=== PATIENT | male | born 1935 | race Caucasian/White ===

== ENCOUNTER 2020-12-17 08:00 | Outpatient (RCR) | payer MEDICARE, SELFPAY ==
--- NOTE | 2020-11-25 09:47 | OTOPEVAL ---
OCCUPATIONAL THERAPY EVALUATION REPORT 11/25/20 Thank you for referring Shayne Epps to [facility].? The patient is scheduled to be seen for therapy again this week on Monday for fabrication of left wrist cock up orthotic and then subsequently?1x/week for 4 weeks. Please review, sign, date and return this plan of care LAZARO. I agree with and certify that the following plan of care is medically necessary. Referring Physician Date Referring Provider: Saeed Sandhu MD *OT Outpatient Evaluation Therapy Assessment Status Assessment Status Assessment Status Evaluation Outpatient Past Medical History Past Medical History Source of Past Medical History Patient Neurological History Hx Neurological Disorders No Significant History Cardiovascular History Hx Hypertension Yes Hx Myocardial Infarction Yes: 1997 Respiratory History Hx Respiratory Disorders No Significant History Gastrointestinal History Hx Gastrointestinal Disorders No Significant History Genitourinary History Hx Genitourinary Disorders No Significant History Musculoskeletal History Hx Arthritis Yes: back, hands, fingers Hematological History Hx Hematological Disorders No Significant History Endocrine History Hx Endocrine Disorders No Significant History HEENT History Hx HEENT Disorders No Significant History Integumentary History Hx Skin Disorders No Significant History Reproductive History Hx Reproductive Disorders No Significant History Psychosocial History Hx Psychiatric Disorders No Significant History Pain History History of Any Previous or Ongoing No Significant History Instance of Pain Evaluation Information Problem Diagnosis Bilateral carpal tunnel Onset about 3-4 weeks ago Subjective Information Shayne reports onset of Query Text:As Reported By Patient/ symptoms about a month ago. He Family just finished 6 days of steroids which decreased his pain from 9/10 to 1/10 at night. No pain symptoms reported during the day. He does note that his fingertips feel numb. The patient is independent and active. Does yard work and housework, some cooking, etc. Prior Level of Function Activity Level (Last 3 Months) Occupation Retired Hand Dominance Right Activity of Daily Living Ability Independent Cooking Yes Cleaning Yes Laundry Yes Shopping Yes Driving Yes Pain Assessment Timing of Pain Assessment Timing of Pain Asses
--- NOTE | 2020-12-17 10:27 | OTOPEVAL ---
OCCUPATIONAL THERAPY RE-EVALUATION REPORT AND DISCHARGE SUMMARY 12/17/20 Shayne presents for re-evaluation after 3 weeks of night time immobilization, tendon and nerve gliding HEP, and use of paraffin and ultrasound to help reduce pain and inflammation in bilateral hands. Patient has had a steady increase in his pain since he finished his steroid prescription. 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 respectively. Shiloh-Alura Monofilament testing for nerve shows minimal improvement in the right and and no change in the left hand. Patient states he is to follow up with a neurologist, which appears to be an appropriate plan as therapy does not appear to be helping the patient's symptoms. The patient may also benefit from a closer look at the cervical spine to rule out cervical radiculopathy. At this time he is being discharged from OT with HEP. He is currently independent with all materials, nighttime splinting, and non-medication pain management techniques. Thank you for referring Shayne Epps to [facility]. Please review, sign, date and return this Discharge Summary LAZARO. I agree with and certify that the following plan of care is medically necessary. Referring Physician Date Referring Provider: Saeed Sandhu MD *OT Outpatient Re-Evaluation Evaluation Information Problem Diagnosis Bilateral carpal tunnel Onset Unknown Additional Evaluation Detail Patient has participated in outpatient OT x3 weeks. Treatments have included fabrication of splinting for night time wear, tendon and nerve gliding, and use of modalities for pain and inflammation reduction. He has been compliant with all materials. Subjective Information Shayne reports that his hands Query Text:As Reported By Patient/ are still clumsy and he Family continues to have difficulty with buttons, managing his wallet, holding a razor, holding a toothbrush, holding a book, and opening jars/ containers. He states his left hand goes numb more frequently than it did before and he continues to have decreased sensation to the fingertips and thumb of bilateral hands. He does have night symptoms and intermittent pain/numbness during the day. Pain Assessment Timing of Pain Assessment Timing of Pain Assessment Re-assessment Pain Scale Pain Scale Used Numeric (1 - 10) Self Report Pain Assessment Bilateral Hand(s)
== END 2020-12-17 12:40 | disposition home or self-care (01) ==
LOC: ANHOT 08:00
PROVIDERS: PCP Internal Medicine; Visit Provider Orthopaedic Surgery
DX: G56.03 Carpal tunnel syndrome, bilateral upper limbs (principal)
CPT/HCPCS: 97018; 97035; 97110; 97140; 97165; L3906

== ENCOUNTER 2020-12-24 10:30 | Outpatient (CLI) | payer MEDICARE, SELFPAY ==
--- NOTE | 2020-12-24 12:00 | NEURO_ITS ---
Impression: # Complains of numbness of hands. # Bilateral Carpal Tunnel Syndrome. # No ulnar neuropathy. # Normal needle/EMG exam. # Superimposed cervical radiculopathy cannot be ruled out. Nerve Conduction Studies Anti Sensory Summary Table Stim Site NR Peak (ms) P-T Amp (?V) Site1 Site2 Delta-P (ms) Dist (cm) Scar (m/s) Left Median Anti Sensory (2-3nd Digit) Wrist 5.6 16.6 Wrist 2-3nd Digit 5.6 14.0 25 Wrist 4.6 27.3 Wrist 2-3nd Digit 5.6 14.0 25 Right Median Anti Sensory (2-3nd Digit) NO RESPONSE Wrist NR Wrist 2-3nd Digit 14.0 Wrist NR Wrist 2-3nd Digit 14.0 Left Radial Anti Sensory (Base 1st Digit) Wrist 2.4 19.2 Wrist Base 1st Digit 2.4 0.0 Right Radial Anti Sensory (Base 1st Digit) Wrist 2.8 6.2 Wrist Base 1st Digit 2.8 0.0 Left Ulnar Anti Sensory (5th Digit) Wrist 2.9 64.6 Wrist 5th Digit 2.9 14.0 48 Right Ulnar Anti Sensory (5th Digit) Wrist 2.7 48.1 Wrist 5th Digit 2.7 14.0 52 Motor Summary Table Stim Site NR Onset (ms) O-P Amp (mV) Site1 Site2 Delta-0 (ms) Dist (cm) Scar (m/s) Left Median Motor (Abd Poll Brev) Wrist 4.3 0.5 Elbow Wrist 5.5 30.0 55 Elbow 9.8 0.4 Right Median Motor (Abd Poll Brev) Wrist 4.2 1.2 Elbow Wrist 5.7 30.0 53 Elbow 9.9 0.3 Left Ulnar Motor (Abd Dig Minimi) Wrist 3.0 5.1 A Elbow Wrist 5.4 30.0 56 A Elbow 8.4 3.7 Right Ulnar Motor (Abd Dig Minimi) Wrist 3.1 5.2 A Elbow Wrist 5.3 29.0 55 A Elbow 8.4 3.2 F Wave Studies NR F-Lat (ms) L-R F-Lat (ms) Left Median (Mrkrs) (Abd Poll Brev) 32.81 0.00 Right Median (Mrkrs) (Abd Poll Brev) 32.81 0.00 Left Ulnar (Mrkrs) (Abd Dig Min) 30.76 0.44 Right Ulnar (Mrkrs) (Abd Dig Min) 31.19 0.44 EMG Side Muscle Nerve Root Ins Act Fibs Amp Dur Recrt Comment Right 1stDorInt Ulnar C8-T1 Nml Nml Nml Nml Nml Right Ext Indicis Radial (Post Int) C7-8 Nml Nml Nml Nml Nml Right Ext Digitorum Radial (Post Int) C7-8 Nml Nml Nml Nml Nml Right BrachioRad Radial C5-6 Nml Nml Nml Nml Nml Right PronatorTeres Median C6-7 Nml Nml Nml Nml Nml Right Abd Poll Brev Median C8-T1 Nml Nml Nml Nml Nml Left 1stDorInt Ulnar C8-T1 Nml Nml Nml Nml Nml Left Ext Indicis Radial (Post Int) C7-8 Nml Nml Nml Nml Nml Left Ext Digitorum Radial (Post Int) C7-8 Nml Nml Nml Nml Nml Left BrachioRad Radial C5-6 Nml Nml Nml Nml Nml Left PronatorTeres Median C6-7 Nml Nml Nml Nml Nml Left Abd Poll Brev Median C8-T1 Nml Nml Nml Nml Nml MTDD
== END 2020-12-24 10:31 | disposition home or self-care (01) ==
PROVIDERS: PCP Internal Medicine; Visit Provider Orthopaedic Surgery
DX: G56.03 Carpal tunnel syndrome, bilateral upper limbs (principal)
CPT/HCPCS: 95886; 95911

== ENCOUNTER 2021-01-20 08:48 | Outpatient (CLI) | payer MEDICARE, SELFPAY ==
--- NOTE | 2021-01-20 08:51 | ECG_ITS ---
Measurements Intervals [place] Rate: 73 P: 48 MT: 197 QRS: 14 QRSD: 98 T: 51 QT: 353 QTc: 390 Interpretive Statements SINUS RHYTHM CONSIDER INFERIOR INFARCT, AGE INDETERMINATE BASELINE ARTIFACT- I, II, III, AVR, AVL, AVF ABNORMAL ECG Electronically Signed On 01-20-2021 9:32:46 GLOBAL SUPPLY CHAIN DIRECTOR by Noman Rosas D.O.
== END 2021-01-20 08:49 | disposition home or self-care (01) ==
PROVIDERS: PCP Physician Assistant; Visit Provider Orthopaedic Surgery
DX: Z01.810 Encounter for preprocedural cardiovascular examination (principal); R94.31 Abnormal electrocardiogram [ECG] [EKG]
CPT/HCPCS: 93005

== ENCOUNTER → 2021-01-22 00:20 | Outpatient (CLI) | payer MEDICARE, SELFPAY ==
[2021-01-22 18:59] LABS: SARS-CoV-2 RNA PCR Negative
== END ==
PROVIDERS: PCP Physician Assistant; Visit Provider Orthopaedic Surgery
DX: Z01.812 Encounter for preprocedural laboratory examination (principal); Z20.822 Contact with and (suspected) exposure to COVID-19
CPT/HCPCS: C9803; U0003; U0005

== ENCOUNTER 2021-01-25 01:49 | Day surgery (SDC) | payer MEDICARE, SELFPAY ==
[2021-01-14 15:45] VITALS: BMI 30.7
--- NOTE | 2021-01-25 12:20 | P.PNAN_ITS ---
Anes - Initial Pre Proc Eval Procedure: Operation Date: 01/25/21 13:30 Proposed Procedures p Right Carpal Tunnel Release - Saeed Sandhu MD Date/Time: 01/25/21 12:20 Surgeon: Saeed Sandhu MD Pre Op Diagnosis: Right Carpal Tunnel Syndrome Patient Data Age: 86 Gender: M Height: 1.7 m Weight: 88.6 kg Allergies Allergy/AdvReac Type Severity Reaction Status Date / Time No Known Allergies Allergy Verified 01/25/21 11:52 Home Medications Medication Instructions Recorded Confirmed Type aspirin 81 mg tablet,delayed 81 mg PO QPM 11/18/20 01/25/21 History release losartan 25 mg tablet 25 mg PO QPM 11/18/20 01/25/21 History pravastatin 40 mg tablet 40 mg PO QPM 11/18/20 01/25/21 History acetaminophen [Tylenol] 500 mg PO PRN PRN 01/14/21 01/25/21 History Patient hx anesthesia problems: none Family hx anesthesia problems: none PMFSH Past Medical History Medical History (Updated 01/25/21 @ 07:07 by Aki Alejandre DO) History of arthritis History of heart attack 1996 History of heart disease 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 [facility] History of right hip replacement 2012- Dr. Sandhu Family History Family History Sibling Family history of pancreatic cancer Family history of renal failure Patient's sister is Patient's brother is Father Patient's father is Social History Social History Smoking packs per day: 1 Smoking cigarettes per day: 20.0 Years smoked: 18 Smoking pack-years: 18.00 Smoking status: Never smoker Tobacco type: cigarettes Second hand tobacco smoke exposure: No Smoking end date: 11/13/82 Alcohol intake: current Drinks per week: 7 Living arrangements: with family Additional living arrangements comments: - Lovely Epps Gender identity (if verbalized by the patient): Male Spiritual care concerns: No Anes - Eval Final PreProcedure Day of Procedure 01/25/21 12:20 Patient weight: obese Heart: regular rate and rhythm Lungs: clear to auscultation and normal air movement Airway: Mallampati scale class II Neurological: alert and oriented Last oral intake: >/= 8 hours ASA classification: III Emergent: no Anesthetic plan: proceed Anesthesia type and monitoring: general GIVS and standard monitoring Informed Consent: The patient's anesthetic plan and its attendant risks and benefits were discussed with the patient/family/POA. Questions were solicited and answers provided to the satisfaction of the patient/family/POA.
[2021-01-25] MEDS: LACTATED RINGERS 1,000 ML 30 ML IV CONT (12:26)
[2021-01-25] MEDS: KETOROLAC 15 MG/ML VIAL (*BKC) IV PUSH (12:27)
[2021-01-25 12:30] VITALS: BP 147/75; PULSE 72; RESP 16; TEMP 36.6; O2SAT 97
--- NOTE | 2021-01-25 13:57 | WPDHPUPDATE1 ---
History and Physical Update Update Date/Time: 01/25/21 13:57 History and Physical has been reviewed, including an updated exam of the patient. There are NO changes in the patient's condition. Risks, benefits, and alternatives have been discussed and questions answered. Patient agrees to proceed with procedure.
[2021-01-25] MEDS: ceFAZolin 2 GM/D5W 50 ML 2 GM/50 ML BAG IVPB (14:15)
[2021-01-25] MEDS: BUPIVACAINE/EPINEPHRINE 0.25% 50 ML VIAL 20 ML INFILTRATE (14:41)
[2021-01-25 14:58] VITALS: BP 121/45; PULSE 62; RESP 14; O2SAT 96
--- NOTE | 2021-01-25 15:06 | PM.PROC ---
Procedure Note - Detailed Date of procedure: 01/25/21 Pre-op diagnosis: Right Carpal Tunnel Syndrome Post-op diagnosis: same Procedure performed: Right carpal tunnel release Description of procedure: The patient was identified and proper side identified. After being taken to the operating room and transferred to the OR table, a nonsterile tourniquet was placed high on the right upper extremity, which was prepped and draped in the usual sterile fashion. After IV sedation was administered, the subcutaneous tissue in the area of the incision was infiltrated with several cc of 0.25% Marcaine and epinephrine solution. The extremity was exsanguinated and tourniquet inflated to 250 mmHg remaining up for approximately 8 minutes. A longitudinal incision was over the ulnar aspect of the transverse carpal ligament. Subcutaneous tissue was bluntly dissected down to the ligament, which was identified and then transected longitudinally in line with the incision releasing the contents of the carpal canal. The tourniquet was released. Hemostasis was carried out with bipolar electrocautery. The median nerve had appropriate blush with reperfusion. The wound was irrigated with sterile saline solution. Skin edges were reapproximated with four 0 nylon suture and a sterile dressing was applied. A well-padded volar wrist splint was fashioned with the wrist in a neutral position. Surgeon: Saeed Sandhu MD
[2021-01-25 15:20] VITALS: BP 121/45; PULSE 61; RESP 20
[2021-01-25 15:50] VITALS: BP 155/61; PULSE 70; RESP 20
== END 2021-01-25 16:05 | disposition home or self-care (01) ==
PROVIDERS: PCP Physician Assistant; Visit Provider Orthopaedic Surgery
PROC: (CPT 64721; principal; 2021-01-25 13:30)
DX: G56.01 Carpal tunnel syndrome, right upper limb (principal); I11.9 Hypertensive heart disease without heart failure; I25.2 Old myocardial infarction; Z79.82 Long term (current) use of aspirin; Z87.891 Personal history of nicotine dependence; E66.9 Obesity, unspecified; Z68.30 Body mass index [BMI] 30.0-30.9, adult
CPT/HCPCS: 64721; A4565; J0690; J1885; J2704; J7120

== ENCOUNTER → 2021-02-19 00:42 | Outpatient (CLI) | payer MEDICARE, SELFPAY ==
[2021-02-19 19:49] LABS: SARS-CoV-2 RNA PCR Negative
== END ==
PROVIDERS: PCP Physician Assistant; Visit Provider Orthopaedic Surgery
DX: Z01.812 Encounter for preprocedural laboratory examination (principal); Z20.822 Contact with and (suspected) exposure to COVID-19
CPT/HCPCS: C9803; U0003; U0005

== ENCOUNTER 2021-02-22 01:53 | Day surgery (SDC) | payer MEDICARE, SELFPAY ==
[2021-02-15 12:58] VITALS: BMI 30.1
[2021-02-22 11:38] VITALS: BP 154/71; PULSE 63; RESP 18; TEMP 36.2; O2SAT 98
[2021-02-22] MEDS: LACTATED RINGERS 1,000 ML 30 ML IV CONT (12:25)
[2021-02-22] MEDS: KETOROLAC 15 MG/ML VIAL (*BKC) IV PUSH (12:27)
[2021-02-22] MEDS: ACETAMINOPHEN 500 MG TABLET 1000 MG PO (12:27)
--- NOTE | 2021-02-22 12:42 | WPDHPUPDATE1 ---
History and Physical Update Update Date/Time: 02/22/21 12:42 History and Physical has been reviewed, including an updated exam of the patient. There are NO changes in the patient's condition. Risks, benefits, and alternatives have been discussed and questions answered. Patient agrees to proceed with procedure.
--- NOTE | 2021-02-22 13:41 | P.PNAN_ITS ---
Anes - Initial Pre Proc Eval Procedure: Operation Date: 02/22/21 13:30 Proposed Procedures p Left Carpal Tunnel Release - Saeed Sandhu MD Date/Time: 02/22/21 13:41 Surgeon: Saeed Sandhu MD Pre Op Diagnosis: Left Carpal Tunnel Syndrome Patient Data Age: 86 Gender: M Height: 5 ft 7 in Weight: 87.15 kg Allergies Allergy/AdvReac Type Severity Reaction Status Date / Time No Known Allergies Allergy Verified 02/15/21 12:43 Home Medications Medication Instructions Recorded Confirmed Type aspirin 81 mg tablet,delayed 81 mg PO QPM 11/18/20 02/15/21 History release losartan 25 mg tablet 25 mg PO QPM 11/18/20 02/15/21 History pravastatin 40 mg tablet 40 mg PO QPM 11/18/20 02/15/21 History acetaminophen [Tylenol] 500 mg PO PRN PRN 01/14/21 02/15/21 History Patient hx anesthesia problems: none Family hx anesthesia problems: none PMFSH Past Medical History Medical History History of arthritis History of heart attack 1996 History of heart 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 [facility] History of right hip replacement 2012- Dr. Sandhu Family History Family History Sibling Family history of pancreatic cancer Family history of renal failure Patient's sister is Patient's brother is Father Patient's father is Social History Social History Smoking packs per day: 1 Smoking cigarettes per day: 20.0 Years smoked: 18 Smoking pack-years: 18.00 Smoking status: Former smoker Tobacco type: cigarettes Second hand tobacco smoke exposure: No Smoking end date: 11/13/82 Alcohol intake: current Drinks per week: 7 Living arrangements: with family Additional living arrangements comments: - Lovely Epps Gender identity (if verbalized by the patient): Male Spiritual care concerns: No Anes - Eval Final PreProcedure Day of Procedure 02/22/21 13:41 Patient weight: obese Heart: regular rate and rhythm Lungs: clear to auscultation Airway: Mallampati scale class II Neurological: alert and oriented Last oral intake: >/= 8 hours ASA classification: III Emergent: no Anesthetic plan: proceed Anesthesia type and monitoring: general GIVS and standard monitoring Informed Consent: The patient's anesthetic plan and its attendant risks and benefits were discussed with the patient/family/POA. Questions were solicited and answers provided to the satisfaction of the patient/family/POA.
[2021-02-22] MEDS: ceFAZolin 2 GM/D5W 50 ML 2 GM/50 ML BAG IVPB (14:48)
[2021-02-22] MEDS: BUPIVACAINE/EPINEPHRINE 0.25% 50 ML VIAL INFILTRATE (15:14)
[2021-02-22 15:28] VITALS: BP 109/56; PULSE 66; RESP 14; O2SAT 99
--- NOTE | 2021-02-22 15:30 | PM.PROC ---
Procedure Note - Detailed Date of procedure: 02/22/21 Pre-op diagnosis: Left Carpal Tunnel Syndrome Post-op diagnosis: same Procedure performed: The patient was identified and proper side identified. After being taken to the operating room and transferred to the OR table, a nonsterile tourniquet was placed high on the left upper extremity, which was prepped and draped in the usual sterile fashion. After IV sedation was administered, the subcutaneous tissue in the area of the incision was infiltrated with several cc of 0.25% Marcaine and epinephrine solution. The extremity was exsanguinated and tourniquet inflated to 250 mmHg remaining up for approximately 5 minutes. A longitudinal incision was over the ulnar aspect of the transverse carpal ligament. Subcutaneous tissue was bluntly dissected down to the ligament, which was identified and then transected longitudinally in line with the incision releasing the contents of the carpal canal. The tourniquet was released. Hemostasis was carried out with bipolar electrocautery. The median nerve had appropriate blush with reperfusion. The wound was irrigated with sterile saline solution. Skin edges were reapproximated with four 0 nylon suture and a sterile dressing was applied. A well-padded volar wrist splint was fashioned with the wrist in a neutral position. Surgeon: Saeed Sandhu MD Estimated blood loss (mL): 1 Tourniquet time (min): 5 Drains: No Packing: No Pathology: none sent Complications: No immediate complications Condition: stable Disposition: PACU
[2021-02-22 15:58] VITALS: BP 116/62; PULSE 64; RESP 14
[2021-02-22 16:20] VITALS: BP 165/69; PULSE 69; RESP 14
== END 2021-02-22 16:30 | disposition home or self-care (01) ==
PROVIDERS: PCP Physician Assistant; Visit Provider Orthopaedic Surgery
PROC: (CPT 64721; principal; 2021-02-22 13:30)
DX: G56.02 Carpal tunnel syndrome, left upper limb (principal); Z79.82 Long term (current) use of aspirin; Z87.891 Personal history of nicotine dependence; E66.9 Obesity, unspecified; Z68.30 Body mass index [BMI] 30.0-30.9, adult; I11.9 Hypertensive heart disease without heart failure
CPT/HCPCS: 64721; A9270; J0690; J1885; J2704; J3010; J7120

== ENCOUNTER 2021-10-13 06:59 | Outpatient (CLI) | payer MEDICARE, SELFPAY ==
[2021-10-13 07:53] LABS: Hematocrit 39.6 % (42.0-52.0); Hemoglobin 13.7 g/dL (14.0-18.0); Immature Platelet Fraction Pct 3.3 % (0.9-11.2); Mean Corpuscular HGB Conc 34.6 g/dl (32-36); Mean Corpuscular Hemoglobin 30.9 pg (26-34); Mean Corpuscular Volume 89.4 fl (80-100); Mean Platelet Volume 10.4 fl (7.4-10.4); Platelet Count Result 140 k/mm3 (150-375); Red Blood Count 4.43 M/mm3 (4.6-6.20); Red Cell Distribution Width 12.3 % (11.5-14.5); White Blood Count 6.2 K/mm3 (4.5-10.0)
[2021-10-13 08:04] LABS: Alanine Aminotransferase 18 U/L (4-50); Albumin Level 3.9 g/dL (3.5-5.1); Alkaline Phosphatase 76 U/L (38-126); Anion Gap 7 mmol/L (8-16); Aspartate Amino Transferase 28 U/L (17-59); Bilirubin,Total 1.1 mg/dL (0.2-1.3); Blood Urea Nitrogen 19 mg/dL (9-20); Calcium 9.1 mg/dL (8.4-10.2); Carbon Dioxide 24 mmol/L (22-30); Chloride 104 mmol/L (98-107); Cholesterol 156 mg/dL (0-200); Estimated Glomerular Filt Rate > 60; Glucose 130 mg/dL (65-110); HDL Direct 55 mg/dL; Potassium 4.5 mmol/L (3.4-5.0); Sodium 135 mmol/L (137-145); Triglycerides 79 mg/dL (<150)
[2021-10-13 08:16] LABS: LDL Cholesterol Direct 75 mg/dL
[2021-10-13 08:34] LABS: Prostate Specific Antigen 1.6 ng/mL (< OR = 4.0)
[2021-10-13 09:10] LABS: Folic Acid 6.2 ng/mL (2.76->20)
[2021-10-13 13:40] LABS: Hemoglobin A1C 5.5 % (<5.7)
== END 2021-10-13 07:00 | disposition home or self-care (01) ==
PROVIDERS: PCP Physician Assistant; Visit Provider Physician Assistant
DX: E78.5 Hyperlipidemia, unspecified (principal); R53.83 Other fatigue; Z12.5 Encounter for screening for malignant neoplasm of prostate; R73.9 Hyperglycemia, unspecified
CPT/HCPCS: 36415; 80053; 80061; 82607; 82746; 83036; 84153; 84443; 85027; 85055; G0103

== ENCOUNTER 2023-04-11 10:29 | Outpatient (CLI) | payer MEDICARE, SELFPAY ==
[2023-04-11 11:10] LABS: Appearance Urine Cloudy (Clear); Bacteria Urine 4+ /hpf; Bilirubin Urine Negative (Negative); Blood Urine 2+ (Negative); Color Urine Yellow (Yellow); Glucose Urine UA Negative (Negative); Ketones Urine Negative (Negative); Leukocyte Esterase Ur 2+ LEU/UL (NEGATIVE); Nitrate Urine Positive (Negative); Non Pathogenic Casts 0-2; Protein Urine 2+ mg/dL (Negative); RBC Urine 0-2 /hpf (0-2); Specific Grav Ur 1.022 (1.001-1.035); Squamous Epithelial Cell Urine None seen /hpf (Few); Urobilinogen Urine 0.2 mg/dL (<2.0); WBC Urine >100 /hpf (0-3); pH Urine 5.5 (5.0-9.0)
[2023-04-11 11:15] LABS: Add Urine Microscopic? YES
== END 2023-04-11 10:30 | disposition home or self-care (01) ==
PROVIDERS: PCP Physician Assistant; Visit Provider Physician Assistant
DX: R39.15 Urgency of urination (principal)
CPT/HCPCS: 81001; 87077; 87086; 87186

== ENCOUNTER 2023-04-15 18:03 | Inpatient (IN) | payer MEDICARE, SELFPAY ==
[2023-04-15] VITALS (31 sets, daily range): BP systolic 107–179; BP diastolic 45–92; PULSE 76–98; RESP 14–36; TEMP 37–37.2; O2SAT 93–98; BMI 29.7
--- NOTE | ~2023-04-15 | US_ITS ---
. EXAMINATION: US renal BI DATE: 04/17/2023 08:24 INDICATION: Acute kidney injury. TECHNIQUE: Multiple ultrasound grayscale images of the kidneys were obtained. COMPARISON: CT abdomen and pelvis 04/15/2023 FINDINGS: The right kidney measures 12.0 x 6.4 x 6.0 cm. The left kidney measures 12.8 x 6.4 x 5.2 cm. The kidn eys demonstrate normal parenchymal echogenicity. There are cysts in the kidneys measuring up to 4.6 c m on the right. There is no hydronephrosis. The bladder is normal. IMPRESSION: 1. Normal kidney sizes. No hydronephrosis. Reviewed, dictated and finalized at location A.
--- NOTE | ~2023-04-15 | CT_ITS ---
CT of the Abdomen and Pelvis: Indication: Vomiting, bowel obstruction Technique: 2.5 mm axial scans were obtained through the abdomen and pelvis following intravenous adm inistration of 100 cc of Omnipaque 350. Dose reduction technique was used on this scan by utilizing a utomated exposure control and iterative reconstruction technique. The dose-length product (DLP) was 1 045.58 mGy-cm. COMPARISON: 03/06/2013 Findings: Scans through the lung bases demonstrate mild bibasilar chronic interstitial change. The liver, spleen, pancreas, and adrenal glands are within normal limits. Small gallstones are presen t. Bilateral renal cysts noted. There are atherosclerotic calcifications of the aorta. No lymphadeno danielle. No bowel obstruction. Probable under distention of the ascending and proximal transverse colon. No ab scess or free air. Images through the pelvis there are mildly degraded by streak artifact from right hip arthroplasty. Q uestionable mild urinary bladder wall thickening. Prostate gland is enlarged. No ascites. Impression: Questionable cystitis. Correlate with urinalysis. Probable under distention of ascending and proximal transverse colon rather than colitis. Correlate c linically. No bowel obstruction. Cholelithiasis. Enlarged prostate gland. Reviewed, dictated and finalized at location M. Impression: Questionable cystitis. Correlate with urinalysis. Probable under distention of ascending and proximal transverse colon rather gina n colitis. Correlate clinically. No bowel obstruction. Cholelithiasis. Enlarged prostate gland.
--- NOTE | 2023-04-15 19:30 | ED.NAVMDI ---
HPI - Nausea/Vomiting/Diarrhea General Chief complaint: Nausea/Vomiting/Diarrhea Stated complaint: N/V Time Seen by Provider: 04/15/23 18:59 History of Present Illness HPI Narrative: Patient is an 88-year-old male presenting with vomiting and constipation. Patient states that he has been constipated for the last 3 to 4 weeks. States that he had a small bowel movement yesterday. States that he then had multiple dry heaves today. States he is able to keep fluids down. His states that he started antibiotics approximately 4 to 5 days ago for a UTI. States that he has 1 pill left. He continues to have frequent urination. She states that he also had a fever up to 100.4 Fahrenheit today. No headache, chest pain, cough, shortness of breath, leg swelling, rashes. Related Data Home Medications Medication Instructions Recorded Confirmed aspirin 81 mg tablet,delayed 81 mg PO QPM 11/18/20 04/24/23 release (Adult Aspirin Regimen) losartan 25 mg tablet 25 mg PO QPM 11/18/20 04/24/23 pravastatin 40 mg tablet 40 mg PO QPM 11/18/20 04/24/23 Allergies Allergy/AdvReac Type Severity Reaction Status Date / Time No Known Allergies Allergy Verified 04/24/23 13:06 Review of Systems Review of Systems: All systems reviewed & are unremarkable except as noted in HPI and below PMFSH Past Medical History Medical History Arthritis of left hip History of arthritis History of heart attack 1996 History of heart disease 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 History of right hip replacement 2012- Dr. Sandhu Family History Family History Sibling Family history of pancreatic cancer Family history of renal failure Patient's sister is Patient's brother is Father Patient's father is Social History Social History Smoking packs per day: 1 Smoking cigarettes per day: 20.0 Years smoked: 18 Smoking pack-years: 18.00 Smoking status: Former smoker Second hand tobacco smoke exposure: No Alcohol intake: current Drinks per week: 7 Alcohol use details: moderate Substance use: never Substance use type: does not use Lack of Transportation: No Lack of Food: Never True Current Housing: I Have Housing Concerned About Future Housing: No Difficulty Paying Gas/Electric Bills: No Difficulty Paying for Meds: No Currently Unemployed: No Education: High School Diploma/GED Difficulty w/ Childcare or Family Care: No Living arrangements: with family Additional living arrangements comments: - Lovely Epps Occupation/Education: retired Gender identity (if verbalized by the patient): Male Spiritual care concerns: No Exam Narrative: GENERAL: Well-appearing, well-nourished, and in no acute distress. HEAD: Normocephalic, atraumatic. EYES: PERRLA and EOMI. ENT: Nares clear, no rhinorrhea or epistaxis. Mucous membranes dry NECK: Supple. CHEST: Clear to auscultation. No respiratory distress. HEART: Regular rate and rhythm. ABDOMEN: Soft, nontender, nondistended EXTREMITIES: Normal range of motion. No edema. SKIN: Warm, dry, no rash. NEURO: No focal deficits. Alert and oriented x3. PSYCH: Normal mood and affect. Course Vital Signs Vital signs: Vital Signs Temperature 99 F 04/15/23 18:07 Pulse Rate 97 04/15/23 18:07 Respiratory Rate 16 04/15/23 18:07 Blood Pressure 179/92 H 04/15/23 18:07 Pulse Oximetry 98 04/15/23 18:07 Temperature 97.9 F 04/17/23 06:00 Pulse Rate 89 04/17/23 06:00 Res
[2023-04-15] MEDS: SODIUM CHLORIDE 0.9% IV 1,000 ML 999 ML IV CONT ×2 (19:52→21:07)
[2023-04-15 19:58] LABS: Basophils Absolute Auto 0.1 K/mm3 (0.0-0.1); Basophils Percent Auto 0.5 % (0.2-1.2); Eosinophils Percent Auto 0.3 % (0-4.4); Hematocrit 38.8 % (42.0-52.0); Hemoglobin 13.2 g/dL (14.0-18.0); Immature Granulocyte Absolute 0.04 K/mm3 (0.00-0.031); Immature Granulocyte Percent A 0.4 % (0-0.5); Lymphocytes Absolute Auto 0.18 K/mm3 (0.9-3.2); Lymphocytes Percent Auto 1.9 % (18.3-44.2); Mean Corpuscular Hemoglobin 30.5 pg (26-34); Mean Corpuscular Volume 89.6 fl (80-100); Mean Platelet Volume 10.9 fl (7.4-10.4); Monocytes Absolute Auto 0.7 K/mm3 (0.1-0.6); Monocytes Percent Auto 7.1 % (2.6-8.5); Neutrophils Absolute Auto 8.5 K/mm3 (1.3-6.7); Neutrophils Percent Auto 89.8 % (45.5-73.1); Platelet Count Result 159 k/mm3 (150-375); Red Blood Count 4.33 M/mm3 (4.6-6.20); White Blood Count 9.5 K/mm3 (4.5-10.0)
[2023-04-15 20:10] LABS: Alanine Aminotransferase 52 U/L (6-50); Albumin Level 3.8 g/dL (3.5-5.1); Alkaline Phosphatase 78 U/L (38-126); Anion Gap 10 mmol/L (8-16); Aspartate Amino Transferase 56 U/L (17-59); Blood Urea Nitrogen 31 mg/dL (9-20); Calcium 8.4 mg/dL (8.4-10.2); Carbon Dioxide 21 mmol/L (22-30); Chloride 101 mmol/L (98-107); Estimated CRCL calculation 30 ml/min; Estimated Glomerular Filt Rate 41; Glucose 174 mg/dL (65-110); Lipase 39 U/L (23-300); Potassium 4.7 mmol/L (3.4-5.0); Sodium 132 mmol/L (137-145)
[2023-04-15 20:35] LABS: Appearance Urine Clear (Clear); Bacteria Urine None Seen /hpf; Bilirubin Urine Negative (Negative); Blood Urine 1+ (Negative); Color Urine Yellow (Yellow); Glucose Urine UA Negative (Negative); Ketones Urine Trace mg/dL (Negative); Leukocyte Esterase Ur Trace LEU/UL (Negative); Nitrate Urine Negative (Negative); Non Pathogenic Casts 0-2; Protein Urine 1+ mg/dL (Negative); RBC Urine 0-2 /hpf (0-2); Specific Grav Ur 1.014 (1.001-1.035); Squamous Epithelial Cell Urine None seen /hpf (Few); pH Urine 5.5 (5.0-9.0)
[2023-04-15 20:37] LABS: Schistocytes None Seen (NORMAL)
[2023-04-15 20:38] LABS: Burr Cells 1+ (NORMAL); Platelet Estimate Adequate (Adequate)
[2023-04-15 20:39] LABS: Add Urine Microscopic? YES
--- NOTE | 2023-04-15 20:56 | PM.IMHP ---
H&P: HPI History of Present Illness Date/Time: 04/15/23 20:56 Chief Complaint: Urinary frequency Narrative: This is an 88-year-old male with past medical history significant for hypertension, dyslipidemia, degenerative joint disease, carpal tunnel syndrome. Patient presents to the emergency room due to several days of poor appetite, night sweats, nausea, vomiting, fevers, chills, rigors, generalized malaise, body aches and pains, generalized weakness, patient has had frequency, constipation. Patient completed course of antibiotics in the outpatient setting for urinary tract infection. Preliminary workup was significant for chemistry panel with a creatinine of 1.6, a CT of abdomen and pelvis was reported as: CT of the Abdomen and Pelvis: Indication: Vomiting, bowel obstruction Technique:? 2.5 mm axial scans were obtained through the abdomen and pelvis following intravenous administration of 100 cc of Omnipaque 350. Dose reduction technique was used on this scan by utilizing automated exposure control and iterative reconstruction technique. The dose-length product (DLP) was 1045.58 mGy-cm. COMPARISON: 03/06/2013 Findings:? Scans through the lung bases demonstrate mild bibasilar chronic interstitial change. The liver, spleen, pancreas, and adrenal glands are within normal limits. Small gallstones are present. Bilateral renal cysts noted. There are atherosclerotic calcifications of the aorta.? No lymphadenopathy. No bowel obstruction. Probable under distention of the ascending and proximal transverse colon. No abscess or free air. Images through the pelvis there are mildly degraded by streak artifact from right hip arthroplasty. Questionable mild urinary bladder wall thickening. Prostate gland is enlarged. No ascites. Impression: Questionable cystitis. Correlate with urinalysis. Probable under distention of ascending and proximal transverse colon rather than colitis. Correlate clinically. No bowel obstruction. Cholelithiasis. Enlarged prostate gland. Patient is been admitted for further evaluation management and treatment. Review of Systems Review of Systems: Nausea, vomiting, diarrhea poor appetite, generalized malaise, fevers, chills, generalized muscle weakness. Constitutional: Constitutional: Reports chills, Reports fatigue, Reports fever(s), Reports malaise, Reports night sweats, Reports poor appetite and Reports weakness Eyes: Eyes: Denies change in vision ENT: Denies dysphagia and Denies odynophagia Cardiovascular: Cardiovascular: Denies chest pain, Denies irregular heart rhythm, Denies leg edema, Denies lightheadedness, Denies radiating jaw, neck or arm pain and Denies palpitations Respiratory: Respiratory: Denies cough, Denies excessive phlegm production and Denies dyspnea Gastrointestinal: Gastrointestinal: Denies abdominal pain, Denies dyspepsia, Reports diarrhea, Reports nausea and Reports vomiting Genitourinary: Genitourinary: Denies dysuria, Denies flank pain and Reports nocturia Musculoskeletal: Musculoskeletal: Reports muscle weakness Integumentary/Breasts: Skin/Breast: Denies rash Neurologic: Denies focal weakness and Denies Sensory deficit (Neuro) Psychiatric: Psychiatric: Reports no additional psychiatric complaints and Reports as per HPI Endocrine: Endocrine: Denies cold intolerance, Denies flushing, Denies heat intolerance, Denies polyphagia, Denies polydipsia and Denies palpitations Hematologic/Lymphatic: Hematologic/Lymphatic: Reports no additional hematologic/lymphatic complaints and Reports as per HPI Allergic/Immunologic: Allergic/Immunologic: Reports no additional allergic/immunologic complaints and Reports as per HPI PMFSH Past Medical History Medical History Arthritis of left hip History of arthritis History of heart attack 1996 History of 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
--- NOTE | 2023-04-15 21:34 | ECG_ITS ---
Measurements Intervals [place] Rate: 76 P: 23 [place]: 200 QRS: 16 QRSD: 84 T: 51 QT: 378 QTc: 426 Interpretive Statements SINUS RHYTHM POSSIBLE INFERIOR MYOCARDIAL INFARCTION , PROBABLY OLD [30 ms Q WAVE IN II/aVF] COMPARED TO ECG 01/20/2021 09:35:19 NO SIGNIFICANT CHANGES Electronically Signed On 04-16-2023 12:15:20 CDT by Lisandro Kirk M.D.
--- NOTE | 2023-04-16 00:03 | PC.NURSE ---
pt is a&o x4, able to make needs known. pt was oriented to the hospital environment, room, call light. pt denies pain, c/o frequent urination and urgency. bedside urinal provided at pt's request. pt ambulates with a cane, and 1 assist. pt c/o increased weakness since diagnosed with a UTI 1 week ago. medications reviewed with pt and his spouse. pt's to bring a copy of advanced directives. pt resting comfortably in bed, bed alarm on as a fall precaution, pt educated about safety and anti-fall strategies. pt educated on when to call for help. all questions answered. no further needs.
[2023-04-16 00:15] VITALS: PULSE 82; RESP 16; O2SAT 98
[2023-04-16 06:00] VITALS: BP 158/54; PULSE 77; RESP 20; TEMP 36.8; O2SAT 98
[2023-04-16 08:21] LABS: Glucose Point of Care 115 mg/dl (65-105)
[2023-04-16] MEDS: polyethylene glycoL 3350 17 GM POWD.PACK PO (09:03)
[2023-04-16 10:38] LABS: Albumin Level 3.3 g/dL (3.5-5.1); Anion Gap 6 mmol/L (8-16); Blood Urea Nitrogen 25 mg/dL (9-20); Calcium 7.9 mg/dL (8.4-10.2); Carbon Dioxide 21 mmol/L (22-30); Chloride 102 mmol/L (98-107); Estimated CRCL calculation 34 ml/min; Estimated Glomerular Filt Rate 48; Glucose 157 mg/dL (65-110); Phosphorus 3.6 mg/dL (2.5-4.5); Potassium 4.5 mmol/L (3.4-5.0); Sodium 129 mmol/L (137-145)
[2023-04-16 11:38] LABS: Hemoglobin A1C 5.5 % (<5.7)
[2023-04-16 13:30] VITALS: BP 137/60; PULSE 72; RESP 16; TEMP 36.8; O2SAT 98
--- NOTE | 2023-04-16 14:52 | PM.IMPN ---
Progress Note: A&P Assessment and Plan (1) UTI (urinary tract infection): Code(s): N39.0 - Urinary tract infection, site not specified Status: Acute Assessment and Plan: Patient c/o dysuria, Tmax 100.4F prior to admission. He was started on Bactrim DS 1 tab BID on Monday04/11/23 and reports compliance. Urine culture shows pansensitive e.coli from 04/11/23. WBC 9.5 on admission. UA with trace Leukocytes, no nitrates or bacteria, and WBC 6-10 which appears improved from previous urine studies. Given Rocephin 1 gram IV in ED. Will hold abx for now and await culture results. (2) Urinary urgency: Code(s): R39.15 - Urgency of urination Status: Acute Assessment and Plan: CT abd/pelvis with questionable cystitis and enlarged prostate. Start Tamsulosin 0.4 mg daily for BPH He reported prior PSA levels were normal. (3) NII (acute kidney injury): Code(s): N17.9 - Acute kidney failure, unspecified Status: Acute Assessment and Plan: Likely secondary Bactrim use and possible obstruction from BPH. Check PVR. Continue IV fluids. hold Lisinopril Renal US (4) Constipation: Code(s): K59.00 - Constipation, unspecified Status: Acute Assessment and Plan: Patient reports pebble like stool for approximately 3-4 weeks. Miralax daily Give bisacodyl suppository x1. CT without SBO Plan CODE STATUS: FULL CODE Discharge disposition: patient is from home. Time Spent With Patient Time with patient: 25 - 35 minutes Subjective Date/time seen: 04/16/23 14:52 Interval history: He still has not had a BM yet. He denies nausea, emesis or abd pain. He denies dysuria at this time. He endorses a weak stream at home, gets up 2 times at night and has to push on his bladder to improve his urine steam. He denies hematuria. He has been taking Bactrim for UTI since Monday of last week, but has not noticed improvement in his symptoms. Review of Systems Review of Systems: All systems reviewed & are unremarkable except as noted in HPI and below Exam Narrative: General: No acute distress. Older adult male sitting up in bed. Mental Status/Psych: Awake, alert and oriented x4 with clear speech. Pleasant and cooperative. Skin: Skin fair, warm, dry and intact without rashes or lesions. HEENT: Normocephalic. Sclera is non-icteric. Pupils equal and round. Oral mucosa pink and moist. Neck: No JVD. Heart: S1 and S2 regular rate and rhythm. No murmurs, gallops, or rubs auscultated. Chest: Respirations even and unlabored. Lung sounds are clear to auscultation without wheezes, rhonchi, or rales. Abdomen: Soft, protuberant and tender to palpation LLQ. Bowel sounds present in all 4 quadrants. No guarding, suprapubic or CVA tenderness. Extremities: No edema, erythema or calf tenderness. Grossly normal ROM. Neurological: No focal deficits. Cranial nerves 2-12 grossly intact. Objective Data Vital Signs Vital Signs: Vital Signs - 24 hr 04/15/23 18:07 04/15/23 18:27 04/15/23 18:28 Temperature 99 F Pulse Rate 97 89 92 Respiratory Rate 16 30 H 23 H Blood Pressure 179/92 H 161/45 H Pulse Oximetry 98 96 98 Oxygen Delivery 04/15/23 18:30 04/15/23 18:32 04/15/23 18:45 Temperature Pulse Rate 87 90 98 Respiratory Rate 32 H 26 H Blood Pressure Pulse Oximetry 97 97 Oxygen Delivery 04/15/23 18:49 04/15/23 19:00 04/15/23 19:02 Temperature Pulse Rate 93 81 86 Respiratory Rate 23 H 33 H 31 H Blood Pressure 162/49 H 141/50 H Pulse Oximetry 94 94 94 Oxygen Delivery 04/15/23 19:15 04/15/23 19:16 04/15/23 19:30 Temperature Pulse Rate 88 89 89 Respiratory Rate 36 H 33 H 21 H Blood Pressure 152/52 H Pulse Oximetry 93 93 94 Oxygen Delivery 04/15/23 19:31 04/15/23 19:45 04/15/23 19:46 Temperature Pulse Rate 86 89 93 Respiratory Rate 25 H 20 21 H Blood Pressure 153/55 H 119/83 Pulse Oximetry 93 93 9
--- NOTE | 2023-04-16 15:09 | PCPTNOTE ---
attempted PT eval ~ 1500, unable to see pt due to working with OT.
[2023-04-16] MEDS: BISACODYL 10 MG SUPPOSITORY RECTAL (15:33)
[2023-04-16] MEDS: TAMSULOSIN HCL 0.4 MG CAPSULE PO (15:33)
[2023-04-16] MEDS: PRAVASTATIN SODIUM 20 MG TABLET 40 MG PO (17:38)
[2023-04-16] MEDS: ASPIRIN 81 MG ENTERIC TABLET PO (17:39)
[2023-04-16 20:00] VITALS: PULSE 75; RESP 16; O2SAT 98
[2023-04-16] MEDS: ACETAMINOPHEN 500 MG TABLET 1000 MG PO (20:15)
[2023-04-16 21:26] VITALS: BP 116/56; PULSE 75; RESP 16; TEMP 36.3; O2SAT 98
[2023-04-17 06:00] VITALS: BP 150/79; PULSE 89; RESP 16; TEMP 36.6; O2SAT 96
[2023-04-17 06:01] LABS: Basophils Absolute Auto 0.1 K/mm3 (0.0-0.1); Basophils Percent Auto 0.5 % (0.2-1.2); Eosinophils Absolute Auto 0.3 K/mm3 (0-0.3); Eosinophils Percent Auto 2.7 % (0-4.4); Hematocrit 34.9 % (42.0-52.0); Hemoglobin 11.9 g/dL (14.0-18.0); Immature Granulocyte Absolute 0.11 K/mm3 (0.00-0.031); Immature Granulocyte Percent A 1.1 % (0-0.5); Lymphocytes Absolute Auto 0.87 K/mm3 (0.9-3.2); Lymphocytes Percent Auto 8.8 % (18.3-44.2); Mean Corpuscular HGB Conc 34.1 g/dl (32-36); Mean Corpuscular Volume 90.9 fl (80-100); Monocytes Absolute Auto 1.2 K/mm3 (0.1-0.6); Monocytes Percent Auto 11.8 % (2.6-8.5); Neutrophils Absolute Auto 7.4 K/mm3 (1.3-6.7); Neutrophils Percent Auto 75.1 % (45.5-73.1); Platelet Count Result 152 k/mm3 (150-375); Red Blood Count 3.84 M/mm3 (4.6-6.20); Red Cell Distribution Width 13.2 % (11.5-14.5); White Blood Count 9.9 K/mm3 (4.5-10.0)
[2023-04-17 06:14] LABS: Alanine Aminotransferase 36 U/L (6-50); Albumin Level 3.1 g/dL (3.5-5.1); Alkaline Phosphatase 59 U/L (38-126); Anion Gap 6 mmol/L (8-16); Aspartate Amino Transferase 36 U/L (17-59); Bilirubin,Total 0.9 mg/dL (0.2-1.3); Blood Urea Nitrogen 22 mg/dL (9-20); Calcium 8.2 mg/dL (8.4-10.2); Carbon Dioxide 23 mmol/L (22-30); Chloride 102 mmol/L (98-107); Estimated CRCL calculation 32 ml/min; Estimated Glomerular Filt Rate 44; Glucose 110 mg/dL (65-110); Potassium 3.9 mmol/L (3.4-5.0); Sodium 131 mmol/L (137-145)
[2023-04-17] MEDS: polyethylene glycoL 3350 17 GM POWD.PACK PO (09:15)
[2023-04-17] MEDS: TAMSULOSIN HCL 0.4 MG CAPSULE PO (09:15)
--- NOTE | 2023-04-17 12:33 | PCPTNOTE ---
On 04/17/23, the student, [Kaylan Ballard], provided care and completed [facility] documentation on this patient. I have reviewed the student's documentation and agree with the findings.
--- NOTE | 2023-04-17 13:24 | PM.DS ---
DS: Admitting Diagnosis Discharge Date 04/17/2023 Admitting Diagnosis Urinary tract infection, site not specified Urgency of urination Acute kidney failure, unspecified DS: Discharge Diagnosis Discharge Diagnosis (1) Urinary urgency: Code(s): R39.15 - Urgency of urination Status: Acute Assessment and Plan: CT abd/pelvis with questionable cystitis and enlarged prostate. Started Tamsulosin 0.4 mg daily for enlarged prostate He reported prior PSA levels were normal. Urine culture with mixed fabian. Repeat UA improved from previous and previous urine culture showed pansensitive E.coli covered by Bactrim. Frequency and urgency likely secondary to enlarged prostate. (2) BPH (benign prostatic hyperplasia): Qualifiers: Lower urinary tract symptom presence: symptoms present Lower urinary tract symptom detail: urinary frequency Qualified Code(s): N40.1 - Benign prostatic hyperplasia with lower urinary tract symptoms; R35.0 - Frequency of micturition Code(s): N40.0 - Benign prostatic hyperplasia without lower urinary tract symptoms Status: Acute Assessment and Plan: CT abd/pelvis with questionable cystitis and enlarged prostate. Started Tamsulosin 0.4 mg daily for enlarged prostate PVR- #1 voided 25 mL and retained 125 mL; #2 voided 100 mL and retained 30 mL.?? He reported prior PSA levels were normal.? Follow up outpatient with PCP.? (3) Abnormal urinalysis: Code(s): R82.90 - Unspecified abnormal findings in urine Status: Acute Assessment and Plan: Patient c/o dysuria, Tmax 100.4F prior to admission. He was started on Bactrim DS 1 tab BID on Monday04/11/23 and reports compliance.? Urine culture shows pansensitive e.coli from 04/11/23.?? WBC 9.5 on admission.? UA with trace Leukocytes, no nitrates or bacteria, and WBC 6-10 which appears improved from previous urine studies.? Given Rocephin 1 gram IV in ED. Urine culture with mixed fabian. Urinary symptoms resolved with tamsulosin medication. (4) NII (acute kidney injury): Code(s): N17.9 - Acute kidney failure, unspecified Status: Acute Assessment and Plan: Likely secondary Bactrim use and possible obstruction from BPH. PVR- #1 voided 25 mL and retained 125 mL; #2 voided 100 mL and retained 30 mL. Treated with IV fluids. held Lisinopril inpatient Renal US negative. Renal function improved at discharge. Repeat labs in 1 week after discharge. (5) Constipation: Qualifiers: Constipation type: slow transit constipation Qualified Code(s): K59.01 - Slow transit constipation Code(s): K59.00 - Constipation, unspecified Status: Acute Assessment and Plan: Patient reported pebble like stool for approximately 3-4 weeks. Miralax daily Given bisacodyl suppository x1. CT without SBO Counseled on activity, fiber intake, fluid intake and OTC stool softeners DS: Summary Hospital Course Reason for hospitalization: Urinary frequency Hospital Course: Patient is an 88-year-old male with hypertension, dyslipidemia, degenerative joint disease, and carpal tunnel syndrome.? Patient presented to the emergency room due to several days of poor appetite, night sweats, nausea, vomiting, fevers, chills, rigors, generalized malaise, body aches, and generalized weakness. Patient c/o urinary frequency and constipation.? He completed a course of Bactrim in the outpatient setting for urinary tract infection recently with approximately 1 tablet remaining.? Preliminary workup was significant for chemistry panel with a creatinine of 1.6, a CT of abdomen and pelvis showed questionable cystitis and enlarged prostate gland. He was admitted for further management of NII and possible UTI. Rocephin 1 gram IV was given in the ED. Tamsulosin 0.4 mg PO daily was initiated. Given previous urine cultured showed E.coli growth sensitive to Bactrim, further antibiotics were held. Urine cultur
== END 2023-04-17 14:15 | disposition home or self-care (01) | DRG 690 ==
LOC: ANHED 18:59 → ANH2MED 04-16 17:47
PROVIDERS: Admitting Provider Internal Medicine; Emergency Provider Emergency Medicine; PCP Physician Assistant; Visit Provider Nurse Practitioner Family
DX: N39.0 Urinary tract infection, site not specified (principal); N17.9 Acute kidney failure, unspecified; K59.00 Constipation, unspecified; I10 Essential (primary) hypertension; E78.5 Hyperlipidemia, unspecified; N40.0 Benign prostatic hyperplasia without lower urinary tract symptoms; Z96.652 Presence of left artificial knee joint; Z96.641 Presence of right artificial hip joint; Z87.891 Personal history of nicotine dependence; Z79.82 Long term (current) use of aspirin; Z79.899 Other long term (current) drug therapy
CPT/HCPCS: 36415; 74177; 76775; 80053; 80069; 81001; 82948; 83036; 83690; 85025; 87086; 87088; 93005; 96360; 97161; 97165; 99285; A9270; J0696; J7030; Q9967

== ENCOUNTER 2023-04-24 08:25 | Outpatient (CLI) | payer MEDICARE, SELFPAY ==
[2023-04-24 09:51] LABS: Albumin Level 3.6 g/dL (3.5-5.1); Anion Gap 7 mmol/L (8-16); Blood Urea Nitrogen 24 mg/dL (9-20); Calcium 8.6 mg/dL (8.4-10.2); Carbon Dioxide 24 mmol/L (22-30); Chloride 102 mmol/L (98-107); Estimated Glomerular Filt Rate > 60; Glucose 152 mg/dL (65-110); Phosphorus 3.3 mg/dL (2.5-4.5); Potassium 4.7 mmol/L (3.4-5.0); Sodium 133 mmol/L (137-145)
== END 2023-04-24 08:26 | disposition home or self-care (01) ==
LOC: ANHLAB 08:27
PROVIDERS: PCP Physician Assistant; Visit Provider Nurse Practitioner Family
DX: N17.9 Acute kidney failure, unspecified (principal); N40.0 Benign prostatic hyperplasia without lower urinary tract symptoms
CPT/HCPCS: 36415; 80069

== ENCOUNTER 2023-05-01 10:06 | Outpatient (CLI) | payer MEDICARE, SELFPAY ==
[2023-05-01 10:47] LABS: Appearance Urine Clear (Clear); Bacteria Urine Rare /hpf; Bilirubin Urine Negative (Negative); Blood Urine 2+ (Negative); Color Urine Yellow (Yellow); Glucose Urine UA Negative (Negative); Ketones Urine Negative (Negative); Leukocyte Esterase Ur 3+ LEU/UL (Negative); Nitrate Urine Positive (Negative); Non Pathogenic Casts 0-2; Protein Urine Negative (Negative); RBC Urine 0-2 /hpf (0-2); Specific Grav Ur 1.006 (1.001-1.035); Squamous Epithelial Cell Urine None seen /hpf (Few); Urobilinogen Urine 0.2 mg/dL (<2.0); WBC Urine 51-100 /hpf; pH Urine 5.5 (5.0-9.0)
[2023-05-01 10:48] LABS: Add Urine Microscopic? YES
== END 2023-05-01 10:07 | disposition home or self-care (01) ==
PROVIDERS: PCP Physician Assistant; Visit Provider Internal Medicine
DX: R30.0 Dysuria (principal)
CPT/HCPCS: 81001; 87077; 87086; 87186

== ENCOUNTER 2023-10-30 07:28 | Outpatient (CLI) | payer MEDICARE, SELFPAY ==
[2023-10-30 08:02] LABS: Basophils Percent Auto 0.5 % (0.2-1.2); Eosinophils Absolute Auto 0.2 K/mm3 (0-0.3); Eosinophils Percent Auto 2.8 % (0-4.4); Hematocrit 36.3 % (42.0-52.0); Hemoglobin 11.9 g/dL (14.0-18.0); Immature Granulocyte Absolute 0.02 K/mm3 (0.00-0.031); Immature Granulocyte Percent A 0.3 % (0-0.5); Lymphocytes Absolute Auto 0.65 K/mm3 (0.9-3.2); Lymphocytes Percent Auto 10.6 % (18.3-44.2); Mean Corpuscular HGB Conc 32.8 g/dl (32-36); Mean Corpuscular Hemoglobin 29.6 pg (26-34); Mean Corpuscular Volume 90.3 fl (80-100); Mean Platelet Volume 9.6 fl (7.4-10.4); Monocytes Absolute Auto 0.8 K/mm3 (0.1-0.6); Monocytes Percent Auto 13.4 % (2.6-8.5); Neutrophils Absolute Auto 4.4 K/mm3 (1.3-6.7); Neutrophils Percent Auto 72.4 % (45.5-73.1); Platelet Count Result 182 k/mm3 (150-375); Red Blood Count 4.02 M/mm3 (4.6-6.20); Red Cell Distribution Width 11.9 % (11.5-14.5); White Blood Count 6.1 K/mm3 (4.5-10.0)
[2023-10-30 09:38] LABS: Erythrocyte Sedimentation Rate 49 mm/hr (0-20)
[2023-10-30 10:21] LABS: Hemoglobin A1C 5.8 % (<5.7)
[2023-10-30 10:23] LABS: Alanine Aminotransferase 17 U/L (6-50); Albumin Level 3.6 g/dL (3.5-5.1); Alkaline Phosphatase 85 U/L (38-126); Anion Gap 8 mmol/L (8-16); Aspartate Amino Transferase 27 U/L (17-59); Blood Urea Nitrogen 27 mg/dL (9-20); Carbon Dioxide 21 mmol/L (22-30); Chloride 107 mmol/L (98-107); Cholesterol 135 mg/dL (0-200); Estimated Glomerular Filt Rate > 60; Glucose 121 mg/dL (65-110); HDL Direct 40 mg/dL; Potassium 4.6 mmol/L (3.4-5.0); Sodium 136 mmol/L (137-145); Triglycerides 111 mg/dL (<150)
[2023-10-30 10:27] LABS: Rheumatoid Factor < 12.0 IU/ML (<12)
[2023-10-30 10:34] LABS: LDL Cholesterol Direct 60 mg/dL
[2023-10-30 10:55] LABS: Prostate Specific Antigen 2.3 ng/mL (< OR = 4.0)
[2023-11-03 05:38] LABS: Anti Nuclear Antibody Pattern Nuclear, Speckled
== END 2023-10-30 07:29 | disposition home or self-care (01) ==
LOC: ANHLAB 07:33
PROVIDERS: PCP Physician Assistant; Visit Provider Physician Assistant
DX: R73.9 Hyperglycemia, unspecified (principal); R53.83 Other fatigue; E78.5 Hyperlipidemia, unspecified; Z12.5 Encounter for screening for malignant neoplasm of prostate
CPT/HCPCS: 36415; 80053; 80061; 82607; 82746; 83036; 84153; 84443; 85025; 85652; 86038; 86039; 86430; G0103

== ENCOUNTER 2023-11-28 08:04 | Inpatient (IN) | payer MEDICARE, SELFPAY ==
[2023-11-28] VITALS (19 sets, daily range): BP systolic 122–167; BP diastolic 42–66; PULSE 70–98; RESP 18–40; TEMP 36.6–37; O2SAT 93–97; BMI 28.6
--- NOTE | ~2023-11-28 | XR_ITS ---
EXAMINATION: XR chest 1V portable DATE: 11/30/2023 10:35 INDICATION: COVID. Hypoxia. TECHNIQUE: frontal view of the chest was obtained. COMPARISON: Chest radiograph dated 02/15/[address] dated 11/28/2023 FINDINGS: Patchy reticular and groundglass opacities throughout much of the right lung and in the left mid and lower lung zones. No pleural effusion or pneumothorax. Dramatically. There are bridging osteophytes a t multiple levels consistent with diffuse idiopathic skeletal hyperostosis (DISH). IMPRESSION: 1. Diffuse lung disease throughout both lungs relatively sparing the left upper lung zone which could represent pneumonia, pulmonary edema, progression of previously minimal chronic interstitial lung di sease or some combination thereof. 2. Cardiomegaly. Reviewed, dictated and finalized at location A. DYER IMPRESSION: 1. Diffuse lung disease throughout both lungs relatively sparing the left upper lung zone which could represent pneumonia, pulmonary edema, progression of pre viously minimal chronic interstitial lung disease or some combination thereof. 2. Cardiomegaly.
--- NOTE | ~2023-11-28 | XR_ITS ---
Portable chest x-ray Comparison: 12/06/2023 Clinical History: Covid Findings: There is patchy groundglass pulmonary opacity bilaterally, essentially unchanged. Cardiom ediastinal silhouette is stable. Bones and soft tissues are unremarkable. Impression: Patchy bilateral groundglass pulmonary opacity, which could be consistent with history Covid 19 pneum onia. Reviewed, dictated and finalized at location . ER AND PRINTER FIELD TECHNICIAN Impression: Patchy bilateral groundglass pulmonary opacity, which could be consistent with history Covid 19 pneumonia.
--- NOTE | ~2023-11-28 | CT_ITS ---
EXAMINATION:CT diagnostic chest wo con DATE: 12/11/2023 14:11 INDICATION: Shortness of breath. COVID-19 pneumonia. TECHNIQUE: Computed tomography (CT) of the chest was performed without intravenous contrast. Automate d exposure control and iterative reconstruction technique were employed. The dose-length product (DLP ) was 577.39 mGy-cm. COMPARISON: Chest CT 11/28/23 FINDINGS: There are airspace and groundglass opacities and crazy paving involving all lobes. Calcifie d pulmonary nodules and calcified hilar and mediastinal lymph nodes are consistent with old granuloma tous disease. There are small pleural effusions. Cardiomegaly is noted. 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 There are coronary artery calcifications. No pericardial effusion. Calcifications in the liver consistent with old granulomatou s disease. There are cysts in right kidney measuring up to 5.5 cm . There are gallstones in the gallb ladder, which is normal in size. There is kyphosis of thoracic spine with mild chronic anterior wedgi ng of multiple vertebral bodies. There are bridging endplate osteophytes at multiple levels in the sp ine, consistent with diffuse idiopathic skeletal hyperostosis (DISH). IMPRESSION: 1. Diffuse lung disease, stable from 11/28/2023, likely pneumonia without or with some component of pu lmonary edema superimposed on chronic interstitial lung disease. 2. Cardiomegaly. Reviewed, dictated and finalized at location A. WRECKER IMPRESSION: 1. Diffuse lung disease, stable from 11/28/2023, likely pneumonia without or wit h some component of pulmonary edema superimposed on chronic interstitial lung d isease. 2. Cardiomegaly.
--- NOTE | ~2023-11-28 | XR_ITS ---
XR chest 1V portable 12/06/2023 09:02 Indication: Covid infection Procedure: AP portable chest Comparison: Comparison to multiple prior studies sequentially, with oldest reviewed study dated 03/25 2013. Findings: Patchy bilateral airspace disease, compatible with pneumonia. No pleural effusion or pneumo thorax. No acute osseous abnormality. Impression: 1: Patchy bilateral airspace disease, compatible with pneumonia. Reviewed, dictated and finalized at location B. WARE APPLICATION TESTER Impression: 1: Patchy bilateral airspace disease, compatible with pneumonia.
--- NOTE | ~2023-11-28 | US_ITS ---
EXAMINATION: US venous doppler [facility] DATE: 12/11/2023 21:43 INDICATION: Recent history of DVT, follow-up. TECHNIQUE: Grayscale images without and with compression and Doppler images of the bilateral lower ex tremity veins were obtained. COMPARISON: 11/28/2023 FINDINGS: The right common femoral vein, profunda (deep) femoral vein, femoral vein, popliteal vein, peroneal v ein, posterior tibial veins, and greater saphenous vein are patent. The left common femoral vein, profunda (deep) femoral vein, femoral vein, popliteal vein, peroneal v ein, posterior tibial veins, and greater saphenous vein are patent. IMPRESSION: Patent bilateral lower extremity veins. No evidence of deep venous thrombosis. Reviewed, dictated and finalized at location K. THERAPY ASST
--- NOTE | ~2023-11-28 | CT_ITS ---
EXAMINATION: CTA chest PE protocol DATE: 11/28/2023 18:25 INDICATION: Hypoxia. TECHNIQUE: Computed tomography angiography (CTA) of the chest was performed with 100 mL Omnipaque-350 intravenous contrast timed to evaluate the pulmonary arteries. Coronal maximum intensity projection 3D-reconstructions were created by the technologist. Automated exposure control and iterative reconst ruction technique were employed. The dose-length product was 893.47 mGy-cm. COMPARISON: CT abdomen and pelvis 04/15/2023 FINDINGS: There are widespread groundglass opacities and septal thickening in the lungs with a periph eral and inferior predominance. There are patchy airspace opacities in all lobes, worst in right lowe r lobe. There is a small right pleural effusion. Cardiomegaly is noted. There is an old infarct invol ving anterior wall, apex, and septal wall of left ventricle of the heart. No pericardial effusion. Th ere are coronary artery calcifications. There is an acute pulmonary embolus in lingula. There is a 17 mm cyst in right kidney. There are gallstones in the gallbladder, which is normal in size. There are bridging endplate osteophytes at multiple levels in the spine, consistent with diffuse idiopathic sk eletal hyperostosis (DISH). IMPRESSION: 1. Acute pulmonary embolus in lingula. 2. Diffuse lung disease, likely a combination of pulmonary edema and pneumonia superimposed on chroni c interstitial lung disease. 3. Cardiomegaly. Reviewed, dictated and finalized at location E. BOOTH OPERATOR IMPRESSION: 1. Acute pulmonary embolus in lingula. 2. Diffuse lung disease, likely a combination of pulmonary edema and pneumonia superimposed on chronic interstitial lung disease. 3. Cardiomegaly.
--- NOTE | ~2023-11-28 | US_ITS ---
EXAMINATION: US venous doppler [facility] DATE: 11/28/2023 20:48 INDICATION: Acute pulmonary embolus. TECHNIQUE: Grayscale ultrasound images without and with compression and Doppler ultrasound images of the bilateral lower extremity veins were obtained. COMPARISON: None. FINDINGS: The visualized portions of right common femoral vein, profunda (deep) femoral vein, femoral vein, pop liteal vein, peroneal veins, posterior tibial veins, and greater saphenous vein outflow are patent. The visualized portions of left common femoral vein, profunda femoral vein, femoral vein, popliteal v ein, and greater saphenous vein outflow are patent. There is thrombus in left posterior tibial and pe roneal veins. IMPRESSION: 1. Deep vein thrombosis involving left posterior tibial and peroneal veins. Reviewed, dictated and finalized at location E. ATTE OPERATOR
--- NOTE | ~2023-11-28 | US_ITS ---
EXAMINATION: US venous doppler [facility] DATE: 12/11/2023 21:42 INDICATION: R/O DVT . TECHNIQUE: Grayscale ultrasound images without and with compression and Doppler ultrasound images of the bilateral upper extremity veins were obtained. COMPARISON: None. FINDINGS: The visualized portions of the bilateral internal jugular vein, subclavian vein, axillary vein, brach ial veins, basilic vein, cephalic vein, radial vein, and ulnar vein are patent. IMPRESSION: No deep venous thrombosis in the bilateral upper extremities. Reviewed, dictated and finalized at location K. ERTY MAINTENANCE TECHNICIAN
--- NOTE | ~2023-11-28 | XR_ITS ---
XR chest 1V portable DATE: 12/02/2023 05:48 INDICATION: Pneumonia TECHNIQUE: Portable AP chest on 12/02/2023 at 0531 hours COMPARISON: 11/30/2023 portable AP chest at 1027 hours FINDINGS: There are persistent bilateral pulmonary infiltrates throughout the right lung and left low er lung, relatively stable since 11/30/2023. No pleural effusion or pneumothorax is evident. Cardiomegaly, aortic atherosclerosis. Mild prominence of the minor fissure, suggesting subpleural edema IMPRESSION: No significant change of bilateral pulmonary infiltrates since 11/30/2023; diffusion diagn osis includes pulmonary edema as well as pneumonia. Reviewed, dictated and finalized at location A. MINING ANALYST IMPRESSION: No significant change of bilateral pulmonary infiltrates since 11/30; diffusion diagnosis includes pulmonary edema as well as pneumonia.
--- NOTE | ~2023-11-28 | XR_ITS ---
XR chest 1V portable DATE: 11/28/2023 08:50 INDICATION: Shortness of breath TECHNIQUE: Portable AP chest on 11/28/2023 at 0837 hours COMPARISON: February 15, 2013 PA and lateral chest FINDINGS: There is pulmonary vascular congestion and redistribution. There are diffuse extensive bila teral pulmonary infiltrates, more prominent centrally, with prominence of the minor fissure, suggesti ng pulmonary edema. Minimal if any pleural effusion is noted. No pneumothorax. There is aortic calcification and mild unfolding. Heart size is not optimally evaluated on AP project ion because of magnification. Diffuse osteopenia. There is osteophytic change at the glenohumeral joints. Degenerative spurring of the thoracic spine. IMPRESSION: Pulmonary edema Aortic atherosclerosis Osteopenia Reviewed, dictated and finalized at location L. FIRE OPERATOR
--- NOTE | 2023-11-28 08:08 | ECG_ITS ---
Measurements Intervals [place] Rate: 93 P: 68 [place]: 169 QRS: 50 QRSD: 94 T: 28 QT: 316 QTc: 394 Interpretive Statements SINUS RHYTHM VENTRICULAR PREMATURE COMPLEX NONSPECIFIC ST & T-WAVE ABNORMALITY- DIFFUSE LEADS BASELINE ARTIFACT- I, II, III, AVR, AVL, AVF, V1-V6 BORDERLINE ECG COMPARED TO ECG 04/15/2023 21:24:30 ST-T WAVE ABNORMALITY NOW PRESENT Electronically Signed On 11-28-2023 8:34:49 [employer]ANK [employer]ER by Noman Rosas D.O.
[2023-11-28 08:31] LABS: Basophils Percent Auto 0.4 % (0.2-1.2); Eosinophils Absolute Auto 0.1 K/mm3 (0-0.3); Eosinophils Percent Auto 0.7 % (0-4.4); Hematocrit 35.1 % (42.0-52.0); Immature Granulocyte Absolute 0.07 K/mm3 (0.00-0.031); Immature Granulocyte Percent A 0.7 % (0-0.5); Lymphocytes Absolute Auto 0.62 K/mm3 (0.9-3.2); Lymphocytes Percent Auto 5.8 % (18.3-44.2); Mean Corpuscular HGB Conc 31.3 g/dl (32-36); Mean Corpuscular Hemoglobin 27.8 pg (26-34); Mean Corpuscular Volume 88.9 fl (80-100); Mean Platelet Volume 9.4 fl (7.4-10.4); Monocytes Absolute Auto 1.1 K/mm3 (0.1-0.6); Monocytes Percent Auto 10.1 % (2.6-8.5); Neutrophils Absolute Auto 8.8 K/mm3 (1.3-6.7); Neutrophils Percent Auto 82.3 % (45.5-73.1); Platelet Count Result 252 k/mm3 (150-375); Red Blood Count 3.95 M/mm3 (4.6-6.20); Red Cell Distribution Width 12.5 % (11.5-14.5); White Blood Count 10.7 K/mm3 (4.5-10.0)
[2023-11-28 08:41] LABS: Alanine Aminotransferase 33 U/L (6-50); Albumin Level 3.4 g/dL (3.5-5.1); Alkaline Phosphatase 99 U/L (38-126); Anion Gap 10 mmol/L (8-16); Aspartate Amino Transferase 45 U/L (17-59); Bilirubin,Total 1.2 mg/dL (0.2-1.3); Blood Urea Nitrogen 28 mg/dL (9-20); Calcium 9.1 mg/dL (8.4-10.2); Carbon Dioxide 21 mmol/L (22-30); Chloride 105 mmol/L (98-107); Estimated CRCL calculation 44 ml/min; Estimated Glomerular Filt Rate > 60; Glucose 152 mg/dL (65-110); Potassium 4.4 mmol/L (3.4-5.0); Sodium 136 mmol/L (137-145)
[2023-11-28 09:05] LABS: Influenza A QL RT-PCR Negative (Negative); Influenza B QL RT-PCR Negative (Negative); RSV RNA, RT-PCR Negative (Negative); SARS-CoV-2 RNA PCR Positive (Negative)
--- NOTE | 2023-11-28 09:54 | ED.SOB ---
HPI - SOB/Dyspnea General Chief Complaint: Shortness of Breath/Dyspnea Stated Complaint: resp distress Time Seen by Provider: 11/28/23 09:07 History of Present Illness HPI Narrative: Patient is an 88-year-old male who presents to the emergency department this morning from his extended care facility due to shortness of breath. EMS states that the extended care facility informed that the patient has been complaining of shortness of breath since Monday, however, today he became hypoxic and upon their arrival patient was satting at 77% on room air. Patient was placed on nasal cannula with improvement of his oxygenation to 84% and was then placed on CPAP. No known sick contacts or exposure to COVID/influenza at the half-way. Patient states that although he has been having shortness of breath while resting, any time he tries to move he gets extremely head of breath after taking a few steps which is unusual for him. Patient does not wear any oxygen at home. Patient denies any additional symptoms including chest pain, nausea, vomiting, abdominal pain, dysuria, hematuria, constipation, diarrhea, melena, hematochezia, fevers or chills. Patient also denies any headaches, dizziness, lightheadedness, blurry visions, focal weakness, numbness and or tingling. There are no other modifying, alleviating, or precipitating factors at this time. Related Data Home Medications Medication Instructions Recorded Confirmed aspirin 81 mg tablet,delayed 81 mg PO QPM 11/18/20 11/28/23 release (Adult Aspirin Regimen) losartan 25 mg tablet 25 mg PO QPM 11/18/20 11/28/23 pravastatin 40 mg tablet 40 mg PO QPM 11/18/20 11/28/23 acetaminophen 650 mg 650 mg PO Q12H 10/27/23 11/28/23 tablet,extended release (Tylenol Arthritis Pain) Allergies Allergy/AdvReac Type Severity Reaction Status Date / Time No Known Allergies Allergy Verified 11/28/23 08:32 Review of Systems Review of Systems: All systems are reviewed and are negative unless stated otherwise in the HPI. PMF Past Medical History Medical History Arthritis of left hip History of arthritis History of heart attack 1996 History of heart disease Telemetry Monitor last seen 03/2020 Hypertension Surgical History Surgical History Bilateral carpal tunnel syndrome Right carpal tunnel release January 25, 2021 Left carpal tunnel release February 22, 2021 History of knee replacement [id number] History of right hip replacement 2012- Dr. Sandhu Family History Family History Sibling Family history of pancreatic cancer Family history of renal failure Patient's sister is Patient's brother is Father Patient's father is Social History Social History Smoking packs per day: 1 Smoking cigarettes per day: 20.0 Years smoked: 18 Smoking pack-years: 18.00 Smoking status: Former smoker Second hand tobacco smoke exposure: No Alcohol intake: current Drinks per week: 7 Alcohol use details: moderate Substance use: never Substance use type: does not use Lack of Transportation: No Lack of Food: Never True Current Housing: I Have Housing Concerned About Future Housing: No Difficulty Paying Gas/Electric Bills: No Difficulty Paying for Meds: No Currently Unemployed: No Education: High School Diploma/GED Difficulty w/ Childcare or Family Care: No Living arrangements: with family Additional living arrangements comments: - Lovely Epps Occupation/Education: retired Gender identity (if verbalized by the patient): Male Spiritual care concerns: No Exam Narrative: General: Alert, awake, afebrile, in moderate respiratory distress. HEENT: PERRL, no rhinorrhea, no post na
[2023-11-28] MEDS: FUROSEMIDE INJ 40 MG/4 ML VIAL IV PUSH ×2 (13:47→16:06)
--- NOTE | 2023-11-28 14:46 | PM.IMHP ---
H&P: HPI History of Present Illness Date/Time: 11/28/23 15:00 Chief Complaint: Shortness of breath. Narrative: This is a very pleasant 88-year-old gentleman with coronary artery disease status post angioplasty in 1996, hypertension, hyperlipidemia, and benign prostatic hyperplasia who presented to the emergency department via EMS from [facility] for evaluation of shortness of breath. The patient provides the following history. He has not been feeling well since Monday with shortness of breath and congestion. When he got up this morning he was much more short of breath than he had been and called 911. He was in distress on EMS arrival with an SpO2 of 77% on room air. He was placed on nasal cannula and ultimately CPAP. On arrival to the ED he was tachypneic with respiratory rates in the 40s and he was transitioned to BiPAP with improvement in work of breathing. He has since been weaned from the BiPAP and is on 6 L nasal cannula. Blood pressures have been stable and he has been afebrile. Chest x-ray showed pulmonary edema and he tested positive for SARS-CoV-2 by PCR. Chest CTA done later showed evidence of acute pulmonary embolism. Thus far he has received a dose of IV furosemide, a therapeutic dose of enoxaparin, remdesivir, dexamethasone, azithromycin, and ceftriaxone. At the time my evaluation he is feeling better but is tired after all of the testing today. He denies syncope, near syncope, fever, sore throat, productive cough, chest pain, vomiting, diarrhea, and calf pain. No prior history of venous thromboembolism. Review of Systems Review of Systems: Twelve systems were reviewed and are negative except for as per HPI. [facility] Past Medical History Medical History (Updated 11/28/23 @ 23:01 by Monica Treadwell PA-C) Arthritis Benign prostatic hyperplasia Chronic anemia Coronary artery disease Hyperlipidemia Hypertension Myocardial infarction (1996) Surgical History Surgical History (Updated 11/28/23 @ 15:03 by Monica Treadwell PA-C) History of arthroscopy of right knee (07/2003) With partial medial meniscectomy per Dr. Sandhu. History of bilateral carpal tunnel release (2020) History of bilateral cataract extraction History of bilateral knee arthroplasty (04/2004) Per Drs. Villeda and Edson. History of cardiac catheterization (1996) History of colonoscopy with polypectomy (02/2011) History of coronary angioplasty (1996) History of total right hip arthroplasty (04/2012) Family History Family History Sibling Family history of pancreatic cancer Family history of renal failure Patient's sister is Patient's brother is Father Patient's father is Social History Social History (Updated 11/28/23 @ 22:59 by Monica Treadwell PA-C) Social History: Surrogate medical decision maker: Lovely Epps, spouse. Code status: Full code. Smoking packs per day: 1 Smoking cigarettes per day: 20.0 Years smoked: 18 Smoking pack-years: 18.00 Smoking status: Former smoker Second hand tobacco smoke exposure: No Alcohol intake: former Drinks per week: 7 Alcohol use details: moderate Substance use: never Substance use type: does not use Last use: 1mo ago last drink Do You Feel Safe in your Home?: Yes Lack of Transportation: No Lack of Food: Never True Current Housing: I Have Housing Concerned About Future Housing: No Difficulty Paying Gas/Electric Bills: No Difficulty Paying for Meds: No Currently Unemployed: No Education: High School Diploma/GED Difficulty w/ Childcare or Family Care: No Living arrangements: with family Additional living arrangements comments: Lives with spouse in assisted living at [place]. 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 Spiritual care concerns: No Meds Home Medications and
--- NOTE | 2023-11-28 15:17 | ECHO_ITS ---
Patient Info Name: Shayne Epps Age: 88 years : 1935 Gender: Male Ht: 67 in Wt: 197 lbs BSA: 2.08 m2 HR: 91 bpm BP: 158 / 66 mmHg Heart Rhythm: Sinus Rhythm Technical Quality: Fair Exam Date: 11/28/2023 3:47 PM Exam Location: Echo Lab Patient Status: Inpatient Admit Date: 11/28/2023 Staff Ordering Physician: Monica Treadwell PA-C Tour Driver: Nimo Matthews RDCS Attending Provider: Shannon Villegas DO Referring Physician: Mile CRUZ; Exam Type: CA echo dop color flow w con Study Info Indications - CAD, HTN, PULMONARY EDEMA Complete two-dimensional, color flow and Doppler transthoracic echocardiogram is performed with contrast to opacify the left ventricle and to improve the deliniation of the left ventricle endocardial borders. Contrast/Agitated Saline Contrast/Ag. Saline: Definity Amount: 2.00 ml Administered By: Nimo Matthews RDCS Existing IV Access: Yes IV Access Condition: patent with no signs of infiltration Summary 1. Normal left ventricular size and thickness. Overall good contractility with an ejection fraction of 72%. However the mid and distal anteroseptal wall appears hypokinetic. Grade 1 diastolic dysfunction is present. 2. Left atrial chamber dimension is mildly enlarged. 3. There is mild mitral valve regurgitation. 4. There is mild tricuspid valve regurgitation. 5. Moderate pulmonary hypertension, estimated pulmonary arterial systolic pressure is 63 mmHg. 6. There is mild aortic root atherosclerosis. 7. Normal sinus rhythm. Left Ventricle Left ventricular chamber dimension is normal. Left ventricular systolic function is normal, estimated at 65-70%. There is no increased left ventricular wall thickness. Left ventricular septal wall motion is normal. The left ventricular diastolic function is grade I diastolic dysfunction. Right Ventricle Right ventricular chamber dimension is normal. Right ventricular systolic function is normal. Left Atria Left atrial chamber dimension is mildly enlarged. Right Atria Right atrial chamber dimension is normal. Aortic Valve The aortic valve is trileaflet. There is no aortic valve sclerosis. There is no aortic valve stenosis. There is no aortic valve regurgitation. Pulmonic Valve The pulmonic valve is normal. There is no pulmonic valve stenosis. There is no pulmonic regurgitation. Mitral Valve The mitral valve has normal leaflets. There is no mitral valve stenosis. There is mild mitral valve regurgitation. Tricuspid Valve The tricuspid valve leaflets are normal. There is no significant tricuspid valve stenosis. There is mild tricuspid valve regurgitation. Moderate pulmonary hypertension, estimated pulmonary arterial systolic pressure is 63 mmHg. Pericardium/Pleural The pericardium appears normal. There is no pericardial effusion. Inferior Vena Cava Normal inferior vena cava with >50% collapse upon inspiration consistent with Empty right atrial pressure, 10 mmHg. Aorta The aortic root size at the sinus of Valsalva is normal. The prox ascending aorta size is normal. There is mild aortic root atherosclerosis. Left Ventricular Outflow Tract Name Value Normal LVOT 2D LVOT Diameter 2.04 cm LVOT Doppler -------
--- NOTE | 2023-11-28 15:27 | ADMGEN ---
This patient, Shayne Epps, was admitted to IMU Room 231-01. Patient/family oriented to hospital policies and general routines including ID bracelet, bed and alarms, visiting hours, pain management, procedures, bathroom and other care routines, personal items, smoking policy, room service/diet, and visiting hours. Information on how to activate the Rapid Response Team has been discussed. Patient/Family are encouraged to report perceived risks to care and to ask questions if they do not understand what they are told or what they should do.
[2023-11-28 16:02] LABS: INR 1.3; Prothrombin Time 16.9 Seconds (11.1-14.7)
[2023-11-28] MEDS: REMDESIVIR 200 MG/NS 250 ML 200 MG/250 ML BAG 250 MG IVPB (16:05)
[2023-11-28] MEDS: PERFLUTREN LIPID MICROSPHERES 1.5 ML VIAL DILUTED TO 10 ML TOTAL VOLUME IV PUSH (16:12)
[2023-11-28 16:21] LABS: CRP > 27.0 mg/dL (<1.0); NT Pro B Type Natriuretic Pept 2490 pg/mL (19.9-100); Troponin I 0.073 ng/mL (0.000-0.034)
[2023-11-28 16:29] LABS: Lactate Dehydrogenase 471 U/L (120-246)
[2023-11-28 16:40] LABS: D Dimer > 20.00 ug/mL (<0.48)
--- NOTE | 2023-11-28 16:52 | IVDEFINITY ---
Prior to administration of IV Definity the patient was educated on the risks and benefits of the imaging enhancing agent including potential adverse side effects. The patient verbalized understanding. Allergies were verified. No exclusion criteria were identified and at least one of the following inclusion criteria were met: 1) physician request, 2) patient technically difficult to image (per the [place] [employer] guidelines of two or more segments not discernable within the apical view), or 3) questionable left ventricular function. ?
[2023-11-28 17:31] LABS: Glucose Point of Care 164 mg/dl (65-105)
[2023-11-28 19:55] LABS: Lactic Acid Reflex 1.9 mmol/L (0.7-2.0)
[2023-11-28 20:07] LABS: Glucose Point of Care 264 mg/dl (65-105)
[2023-11-28 20:14] LABS: Troponin I 0.088 ng/mL (0.000-0.034)
[2023-11-28 20:28] LABS: Procalcitonin 0.5 ng/mL
[2023-11-28] MEDS: INSULIN ASPART (*BKC) 100 UNITS/ML SUB-Q (20:53)
[2023-11-28] MEDS: ENOXAPARIN 100 MG/ML SYRINGE 85 MG SUB-Q (20:54)
[2023-11-28] MEDS: AZITHROMYCIN 500 MG/NS 250 ML 500 MG/250 ML BAG 250 MG IVPB (20:54)
[2023-11-29] VITALS (19 sets, daily range): BP systolic 143–148; BP diastolic 59–70; PULSE 67–98; RESP 18–22; TEMP 36.3–36.9; O2SAT 91–98; BMI 28.8
[2023-11-29 04:49] LABS: Basophils Percent Auto 0.1 % (0.2-1.2); Hematocrit 31.5 % (42.0-52.0); Hemoglobin 10.2 g/dL (14.0-18.0); Immature Granulocyte Absolute 0.06 K/mm3 (0.00-0.031); Immature Granulocyte Percent A 0.8 % (0-0.5); Lymphocytes Absolute Auto 0.71 K/mm3 (0.9-3.2); Mean Corpuscular HGB Conc 32.4 g/dl (32-36); Mean Corpuscular Hemoglobin 27.7 pg (26-34); Mean Corpuscular Volume 85.6 fl (80-100); Mean Platelet Volume 9.4 fl (7.4-10.4); Monocytes Absolute Auto 0.8 K/mm3 (0.1-0.6); Monocytes Percent Auto 9.8 % (2.6-8.5); Neutrophils Absolute Auto 6.3 K/mm3 (1.3-6.7); Neutrophils Percent Auto 80.3 % (45.5-73.1); Platelet Count Result 237 k/mm3 (150-375); Red Blood Count 3.68 M/mm3 (4.6-6.20); Red Cell Distribution Width 12.5 % (11.5-14.5); White Blood Count 7.9 K/mm3 (4.5-10.0)
[2023-11-29 04:56] LABS: Alanine Aminotransferase 31 U/L (6-50); Albumin Level 3.3 g/dL (3.5-5.1); Alkaline Phosphatase 84 U/L (38-126); Anion Gap 9 mmol/L (8-16); Aspartate Amino Transferase 51 U/L (17-59); Bilirubin,Total 0.7 mg/dL (0.2-1.3); Blood Urea Nitrogen 36 mg/dL (9-20); Carbon Dioxide 23 mmol/L (22-30); Chloride 101 mmol/L (98-107); Estimated CRCL calculation 35 ml/min; Estimated Glomerular Filt Rate 57; Glucose 148 mg/dL (65-110); Magnesium 2.3 mg/dL (1.6-2.3); Potassium 4.1 mmol/L (3.4-5.0); Sodium 133 mmol/L (137-145)
[2023-11-29 08:15] LABS: Glucose Point of Care 130 mg/dl (65-105)
[2023-11-29] MEDS: ENOXAPARIN 100 MG/ML SYRINGE 85 MG SUB-Q ×2 (08:30→20:09)
[2023-11-29] MEDS: FUROSEMIDE INJ 40 MG/4 ML VIAL 20 MG IV PUSH ×2 (10:25→17:14)
[2023-11-29] MEDS: TAMSULOSIN HCL 0.4 MG CAPSULE PO (10:26)
[2023-11-29 11:58] LABS: Glucose Point of Care 167 mg/dl (65-105)
--- NOTE | 2023-11-29 14:19 | PM.IMPN ---
Progress Note: A&P Assessment and Plan (1) Acute respiratory failure with hypoxia: Code(s): J96.01 - Acute respiratory failure with hypoxia Status: Acute Assessment and Plan: Patient presents with SOB and found to have PE and COVID. No recent COVID vaccine. He was on CPAP on admission but able to be weaned to HFNC. No ABG. RSV and influenza negative. COVID PCR positive. CTA chest showing acute lingula PE and diffuse lung disease c/w edema and PNA with chronic ILD. (ILD seen by CT scan in April 2023) Dexamethasone started. Lovenox for PE. Lasix IV for possible edema. Abx for possible PNA. Check MRSA nasal swab. (2) COVID: Code(s): U07.1 - COVID-19 Status: Acute Assessment and Plan: As above Continue Decedron. Remdesivir started but not continued. Resume Remdesivir unless there is a contraindication. Wean O2 as tolerated. Add baricitinib or tocilizumab if needing higher level of care or increasing O2 requirement. Will hold since stable (3) Pulmonary embolism: Code(s): I26.99 - Other pulmonary embolism without acute cor pulmonale Status: Acute Assessment and Plan: CTA showing lingula PE. Lovenox started. LE venous doppler showing DVT left posterior tibial and peroneal veins. Change to Eliquis tomorrow. stars coordinator to assess for cost of medications. (4) Deep vein thrombosis of left lower extremity: Code(s): I82.402 - Acute embolism and thrombosis of unspecified deep veins of left lower extremity Status: Acute Assessment and Plan: As above (5) Chronic anemia: Code(s): D64.9 - Anemia, unspecified Status: Acute Assessment and Plan: Pateint with chronic anemia. Hgb mostly 11-13 range. Hgb 11.0 on admission but dropped to 10.2 today Follow (6) Hypertension: Code(s): I10 - Essential (primary) hypertension Status: Acute Assessment and Plan: Patient's blood pressure was reviewed on 11/29 Blood pressure remains well controlled. Will continue to monitor (7) Benign prostatic hyperplasia: Code(s): N40.0 - Benign prostatic hyperplasia without lower urinary tract symptoms Status: Acute Assessment and Plan: Stable. Continue Flomax Plan DVT prophylaxis - Lovenox Code status - modified Subjective Date/time seen: 11/29/23 14:19 Interval history: 88yo man with CAD status post angioplasty in 1996, HTN, HLD and BPH who presented to the ED via EMS from independent living at [facility] for evaluation of shortness of breath. Assuming care. Chart reviewed. Cough better. No SOB but has HENSLEY. No CP. Not interested in getting out of bed. Exam Narrative: AF 97.6 143/62 76 18 94% 6L HFNC Gen - NARD lying semi-recumbent in bed Chest - few basilar crackles o/w clear CV - RRR S1/S2. Tele showing one 6b run NSVT o/w PVCs. Abd - Soft, NT/ND, Positive BS Ext - No pedal edema Psych - Nml mood and affect Skin - Warm and dry Objective Data Vital Signs Vital Signs: Vital Signs - 24 hr 11/28/23 15:28 11/28/23 15:29 11/28/23 15:32 Temperature 98.6 F Pulse Rate 96 Respiratory Rate 36 H 28 H Blood Pressure 160/60 H Pulse Oximetry 93 95 Oxygen Delivery BiPAP BiPAP Oxygen Flow Rate Fraction of Inspired Oxygen 30 11/28/23 17:06 11/28/23 17:00 11/28/23 16:00 Temperature 98.6 F Pulse Rate 96 94 Respiratory Rate Blood Pressure 147/54 H Pulse Oximetry 93 93 Oxygen Delivery High Flow Nasal Cannula Oxygen Flow Rate 6 Fraction of Inspired Oxygen 11/28/23 18:00 11/28/23 16:00 11/28/23 20:00 Temperature 97.9 F Pulse Rate 85 76 Respiratory Rate 18 Blood Pressure 149/63 H Pulse Oximetry 94 95 Oxygen Delivery High Flow Nasal Cannula Oxygen Flow Rate 6 Fraction of Inspired Oxygen 11/28/23 20:00 11/28/23 20:00 11/28/23 22:00 Temperature Pulse Rate 76 78 70 Respiratory Rate Blood Pr
[2023-11-29 16:47] LABS: Glucose Point of Care 164 mg/dl (65-105)
[2023-11-29] MEDS: LOSARTAN POTASSIUM 25 MG TABLET PO (17:15)
[2023-11-29] MEDS: PRAVASTATIN SODIUM 20 MG TABLET 40 MG PO (17:15)
[2023-11-29] MEDS: ASPIRIN 81 MG ENTERIC TABLET PO (17:15)
[2023-11-29 20:28] LABS: Glucose Point of Care 214 mg/dl (65-105)
[2023-11-29] MEDS: AZITHROMYCIN 500 MG/NS 250 ML 500 MG/250 ML BAG 250 MG IVPB (21:25)
[2023-11-29] MEDS: ALBUTEROL SULFATE (*SP) AEROSOL 1 PUFF 2 PUFF INHALATION (21:45)
[2023-11-29] MEDS: INSULIN ASPART (*BKC) 100 UNITS/ML SUB-Q (21:52)
[2023-11-29] MEDS: REMDESIVIR 100 MG/NS 250 ML 100 MG/250 ML BAG 250 MG IVPB (23:15)
[2023-11-30] VITALS (20 sets, daily range): BP systolic 126–162; BP diastolic 56–64; PULSE 65–95; RESP 18–28; TEMP 35.9–36.7; O2SAT 91–96
--- NOTE | 2023-11-30 04:33 | PCRCNOTE ---
Window of time for administration has passed. See next scheduled administration.
[2023-11-30 05:03] LABS: Basophils Percent Auto 0.1 % (0.2-1.2); Hematocrit 31.9 % (42.0-52.0); Hemoglobin 10.2 g/dL (14.0-18.0); Immature Granulocyte Absolute 0.08 K/mm3 (0.00-0.031); Immature Granulocyte Percent A 0.7 % (0-0.5); Lymphocytes Percent Auto 6.8 % (18.3-44.2); Mean Corpuscular Hemoglobin 27.6 pg (26-34); Mean Corpuscular Volume 86.2 fl (80-100); Mean Platelet Volume 9.4 fl (7.4-10.4); Monocytes Absolute Auto 1.3 K/mm3 (0.1-0.6); Monocytes Percent Auto 10.7 % (2.6-8.5); Neutrophils Absolute Auto 9.7 K/mm3 (1.3-6.7); Neutrophils Percent Auto 81.7 % (45.5-73.1); Platelet Count Result 254 k/mm3 (150-375); Red Cell Distribution Width 12.7 % (11.5-14.5); White Blood Count 11.8 K/mm3 (4.5-10.0)
[2023-11-30 05:21] LABS: Alanine Aminotransferase 58 U/L (6-50); Alkaline Phosphatase 88 U/L (38-126); Anion Gap 8 mmol/L (8-16); Aspartate Amino Transferase 87 U/L (17-59); Bilirubin,Total 0.4 mg/dL (0.2-1.3); Blood Urea Nitrogen 50 mg/dL (9-20); Calcium 8.7 mg/dL (8.4-10.2); Carbon Dioxide 23 mmol/L (22-30); Chloride 102 mmol/L (98-107); Estimated CRCL calculation 31 ml/min; Estimated Glomerular Filt Rate 48; Glucose 163 mg/dL (65-110); Magnesium 2.3 mg/dL (1.6-2.3); Phosphorus 4.6 mg/dL (2.5-4.5); Potassium 4.1 mmol/L (3.4-5.0); Sodium 133 mmol/L (137-145)
[2023-11-30 05:23] LABS: INR 1.3; Prothrombin Time 17.2 Seconds (11.1-14.7)
[2023-11-30 08:27] LABS: Glucose Point of Care 137 mg/dl (65-105)
--- NOTE | 2023-11-30 09:15 | PCOTNOTE ---
Per RN, hold OT evaluation this morning due to poor respiratory status. Pt is sating at 88-89 at rest on 11 L. Will continue to follow.
[2023-11-30] MEDS: ALBUTEROL SULFATE (*SP) AEROSOL 1 PUFF 2 PUFF INHALATION ×4 (09:21→22:37)
--- NOTE | 2023-11-30 10:15 | PCPTNOTE ---
Per OT note: Per RN, pt has poor respiratory status at this time. Will wait to see pt until medically stable. Will follow.
--- NOTE | 2023-11-30 10:18 | PM.IMPN ---
Progress Note: A&P Assessment and Plan (1) Acute respiratory failure with hypoxia: Code(s): J96.01 - Acute respiratory failure with hypoxia Status: Acute Assessment and Plan: Patient presents with SOB and found to have PE and COVID. No recent COVID vaccine. He was on CPAP on admission but able to be weaned to 6L HFNC. No ABG. RSV and influenza negative. COVID PCR positive. CTA chest showing acute lingula PE and diffuse lung disease c/w edema and PNA with chronic ILD. (ILD seen by CT scan in April 2023) Dexamethasone started. Lovenox for PE. Lasix IV for possible edema. Abx for possible PNA. MRSA nasal swab pending BCx NGTD Now up 12L. Long discussion with patient about the increased risk on fulminant respiratory failure and his DNI status. He is alert and oriented. He has decided to change his code status to full code. He voices understanding and that he acepts intubation if required. He also understands that his family will make decisions for him if he is sedated and he was encouraged to contact his family to inform them of the changes in his wishes. Check CXR, ABG. Advance treatment for COVID. Will discuss with geospatial information scientist. (2) COVID: Code(s): U07.1 - COVID-19 Status: Acute Assessment and Plan: As above Continue Decedron and Remdesivir. Wean O2 as tolerated. Condition worsening so will add baricitinib As above (3) Pulmonary embolism: Code(s): I26.99 - Other pulmonary embolism without acute cor pulmonale Status: Acute Assessment and Plan: CTA showing lingula PE. Lovenox started. LE venous doppler showing DVT left posterior tibial and peroneal veins. Changed to Eliquis today (4) Deep vein thrombosis of left lower extremity: Code(s): I82.402 - Acute embolism and thrombosis of unspecified deep veins of left lower extremity Status: Acute Assessment and Plan: As above (5) Chronic anemia: Code(s): D64.9 - Anemia, unspecified Status: Acute Assessment and Plan: Pateint with chronic anemia. Hgb mostly 11-13 range. Hgb 11.0 on admission but dropped to 10.2 today Follow (6) Hypertension: Code(s): I10 - Essential (primary) hypertension Status: Acute Assessment and Plan: Patient's blood pressure was reviewed on 11/30 Blood pressure remains reasonably well controlled. Will continue to monitor (7) Benign prostatic hyperplasia: Code(s): N40.0 - Benign prostatic hyperplasia without lower urinary tract symptoms Status: Acute Assessment and Plan: Stable. Continue Flomax Plan DVT prophylaxis - Eliquis Code status - modified Subjective Date/time seen: 11/30/23 10:18 Interval history: 88yo man with CAD status post angioplasty in 1996, HTN, HLD and BPH who presented to the ED via EMS from independent living at [facility] for evaluation of shortness of breath. More SOB but not significant change from yestereday. No CP. No significant cough. Not out of bed . Refused Bipap last night. Increasing O2 requirement overnight. Patient is DNI. Exam Narrative: AF 97.0 162/61 86 20 91% 12L HFNC Gen - NARD lying semi-recumbent in bed Chest - mid and lower lung field inspiratory crackles. nml RR CV - regular with frequent extra beats. Tele showing frequent PVCs. Abd - Soft, NT/ND, Positive BS Ext - No pedal edema Psych - Nml mood and affect Skin - Warm and dry Objective Data Vital Signs Vital Signs: Vital Signs - 24 hr 11/29/23 11:12 11/29/23 12:00 11/29/23 12:00 Temperature 97.6 F Pulse Rate 76 79 84 Respiratory Rate 18 Blood Pressure 143/62 H Pulse Oximetry 94 95 Oxygen Delivery High Flow Nasal Cannula Oxygen Flow Rate 6 11/29/23 14:00 11/29/23 16:31 11/29/23 19:27 Temperature 98.0 F 98.0 F Pulse Rate 77 83 82 Respiratory Rate 20 20 Blood Pressure 143/66 H 148/70 H Pulse Oximetry 91 92 Oxygen Delivery Oxygen Flow
[2023-11-30] MEDS: TAMSULOSIN HCL 0.4 MG CAPSULE PO (10:37)
[2023-11-30 11:08] LABS: Alveolar/Arterial O2 Gradient 326.7 mmHg; Fractional Inspired Oxygen 58 %; Oxygen Saturation ABG 92.7 % (95.0-100.0); Oxyhemoglobin 89.4 % THb (90.0-100.0); PCO2 ABG 26.4 mmHg (35.0-45.0); PO2 ABG 57.7 mmHg (80.0-100.0); PO2 FiO2 Ratio Arterial Blood 0.99 %; Total Hemoglobin 11.9 g/dL (12.0-18.0); pH ABG 7.497 (7.350-7.450)
[2023-11-30 11:10] LABS: Device HIGH FLOW NASAL CANN; Modified Allen's Test Pass; Site Drawn RIGHT RADIAL
[2023-11-30 12:09] LABS: Glucose Point of Care 225 mg/dl (65-105)
[2023-11-30 12:18] LABS: Lactate Dehydrogenase 369 U/L (120-246)
[2023-11-30 12:27] LABS: CRP 20.5 mg/dL (<1.0)
[2023-11-30] MEDS: ENOXAPARIN 80 MG/0.8 ML SYRINGE SUB-Q ×2 (12:54→22:37)
[2023-11-30] MEDS: BARICITINIB 2 MG TABLET PO (12:54)
[2023-11-30] MEDS: INSULIN ASPART (*BKC) 100 UNITS/ML SUB-Q ×3 (12:55→21:10)
--- NOTE | 2023-11-30 13:12 | PC.NURSE ---
Spoke with patient's and daughter and updated on condition and change in code status to full code.
--- NOTE | 2023-11-30 14:22 | PM.CNPUL ---
Assessment and Plan Assessment and plan (1) Acute respiratory failure with hypoxia: Code(s): J96.01 - Acute respiratory failure with hypoxia Status: Acute Assessment and Plan: An 88-year-old male arrived with a week-long history of progressively worsening breathlessness. Diagnostic tests, including a chest CT, revealed asymmetrical bilateral infiltrates, most probably associated with severe COVID-19 pneumonia rather than congestive heart failure (CHF), in addition to a small pulmonary embolus in the left lung. Despite receiving diuretic treatment since admission, chest x-rays over the past three days have shown no signs of improvement, suggesting that severe COVID-19 pneumonia, not CHF, is the primary pathology. The patient has only received two COVID-19 vaccine shots, the last one being about two years ago, implying that he lacks immune protection against the infection. His current COVID-19 treatment regimen, which includes dexamethasone, remdesivir, and a lower dose of baricitinib, appears to be suitable. He is also on antibiotics to treat potential co-infections. The results of a chest CT raise the possibility of deteriorating interstitial lung disease. Upon reviewing previous imaging studies, specifically an abdominal CT, mild and nonspecific changes indicative of interstitial lung disease were observed. However, the acute onset and rapid progression of shortness of breath over a week does not typically align with the course of interstitial lung disease. Plan: We will continue to monitor the patient, who will remain on a high-flow nasal cannula. If his oxygen saturation worsens on the high-flow nasal cannula, we may have to restart BiPAP support. He is also receiving subcutaneous heparin treatment for his pulmonary emboli. we will screen the patient for MRSA. We will continue to monitor his progress in collaboration with you. (2) Pulmonary embolism: Code(s): I26.99 - Other pulmonary embolism without acute cor pulmonale Status: Acute (3) Deep vein thrombosis of left lower extremity: Code(s): I82.402 - Acute embolism and thrombosis of unspecified deep veins of left lower extremity Status: Acute (4) COVID: Code(s): U07.1 - COVID-19 Status: Acute History of Present Illness History of Present Illness Consult date: 11/30/23 Chief complaint: Hypoxic Resp Failure/COVID Narrative: An 88-year-old gentleman, residing independently at [facility], arrived at the emergency department experiencing a week-long escalation of breathlessness. Along with a mild cough, he didn't display symptoms such as fever, chills, hemoptysis, chest pain, vomiting, or diarrhea. His medical history includes coronary artery disease with angioplasty performed in 1996, hypertension, hyperlipidemia, and benign prostatic hyperplasia. He has no previous history of lung disease. He is a never smoker. Upon EMS's arrival, his distress was evident with a SpO2 of 77% on room air, leading to the application of a nasal cannula and later CPAP. Once in the ED, his rapid breathing with rates in the 40s was eased with a transition to BiPAP. He has now been moved from BiPAP to a 6L nasal cannula. Further investigations revealed bilateral infiltrates on his chest x-ray, indicative of pulmonary edema or pneumonia. A chest CT demonstrated bilateral infiltrates, more in the right lung than the left, along with peripheral infiltrates in the left lung and small-sized pleural effusion on the right. A CT pulmonary angiogram disclosed a pulmonary embolism in the lingula. The patient tested positive for COVID-19 and has been undergoing treatment for severe pneumonia linked to the virus. His current treatment regime includes daily 6 mg IV of dexamethasone, remdesivir, and a reduced dose of baricitinib. There was a rise in his creatinine level from 1.10 to 1.40. He was on a diuretic until recently, which is currently paused. Presently, he is only on a high-flow nasal
[2023-11-30 16:46] LABS: Glucose Point of Care 211 mg/dl (65-105)
[2023-11-30] MEDS: PRAVASTATIN SODIUM 20 MG TABLET 40 MG PO (16:59)
[2023-11-30] MEDS: ASPIRIN 81 MG ENTERIC TABLET PO (16:59)
[2023-11-30] MEDS: LOSARTAN POTASSIUM 25 MG TABLET PO (16:59)
[2023-11-30 18:34] LABS: MRSA (PCR) NOT DETECTED (NOT DETECTE)
[2023-11-30 20:19] LABS: Glucose Point of Care 363 mg/dl (65-105)
[2023-11-30 20:19] LABS: Glucose Point of Care 336 mg/dl (65-105)
[2023-11-30] MEDS: AZITHROMYCIN 250 MG TABLET PO (21:09)
[2023-11-30] MEDS: REMDESIVIR 100 MG/NS 250 ML 100 MG/250 ML BAG 250 MG IVPB (21:10)
[2023-12-01] VITALS (18 sets, daily range): BP systolic 121–133; BP diastolic 39–66; PULSE 59–94; RESP 18–26; TEMP 35.9–36.7; O2SAT 90–100
[2023-12-01] MEDS: ALBUTEROL SULFATE (*SP) AEROSOL 1 PUFF 2 PUFF INHALATION ×4 (03:10→20:20)
[2023-12-01 04:54] LABS: Hematocrit 32.5 % (42.0-52.0); Hemoglobin 10.1 g/dL (14.0-18.0); Immature Granulocyte Absolute 0.08 K/mm3 (0.00-0.031); Immature Granulocyte Percent A 0.9 % (0-0.5); Lymphocytes Absolute Auto 0.79 K/mm3 (0.9-3.2); Lymphocytes Percent Auto 9.3 % (18.3-44.2); Mean Corpuscular HGB Conc 31.1 g/dl (32-36); Mean Corpuscular Hemoglobin 26.9 pg (26-34); Mean Corpuscular Volume 86.7 fl (80-100); Mean Platelet Volume 9.5 fl (7.4-10.4); Monocytes Percent Auto 11.9 % (2.6-8.5); Neutrophils Absolute Auto 6.6 K/mm3 (1.3-6.7); Neutrophils Percent Auto 77.9 % (45.5-73.1); Platelet Count Result 262 k/mm3 (150-375); Red Blood Count 3.75 M/mm3 (4.6-6.20); Red Cell Distribution Width 12.7 % (11.5-14.5); White Blood Count 8.5 K/mm3 (4.5-10.0)
[2023-12-01 05:06] LABS: Alanine Aminotransferase 60 U/L (6-50); Albumin Level 2.9 g/dL (3.5-5.1); Alkaline Phosphatase 90 U/L (38-126); Anion Gap 7 mmol/L (8-16); Aspartate Amino Transferase 61 U/L (17-59); Bilirubin,Total 0.5 mg/dL (0.2-1.3); Blood Urea Nitrogen 49 mg/dL (9-20); Calcium 8.6 mg/dL (8.4-10.2); Carbon Dioxide 23 mmol/L (22-30); Chloride 104 mmol/L (98-107); Estimated CRCL calculation 39 ml/min; Estimated Glomerular Filt Rate > 60; Glucose 146 mg/dL (65-110); Potassium 4.5 mmol/L (3.4-5.0); Sodium 134 mmol/L (137-145)
[2023-12-01 08:00] LABS: Glucose Point of Care 127 mg/dl (65-105)
--- NOTE | 2023-12-01 08:04 | PCPTNOTE ---
Attempted PT evaluation, pt eating at this time. Will follow.
[2023-12-01] MEDS: TAMSULOSIN HCL 0.4 MG CAPSULE PO (10:41)
[2023-12-01] MEDS: ENOXAPARIN 80 MG/0.8 ML SYRINGE SUB-Q ×2 (10:41→22:09)
[2023-12-01] MEDS: BARICITINIB 2 MG TABLET 4 MG PO (10:42)
--- NOTE | 2023-12-01 11:01 | PM.PNPUL ---
Progress Note: A&P Assessment and Plan (1) Acute respiratory failure with hypoxia: Code(s): J96.01 - Acute respiratory failure with hypoxia Status: Acute Assessment and Plan: An 88-year-old male arrived with a week-long history of progressively worsening breathlessness. Diagnostic tests, including a chest CT, revealed asymmetrical bilateral infiltrates, most probably associated with severe COVID-19 pneumonia rather than congestive heart failure (CHF), in addition to a small pulmonary embolus in the left lung. Despite receiving diuretic treatment since admission, chest x-rays over the past three days have shown no signs of improvement, suggesting that severe COVID-19 pneumonia, not CHF, is the primary pathology. The patient has only received two COVID-19 vaccine shots, the last one being about two years ago, implying that he lacks immune protection against the infection. His current COVID-19 treatment regimen, which includes dexamethasone, remdesivir, and baricitinib, appears to be suitable. He is also on antibiotics to treat potential co-infections. The results of a chest CT raise the possibility of deteriorating interstitial lung disease. Upon reviewing previous imaging studies, specifically an abdominal CT, mild and nonspecific changes indicative of interstitial lung disease were observed. However, the acute onset and rapid progression of shortness of breath over a week does not typically align with the course of interstitial lung disease. Respiratory status is essentially unchanged over the last 24 hours. There has been no improvement in gas exchange although patient reports clinical improvement. Lung exam is essentially unchanged. Creatinine back into the normal range, baricitinib increased to 4 mg daily. MRSA screen negative, urine antigen for strep pneumonia still pending. Plan: We will continue to monitor the patient, who will remain on a high-flow nasal cannula. If his oxygen saturation worsens on the high-flow nasal cannula, we may have to restart BiPAP support. He is also receiving subcutaneous heparin treatment for his pulmonary emboli. Add incentive spirometry out of bed to chair, continue with current antibiotic regimen. He chest x-ray in a.m. we will continue to monitor his progress in collaboration with you. (2) Pulmonary embolism: Code(s): I26.99 - Other pulmonary embolism without acute cor pulmonale Status: Acute (3) COVID: Code(s): U07.1 - COVID-19 Status: Acute Subjective Date/time seen: 01/19/24 11:01 Interval history: Patient stated he is doing a little better today. Used BiPAP support for short period of time last night, currently on high-flow nasal cannula. He has no cough sputum production wheezing chest pain. Review of Systems Review of Systems: All systems reviewed & are unremarkable except as noted in HPI and below (HPI and below) Exam Narrative: GENERAL APPEARANCE: Well developed, well nourished, alert and cooperative, and appears to be in mild respiratory distress while on high-flow nasal cannula SKIN: Inspection of the skin reveals no rashes, ulcerations or petechiae. HEENT: Sclerae anicteric and conjunctivae pink and moist. Extraocular movements were intact and pupils were equal, round. Dry oral mucosa CHEST: Normal AP diameter and normal contour without any kyphoscoliosis. LUNGS: Clear lungs anteriorly, decreased breath sounds at right base posteriorly with rare crackles at bases bilaterally CARDIAC: There was a regular rate and rhythm without any murmurs, gallops, rubs. ABDOMEN: Soft and nontender with normal bowel sounds. There was no organomegaly. LYMPH NODES: No lymphadenopathy was appreciated in the neck. EXTREMITIES: No cyanosis, clubbing or edema. NEUROLOGIC: Alert and oriented x 3. Normal affect. Objective Data Vital Signs Vital Signs: Vital Signs - 24 hr 11/30/23 11:51 11/30/23 16:33 11/30/23 12:00 Temperature 36.7 C 36.4 C Pulse Rate 85 7
[2023-12-01 11:50] LABS: Glucose Point of Care 192 mg/dl (65-105)
[2023-12-01 12:24] LABS: Mycoplasma IgM Antibody Titer 94 U/mL (<770)
[2023-12-01 14:26] LABS: Pneumococcal Antigen Urine Not Detected (Not Detected)
--- NOTE | 2023-12-01 15:01 | PM.IMPN ---
Progress Note: A&P Assessment and Plan (1) Acute respiratory failure with hypoxia: Code(s): J96.01 - Acute respiratory failure with hypoxia Status: Acute Assessment and Plan: Patient presents with SOB and found to have PE and COVID. No recent COVID vaccine. He was on CPAP on admission but able to be weaned to 6L HFNC. No ABG. RSV and influenza negative. COVID PCR positive. CTA chest showing acute lingula PE and diffuse lung disease c/w edema and PNA with chronic ILD. (ILD seen by CT scan in April 2023) Dexamethasone started. Lovenox for PE. Lasix IV for possible edema. Abx for possible PNA. MRSA nasal swab negative BCx NGTD Now up 12L. Patient decided to change his code status to full code (11/30). He voiced understanding of this CXR 11/30: diffuse lung disease t/o both lungs with relative sparing of the left upper lung. ABG 11/30: 7.497/26/58 on 12L. Pulmonary consulted and appreciate their input. Intens[employer] also made aware Continue Dexamethasone, Remdesivir and Baricitinib. Encouraged patient to lay prone if able. Increase activity as tolerated. Encouraged BiPAP use at night (2) COVID: Code(s): U07.1 - COVID-19 Status: Acute Assessment and Plan: As above Continue Decedron, Remdesivir and baricitinib Wean O2 as tolerated. (3) Pulmonary embolism: Code(s): I26.99 - Other pulmonary embolism without acute cor pulmonale Status: Acute Assessment and Plan: CTA showing lingula PE. Lovenox started. LE venous doppler showing DVT left posterior tibial and peroneal veins. Continue Lovenox for now. (4) Deep vein thrombosis of left lower extremity: Code(s): I82.402 - Acute embolism and thrombosis of unspecified deep veins of left lower extremity Status: Acute Assessment and Plan: As above (5) Chronic anemia: Code(s): D64.9 - Anemia, unspecified Status: Acute Assessment and Plan: Pateint with chronic anemia. Hgb mostly 11-13 range. Hgb 11.0 on admission but dropped to 10 range today Follow (6) Hypertension: Code(s): I10 - Essential (primary) hypertension Status: Acute Assessment and Plan: Patient's blood pressure was reviewed on 12/01 Blood pressure remains well controlled. Will continue to monitor (7) Benign prostatic hyperplasia: Code(s): N40.0 - Benign prostatic hyperplasia without lower urinary tract symptoms Status: Acute Assessment and Plan: Stable. Continue Flomax Plan NII - Cr up to 1.4 probably related the Lasix. Lasix held and Cr better today. Follow. DVT prophylaxis - Lovenox Code status - Full Discussed with . All questions answered. Subjective Date/time seen: 12/01/23 15:01 Interval history: 88yo man with CAD status post angioplasty in 1996, HTN, HLD and BPH who presented to the ED via EMS from [facility] living at [facility] for evaluation of shortness of breath. No cough. SOB better than yesterday morning. Drop in SpO2 when up to the chair requiring 15L. No CP No n/v. Toelrated the BiPAP for 2 hours overnight Exam Narrative: AF 98.1 128/47 84 24 91% 12L HFNC Gen - NARD lying semi-recumbent in bed Chest - bronchial BS diffusely. tachypneic with conversation. CV - RRR S1/S2. Tele showing frequent PVCs. Abd - Soft, NT, mildly protuberant, Positive BS Ext - No pedal edema Psych - Nml mood and affect Skin - Warm and dry Objective Data Vital Signs Vital Signs: Vital Signs - 24 hr 11/30/23 16:33 11/30/23 16:00 11/30/23 18:00 Temperature 97.6 F Pulse Rate 77 73 72 Respiratory Rate 20 Blood Pressure 145/59 H Pulse Oximetry 91 Oxygen Delivery Oxygen Flow Rate 11/30/23 16:00 11/30/23 20:00 11/30/23 21:11 Temperature 97.4 F L Pulse Rate 76 90 Respiratory Rate 20 18 Blood Pressure 137/60 Pulse Oximetry 91 91 Oxygen Delivery High Flow Nasal Cannula Oxygen Flow Rate 12 11/30
[2023-12-01] MEDS: LOSARTAN POTASSIUM 25 MG TABLET PO (18:27)
[2023-12-01] MEDS: polyethylene glycoL 3350 17 GM POWD.PACK PO (18:27)
[2023-12-01] MEDS: ASPIRIN 81 MG ENTERIC TABLET PO (18:27)
[2023-12-01] MEDS: PRAVASTATIN SODIUM 20 MG TABLET 40 MG PO (18:27)
[2023-12-01 21:15] LABS: Glucose Point of Care 282 mg/dl (65-105)
[2023-12-01] MEDS: AZITHROMYCIN 250 MG TABLET PO (22:07)
[2023-12-01] MEDS: REMDESIVIR 100 MG/NS 250 ML 100 MG/250 ML BAG 250 MG IVPB (22:08)
[2023-12-01] MEDS: INSULIN ASPART (*BKC) 100 UNITS/ML SUB-Q (22:13)
[2023-12-02] VITALS (17 sets, daily range): BP systolic 108–142; BP diastolic 32–53; PULSE 60–97; RESP 16–20; TEMP 36.1–36.9; O2SAT 93–100
[2023-12-02] MEDS: ALBUTEROL SULFATE (*SP) AEROSOL 1 PUFF 2 PUFF INHALATION ×4 (02:49→19:01)
[2023-12-02 04:59] LABS: Hematocrit 30.1 % (42.0-52.0); Hemoglobin 9.5 g/dL (14.0-18.0); Mean Corpuscular HGB Conc 31.6 g/dl (32-36); Mean Corpuscular Hemoglobin 27.5 pg (26-34); Mean Corpuscular Volume 87.2 fl (80-100); Mean Platelet Volume 9.6 fl (7.4-10.4); Platelet Count Result 260 k/mm3 (150-375); Red Blood Count 3.45 M/mm3 (4.6-6.20); Red Cell Distribution Width 12.9 % (11.5-14.5); White Blood Count 8.8 K/mm3 (4.5-10.0)
[2023-12-02 05:26] LABS: INR 1.5; Prothrombin Time 18.4 Seconds (11.1-14.7)
[2023-12-02 05:34] LABS: Alanine Aminotransferase 56 U/L (6-50); Albumin Level 2.7 g/dL (3.5-5.1); Alkaline Phosphatase 87 U/L (38-126); Anion Gap 6 mmol/L (8-16); Aspartate Amino Transferase 47 U/L (17-59); Bilirubin,Total 0.4 mg/dL (0.2-1.3); Blood Urea Nitrogen 48 mg/dL (9-20); Calcium 8.4 mg/dL (8.4-10.2); Carbon Dioxide 23 mmol/L (22-30); Chloride 103 mmol/L (98-107); Estimated CRCL calculation 39 ml/min; Estimated Glomerular Filt Rate > 60; Glucose 129 mg/dL (65-110); Potassium 4.8 mmol/L (3.4-5.0); Sodium 132 mmol/L (137-145)
[2023-12-02 08:20] LABS: Glucose Point of Care 127 mg/dl (65-105)
[2023-12-02] MEDS: polyethylene glycoL 3350 17 GM POWD.PACK PO (10:33)
[2023-12-02] MEDS: TAMSULOSIN HCL 0.4 MG CAPSULE PO (10:33)
--- NOTE | 2023-12-02 11:26 | PM.PNPUL ---
Progress Note: A&P Assessment and Plan (1) Acute respiratory failure with hypoxia: Code(s): J96.01 - Acute respiratory failure with hypoxia Status: Acute Assessment and Plan: An 88-year-old male arrived with a week-long history of progressively worsening breathlessness. Diagnostic tests, including a chest CT, revealed asymmetrical bilateral infiltrates, most probably associated with severe COVID-19 pneumonia rather than congestive heart failure (CHF), in addition to a small pulmonary embolus in the left lung. Despite receiving diuretic treatment since admission, chest x-rays over the past three days have shown no signs of improvement, suggesting that severe COVID-19 pneumonia, not CHF, is the primary pathology. The patient has only received two COVID-19 vaccine shots, the last one being about two years ago, implying that he lacks immune protection against the infection. His current COVID-19 treatment regimen, which includes dexamethasone, remdesivir, and baricitinib, appears to be suitable. He is also on antibiotics to treat potential co-infections. The results of a chest CT raise the possibility of deteriorating interstitial lung disease. Upon reviewing previous imaging studies, specifically an abdominal CT, mild and nonspecific changes indicative of interstitial lung disease were observed. However, the acute onset and rapid progression of shortness of breath over a week does not typically align with the course of interstitial lung disease. Respiratory status has been essentially stable over the last 48 hours. There has been no improvement in gas exchange although patient reports clinical improvement. Today's chest x-ray also showed no evidence of worsening bilateral infiltrates. Plan: We will continue to monitor the patient, who will remain on a high-flow nasal cannula. If his oxygen saturation worsens on the high-flow nasal cannula, we may have to restart BiPAP support. He is also receiving subcutaneous heparin treatment for his pulmonary emboli. Continue with incentive spirometry out of bed to chair, continue with current antibiotic regimen. (2) Pulmonary embolism: Code(s): I26.99 - Other pulmonary embolism without acute cor pulmonale Status: Acute (3) COVID: Code(s): U07.1 - COVID-19 Status: Acute Subjective Date/time seen: 12/02/23 11:26 Interval history: Patient has no new respiratory symptoms. He stated he is feeling better. He remains on high-flow nasal cannula. He has no shortness of breath at rest. No fever chills hemoptysis or chest pain. Review of Systems Review of Systems: All systems reviewed & are unremarkable except as noted in HPI and below (HPI) Exam Narrative: GENERAL APPEARANCE: Well developed, well nourished, alert and cooperative, and appears to be in mild respiratory distress while on high-flow nasal cannula SKIN: Inspection of the skin reveals no rashes, ulcerations or petechiae. HEENT: Sclerae anicteric and conjunctivae pink and moist. Extraocular movements were intact and pupils were equal, round. Dry oral mucosa CHEST: Normal AP diameter and normal contour without any kyphoscoliosis. LUNGS: Clear lungs anteriorly, decreased breath sounds at right base posteriorly with rare crackles at bases bilaterally CARDIAC: There was a regular rate and rhythm without any murmurs, gallops, rubs. ABDOMEN: Soft and nontender with normal bowel sounds. There was no organomegaly. LYMPH NODES: No lymphadenopathy was appreciated in the neck. EXTREMITIES: No cyanosis, clubbing or edema. NEUROLOGIC: Alert and oriented x 3. Normal affect. Objective Data Vital Signs Vital Signs: Vital Signs - 24 hr 12/01/23 11:41 12/01/23 16:00 12/01/23 12:00 Temperature 36.7 C 36.5 C Pulse Rate 84 77 80 Respiratory Rate 24 H 26 H Blood Pressure 128/47 L 127/44 L Pulse Oximetry 91 93 Oxygen Delivery Oxygen Flow Rate Fraction of Inspired Oxygen 12/01/23 14:00 12/01/23
[2023-12-02] MEDS: BARICITINIB 2 MG TABLET 4 MG PO (12:03)
[2023-12-02] MEDS: ENOXAPARIN 80 MG/0.8 ML SYRINGE SUB-Q ×2 (12:03→22:15)
[2023-12-02 12:08] LABS: Glucose Point of Care 184 mg/dl (65-105)
[2023-12-02 16:15] LABS: Glucose Point of Care 215 mg/dl (65-105)
--- NOTE | 2023-12-02 16:22 | PM.IMPN ---
Progress Note: A&P Assessment and Plan (1) Acute respiratory failure with hypoxia: Code(s): J96.01 - Acute respiratory failure with hypoxia Status: Acute Assessment and Plan: Patient presents with SOB and found to have PE and COVID. No recent COVID vaccine. He was on CPAP on admission but was initially weaned to 6L HFNC. No ABG. RSV and influenza negative. COVID PCR positive. CTA chest showing acute lingula PE and diffuse lung disease c/w edema and PNA with chronic ILD. (ILD seen by CT scan in April 2023) Dexamethasone started. Lovenox for PE. Lasix IV for possible edema. Abx for possible PNA. MRSA nasal swab negative BCx NGTD Sputum Cx pending CXR 11/30: diffuse lung disease t/o both lungs with relative sparing of the left upper lung. ABG 11/30: 7.497/26/58 on 12L. Pulmonary consulted and appreciate their input. [employer] also made aware Now on high flow therapy at 40% but feels better and exam better CXR showing no change. Continue Dexamethasone, Remdesivir and Baricitinib. Encouraged patient to lay prone if able. Increase activity as tolerated. Encouraged BiPAP use at night (2) COVID: Code(s): U07.1 - COVID-19 Status: Acute Assessment and Plan: As above Continue Decedron, Remdesivir and baricitinib Wean O2 as tolerated. (3) Pulmonary embolism: Code(s): I26.99 - Other pulmonary embolism without acute cor pulmonale Status: Acute Assessment and Plan: CTA showing lingula PE. Lovenox started. LE venous doppler showing DVT left posterior tibial and peroneal veins. Continue Lovenox for now. (4) Deep vein thrombosis of left lower extremity: Code(s): I82.402 - Acute embolism and thrombosis of unspecified deep veins of left lower extremity Status: Acute Assessment and Plan: As above (5) Chronic anemia: Code(s): D64.9 - Anemia, unspecified Status: Acute Assessment and Plan: Pateint with chronic anemia. Hgb mostly 11-13 range. Hgb 11.0 on admission but dropped to 9 range today I/O's about even. Follow (6) Hypertension: Code(s): I10 - Essential (primary) hypertension Status: Acute Assessment and Plan: Patient's blood pressure was reviewed on 12/02 Blood pressure remains well controlled. Will continue to monitor (7) Benign prostatic hyperplasia: Code(s): N40.0 - Benign prostatic hyperplasia without lower urinary tract symptoms Status: Acute Assessment and Plan: Stable. Continue Flomax Plan NII - Cr up to 1.4 probably related the Lasix. Lasix held and Cr better today. Follow. DVT prophylaxis - Lovenox Code status - Full Discussed with . All questions answered. Subjective Date/time seen: 12/02/23 16:22 Interval history: 88yo man with CAD status post angioplasty in 1996, HTN, HLD and BPH who presented to the ED via EMS from [facility] at [facility] for evaluation of shortness of breath. Changed to high flow therapy. he feels much better. Slept well last night. He has noted improvement when using the incentive spirometry. No CP. Eating okay. Up to the chair. Still hypoxic to 82% with exertion but appeared to tolerate it better and recover faster. No BiPAP use last night Exam Narrative: AF 98.4 142/49 97 16 97% High flow therapy at 40% Gen - NARD sitting up in chair Chest - bibasilar inspiratory crackles. Improved air exchange CV - RRR S1/S2. Tele showing PVCs Abd - Soft, NT, ND, Positive BS Ext - No pedal edema Psych - Nml mood and affect Skin - Warm and dry Objective Data Vital Signs Vital Signs: Vital Signs - 24 hr 12/01/23 18:00 12/01/23 20:22 12/01/23 20:23 Temperature Pulse Rate 74 94 Respiratory Rate 18 Blood Pressure Pulse Oximetry 97 Oxygen Delivery High Flow Nasal Cannula Oxygen Flow Rate 12 Fraction of Inspired Oxygen 12/01/23 20:00 12/01/23 20:58 12/02/23 00:00 Temp
[2023-12-02] MEDS: ASPIRIN 81 MG ENTERIC TABLET PO (17:26)
[2023-12-02] MEDS: LOSARTAN POTASSIUM 25 MG TABLET PO (17:26)
[2023-12-02] MEDS: PRAVASTATIN SODIUM 20 MG TABLET 40 MG PO (17:26)
[2023-12-02] MEDS: INSULIN ASPART (*BKC) 100 UNITS/ML SUB-Q ×2 (17:26→22:14)
[2023-12-02 21:03] LABS: Glucose Point of Care 261 mg/dl (65-105)
[2023-12-02] MEDS: AZITHROMYCIN 250 MG TABLET PO (22:13)
[2023-12-02] MEDS: REMDESIVIR 100 MG/NS 250 ML 100 MG/250 ML BAG 250 MG IVPB (22:52)
[2023-12-03] VITALS (22 sets, daily range): BP systolic 119–151; BP diastolic 36–78; PULSE 58–95; RESP 15–20; TEMP 36.3–36.8; O2SAT 90–100
[2023-12-03 04:50] LABS: Basophils Percent Auto 0.3 % (0.2-1.2); Eosinophils Absolute Auto 0.1 K/mm3 (0-0.3); Eosinophils Percent Auto 0.8 % (0-4.4); Hematocrit 30.6 % (42.0-52.0); Hemoglobin 9.9 g/dL (14.0-18.0); Immature Granulocyte Absolute 0.35 K/mm3 (0.00-0.031); Lymphocytes Absolute Auto 1.73 K/mm3 (0.9-3.2); Lymphocytes Percent Auto 14.9 % (18.3-44.2); Mean Corpuscular HGB Conc 32.4 g/dl (32-36); Mean Corpuscular Hemoglobin 27.8 pg (26-34); Mean Platelet Volume 9.2 fl (7.4-10.4); Monocytes Absolute Auto 1.1 K/mm3 (0.1-0.6); Monocytes Percent Auto 9.4 % (2.6-8.5); Neutrophils Absolute Auto 8.3 K/mm3 (1.3-6.7); Neutrophils Percent Auto 71.6 % (45.5-73.1); Platelet Count Result 268 k/mm3 (150-375); Red Blood Count 3.56 M/mm3 (4.6-6.20); Red Cell Distribution Width 12.7 % (11.5-14.5); White Blood Count 11.6 K/mm3 (4.5-10.0)
[2023-12-03 05:08] LABS: Alanine Aminotransferase 56 U/L (6-50); Albumin Level 2.7 g/dL (3.5-5.1); Alkaline Phosphatase 88 U/L (38-126); Anion Gap 4 mmol/L (8-16); Aspartate Amino Transferase 42 U/L (17-59); Bilirubin,Total 0.4 mg/dL (0.2-1.3); Blood Urea Nitrogen 47 mg/dL (9-20); Calcium 8.3 mg/dL (8.4-10.2); Carbon Dioxide 24 mmol/L (22-30); Chloride 102 mmol/L (98-107); Estimated CRCL calculation 42 ml/min; Estimated Glomerular Filt Rate > 60; Glucose 114 mg/dL (65-110); Magnesium 2.5 mg/dL (1.6-2.3); Phosphorus 3.8 mg/dL (2.5-4.5); Potassium 4.7 mmol/L (3.4-5.0); Sodium 130 mmol/L (137-145)
[2023-12-03 06:48] LABS: Legionella pneumophila Ag Ur Not Detected (Not Detected)
[2023-12-03] MEDS: ALBUTEROL SULFATE (*SP) AEROSOL 1 PUFF 2 PUFF INHALATION ×3 (08:02→20:55)
[2023-12-03 08:51] LABS: Glucose Point of Care 85 mg/dl (65-105)
[2023-12-03] MEDS: TAMSULOSIN HCL 0.4 MG CAPSULE PO (10:38)
[2023-12-03] MEDS: BARICITINIB 2 MG TABLET 4 MG PO (10:38)
[2023-12-03] MEDS: ENOXAPARIN 80 MG/0.8 ML SYRINGE SUB-Q ×2 (10:39→22:58)
[2023-12-03] MEDS: polyethylene glycoL 3350 17 GM POWD.PACK PO (10:39)
--- NOTE | 2023-12-03 11:13 | PM.PNPUL ---
Progress Note: A&P Assessment and Plan (1) Acute respiratory failure with hypoxia: Code(s): J96.01 - Acute respiratory failure with hypoxia Status: Acute Assessment and Plan: An 88-year-old male arrived with a week-long history of progressively worsening breathlessness. Diagnostic tests, including a chest CT, revealed asymmetrical bilateral infiltrates, most probably associated with severe COVID-19 pneumonia rather than congestive heart failure (CHF), in addition to a small pulmonary embolus in the left lung. Despite receiving diuretic treatment, chest x-rays had shown no signs of improvement, suggesting that severe COVID-19 pneumonia, not CHF, is the primary pathology. The patient has only received two COVID-19 vaccine shots, the last one being about two years ago, implying that he lacks immune protection against the infection. He has received COVID-19 treatment regimen, which includes dexamethasone, remdesivir, and baricitinib. He is also on antibiotics to treat potential co-infections. The results of a chest CT raise the possibility of deteriorating interstitial lung disease. Upon reviewing previous imaging studies, specifically an abdominal CT, mild and nonspecific changes indicative of interstitial lung disease were observed. However, the acute onset and rapid progression of shortness of breath over a week does not typically align with the course of interstitial lung disease. Respiratory status has been essentially stable over the last 72 hours. There has been no improvement in gas exchange although patient reports clinical improvement. Plan: We will continue to monitor the patient, who will remain on a high-flow nasal cannula. If his oxygen saturation worsens on the high-flow nasal cannula, we may have to restart BiPAP support. He is also receiving subcutaneous heparin treatment for his pulmonary emboli. Continue with incentive spirometry out of bed to chair, continue with current antibiotic regimen. I would continue with just dexamethasone and baricitinib at this point out of bed to chair. (2) Pulmonary embolism: Code(s): I26.99 - Other pulmonary embolism without acute cor pulmonale Status: Acute (3) COVID: Code(s): U07.1 - COVID-19 Status: Acute Subjective Date/time seen: 12/03/23 11:13 Interval history: Patient reports no new respiratory symptoms. Has no shortness of breath. Afebrile. He remains on high-flow nasal cannula Review of Systems Review of Systems: All systems reviewed & are unremarkable except as noted in HPI and below (HPI) Exam Narrative: GENERAL APPEARANCE: Well developed, well nourished, alert and cooperative, and appears to be in mild respiratory distress while on high-flow nasal cannula SKIN: Inspection of the skin reveals no rashes, ulcerations or petechiae. HEENT: Sclerae anicteric and conjunctivae pink and moist. Extraocular movements were intact and pupils were equal, round. Dry oral mucosa CHEST: Normal AP diameter and normal contour without any kyphoscoliosis. LUNGS: Clear lungs anteriorly, decreased breath sounds at right base posteriorly with rare crackles at bases bilaterally CARDIAC: There was a regular rate and rhythm without any murmurs, gallops, rubs. ABDOMEN: Soft and nontender with normal bowel sounds. There was no organomegaly. LYMPH NODES: No lymphadenopathy was appreciated in the neck. EXTREMITIES: No cyanosis, clubbing or edema. NEUROLOGIC: Alert and oriented x 3. Normal affect. Objective Data Vital Signs Vital Signs: Vital Signs - 24 hr 12/02/23 11:56 12/02/23 12:00 12/02/23 12:00 Temperature 36.6 C Pulse Rate 75 71 Respiratory Rate 18 Blood Pressure 128/53 L Pulse Oximetry 97 99 Oxygen Delivery High Flow Therapy with Na Oxygen Flow Rate 40 Fraction of Inspired Oxygen 58 12/02/23 14:00 12/02/23 16:00 12/02/23 16:00 Temperature 36.9 C Pulse Rate 73 97 75 Respiratory Rate 16 Blood Pressure 142/49
[2023-12-03 11:41] LABS: Glucose Point of Care 157 mg/dl (65-105)
--- NOTE | 2023-12-03 14:18 | PM.IMPN ---
Progress Note: A&P Assessment and Plan (1) Acute respiratory failure with hypoxia: Code(s): J96.01 - Acute respiratory failure with hypoxia Status: Acute Assessment and Plan: Patient presents with SOB and found to have PE and COVID. No recent COVID vaccine. He was on CPAP on admission but was initially weaned to 6L HFNC. No ABG. RSV and influenza negative. COVID PCR positive. CTA chest showing acute lingula PE and diffuse lung disease c/w edema and PNA with chronic ILD. (ILD seen by CT scan in April 2023) Dexamethasone/Remdesivir started. Lovenox for PE. Lasix IV for possible edema. Abx for possible PNA. MRSA nasal swab negative BCx NGTD Sputum Cx pending CXR 11/30: diffuse lung disease t/o both lungs with relative sparing of the left upper lung. ABG 11/30: 7.497//58 on 12L. Pulmonary consulted and appreciate their input. [employer] also made aware Condition worsened and Baricitinib started Now on high flow therapy at 40L but feels better and exam better CXR 12/02 showing no change. Continue Dexamethasone, Remdesivir and Baricitinib. Encouraged patient to lay prone if able. Increase activity as tolerated. Encouraged BiPAP use at night (2) COVID: Code(s): U07.1 - COVID-19 Status: Acute Assessment and Plan: As above Continue Decadron, Remdesivir and baricitinib Wean O2 as tolerated. (3) Pulmonary embolism: Code(s): I26.99 - Other pulmonary embolism without acute cor pulmonale Status: Acute Assessment and Plan: CTA showing lingula PE. Lovenox started. LE venous doppler showing DVT left posterior tibial and peroneal veins. Continue Lovenox for now. (4) Deep vein thrombosis of left lower extremity: Code(s): I82.402 - Acute embolism and thrombosis of unspecified deep veins of left lower extremity Status: Acute Assessment and Plan: As above (5) Chronic anemia: Code(s): D64.9 - Anemia, unspecified Status: Acute Assessment and Plan: Pateint with chronic anemia. Hgb mostly 11-13 range. Hgb 11.0 on admission but dropped to 9-10 range Follow (6) Hypertension: Code(s): I10 - Essential (primary) hypertension Status: Acute Assessment and Plan: Patient's blood pressure was reviewed on 12/03 Blood pressure remains well controlled. Will continue to monitor (7) Benign prostatic hyperplasia: Code(s): N40.0 - Benign prostatic hyperplasia without lower urinary tract symptoms Status: Acute Assessment and Plan: Stable. Continue Flomax Plan NII - Cr up to 1.4 probably related the Lasix. Lasix held and Cr normal now. Follow. DVT prophylaxis - Lovenox Code status - Full Subjective Date/time seen: 12/03/23 14:18 Interval history: 88yo man with CAD status post angioplasty in 1996, HTN, HLD and BPH who presented to the ED via EMS from independent living at [facility] for evaluation of shortness of breath. Remains on Airvo. Feels down today. Not liking the food choices. No SOB at rest but does have HENSLEY with even mild exertion such as eating or talking. No CP. Exam Narrative: AF 97.6 151/44 95 20 99% AirVo 40L at 59%. Gen - NARD sitting up in chair but with conversational dyspnea Chest - dry bibasilar inspiratory crackles o/w distant CV - RRR S1/S2. Tele showing PVCs Abd - Soft, NT, ND, Positive BS Ext - No pedal edema Psych - Nml mood and affect Skin - Warm and dry Objective Data Vital Signs Vital Signs: Vital Signs - 24 hr 12/02/23 16:00 12/02/23 16:00 12/02/23 18:00 Temperature 98.4 F Pulse Rate 97 75 74 Respiratory Rate 16 Blood Pressure 142/49 H Pulse Oximetry 97 Oxygen Delivery Oxygen Flow Rate Fraction of Inspired Oxygen 12/02/23 16:00 12/02/23 19:01 12/02/23 19:01 Temperature Pulse Rate 97 Respiratory Rate 20 Blood Pressure Pulse Oximetry 95 97 Oxygen Delivery High Flow Therapy wi
[2023-12-03 17:28] LABS: Glucose Point of Care 228 mg/dl (65-105)
[2023-12-03] MEDS: PRAVASTATIN SODIUM 20 MG TABLET 40 MG PO (18:04)
[2023-12-03] MEDS: LOSARTAN POTASSIUM 25 MG TABLET PO (18:04)
[2023-12-03] MEDS: ASPIRIN 81 MG ENTERIC TABLET PO (18:04)
[2023-12-03 22:44] LABS: Glucose Point of Care 380 mg/dl (65-105)
[2023-12-03] MEDS: INSULIN ASPART (*BKC) 100 UNITS/ML SUB-Q (22:59)
[2023-12-03 23:37] LABS: Glucose Point of Care 274 mg/dl (65-105)
[2023-12-04] VITALS (19 sets, daily range): BP systolic 116–136; BP diastolic 40–60; PULSE 59–81; RESP 16–20; TEMP 36.6–36.9; O2SAT 90–98
[2023-12-04] MEDS: ALBUTEROL SULFATE (*SP) AEROSOL 1 PUFF 2 PUFF INHALATION ×4 (01:13→20:55)
--- NOTE | 2023-12-04 01:57 | PCRCNOTE ---
Nurse Regine informed RT at 0145 that she had given pt his Q6 0200 inhaler tx. Nurse administered this at 0113.
[2023-12-04 04:18] LABS: Basophils Percent Auto 0.2 % (0.2-1.2); Eosinophils Absolute Auto 0.1 K/mm3 (0-0.3); Eosinophils Percent Auto 0.8 % (0-4.4); Hematocrit 32.1 % (42.0-52.0); Immature Granulocyte Absolute 0.49 K/mm3 (0.00-0.031); Immature Granulocyte Percent A 3.8 % (0-0.5); Lymphocytes Absolute Auto 1.46 K/mm3 (0.9-3.2); Lymphocytes Percent Auto 11.5 % (18.3-44.2); Mean Corpuscular HGB Conc 31.2 g/dl (32-36); Mean Corpuscular Hemoglobin 27.4 pg (26-34); Mean Corpuscular Volume 87.9 fl (80-100); Mean Platelet Volume 9.5 fl (7.4-10.4); Monocytes Absolute Auto 1.1 K/mm3 (0.1-0.6); Monocytes Percent Auto 8.9 % (2.6-8.5); Neutrophils Absolute Auto 9.5 K/mm3 (1.3-6.7); Neutrophils Percent Auto 74.8 % (45.5-73.1); Platelet Count Result 307 k/mm3 (150-375); Red Blood Count 3.65 M/mm3 (4.6-6.20); Red Cell Distribution Width 12.9 % (11.5-14.5); White Blood Count 12.7 K/mm3 (4.5-10.0)
[2023-12-04 04:39] LABS: Albumin Level 2.8 g/dL (3.5-5.1); Anion Gap 4 mmol/L (8-16); Blood Urea Nitrogen 46 mg/dL (9-20); Calcium 8.3 mg/dL (8.4-10.2); Carbon Dioxide 26 mmol/L (22-30); Chloride 100 mmol/L (98-107); Estimated CRCL calculation 42 ml/min; Estimated Glomerular Filt Rate > 60; Glucose 147 mg/dL (65-110); Magnesium 2.6 mg/dL (1.6-2.3); Phosphorus 3.8 mg/dL (2.5-4.5); Potassium 5.2 mmol/L (3.4-5.0); Sodium 130 mmol/L (137-145)
[2023-12-04 08:38] LABS: Glucose Point of Care 94 mg/dl (65-105)
[2023-12-04] MEDS: polyethylene glycoL 3350 17 GM POWD.PACK PO (09:18)
[2023-12-04] MEDS: TAMSULOSIN HCL 0.4 MG CAPSULE PO (09:19)
--- NOTE | 2023-12-04 10:30 | PCNFU ---
Nutrition Follow-Up Complete: Inadequate oral intake related to acute loss of appetite as evidenced by intakes 25-50% Goal:Intakes at least 75% meals and supplements Pt is meeting goal. Continue with same goal Pt current nutrition is Heart healthy, Ensure compact BID. Nutrition recommendation: continue with current plan of care Last recorded weight is 84.6 kg. Bowel Motility: no BM recorded Labs Reviewed: Hgb:10, HCT:32.1, Alb:2.8, NA:130, K:5.2, BUN:46, Glu:147 Meds Noted: lovenox, novolog Skin: WNL Additional Notes: Pt continues on a heart healthy diet, intake improved to 75-100% of meals. Pt receiving Ensure compact BID for supplement. Wt stable. Continue with current plan of care. Monitor intakes, weights, labs, supplement tolerance, plan of care Follow up in 7 days
[2023-12-04 11:58] LABS: Glucose Point of Care 219 mg/dl (65-105)
[2023-12-04] MEDS: BARICITINIB 2 MG TABLET 4 MG PO (12:11)
[2023-12-04] MEDS: INSULIN ASPART (*BKC) 100 UNITS/ML SUB-Q ×3 (12:12→21:29)
[2023-12-04] MEDS: ENOXAPARIN 80 MG/0.8 ML SYRINGE SUB-Q (12:12)
[2023-12-04 12:31] LABS: Anion Gap 7 mmol/L (8-16); Blood Urea Nitrogen 47 mg/dL (9-20); Calcium 8.7 mg/dL (8.4-10.2); Carbon Dioxide 23 mmol/L (22-30); Chloride 97 mmol/L (98-107); Estimated CRCL calculation 42 ml/min; Estimated Glomerular Filt Rate > 60; Glucose 186 mg/dL (65-110); Potassium 5.1 mmol/L (3.4-5.0); Sodium 127 mmol/L (137-145)
--- NOTE | 2023-12-04 14:06 | PM.PNPUL ---
Progress Note: A&P Assessment and Plan (1) COVID: Code(s): U07.1 - COVID-19 Status: Acute Assessment and Plan: ?Patient tested positive for COVID-19 on 11/28/23 and started on remdesivir, dexamethasone on 11/28/2023. Started on baricitinib on 11/30/2022. ABG on 11/30/2023 with a pH of 7.50/26/58 on 12 L nasal cannula. 12/04/23: Plan: - Completed Remdesivir for 5 days on 12/03/23. - Dexamethasone 6 mg IV for 10 days - Continuous pulse oximetry - Avoid any fluid overload. - influenza and RSV swab negative - Keep saturations are 90-94% and currently on 4 L nasal cannula -empiric treatment for pneumonia with azithromycin, completed 5 days on 12/02/2023 and currently on ceftriaxone since 11/28 and will complete a total of 7 days. For worsening hypoxemia treat with nasal cannula up to 15 L, if fails then Airvo high flow nasal cannula.? If fails Airvo then noninvasive ventilation. If fails noninvasive then intubation. Discussed with Dr. Bruno, will follow with you. (2) Acute respiratory failure with hypoxia: Code(s): J96.01 - Acute respiratory failure with hypoxia Status: Acute Assessment and Plan: ?Etiology of hypoxic respiratory failure is likely COVID pneumonia.? Patient on no supplemental oxygen at home prior to this. 11/28/23 CPAP then BiPAP 11/29/23 6 L NC sats 98% 11/30/23 Last BiPAP use 12/02/23 20:00 high-flow nasal cannula 40 L and 56% with sats 93 12/03/23 8:00 high-flow nasal cannula 40 L and 56% with sats 97 12/03/23 21:00 high-flow nasal cannula 35 L and 40% FiO2 with sats 100 12/04/23 8:00 high-flow nasal cannula 35 L and 40% FiO2 with sats 98 12/04/23 12:00 8 L nasal cannula, sats 97% 12/04/23: Plan:? Patient with minimal increased oxygen requirements during the day currently and he tolerated 36% FiO2 last night on the hospital noninvasive ventilator and he is on 4 L bleed in at night.? He does not have greatly increased oxygen demands at this time, therefore I do not recommend adding baricitinib at this time. (3) Pulmonary embolism: Code(s): I26.99 - Other pulmonary embolism without acute cor pulmonale Status: Acute Assessment and Plan: CT angiogram on 11/28/2023 of the chest demonstrates acute lingular PE. Patient on Lovenox 1 milligram/kg BID. Lower extremity Dopplers on 11/28/2019 4- 12/04/23: This PE is provoked by COVID pneumonia. Plan: Continue Lovenox 1 milligram/kilos b.i.d.. No evidence of active bleeding. (4) ILD (interstitial lung disease): Code(s): J84.9 - Interstitial pulmonary disease, unspecified Status: Acute Assessment and Plan: The results of a chest CT raise the possibility of deteriorating interstitial lung disease. Upon reviewing previous imaging studies, specifically an abdominal C T 04/15/2023, mild and nonspecific changes indicative of interstitial lung disease were observed that were more pronoounced than on CT abdomen 03/06/2013. However, the acute onset and rapid progression of shortness of breath over a week does not typically align with the course of interstitial lung disease. 12/04/23: 10/30/2023, rheumatoid factor less than 12, MARICRUZ screen is positive 160 with a nuclear speckled pattern. I will send serologies for autoimmune disease looking for etiology of his interstitial lung disease. Today tells me that he has no dyspnea on exertion. One year ago he could walk 3-4 blocks and currently can only walk 1 city block and he attributes this to arthritis and weakness rather than dyspnea on exertion. He denies any rashes. He states he has arthritis all over his body. He has no exposure to birds, feathers or exotic pets. He smoked tobacco 1 pack per day from age [age], he was exposed to secondhand smoke from his father but none since. 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
--- NOTE | 2023-12-04 15:51 | PM.IMPN ---
Progress Note: A&P Assessment and Plan (1) Acute respiratory failure with hypoxia: Code(s): J96.01 - Acute respiratory failure with hypoxia Status: Acute Assessment and Plan: Patient presents with SOB and found to have PE and COVID. No recent COVID vaccine. He was on CPAP on admission but was initially weaned to 6L HFNC. No ABG. RSV and influenza negative. COVID PCR positive. CTA chest showing acute lingula PE and diffuse lung disease c/w edema and PNA with chronic ILD. (ILD seen by CT scan in April 2023) Dexamethasone/Remdesivir started. Lovenox for PE. Lasix IV for possible edema. Abx for possible PNA. MRSA nasal swab negative BCx negative Sputum Cx negative CXR 11/30: diffuse lung disease t/o both lungs with relative sparing of the left upper lung. ABG 11/30: 7.497/26/58 on 12L. Pulmonary consulted and appreciate their input. Trauma Nurse also made aware Condition worsened and Baricitinib started Worsened requiring high flow therapy at 40L CXR 12/02 showing no change. Completed Remdesivir x5 days. O2 requirement down today. Maybe turning the corner Continue Dexamethasone and Baricitinib. Encouraged patient to lay prone if able. Increase activity as tolerated. Encouraged BiPAP use at night (2) COVID: Code(s): U07.1 - COVID-19 Status: Acute Assessment and Plan: As above Continue Decadron and baricitinib Wean O2 as tolerated. (3) Pulmonary embolism: Code(s): I26.99 - Other pulmonary embolism without acute cor pulmonale Status: Acute Assessment and Plan: CTA showing lingula PE. Lovenox started. LE venous doppler showing DVT left posterior tibial and peroneal veins. Continue Lovenox for now. Switched to Eliquis tomorrow if continues to show signs of improvement. (4) Deep vein thrombosis of left lower extremity: Code(s): I82.402 - Acute embolism and thrombosis of unspecified deep veins of left lower extremity Status: Acute Assessment and Plan: As above (5) Chronic anemia: Code(s): D64.9 - Anemia, unspecified Status: Acute Assessment and Plan: Pateint with chronic anemia. Hgb mostly 11-13 range. Hgb 11.0 on admission but dropped to 9-10 range Follow (6) Hypertension: Code(s): I10 - Essential (primary) hypertension Status: Acute Assessment and Plan: Patient's blood pressure was reviewed on 12/04 Blood pressure remains well controlled. Will continue to monitor (7) Benign prostatic hyperplasia: Code(s): N40.0 - Benign prostatic hyperplasia without lower urinary tract symptoms Status: Acute Assessment and Plan: Stable. Continue Flomax Plan NII - Cr up to 1.4 probably related the Lasix. Lasix held and Cr normal now. Follow. DVT prophylaxis - Lovenox Code status - Full Subjective Date/time seen: 12/04/23 15:51 Interval history: 88yo man with CAD status post angioplasty in 1996, HTN, HLD and BPH who presented to the ED via EMS from [facility] for evaluation of shortness of breath. Remains on Airvo but decrease in o2 requirements. Up to the chair today. Still with drop in O2 when moving around and with HENSLEY. No CP. Exam Narrative: AF 98.1 125/40 63 18 96% AirVo --> 6L Gen - NARD sitting up in chair Chest - dry bibasilar inspiratory crackles o/w distant CV - RRR S1/S2. Tele showing no significant dysrhythmias Abd - Soft, NT, ND, Positive BS Ext - No pedal edema Psych - Nml mood and affect Skin - Warm and dry Objective Data Vital Signs Vital Signs: Vital Signs - 24 hr 12/03/23 16:00 12/03/23 16:00 12/03/23 17:59 Temperature 98.3 F Pulse Rate 73 71 70 Respiratory Rate 17 Blood Pressure 135/52 L Pulse Oximetry 100 Oxygen Delivery Oxygen Flow Rate Fraction of Inspired Oxygen 12/03/23 21:01 12/03/23 21:02 12/03/23 21:03 Temperature Pulse Rate 72 Respiratory Rat
[2023-12-04 16:49] LABS: Glucose Point of Care 217 mg/dl (65-105)
[2023-12-04] MEDS: LOSARTAN POTASSIUM 25 MG TABLET PO (17:12)
[2023-12-04] MEDS: PRAVASTATIN SODIUM 20 MG TABLET 40 MG PO (17:12)
[2023-12-04] MEDS: ASPIRIN 81 MG ENTERIC TABLET PO (17:12)
[2023-12-04 18:52] LABS: Creatinine Urine 44.1 mg/dL; Urea Random Urine 905 MG/DL
[2023-12-04 18:57] LABS: Sodium Urine Random 87 meq/L
[2023-12-04 20:41] LABS: Glucose Point of Care 334 mg/dl (65-105)
[2023-12-05] VITALS (15 sets, daily range): BP systolic 117–142; BP diastolic 39–53; PULSE 59–96; RESP 16–20; TEMP 36.3–37.1; O2SAT 93–98
[2023-12-05] MEDS: ENOXAPARIN 80 MG/0.8 ML SYRINGE SUB-Q (00:02)
[2023-12-05 05:10] LABS: Chloride 99 mmol/L (98-107)
[2023-12-05 05:26] LABS: Anion Gap 7 mmol/L (8-16); Blood Urea Nitrogen 49 mg/dL (9-20); Calcium 8.4 mg/dL (8.4-10.2); Carbon Dioxide 24 mmol/L (22-30); Creatine Kinase 31 U/L (55-170); Estimated CRCL calculation 42 ml/min; Estimated Glomerular Filt Rate > 60; Glucose 108 mg/dL (65-110); Sodium 130 mmol/L (137-145)
[2023-12-05 06:15] LABS: CRP 3.3 mg/dL (<1.0)
[2023-12-05 07:36] LABS: Basophils Percent Auto 0.2 % (0.2-1.2); Eosinophils Absolute Auto 0.1 K/mm3 (0-0.3); Eosinophils Percent Auto 0.8 % (0-4.4); Hematocrit 32.3 % (42.0-52.0); Hemoglobin 10.4 g/dL (14.0-18.0); Immature Granulocyte Absolute 0.54 K/mm3 (0.00-0.031); Immature Granulocyte Percent A 3.2 % (0-0.5); Lymphocytes Absolute Auto 1.65 K/mm3 (0.9-3.2); Lymphocytes Percent Auto 9.9 % (18.3-44.2); Mean Corpuscular HGB Conc 32.2 g/dl (32-36); Mean Corpuscular Hemoglobin 28.2 pg (26-34); Mean Corpuscular Volume 87.5 fl (80-100); Mean Platelet Volume 10.4 fl (7.4-10.4); Monocytes Absolute Auto 1.5 K/mm3 (0.1-0.6); Monocytes Percent Auto 8.9 % (2.6-8.5); Neutrophils Absolute Auto 12.8 K/mm3 (1.3-6.7); Platelet Count Result 350 k/mm3 (150-375); Red Blood Count 3.69 M/mm3 (4.6-6.20); Red Cell Distribution Width 13.2 % (11.5-14.5); White Blood Count 16.7 K/mm3 (4.5-10.0)
[2023-12-05 07:45] LABS: Alanine Aminotransferase 46 U/L (6-50); Albumin Level 2.7 g/dL (3.5-5.1); Alkaline Phosphatase 91 U/L (38-126); Aspartate Amino Transferase 36 U/L (17-59); Bilirubin,Total 0.6 mg/dL (0.2-1.3)
[2023-12-05 08:02] LABS: Glucose Point of Care 98 mg/dl (65-105)
[2023-12-05] MEDS: APIXABAN 5 MG TABLET 10 MG PO ×2 (09:12→20:33)
[2023-12-05] MEDS: polyethylene glycoL 3350 17 GM POWD.PACK PO (09:12)
[2023-12-05] MEDS: TAMSULOSIN HCL 0.4 MG CAPSULE PO (09:12)
--- NOTE | 2023-12-05 09:17 | PM.PNPUL ---
Progress Note: A&P Assessment and Plan (1) COVID: Code(s): U07.1 - COVID-19 Status: Acute Assessment and Plan: ?Patient tested positive for COVID-19 on 11/28/23 and started on remdesivir, dexamethasone on 11/28/2023. Started on baricitinib on 11/30/2022. ABG on 11/30/2023 with a pH of 7.50/26/58 on 12 L nasal cannula. 12/04/23: Plan: - Completed Remdesivir for 5 days on 12/03/23. - Dexamethasone 6 mg IV for 10 days - Continuous pulse oximetry - Avoid any fluid overload. - influenza and RSV swab negative - Keep saturations are 90-94% and currently on 4 L nasal cannula -empiric treatment for pneumonia with azithromycin, completed 5 days on 12/02/2023 and currently on ceftriaxone since 11/28 and will complete a total of 7 days. For worsening hypoxemia treat with nasal cannula up to 15 L, if fails then Airvo high flow nasal cannula.? If fails Airvo then noninvasive ventilation. If fails noninvasive then intubation. 12/05/23: The patient tells me heels the same as yesterday, 10-15% back to his baseline. His creatinine is 1.0. When I entered the room he was on 5 L nasal cannula saturations 94%. I decreased him to 4 L and after 3 minutes his saturations decreased to 88% and I increased him back to 5 L. he tells me the albuterol inhalers provide him no benefit. Plan: Overall the patient is improved since admission and his oxygenation has improved. Status post remdesivir for 5 days. Continue dexamethasone 6 mg, day 8. Continue baricitinib, day 6. Will follow with you. (2) Acute respiratory failure with hypoxia: Code(s): J96.01 - Acute respiratory failure with hypoxia Status: Acute Assessment and Plan: ?Etiology of hypoxic respiratory failure is likely COVID pneumonia.? Patient on no supplemental oxygen at home prior to this. 11/28/23 CPAP then BiPAP 11/29/23 6 L NC sats 98% 11/30/23 Last BiPAP use 12/02/23 20:00 high-flow nasal cannula 40 L and 56% with sats 93 12/03/23 8:00 high-flow nasal cannula 40 L and 56% with sats 97 12/03/23 21:00 high-flow nasal cannula 35 L and 40% FiO2 with sats 100 12/04/23 8:00 high-flow nasal cannula 35 L and 40% FiO2 with sats 98 12/04/23 12:00 8 L nasal cannula, sats 97% 12/04/23 20:00 6 L NC, sats 97% 12/05/23 08:00 5 L NC, sats 94% 12/04/23: Plan:? Patient with minimal increased oxygen requirements during the day currently and he tolerated 36% FiO2 last night on the hospital noninvasive ventilator and he is on 4 L bleed in at night.? He does not have greatly increased oxygen demands at this time, therefore I do not recommend adding baricitinib at this time. 12/05/23: Plan: Goal saturations 90-94%. Wean as tolerated. Continue treatment for COVID pneumonia as above. (3) Pulmonary embolism: Code(s): I26.99 - Other pulmonary embolism without acute cor pulmonale Status: Acute Assessment and Plan: CT angiogram on 11/28/2023 of the chest demonstrates acute lingular PE. Patient started on Lovenox 1 milligram/kg BID on 11/28/2023. Lower extremity Dopplers on 11/28/2019 4- 12/04/23: This PE is provoked by COVID pneumonia. Plan: Continue Lovenox 1 milligram/kilos b.i.d.. No evidence of active bleeding. 12/05/23: No evidence of active bleeding. Plan: Continue Lovenox 1 milligram/kilos b.i.d.. (4) ILD (interstitial lung disease): Code(s): J84.9 - Interstitial pulmonary disease, unspecified Status: Acute Assessment and Plan: The results of a chest CT raise the possibility of deteriorating interstitial lung disease. Upon reviewing previous imaging studies, specifically an abdominal C T 04/15/2023, mild and nonspecific changes indicative of interstitial lung disease were observed that were more pronoounced than on CT abdomen 03/06/2013. However, the acute onset and rapid progression of shortness of breath over a week does not typically align with the course of interstitial lung disease. 12/04/23: 10/30/2023, rheumatoid factor less than 12, MARICRUZ screen is
[2023-12-05] MEDS: BARICITINIB 2 MG TABLET 4 MG PO (11:13)
[2023-12-05 12:31] LABS: Glucose Point of Care 270 mg/dl (65-105)
[2023-12-05] MEDS: INSULIN ASPART (*BKC) 100 UNITS/ML SUB-Q ×3 (13:15→20:34)
--- NOTE | 2023-12-05 14:19 | PCOTNOTE ---
Attempted to see Patient at this time. Patient stated he has already had PT this date and would prefer services in the [facility] due to have completing most of his needs at this time. Patient requested therapy return tomorrow for session.
--- NOTE | 2023-12-05 14:29 | PM.IMPN ---
Progress Note: A&P Assessment and Plan (1) Acute respiratory failure with hypoxia: Code(s): J96.01 - Acute respiratory failure with hypoxia Status: Acute Assessment and Plan: Patient presents with SOB and found to have PE and COVID. No recent COVID vaccine. He was on CPAP on admission but was initially weaned to 6L HFNC. No ABG. RSV and influenza negative. COVID PCR positive. CTA chest showing acute lingula PE and diffuse lung disease c/w edema and PNA with chronic ILD. (ILD seen by CT scan in April 2023) Dexamethasone/Remdesivir started. Lovenox for PE. Lasix IV for possible edema. Abx for possible PNA. MRSA nasal swab negative BCx negative Sputum Cx negative CXR 11/30: diffuse lung disease t/o both lungs with relative sparing of the left upper lung. ABG 11/30: 7.497/26/58 on 12L. Pulmonary consulted and appreciate their input. [employer] Value Added Assessor also made aware Condition worsened and Baricitinib started Worsened requiring AirVo at 40L CXR 12/02 showing no change. Completed Remdesivir x5 days. Completed Azithromycin x 5 days and Rocephin x 7 days. O2 requirement down now Continue Dexamethasone and Baricitinib. Encouraged patient to lay prone if able. Increase activity as tolerated. Encouraged BiPAP use at night Wean o2 as toelrated. (2) COVID: Code(s): U07.1 - COVID-19 Status: Acute Assessment and Plan: As above Continue Decadron and baricitinib Wean O2 as tolerated. (3) Pulmonary embolism: Code(s): I26.99 - Other pulmonary embolism without acute cor pulmonale Status: Acute Assessment and Plan: CTA showing lingula PE. Lovenox started. LE venous doppler showing DVT left posterior tibial and peroneal veins. Switch to Eliquis today (4) Deep vein thrombosis of left lower extremity: Code(s): I82.402 - Acute embolism and thrombosis of unspecified deep veins of left lower extremity Status: Acute Assessment and Plan: As above (5) Chronic anemia: Code(s): D64.9 - Anemia, unspecified Status: Acute Assessment and Plan: Pateint with chronic anemia. Hgb mostly 11-13 range. Hgb 11.0 on admission but dropped to 9-10 range Follow (6) Hypertension: Code(s): I10 - Essential (primary) hypertension Status: Acute Assessment and Plan: Patient's blood pressure was reviewed on 12/05 Blood pressure remains well controlled. Will continue to monitor (7) Benign prostatic hyperplasia: Code(s): N40.0 - Benign prostatic hyperplasia without lower urinary tract symptoms Status: Acute Assessment and Plan: Stable. Continue Flomax Plan NII - Cr up to 1.4 probably related the Lasix. Lasix held and Cr normal now. Follow. DVT prophylaxis - Lovenox Code status - Full Subjective Date/time seen: 12/05/23 14:29 Interval history: 88yo man with CAD status post angioplasty in 1996, HTN, HLD and BPH who presented to the ED via EMS from independent living for evaluation of shortness of breath. Able to be transtioned to nasal cannula and has toelrated this. Still HENSLEY with hypoxia when getting back and forth to chair. No chest pain. Eating normally. bringing in food. Exam Narrative: AF 98.6 117/53 96 20 94% 5L HFNC Gen - NARD sitting up in chair Chest - dry bibasilar inspiratory crackles o/w distant CV - RRR S1/S2. Tele showing no significant dysrhythmias Abd - Soft, NT, ND, Positive BS Ext - No pedal edema Psych - Nml mood and affect Skin - Warm and dry Objective Data Vital Signs Vital Signs: Vital Signs - 24 hr 12/04/23 14:50 12/04/23 16:00 12/04/23 16:00 Temperature 98 F Pulse Rate 79 68 Respiratory Rate 18 Blood Pressure 136/60 Pulse Oximetry 96 95 Oxygen Delivery High Flow Nasal Cannula Oxygen Flow Rate 6 Fraction of Inspired Oxygen 12/04/23 16:00 12/04/23 18:00 12/04/23 20:36 Temperature 98.5 F Pulse Rate 76 78
[2023-12-05 18:10] LABS: Glucose Point of Care 279 mg/dl (65-105)
[2023-12-05] MEDS: ASPIRIN 81 MG ENTERIC TABLET PO (19:02)
[2023-12-05] MEDS: PRAVASTATIN SODIUM 20 MG TABLET 40 MG PO (19:02)
[2023-12-05] MEDS: LOSARTAN POTASSIUM 25 MG TABLET PO (19:02)
[2023-12-05 20:39] LABS: Glucose Point of Care 248 mg/dl (65-105)
[2023-12-06] VITALS (17 sets, daily range): BP systolic 120–137; BP diastolic 44–68; PULSE 60–100; RESP 18–20; TEMP 36.6–37.2; O2SAT 90–99
[2023-12-06 05:11] LABS: Hematocrit 33.9 % (42.0-52.0); Hemoglobin 10.7 g/dL (14.0-18.0); Mean Corpuscular HGB Conc 31.6 g/dl (32-36); Mean Corpuscular Hemoglobin 27.4 pg (26-34); Mean Corpuscular Volume 86.9 fl (80-100); Mean Platelet Volume 9.8 fl (7.4-10.4); Platelet Count Result 367 k/mm3 (150-375); Red Cell Distribution Width 13.2 % (11.5-14.5); White Blood Count 14.5 K/mm3 (4.5-10.0)
[2023-12-06 05:22] LABS: Anion Gap 5 mmol/L (8-16); Blood Urea Nitrogen 48 mg/dL (9-20); Calcium 8.5 mg/dL (8.4-10.2); Carbon Dioxide 26 mmol/L (22-30); Chloride 99 mmol/L (98-107); Estimated CRCL calculation 42 ml/min; Estimated Glomerular Filt Rate > 60; Glucose 100 mg/dL (65-110); Potassium 5.2 mmol/L (3.4-5.0); Sodium 130 mmol/L (137-145)
--- NOTE | 2023-12-06 07:26 | PM.IMPN ---
Progress Note: A&P Assessment and Plan (1) Acute respiratory failure with hypoxia: Code(s): J96.01 - Acute respiratory failure with hypoxia Status: Acute Assessment and Plan: Patient presents with SOB and found to have PE and COVID. No recent COVID vaccine. He was on CPAP on admission but was initially weaned to 6L HFNC. No ABG. RSV and influenza negative. COVID PCR positive. CTA chest showing acute lingula PE and diffuse lung disease c/w edema and PNA with chronic ILD. (ILD seen by CT scan in April 2023) Dexamethasone/Remdesivir started. Lovenox for PE. Lasix IV for possible edema. Abx for possible PNA. MRSA nasal swab negative BCx negative Sputum Cx negative CXR 11/30: diffuse lung disease t/o both lungs with relative sparing of the left upper lung. ABG 11/30: 7.497/26/58 on 12L. Pulmonary consulted and appreciate their input. Stars Specialist also made aware Condition worsened and Baricitinib started Worsened requiring AirVo at 40L CXR 12/02 showing no change. Completed Remdesivir x5 days. Completed Azithromycin x 5 days and Rocephin x 7 days. O2 requirement down now Continue Dexamethasone and Baricitinib. Encouraged patient to lay prone if able. Increase activity as tolerated. Encouraged BiPAP use at night Wean o2 as toelrated. (2) COVID: Code(s): U07.1 - COVID-19 Status: Acute Assessment and Plan: As above Continue Decadron and baricitinib Wean O2 as tolerated. (3) Pulmonary embolism: Code(s): I26.99 - Other pulmonary embolism without acute cor pulmonale Status: Acute Assessment and Plan: CTA showing lingula PE. Lovenox started. LE venous doppler showing DVT left posterior tibial and peroneal veins. Switched to Eliquis (4) Deep vein thrombosis of left lower extremity: Code(s): I82.402 - Acute embolism and thrombosis of unspecified deep veins of left lower extremity Status: Acute Assessment and Plan: As above (5) Chronic anemia: Code(s): D64.9 - Anemia, unspecified Status: Acute Assessment and Plan: Pateint with chronic anemia. Hgb mostly 11-13 range. Hgb 11.0 on admission but dropped to 9-10 range Follow and remains stable (6) Hypertension: Code(s): I10 - Essential (primary) hypertension Status: Acute Assessment and Plan: Patient's blood pressure was reviewed on 12/05 Blood pressure remains well controlled. Will continue to monitor (7) Benign prostatic hyperplasia: Code(s): N40.0 - Benign prostatic hyperplasia without lower urinary tract symptoms Status: Acute Assessment and Plan: Stable. Continue Flomax Plan NII - Cr up to 1.4 probably related the Lasix. Lasix held and Cr normal now. Follow. DVT prophylaxis - Lovenox Code status - Full Subjective Date/time seen: 12/06/23 07:26 Interval history: 88yo man with CAD status post angioplasty in 1996, HTN, HLD and BPH who presented to the ED via EMS from independent living for evaluation of shortness of breath. On high-flow oxygen 6 L but had to be bumped up to 10 l thi branden. disucssed wiht pulmonary. Review of Systems Review of Systems: Twelve systems were reviewed and are negative except for as per HPI. Exam Narrative: Gen - NARD sitting up in chair Chest - dry coarse breath sounds,no resp distress CV - RRR S1/S2. Tele showing no significant dysrhythmias Abd - Soft, NT, ND, Positive BS Ext - No pedal edema Psych - Nml mood and affect Skin - Warm and dry Objective Data Vital Signs Vital Signs: Vital Signs - 24 hr 12/05/23 07:52 12/05/23 08:59 12/05/23 08:00 Temperature 97.9 F Pulse Rate 68 77 Respiratory Rate 16 Blood Pressure 134/50 L Pulse Oximetry 93 94 Oxygen Delivery High Flow Nasal Cannula Oxygen Flow Rate 5 Fraction of Inspired Oxygen 12/05/23 08:00 12/05/23 10:00 12/05/23 12:00 Temperature 98.6 F Pulse Rate 77 72
[2023-12-06 07:43] LABS: NT Pro B Type Natriuretic Pept 336 pg/mL (19.9-100)
[2023-12-06 08:20] LABS: Glucose Point of Care 102 mg/dl (65-105)
--- NOTE | 2023-12-06 08:45 | PM.PNPUL ---
Progress Note: A&P Assessment and Plan (1) COVID: Code(s): U07.1 - COVID-19 Status: Acute Assessment and Plan: ?Patient tested positive for COVID-19 on 11/28/23 and started on remdesivir, dexamethasone on 11/28/2023. Started on baricitinib on 11/30/2022. ABG on 11/30/2023 with a pH of 7.50/26/58 on 12 L nasal cannula. 12/04/23: Plan: - Completed Remdesivir for 5 days with last dose on 12/02/23 at 23:52. - Dexamethasone 6 mg IV for 10 days - Continuous pulse oximetry - Avoid any fluid overload. - influenza and RSV swab negative - Keep saturations are 90-94% and currently on 4 L nasal cannula -empiric treatment for pneumonia with azithromycin, completed 5 days on 12/02/2023 and currently on ceftriaxone since 11/28 and will complete a total of 7 days. For worsening hypoxemia treat with nasal cannula up to 15 L, if fails then Airvo high flow nasal cannula.? If fails Airvo then noninvasive ventilation. If fails noninvasive then intubation. 12/05/23: The patient tells me heels the same as yesterday, 10-15% back to his baseline. His creatinine is 1.0. When I entered the room he was on 5 L nasal cannula saturations 94%. I decreased him to 4 L and after 3 minutes his saturations decreased to 88% and I increased him back to 5 L. he tells me the albuterol inhalers provide him no benefit. Plan: Overall the patient is improved since admission and his oxygenation has improved. Status post remdesivir for 5 days. Continue dexamethasone 6 mg, day 8. Continue baricitinib, day 6. 12/06/23: Patient tells me he has a little bit better feeling 20-25% back to normal. Patient denies cough, phlegm or hemoptysis. He has no shortness of breath at rest. He did have dyspnea on exertion getting to the chair yesterday. When I entered the room he was on 6 L with saturations 96%. I decreased him to 5 L and after 4 minutes his saturations were 87%. I increased him back to 6 but his saturations were low and I increased him to 10 L and his saturations were 89-90%. He said he noticed no changes when his oxygen was low. BNP has improved from 2490 on 11/28/2023 to 336 today. Patient is 0.5 L positive since admission. Chest x-ray ordered. Plan: Patient clinically feels better but oxygenation worse over the last 36 hours. BNP was improved. I will check a chest x-ray. Continue dexamethasone, day 9 and baricitinib, day 7. Discussed with Dr. Koo, will follow with you. (2) Acute respiratory failure with hypoxia: Code(s): J96.01 - Acute respiratory failure with hypoxia Status: Acute Assessment and Plan: ?Etiology of hypoxic respiratory failure is likely COVID pneumonia.? Patient on no supplemental oxygen at home prior to this. 11/28/23 CPAP then BiPAP 11/29/23 6 L NC sats 98% 11/30/23 Last BiPAP use 12/02/23 20:00 high-flow nasal cannula 40 L and 56% with sats 93 12/03/23 8:00 high-flow nasal cannula 40 L and 56% with sats 97 12/03/23 21:00 high-flow nasal cannula 35 L and 40% FiO2 with sats 100 12/04/23 8:00 high-flow nasal cannula 35 L and 40% FiO2 with sats 98 12/04/23 12:00 8 L nasal cannula, sats 97% 12/04/23 20:00 6 L NC, sats 97% 12/05/23 08:00 5 L NC, sats 94% 12/05/23 20:00 6 L NC, sats 98% 12/06/23 08:45 10 L NC, sats 90% 12/04/23: Plan:? Patient with minimal increased oxygen requirements during the day currently and he tolerated 36% FiO2 last night on the hospital noninvasive ventilator and he is on 4 L bleed in at night.? He does not have greatly increased oxygen demands at this time, therefore I do not recommend adding baricitinib at this time. 12/05/23: Plan: Goal saturations 90-94%. Wean as tolerated. Continue treatment for COVID pneumonia as above. 12/06/23: Goal saturation 90-94%. When I spoke with the bedside nurse she said yesterday when the patient stood up and did physical therapy is oxygenation actually improved. This suggests the patient may have atelectasis and I will start EzPAP t.i.d. (3) Pulmonary embolism:
[2023-12-06] MEDS: APIXABAN 5 MG TABLET 10 MG PO ×2 (08:59→20:47)
[2023-12-06] MEDS: polyethylene glycoL 3350 17 GM POWD.PACK PO (08:59)
[2023-12-06] MEDS: TAMSULOSIN HCL 0.4 MG CAPSULE PO (09:00)
--- NOTE | 2023-12-06 10:00 | PC.NURSE ---
Discussed code status with patient. He states that when he came into the hospital he was asked about his code status and that he changed his mind from DNR (which is what his living will states), to full code because he didn't feel really bad; however, he didn't want CPR and would be ok with intubation. The orders were put in as full code, modified no intubation. This nurse asked the patient if his heart should stop would he want CPR, he stated No . This RN asked should he stop breathing would he want to be intubated, he stated No, just leave it all alone . This RN, called the physician and left a message that the patient wants to be DNR/DNI at this time.
[2023-12-06] MEDS: BARICITINIB 2 MG TABLET 4 MG PO (11:21)
[2023-12-06 11:58] LABS: Glucose Point of Care 246 mg/dl (65-105)
[2023-12-06] MEDS: INSULIN ASPART (*BKC) 100 UNITS/ML SUB-Q ×3 (12:12→20:53)
[2023-12-06 16:02] LABS: Alanine Aminotransferase 46 U/L (6-50); Estimated CRCL calculation 42 ml/min; Estimated Glomerular Filt Rate > 60
[2023-12-06 16:05] LABS: INR 1.4; Prothrombin Time 18.3 Seconds (11.1-14.7)
[2023-12-06 16:59] LABS: Glucose Point of Care 210 mg/dl (65-105)
[2023-12-06] MEDS: REMDESIVIR 200 MG/NS 250 ML 200 MG/250 ML BAG 250 MG IVPB (17:02)
[2023-12-06] MEDS: LOSARTAN POTASSIUM 25 MG TABLET PO (17:03)
[2023-12-06] MEDS: ASPIRIN 81 MG ENTERIC TABLET PO (17:03)
[2023-12-06] MEDS: PRAVASTATIN SODIUM 20 MG TABLET 40 MG PO (17:03)
[2023-12-06 20:48] LABS: Glucose Point of Care 281 mg/dl (65-105)
[2023-12-07] VITALS (14 sets, daily range): BP systolic 105–146; BP diastolic 42–84; PULSE 55–118; RESP 18–20; TEMP 36.1–36.6; O2SAT 90–98
[2023-12-07 05:17] LABS: Basophils Percent Auto 0.3 % (0.2-1.2); Eosinophils Absolute Auto 0.3 K/mm3 (0-0.3); Hematocrit 34.8 % (42.0-52.0); Hemoglobin 11.2 g/dL (14.0-18.0); Immature Granulocyte Absolute 0.51 K/mm3 (0.00-0.031); Immature Granulocyte Percent A 3.5 % (0-0.5); Lymphocytes Absolute Auto 1.77 K/mm3 (0.9-3.2); Mean Corpuscular HGB Conc 32.2 g/dl (32-36); Mean Corpuscular Hemoglobin 27.9 pg (26-34); Mean Corpuscular Volume 86.6 fl (80-100); Mean Platelet Volume 9.6 fl (7.4-10.4); Monocytes Absolute Auto 1.3 K/mm3 (0.1-0.6); Monocytes Percent Auto 8.5 % (2.6-8.5); Neutrophils Absolute Auto 10.9 K/mm3 (1.3-6.7); Neutrophils Percent Auto 73.7 % (45.5-73.1); Platelet Count Result 391 k/mm3 (150-375); Red Blood Count 4.02 M/mm3 (4.6-6.20); Red Cell Distribution Width 13.2 % (11.5-14.5); White Blood Count 14.7 K/mm3 (4.5-10.0)
[2023-12-07 05:31] LABS: Alanine Aminotransferase 42 U/L (6-50); Albumin Level 2.9 g/dL (3.5-5.1); Alkaline Phosphatase 95 U/L (38-126); Anion Gap 2 mmol/L (8-16); Aspartate Amino Transferase 31 U/L (17-59); Bilirubin,Total 0.7 mg/dL (0.2-1.3); Blood Urea Nitrogen 48 mg/dL (9-20); Calcium 8.7 mg/dL (8.4-10.2); Carbon Dioxide 28 mmol/L (22-30); Chloride 100 mmol/L (98-107); Estimated CRCL calculation 42 ml/min; Estimated Glomerular Filt Rate > 60; Glucose 103 mg/dL (65-110); Potassium 5.2 mmol/L (3.4-5.0); Sodium 130 mmol/L (137-145)
[2023-12-07 08:51] LABS: Glucose Point of Care 109 mg/dl (65-105)
--- NOTE | 2023-12-07 09:22 | PM.PNPUL ---
Progress Note: A&P Assessment and Plan (1) COVID: Code(s): U07.1 - COVID-19 Status: Acute Assessment and Plan: ?Patient tested positive for COVID-19 on 11/28/23 and started on remdesivir, dexamethasone on 11/28/2023. Started on baricitinib on 11/30/2022. ABG on 11/30/2023 with a pH of 7.50/26/58 on 12 L nasal cannula. 12/04/23: Plan: - Completed Remdesivir for 5 days with last dose on 12/02/23 at 23:52. - Dexamethasone 6 mg IV for 10 days - Continuous pulse oximetry - Avoid any fluid overload. - influenza and RSV swab negative - Keep saturations are 90-94% and currently on 4 L nasal cannula -empiric treatment for pneumonia with azithromycin, completed 5 days on 12/02/2023 and currently on ceftriaxone since 11/28 and will complete a total of 7 days. For worsening hypoxemia treat with nasal cannula up to 15 L, if fails then Airvo high flow nasal cannula.? If fails Airvo then noninvasive ventilation. If fails noninvasive then intubation. 12/05/23: The patient tells me heels the same as yesterday, 10-15% back to his baseline. His creatinine is 1.0. When I entered the room he was on 5 L nasal cannula saturations 94%. I decreased him to 4 L and after 3 minutes his saturations decreased to 88% and I increased him back to 5 L. he tells me the albuterol inhalers provide him no benefit. Plan: Overall the patient is improved since admission and his oxygenation has improved. Status post remdesivir for 5 days. Continue dexamethasone 6 mg, day 8. Continue baricitinib, day 6. 12/06/23: Patient tells me he has a little bit better feeling 20-25% back to normal. Patient denies cough, phlegm or hemoptysis. He has no shortness of breath at rest. He did have dyspnea on exertion getting to the chair yesterday. When I entered the room he was on 6 L with saturations 96%. I decreased him to 5 L and after 4 minutes his saturations were 87%. I increased him back to 6 but his saturations were low and I increased him to 10 L and his saturations were 89-90%. He said he noticed no changes when his oxygen was low. BNP has improved from 2490 on 11/28/2023 to 336 today. Patient is 0.5 L positive since admission. Chest x-ray ordered. Plan: Patient clinically feels better but oxygenation worse over the last 36 hours. BNP was improved. I will check a chest x-ray. Continue dexamethasone, day 9 and baricitinib, day 7. Chest x-ray with no focal infiltrates, consolidations or effusions. Given patient's deterioration and being off remdesivir after 5 days for 60 hours I re-initiated remdesivir. 12/07/23: Patient tells me today is a little bit more short of breath. He denies cough, phlegm, hemoptysis. He is afebrile. White blood cell count 14.7, creatinine 1.0. Patient currently on 7 L nasal cannula saturations 91%. Plan: Continue remdesivir, day 1 since re-initiation and a 6 total. Continue dexamethasone, day 10, continue baricitinib day 8. Will repeat CRP tomorrow. Will follow with you. (2) Acute respiratory failure with hypoxia: Code(s): J96.01 - Acute respiratory failure with hypoxia Status: Acute Assessment and Plan: ?Etiology of hypoxic respiratory failure is likely COVID pneumonia.? Patient on no supplemental oxygen at home prior to this. 11/28/23 CPAP then BiPAP 11/29/23 6 L NC sats 98% 11/30/23 Last BiPAP use 12/02/23 20:00 high-flow nasal cannula 40 L and 56% with sats 93 12/03/23 8:00 high-flow nasal cannula 40 L and 56% with sats 97 12/03/23 21:00 high-flow nasal cannula 35 L and 40% FiO2 with sats 100 12/04/23 8:00 high-flow nasal cannula 35 L and 40% FiO2 with sats 98 12/04/23 12:00 8 L nasal cannula, sats 97% 12/04/23 20:00 6 L NC, sats 97% 12/05/23 08:00 5 L NC, sats 94% 12/05/23 20:00 6 L NC, sats 98% 12/06/23 08:45 10 L NC, sats 90% 12/06/23 23:00 7 L NC, sats 95% 12/07/23 08:15 7 L NC, sats 92% 12/04/23: Plan:? Patient with minimal increased oxygen requirements during the day currently and he tolerated 36% FiO2 last nigh
[2023-12-07] MEDS: APIXABAN 5 MG TABLET 10 MG PO ×2 (09:24→20:40)
[2023-12-07] MEDS: TAMSULOSIN HCL 0.4 MG CAPSULE PO (09:24)
[2023-12-07] MEDS: polyethylene glycoL 3350 17 GM POWD.PACK PO (09:25)
--- NOTE | 2023-12-07 10:47 | PM.IMPN ---
Progress Note: A&P Assessment and Plan (1) Acute respiratory failure with hypoxia: Code(s): J96.01 - Acute respiratory failure with hypoxia Status: Acute Assessment and Plan: Patient presents with SOB and found to have PE and COVID. No recent COVID vaccine. He was on CPAP on admission but was initially weaned to 6L HFNC. CTA chest showing acute lingula PE and diffuse lung disease c/w edema and PNA with chronic ILD. (ILD seen by CT scan in April 2023) Dexamethasone/Remdesivir started. Lovenox for PE. Lasix IV for possible edema. Abx for possible PNA. MRSA nasal swab negative BCx negative Sputum Cx negative CXR 11/30: diffuse lung disease t/o both lungs with relative sparing of the left upper lung. ABG 11/30: 7.497//58 on 12L. Condition worsened and Baricitinib started CXR 12/02 showing no change. Completed Remdesivir x5 days. Completed Azithromycin x 5 days and Rocephin x 7 days. On 12/07 he is still requiring between 7 and 10 L of high-flow nasal cannula. Agree with restarting remdesivir today will be day 6. Continue baricitinib and dexamethasone. Appreciated pulmonology documentation. Encouraged patient to lay prone if able. Increase activity as tolerated. Encouraged BiPAP use at night Wean o2 as toelrated. (2) COVID: Code(s): U07.1 - COVID-19 Status: Acute Assessment and Plan: As above Continue Decadron and baricitinib and remdesivir Wean O2 as tolerated. (3) Pulmonary embolism: Code(s): I26.99 - Other pulmonary embolism without acute cor pulmonale Status: Acute Assessment and Plan: CTA showing lingula PE. LE venous doppler showing DVT left posterior tibial and peroneal veins. Switched to Eliquis (4) Deep vein thrombosis of left lower extremity: Code(s): I82.402 - Acute embolism and thrombosis of unspecified deep veins of left lower extremity Status: Acute Assessment and Plan: As above (5) Chronic anemia: Code(s): D64.9 - Anemia, unspecified Status: Acute Assessment and Plan: Pateint with chronic anemia. Hgb mostly 11-13 range. Hgb 11.0 on admission but dropped to 9-10 range Follow and remains stable (6) Hypertension: Code(s): I10 - Essential (primary) hypertension Status: Acute Assessment and Plan: Controlled. Continue to monitor (7) Benign prostatic hyperplasia: Code(s): N40.0 - Benign prostatic hyperplasia without lower urinary tract symptoms Status: Acute Assessment and Plan: Stable. Continue Flomax Plan FEN: Saline lock IV. GI prophylaxis: Not in DVT prophylaxis: Eliquis Lines: For follow-up Code Status: Full code Dispo: Stable. Plan is either to discharge on lower amounts of oxygen requirement to [facility] or [facility] Subjective Date/time seen: 12/07/23 10:47 Interval history: No acute overnight events. Patient denies shortness of breath or chest pain. He does not have any complaints to elicit. Review of Systems Review of Systems: All systems reviewed & are unremarkable except as noted in HPI and below (Subjective) Exam Const: General: comfortable and no acute distress Eyes: Pupils: Equal, round and reactive pupils present Resp: Effort & Inspection: normal respiratory effort Auscultation: clear to auscultation bilaterally, no crackles, no rales and no rhonchi Cardio: Rate: regular rate Rhythm: regular rhythm Heart sounds: no gallops, no murmurs and no rubs GI: GI Palp: Yes Soft to palpation and No Tenderness to palpation present (GI) Neuro: Motor exam (neuro): 5/5 motor strength present throughout Extrem: General: no edema Objective Data Vital Signs Vital Signs: Vital Signs - 24 hr 12/06/23 11:58 12/06/23 12:00 12/06/23 12:00 Temperature 98.9 F Pulse Rate 70 85 85 Respiratory Rate 18 18 Blood Pressure 137/67 Pulse Oximetry 93 93 Oxygen Delivery High Flow Nasal Cannula Oxygen Flow
[2023-12-07] MEDS: BARICITINIB 2 MG TABLET 4 MG PO (11:51)
[2023-12-07 11:59] LABS: Glucose Point of Care 244 mg/dl (65-105)
[2023-12-07] MEDS: INSULIN ASPART (*BKC) 100 UNITS/ML SUB-Q ×3 (12:04→21:04)
[2023-12-07 16:51] LABS: Glucose Point of Care 236 mg/dl (65-105)
[2023-12-07] MEDS: ASPIRIN 81 MG ENTERIC TABLET PO (16:51)
[2023-12-07] MEDS: LOSARTAN POTASSIUM 25 MG TABLET PO (16:51)
[2023-12-07] MEDS: PRAVASTATIN SODIUM 20 MG TABLET 40 MG PO (16:51)
[2023-12-07 19:34] LABS: ANA Cascade Screen Negative (Negative)
[2023-12-07] MEDS: REMDESIVIR 100 MG/NS 250 ML 100 MG/250 ML BAG 250 MG IVPB (20:40)
[2023-12-07 21:01] LABS: Glucose Point of Care 279 mg/dl (65-105)
[2023-12-07 21:32] LABS: ANCA Screen Negative (Negative)
[2023-12-08] VITALS (20 sets, daily range): BP systolic 105–132; BP diastolic 44–61; PULSE 58–94; RESP 16–20; TEMP 36.3–37.2; O2SAT 84–99
[2023-12-08 05:02] LABS: Basophils Percent Auto 0.1 % (0.2-1.2); Eosinophils Absolute Auto 0.2 K/mm3 (0-0.3); Eosinophils Percent Auto 1.5 % (0-4.4); Hemoglobin 11.1 g/dL (14.0-18.0); Immature Granulocyte Absolute 0.32 K/mm3 (0.00-0.031); Immature Granulocyte Percent A 2.3 % (0-0.5); Lymphocytes Percent Auto 12.3 % (18.3-44.2); Mean Corpuscular HGB Conc 31.7 g/dl (32-36); Mean Corpuscular Hemoglobin 27.7 pg (26-34); Mean Corpuscular Volume 87.3 fl (80-100); Mean Platelet Volume 9.5 fl (7.4-10.4); Monocytes Absolute Auto 1.2 K/mm3 (0.1-0.6); Monocytes Percent Auto 8.6 % (2.6-8.5); Neutrophils Absolute Auto 10.4 K/mm3 (1.3-6.7); Neutrophils Percent Auto 75.2 % (45.5-73.1); Platelet Count Result 390 k/mm3 (150-375); Red Blood Count 4.01 M/mm3 (4.6-6.20); Red Cell Distribution Width 13.2 % (11.5-14.5); White Blood Count 13.9 K/mm3 (4.5-10.0)
[2023-12-08 05:15] LABS: INR 1.7; Prothrombin Time 20.8 Seconds (11.1-14.7)
[2023-12-08 05:24] LABS: Alanine Aminotransferase 39 U/L (6-50); Albumin Level 2.8 g/dL (3.5-5.1); Alkaline Phosphatase 90 U/L (38-126); Anion Gap 4 mmol/L (8-16); Aspartate Amino Transferase 36 U/L (17-59); Bilirubin,Total 0.7 mg/dL (0.2-1.3); Blood Urea Nitrogen 49 mg/dL (9-20); CRP 1.9 mg/dL (<1.0); Calcium 8.5 mg/dL (8.4-10.2); Carbon Dioxide 26 mmol/L (22-30); Chloride 100 mmol/L (98-107); Estimated CRCL calculation 39 ml/min; Estimated Glomerular Filt Rate > 60; Glucose 106 mg/dL (65-110); Potassium 5.2 mmol/L (3.4-5.0); Sodium 130 mmol/L (137-145)
[2023-12-08] MEDS: polyethylene glycoL 3350 17 GM POWD.PACK PO (08:30)
[2023-12-08] MEDS: TAMSULOSIN HCL 0.4 MG CAPSULE PO (08:30)
[2023-12-08] MEDS: APIXABAN 5 MG TABLET 10 MG PO ×2 (08:30→21:06)
[2023-12-08 08:54] LABS: Glucose Point of Care 102 mg/dl (65-105)
--- NOTE | 2023-12-08 09:01 | PM.IMPN ---
Progress Note: A&P Assessment and Plan (1) Acute respiratory failure with hypoxia: Code(s): J96.01 - Acute respiratory failure with hypoxia Status: Acute Assessment and Plan: Patient presents with SOB and found to have PE and COVID. No recent COVID vaccine. He was on CPAP on admission but was initially weaned to 6L HFNC. CTA chest showing acute lingula PE and diffuse lung disease c/w edema and PNA with chronic ILD. (ILD seen by CT scan in April 2023) Dexamethasone/Remdesivir started. Lovenox for PE. Lasix IV for possible edema. Abx for possible PNA. MRSA nasal swab negative BCx negative Sputum Cx negative CXR 11/30: diffuse lung disease t/o both lungs with relative sparing of the left upper lung. ABG 11/30: 7.497//58 on 12L. Condition worsened and Baricitinib started CXR 12/02 showing no change. Completed Remdesivir x5 days. Completed Azithromycin x 5 days and Rocephin x 7 days. On 12/07 he is still requiring between 7 and 10 L of high-flow nasal cannula. Agree with restarting remdesivir today will be day 6. Continue baricitinib and dexamethasone. Appreciated pulmonology documentation. 12/08 still requiring 7 L nasal cannula and bumped up to 10 L while eating breakfast. Discussion held with pulmonology. Will continue remdesivir and baricitinib and hold off on dexamethasone today. Continue to monitor. Recheck LFTs and CRP in a.m. appreciate pulmonology recommendations (2) COVID: Code(s): U07.1 - COVID-19 Status: Acute Assessment and Plan: As above baricitinib and remdesivir Completed 10 day course Decadron Wean O2 as tolerated. (3) Pulmonary embolism: Code(s): I26.99 - Other pulmonary embolism without acute cor pulmonale Status: Acute Assessment and Plan: CTA showing lingula PE. LE venous doppler showing DVT left posterior tibial and peroneal veins. Switched to Eliquis (4) Deep vein thrombosis of left lower extremity: Code(s): I82.402 - Acute embolism and thrombosis of unspecified deep veins of left lower extremity Status: Acute Assessment and Plan: As above (5) Chronic anemia: Code(s): D64.9 - Anemia, unspecified Status: Acute Assessment and Plan: Pateint with chronic anemia. Hgb mostly 11-13 range. Hgb 11.0 on admission but dropped to 9-10 range Follow and remains stable (6) Hypertension: Code(s): I10 - Essential (primary) hypertension Status: Acute Assessment and Plan: Controlled. Continue to monitor (7) Benign prostatic hyperplasia: Code(s): N40.0 - Benign prostatic hyperplasia without lower urinary tract symptoms Status: Acute Assessment and Plan: Stable. Continue Flomax Plan FEN: Saline lock IV. GI prophylaxis: None indicated DVT prophylaxis: Eliquis Lines: For follow-up Code Status: Full code Dispo: Stable. Plan is either to discharge when requiring lower amounts of oxygen requirement to [facility] or [facility] Subjective Date/time seen: 12/08/23 09:01 Interval history: No acute overnight events. The patient complains of dyspnea this morning. He did desaturate while eating breakfast and was increased from 7 to 10 L O2 via nasal cannula high-flow. Review of Systems Review of Systems: All systems reviewed & are unremarkable except as noted in HPI and below (Subjective) Exam Const: General: comfortable and no acute distress Eyes: Pupils: Equal, round and reactive pupils present Neck: Neck: supple Resp: Effort & Inspection: normal respiratory effort Auscultation: clear to auscultation bilaterally, no crackles, no rales and no rhonchi Cardio: Rate: regular rate Rhythm: regular rhythm GI: GI Palp: Yes Soft to palpation and No Tenderness to palpation present (GI) Extrem: General: no edema Objective Data Vital Signs Vital Signs: Vital Signs - 24 hr 12/07/23 10:00 12/07/23 12:00 12/07/23 12:
--- NOTE | 2023-12-08 10:43 | P.PNPL_ITS ---
Progress Note: A&P Assessment and Plan (1) COVID: Code(s): U07.1 - COVID-19 Status: Acute Assessment and Plan: ?Patient tested positive for COVID-19 on 11/28/23 and started on remdesivir, dexamethasone on 11/28/2023. Started on baricitinib on 11/30/2022. ABG on 11/30/2023 with a pH of 7.50/26/58 on 12 L nasal cannula. 12/04/23: Plan: - Completed Remdesivir for 5 days with last dose on 12/02/23 at 23:52. - Dexamethasone 6 mg IV for 10 days - Continuous pulse oximetry - Avoid any fluid overload. - influenza and RSV swab negative - Keep saturations are 90-94% and currently on 4 L nasal cannula -empiric treatment for pneumonia with azithromycin, completed 5 days on 12/02/2023 and currently on ceftriaxone since 11/28 and will complete a total of 7 days. For worsening hypoxemia treat with nasal cannula up to 15 L, if fails then Airvo high flow nasal cannula.? If fails Airvo then noninvasive ventilation. If fails noninvasive then intubation. 12/05/23: The patient tells me heels the same as yesterday, 10-15% back to his baseline. His creatinine is 1.0. When I entered the room he was on 5 L nasal cannula saturations 94%. I decreased him to 4 L and after 3 minutes his saturations decreased to 88% and I increased him back to 5 L. he tells me the albuterol inhalers provide him no benefit. Plan: Overall the patient is improved since admission and his oxygenation has improved. Status post remdesivir for 5 days. Continue dexamethasone 6 mg, day 8. Continue baricitinib, day 6. 12/06/23: Patient tells me he has a little bit better feeling 20-25% back to normal. Patient denies cough, phlegm or hemoptysis. He has no shortness of breath at rest. He did have dyspnea on exertion getting to the chair yesterday. When I entered the room he was on 6 L with saturations 96%. I decreased him to 5 L and after 4 minutes his saturations were 87%. I increased him back to 6 but his saturations were low and I increased him to 10 L and his saturations were 89-90%. He said he noticed no changes when his oxygen was low. BNP has improved from 2490 on 11/28/2023 to 336 today. Patient is 0.5 L positive since admission. Chest x-ray ordered. Plan: Patient clinically feels better but oxygenation worse over the last 36 hours. BNP was improved. I will check a chest x-ray. Continue dexamethasone, day 9 and baricitinib, day 7. Chest x-ray with no focal infiltrates, consolidations or effusions. Given patient's deterioration and being off remdesivir after 5 days for 60 hours I re- initiated remdesivir. 12/07/23: Patient tells me today is a little bit more short of breath. He denies cough, phlegm, hemoptysis. He is afebrile. White blood cell count 14.7, creatinine 1.0. Patient currently on 7 L nasal cannula saturations 91%. Plan: Continue remdesivir, day 1 since re-initiation and a 6 total. Continue dexamethasone, day 10, continue baricitinib day 8. Will repeat CRP tomorrow. 12/08/23: Patient tells me he did well last night but this morning he feels short of breath. He improved throughout the day yesterday. He denies cough and has minimal phlegm production. He had desaturations while eating breakfast this morning requiring up to 12 L. When I enter the room he was on 10 L nasal cannula and I was able to decrease him to 7 L nasal cannula saturations 92%. White blood cell count is 13.9, creatinine is 1.1, CRP is 1.9. Chest x-ray with patchy bilateral infiltrates with no change from 12/06/2023. Plan: Patient completed dexamethasone 10 days on 12/07/2023. Today is day 3 of 5 for his 2nd 5 day course of remdesivir. Today is day 9 of 14 of baricitinib. CRP is elevated at 1.9 but decreased from 3.3 on 12/05/2023. Chest x-r
[2023-12-08] MEDS: BARICITINIB 2 MG TABLET 4 MG PO (11:24)
[2023-12-08 11:55] LABS: Glucose Point of Care 171 mg/dl (65-105)
[2023-12-08] MEDS: SODIUM ZIRCONIUM CYCLOSILICATE 5 GM POWD.PACK PO (14:23)
[2023-12-08 17:04] LABS: Glucose Point of Care 164 mg/dl (65-105)
[2023-12-08] MEDS: LOSARTAN POTASSIUM 25 MG TABLET PO (18:16)
[2023-12-08] MEDS: PRAVASTATIN SODIUM 20 MG TABLET 40 MG PO (18:16)
[2023-12-08] MEDS: ASPIRIN 81 MG ENTERIC TABLET PO (18:16)
[2023-12-08 20:38] LABS: Glucose Point of Care 211 mg/dl (65-105)
[2023-12-08] MEDS: INSULIN ASPART (*BKC) 100 UNITS/ML SUB-Q (21:06)
[2023-12-08] MEDS: REMDESIVIR 100 MG/NS 250 ML 100 MG/250 ML BAG 250 MG IVPB (21:06)
[2023-12-08 22:06] LABS: Aldolase 5.1 U/L (<=8.1)
[2023-12-09] VITALS (16 sets, daily range): BP systolic 115–128; BP diastolic 35–57; PULSE 61–94; RESP 17–20; TEMP 36.2–37; O2SAT 89–97
[2023-12-09 04:53] LABS: Basophils Percent Auto 0.2 % (0.2-1.2); Eosinophils Percent Auto 6.4 % (0-4.4); Hematocrit 34.8 % (42.0-52.0); Immature Granulocyte Absolute 0.27 K/mm3 (0.00-0.031); Immature Granulocyte Percent A 1.8 % (0-0.5); Lymphocytes Absolute Auto 2.01 K/mm3 (0.9-3.2); Lymphocytes Percent Auto 13.1 % (18.3-44.2); Mean Corpuscular HGB Conc 31.6 g/dl (32-36); Mean Corpuscular Hemoglobin 27.5 pg (26-34); Mean Platelet Volume 9.6 fl (7.4-10.4); Monocytes Absolute Auto 1.1 K/mm3 (0.1-0.6); Monocytes Percent Auto 7.3 % (2.6-8.5); Neutrophils Percent Auto 71.2 % (45.5-73.1); Platelet Count Result 410 k/mm3 (150-375); Red Cell Distribution Width 13.4 % (11.5-14.5); White Blood Count 15.4 K/mm3 (4.5-10.0)
[2023-12-09 05:09] LABS: Alanine Aminotransferase 35 U/L (6-50); Albumin Level 2.9 g/dL (3.5-5.1); Alkaline Phosphatase 86 U/L (38-126); Anion Gap 4 mmol/L (8-16); Aspartate Amino Transferase 30 U/L (17-59); Bilirubin,Total 0.7 mg/dL (0.2-1.3); Blood Urea Nitrogen 48 mg/dL (9-20); CRP 1.7 mg/dL (<1.0); Calcium 8.5 mg/dL (8.4-10.2); Carbon Dioxide 27 mmol/L (22-30); Chloride 101 mmol/L (98-107); Estimated CRCL calculation 42 ml/min; Estimated Glomerular Filt Rate > 60; Glucose 99 mg/dL (65-110); Sodium 132 mmol/L (137-145)
[2023-12-09 08:20] LABS: Glucose Point of Care 106 mg/dl (65-105)
[2023-12-09] MEDS: TAMSULOSIN HCL 0.4 MG CAPSULE PO (10:16)
[2023-12-09] MEDS: polyethylene glycoL 3350 17 GM POWD.PACK PO (10:16)
[2023-12-09] MEDS: APIXABAN 5 MG TABLET 10 MG PO ×2 (10:16→21:41)
--- NOTE | 2023-12-09 11:29 | PM.IMPN ---
Progress Note: A&P Assessment and Plan (1) Acute respiratory failure with hypoxia: Code(s): J96.01 - Acute respiratory failure with hypoxia Status: Acute Assessment and Plan: Patient presents with SOB and found to have PE and COVID. No recent COVID vaccine. He was on CPAP on admission but was initially weaned to 6L HFNC. CTA chest showing acute lingula PE and diffuse lung disease c/w edema and PNA with chronic ILD. (ILD seen by CT scan in April 2023) Dexamethasone/Remdesivir started. Lovenox for PE. Lasix IV for possible edema. Abx for possible PNA. MRSA nasal swab negative BCx negative Sputum Cx negative CXR 11/30: diffuse lung disease t/o both lungs with relative sparing of the left upper lung. ABG 11/30: 7.497//58 on 12L. Condition worsened and Baricitinib started CXR 12/02 showing no change. Completed Remdesivir x5 days. Completed Azithromycin x 5 days and Rocephin x 7 days. On 12/07 he is still requiring between 7 and 10 L of high-flow nasal cannula. Agree with restarting remdesivir today will be day 6. Continue baricitinib and dexamethasone. Appreciated pulmonology documentation. 12/08 still requiring 7 L nasal cannula and bumped up to 10 L while eating breakfast. Discussion held with pulmonology. Will continue remdesivir and baricitinib and hold off on dexamethasone today. Continue to monitor. Recheck LFTs and CRP in a.m. appreciate pulmonology recommendations 11/13/2026 he still has shortness of breath but has remained stable at 7 L high-flow nasal cannula. Appreciated some crackles on the lung so will give 1 time dose of Lasix to see if that helps some. (2) COVID: Code(s): U07.1 - COVID-19 Status: Acute Assessment and Plan: As above baricitinib and remdesivir Completed 10 day course Decadron Wean O2 as tolerated. (3) Pulmonary embolism: Code(s): I26.99 - Other pulmonary embolism without acute cor pulmonale Status: Acute Assessment and Plan: CTA showing lingula PE. LE venous doppler showing DVT left posterior tibial and peroneal veins. Switched to Eliquis (4) Deep vein thrombosis of left lower extremity: Code(s): I82.402 - Acute embolism and thrombosis of unspecified deep veins of left lower extremity Status: Acute Assessment and Plan: As above (5) Chronic anemia: Code(s): D64.9 - Anemia, unspecified Status: Acute Assessment and Plan: Pateint with chronic anemia. Hgb mostly 11-13 range. Hgb 11.0 on admission but dropped to 9-10 range Follow and remains stable (6) Hypertension: Code(s): I10 - Essential (primary) hypertension Status: Acute Assessment and Plan: Controlled. Continue to monitor (7) Benign prostatic hyperplasia: Code(s): N40.0 - Benign prostatic hyperplasia without lower urinary tract symptoms Status: Acute Assessment and Plan: Stable. Continue Flomax Plan FEN: Saline lock IV. GI prophylaxis: None indicated DVT prophylaxis: Eliquis Lines: For follow-up Code Status: Full code Dispo: Stable. Plan is either to discharge when requiring lower amounts of oxygen requirement to [facility] Subjective Date/time seen: 12/09/23 11:29 Interval history: No acute overnight events. He reports his shortness of breath is about the same as yesterday. Review of Systems Review of Systems: All systems reviewed & are unremarkable except as noted in HPI and below (Subjective) Exam Const: General: comfortable and no acute distress Eyes: Pupils: Equal, round and reactive pupils present Neck: Neck: supple Resp: Effort & Inspection: normal respiratory effort Auscultation: clear to auscultation bilaterally, crackles (Mild diffuse), no rales and no rhonchi Cardio: Rate: regular rate Rhythm: regular rhythm GI: GI Palp: Yes Soft to palpation and No Tenderness to palpation present (GI) Extrem: Genera
[2023-12-09] MEDS: BARICITINIB 2 MG TABLET 4 MG PO (11:53)
[2023-12-09] MEDS: FUROSEMIDE INJ 40 MG/4 ML VIAL IV PUSH (11:53)
[2023-12-09 12:01] LABS: Glucose Point of Care 197 mg/dl (65-105)
--- NOTE | 2023-12-09 13:45 | PC.NURSE ---
This patient, Shayne Epps, was transferred to [facility] on 12/09/23 at 1345. Personal belongings sent with patient. Report given to ENRIQUE Sams. Appropriate documentation sent with patient. Daughter, Dionicio, made aware.
[2023-12-09 17:08] LABS: Glucose Point of Care 145 mg/dl (65-105)
[2023-12-09] MEDS: PRAVASTATIN SODIUM 20 MG TABLET 40 MG PO (17:20)
[2023-12-09] MEDS: LOSARTAN POTASSIUM 25 MG TABLET PO (17:21)
[2023-12-09] MEDS: ASPIRIN 81 MG ENTERIC TABLET PO (17:21)
[2023-12-09 20:56] LABS: Glucose Point of Care 296 mg/dl (65-105)
[2023-12-09] MEDS: REMDESIVIR 100 MG/NS 250 ML 100 MG/250 ML BAG 250 MG IVPB (21:41)
[2023-12-09] MEDS: INSULIN ASPART (*BKC) 100 UNITS/ML SUB-Q (21:42)
[2023-12-10] VITALS (16 sets, daily range): BP systolic 108–132; BP diastolic 48–76; PULSE 61–106; RESP 18–28; TEMP 36.2–37.1; O2SAT 89–99
[2023-12-10 05:08] LABS: Basophils Percent Auto 0.2 % (0.2-1.2); Eosinophils Absolute Auto 0.9 K/mm3 (0-0.3); Eosinophils Percent Auto 5.7 % (0-4.4); Hematocrit 35.6 % (42.0-52.0); Hemoglobin 11.5 g/dL (14.0-18.0); Immature Granulocyte Absolute 0.21 K/mm3 (0.00-0.031); Immature Granulocyte Percent A 1.3 % (0-0.5); Lymphocytes Absolute Auto 2.03 K/mm3 (0.9-3.2); Lymphocytes Percent Auto 12.5 % (18.3-44.2); Mean Corpuscular HGB Conc 32.3 g/dl (32-36); Mean Corpuscular Hemoglobin 27.8 pg (26-34); Mean Corpuscular Volume 86.2 fl (80-100); Mean Platelet Volume 9.2 fl (7.4-10.4); Monocytes Absolute Auto 1.2 K/mm3 (0.1-0.6); Monocytes Percent Auto 7.1 % (2.6-8.5); Neutrophils Absolute Auto 11.9 K/mm3 (1.3-6.7); Neutrophils Percent Auto 73.2 % (45.5-73.1); Platelet Count Result 432 k/mm3 (150-375); Red Blood Count 4.13 M/mm3 (4.6-6.20); Red Cell Distribution Width 13.4 % (11.5-14.5); White Blood Count 16.2 K/mm3 (4.5-10.0)
[2023-12-10 05:28] LABS: Alanine Aminotransferase 31 U/L (6-50); Alkaline Phosphatase 88 U/L (38-126); Anion Gap 7 mmol/L (8-16); Aspartate Amino Transferase 31 U/L (17-59); Bilirubin,Total 0.7 mg/dL (0.2-1.3); Blood Urea Nitrogen 51 mg/dL (9-20); CRP 2.3 mg/dL (<1.0); Calcium 8.3 mg/dL (8.4-10.2); Carbon Dioxide 26 mmol/L (22-30); Chloride 99 mmol/L (98-107); Estimated CRCL calculation 39 ml/min; Estimated Glomerular Filt Rate > 60; Glucose 116 mg/dL (65-110); Magnesium 2.5 mg/dL (1.6-2.3); Potassium 4.7 mmol/L (3.4-5.0); Sodium 132 mmol/L (137-145)
[2023-12-10 05:48] LABS: INR 1.9; Prothrombin Time 22.6 Seconds (11.1-14.7)
[2023-12-10] MEDS: polyethylene glycoL 3350 17 GM POWD.PACK PO (09:42)
[2023-12-10] MEDS: APIXABAN 5 MG TABLET 10 MG PO ×2 (09:42→21:01)
[2023-12-10] MEDS: TAMSULOSIN HCL 0.4 MG CAPSULE PO (09:42)
[2023-12-10 10:04] LABS: Anti Cyclic Citrullinated Pept <16 Units (<20)
[2023-12-10 10:54] LABS: Glucose Point of Care 125 mg/dl (65-105)
[2023-12-10] MEDS: BARICITINIB 2 MG TABLET 4 MG PO (11:29)
[2023-12-10 12:09] LABS: Glucose Point of Care 199 mg/dl (65-105)
--- NOTE | 2023-12-10 13:36 | PM.IMPN ---
Progress Note: A&P Assessment and Plan (1) Acute respiratory failure with hypoxia: Code(s): J96.01 - Acute respiratory failure with hypoxia Status: Acute Assessment and Plan: Patient presents with SOB and found to have PE and COVID. No recent COVID vaccine. He was on CPAP on admission but was initially weaned to 6L HFNC. CTA chest showing acute lingula PE and diffuse lung disease c/w edema and PNA with chronic ILD. (ILD seen by CT scan in April 2023) Dexamethasone/Remdesivir started. Lovenox for PE. Lasix IV for possible edema. Abx for possible PNA. MRSA nasal swab negative BCx negative Sputum Cx negative CXR 11/30: diffuse lung disease t/o both lungs with relative sparing of the left upper lung. ABG 11/30: 7.497//58 on 12L. Condition worsened and Baricitinib started CXR 12/02 showing no change. Completed Remdesivir x5 days. Completed Azithromycin x 5 days and Rocephin x 7 days. On 12/07 he is still requiring between 7 and 10 L of high-flow nasal cannula. Agree with restarting remdesivir today will be day 6. Continue baricitinib and dexamethasone. Appreciated pulmonology documentation. 12/08 still requiring 7 L nasal cannula and bumped up to 10 L while eating breakfast. Discussion held with pulmonology. Will continue remdesivir and baricitinib and hold off on dexamethasone today. Continue to monitor. Recheck LFTs and CRP in a.m. appreciate pulmonology recommendations On 12/09 he still has shortness of breath but has remained stable at 7 L high-flow nasal cannula. Appreciated some crackles on the lung so will give 1 time dose of Lasix to see if that helps some. On 12/10 the patient is down to 4 L high-flow nasal cannula saturating 96% pulse ox. Crackles are improved status post 1 time dose of Lasix. No changes in management today. A pulmonology recommendations tomorrow. Patient has a high BUN creatinine ratio so will hold off on any more Lasix at the moment. (2) COVID: Code(s): U07.1 - COVID-19 Status: Acute Assessment and Plan: As above baricitinib and remdesivir Completed 10 day course Decadron Wean O2 as tolerated. (3) Pulmonary embolism: Code(s): I26.99 - Other pulmonary embolism without acute cor pulmonale Status: Acute Assessment and Plan: CTA showing lingula PE. LE venous doppler showing DVT left posterior tibial and peroneal veins. Switched to Eliquis (4) Deep vein thrombosis of left lower extremity: Code(s): I82.402 - Acute embolism and thrombosis of unspecified deep veins of left lower extremity Status: Acute Assessment and Plan: As above (5) Chronic anemia: Code(s): D64.9 - Anemia, unspecified Status: Acute Assessment and Plan: Pateint with chronic anemia. Hgb mostly 11-13 range. Hgb 11.0 on admission but dropped to 9-10 range Follow and remains stable (6) Hypertension: Code(s): I10 - Essential (primary) hypertension Status: Acute Assessment and Plan: Controlled. Continue to monitor (7) Benign prostatic hyperplasia: Code(s): N40.0 - Benign prostatic hyperplasia without lower urinary tract symptoms Status: Acute Assessment and Plan: Stable. Continue Flomax Plan FEN: Saline lock IV. GI prophylaxis: None indicated DVT prophylaxis: Eliquis Lines: For follow-up Code Status: Full code Dispo: Stable. Plan is either to discharge when requiring lower amounts of oxygen requirement [facility] Subjective Date/time seen: 12/10/23 13:36 Interval history: NAOE. pt reports slightly improved breathing. he has had large urine output Review of Systems Review of Systems: All systems reviewed & are unremarkable except as noted in HPI and below (subjective) Exam Const: General: comfortable and no acute distress Eyes: Pupils: Equal, round and reactive pupils present Resp: Effort & Inspection: normal re
[2023-12-10 16:28] LABS: Glucose Point of Care 178 mg/dl (65-105)
[2023-12-10] MEDS: LOSARTAN POTASSIUM 25 MG TABLET PO (17:40)
[2023-12-10] MEDS: ASPIRIN 81 MG ENTERIC TABLET PO (17:40)
[2023-12-10] MEDS: PRAVASTATIN SODIUM 20 MG TABLET 40 MG PO (17:40)
[2023-12-10 21:09] LABS: Glucose Point of Care 221 mg/dl (65-105)
[2023-12-10] MEDS: REMDESIVIR 100 MG/NS 250 ML 100 MG/250 ML BAG 250 MG IVPB (22:34)
[2023-12-10] MEDS: INSULIN ASPART (*BKC) 100 UNITS/ML SUB-Q (22:35)
[2023-12-11] VITALS (23 sets, daily range): BP systolic 108–148; BP diastolic 43–74; PULSE 59–98; RESP 14–24; TEMP 36.2–37.1; O2SAT 90–98
[2023-12-11 05:13] LABS: Basophils Percent Auto 0.2 % (0.2-1.2); Eosinophils Absolute Auto 0.9 K/mm3 (0-0.3); Eosinophils Percent Auto 5.2 % (0-4.4); Hematocrit 34.3 % (42.0-52.0); Hemoglobin 11.1 g/dL (14.0-18.0); Immature Granulocyte Absolute 0.15 K/mm3 (0.00-0.031); Immature Granulocyte Percent A 0.9 % (0-0.5); Lymphocytes Absolute Auto 1.93 K/mm3 (0.9-3.2); Lymphocytes Percent Auto 11.8 % (18.3-44.2); Mean Corpuscular HGB Conc 32.4 g/dl (32-36); Mean Corpuscular Hemoglobin 27.8 pg (26-34); Mean Platelet Volume 9.3 fl (7.4-10.4); Monocytes Percent Auto 6.3 % (2.6-8.5); Neutrophils Absolute Auto 12.3 K/mm3 (1.3-6.7); Neutrophils Percent Auto 75.6 % (45.5-73.1); Platelet Count Result 423 k/mm3 (150-375); Red Blood Count 3.99 M/mm3 (4.6-6.20); Red Cell Distribution Width 13.4 % (11.5-14.5); White Blood Count 16.3 K/mm3 (4.5-10.0)
[2023-12-11 05:22] LABS: Anion Gap 3 mmol/L (8-16); Blood Urea Nitrogen 50 mg/dL (9-20); Calcium 8.3 mg/dL (8.4-10.2); Carbon Dioxide 28 mmol/L (22-30); Chloride 100 mmol/L (98-107); Estimated CRCL calculation 42 ml/min; Estimated Glomerular Filt Rate > 60; Glucose 118 mg/dL (65-110); Magnesium 2.5 mg/dL (1.6-2.3); Sodium 131 mmol/L (137-145)
[2023-12-11 08:10] LABS: Glucose Point of Care 115 mg/dl (65-105)
--- NOTE | 2023-12-11 08:41 | PCPTNOTE ---
The patient treatment was not able to be completed at this time due to patient eating breakfast and SPO2 decreasing into the 80's. Will plan to continue treatment per plan of care.
--- NOTE | 2023-12-11 08:49 | PCNFU ---
Nutrition Follow-Up Complete: Inadequate oral intake related to acute loss of appetite as evidenced by intakes 25-50% Goal: Intakes at least 75% meals and supplements - Goal is being met. Continue with same goal Pt current nutrition is Heart healthy diet, Ensure compact BID for additional 220 kcal and 9 g protein each. Nutrition recommendation: Continue with current nutrition care plan Last recorded weight is 80.7 kg. Bowel Motility: +2 BM 12/10/23 Labs Reviewed: Hgb 11.1, Hct 34.3, Alb 3.0, Na 131, BUN 50 Meds Noted: Lovenox, novolog Skin: WNL Additional Notes: Intakes are good. Discharge planning to SNF when appropriate. Continue with current care plan. Agree with orders. Monitor intakes, weights, labs, supplement tolerance, plan of care Follow up in 5 days
[2023-12-11] MEDS: polyethylene glycoL 3350 17 GM POWD.PACK PO (10:47)
[2023-12-11] MEDS: BARICITINIB 2 MG TABLET 4 MG PO (10:47)
[2023-12-11] MEDS: TAMSULOSIN HCL 0.4 MG CAPSULE PO (10:47)
[2023-12-11] MEDS: APIXABAN 5 MG TABLET 10 MG PO ×2 (10:48→20:24)
[2023-12-11 12:04] LABS: Glucose Point of Care 174 mg/dl (65-105)
--- NOTE | 2023-12-11 12:34 | PM.PNPUL ---
Progress Note: A&P Assessment and Plan (1) COVID: Code(s): U07.1 - COVID-19 Status: Acute Assessment and Plan: ?Patient tested positive for COVID-19 on 11/28/23 and started on remdesivir, dexamethasone on 11/28/2023. Started on baricitinib on 11/30/2022. ABG on 11/30/2023 with a pH of 7.50/26/58 on 12 L nasal cannula. 12/04/23: Plan: - Completed Remdesivir for 5 days with last dose on 12/02/23 at 23:52. - Dexamethasone 6 mg IV for 10 days - Continuous pulse oximetry - Avoid any fluid overload. - influenza and RSV swab negative - Keep saturations are 90-94% and currently on 4 L nasal cannula -empiric treatment for pneumonia with azithromycin, completed 5 days on 12/02/2023 and currently on ceftriaxone since 11/28 and will complete a total of 7 days. For worsening hypoxemia treat with nasal cannula up to 15 L, if fails then Airvo high flow nasal cannula.? If fails Airvo then noninvasive ventilation. If fails noninvasive then intubation. 12/05/23: The patient tells me heels the same as yesterday, 10-15% back to his baseline. His creatinine is 1.0. When I entered the room he was on 5 L nasal cannula saturations 94%. I decreased him to 4 L and after 3 minutes his saturations decreased to 88% and I increased him back to 5 L. he tells me the albuterol inhalers provide him no benefit. Plan: Overall the patient is improved since admission and his oxygenation has improved. Status post remdesivir for 5 days. Continue dexamethasone 6 mg, day 8. Continue baricitinib, day 6. 12/06/23: Patient tells me he has a little bit better feeling 20-25% back to normal. Patient denies cough, phlegm or hemoptysis. He has no shortness of breath at rest. He did have dyspnea on exertion getting to the chair yesterday. When I entered the room he was on 6 L with saturations 96%. I decreased him to 5 L and after 4 minutes his saturations were 87%. I increased him back to 6 but his saturations were low and I increased him to 10 L and his saturations were 89-90%. He said he noticed no changes when his oxygen was low. BNP has improved from 2490 on 11/28/2023 to 336 today. Patient is 0.5 L positive since admission. Chest x-ray ordered. Plan: Patient clinically feels better but oxygenation worse over the last 36 hours. BNP was improved. I will check a chest x-ray. Continue dexamethasone, day 9 and baricitinib, day 7. Chest x-ray with no focal infiltrates, consolidations or effusions. Given patient's deterioration and being off remdesivir after 5 days for 60 hours I re-initiated remdesivir. 12/07/23: Patient tells me today is a little bit more short of breath. He denies cough, phlegm, hemoptysis. He is afebrile. White blood cell count 14.7, creatinine 1.0. Patient currently on 7 L nasal cannula saturations 91%. Plan: Continue remdesivir, day 1 since re-initiation and a 6 total. Continue dexamethasone, day 10, continue baricitinib day 8. Will repeat CRP tomorrow. 12/08/23: Patient tells me he did well last night but this morning he feels short of breath. He improved throughout the day yesterday. He denies cough and has minimal phlegm production. He had desaturations while eating breakfast this morning requiring up to 12 L. When I enter the room he was on 10 L nasal cannula and I was able to decrease him to 7 L nasal cannula saturations 92%. White blood cell count is 13.9, creatinine is 1.1, CRP is 1.9. Chest x-ray with patchy bilateral infiltrates with no change from 12/06/2023. Plan: Patient completed dexamethasone 10 days on 12/07/2023. Today is day 3 of 5 for his 2nd 5 day course of remdesivir. Today is day 9 of 14 of baricitinib. CRP is elevated at 1.9 but decreased from 3.3 on 12/05/2023. Chest x-ray shows bilateral patchy infiltrates with no change from 12/06/2023. Oxygenation stable over the last 36 hours. Will follow patient off of dexamethasone for now. Discussed with Dr. Bravo. Pulmonary inpatient consultative services will resume on
--- NOTE | 2023-12-11 15:06 | PCOTNOTE ---
The patient treatment was not able to be completed on 12/11 due to patient being down for CT. Will plan to continue treatment per plan of care.
--- NOTE | 2023-12-11 16:04 | PCSTNOTE ---
Please refer to the Bedside Swallow Evaluation in the EMR. Please note, silent aspiration cannot be ruled out at bedside.
[2023-12-11 16:23] LABS: Glucose Point of Care 163 mg/dl (65-105)
--- NOTE | 2023-12-11 16:55 | PM.IMPN ---
Progress Note: A&P Assessment and Plan (1) Acute respiratory failure with hypoxia: Code(s): J96.01 - Acute respiratory failure with hypoxia Status: Acute Assessment and Plan: Patient presents with SOB and found to have PE and COVID. No recent COVID vaccine. He was on CPAP on admission but was initially weaned to 6L HFNC. CTA chest showing acute lingula PE and diffuse lung disease c/w edema and PNA with chronic ILD. (ILD seen by CT scan in April 2023) Dexamethasone/Remdesivir started. Lovenox for PE. Lasix IV for possible edema. Abx for possible PNA. MRSA nasal swab negative BCx negative Sputum Cx negative CXR 11/30: diffuse lung disease t/o both lungs with relative sparing of the left upper lung. ABG 11/30: 7.497//58 on 12L. Condition worsened and Baricitinib started CXR 12/02 showing no change. Completed Remdesivir x5 days. Completed Azithromycin x 5 days and Rocephin x 7 days. On 12/07 he is still requiring between 7 and 10 L of high-flow nasal cannula. Agree with restarting remdesivir today will be day 6. Continue baricitinib and dexamethasone. Appreciated pulmonology documentation. 12/08 still requiring 7 L nasal cannula and bumped up to 10 L while eating breakfast. Discussion held with pulmonology. Will continue remdesivir and baricitinib and hold off on dexamethasone today. Continue to monitor. Recheck LFTs and CRP in a.m. appreciate pulmonology recommendations On 12/09 he still has shortness of breath but has remained stable at 7 L high-flow nasal cannula. Appreciated some crackles on the lung so will give 1 time dose of Lasix to see if that helps some. On 12/10 the patient is down to 4 L high-flow nasal cannula saturating 96% pulse ox. Crackles are improved status post 1 time dose of Lasix. No changes in management today. A pulmonology recommendations tomorrow. Patient has a high BUN creatinine ratio so will hold off on any more Lasix at the moment. On 12/11 CT chest, speech therapy pending. Apparently he desaturates when he is eating. However he is now back down to 3 L. Continue baricitinib. He did Decadron and remdesivir. Another consideration is to start antibiotics although he does not look toxic/septic. Another consideration is to try to diurese him again however he does not look overloaded so this would have to be used very judiciously. (2) COVID: Code(s): U07.1 - COVID-19 Status: Acute Assessment and Plan: As above baricitinib and remdesivir Completed 10 day course Decadron Wean O2 as tolerated. (3) Pulmonary embolism: Code(s): I26.99 - Other pulmonary embolism without acute cor pulmonale Status: Acute Assessment and Plan: CTA showing lingula PE. LE venous doppler showing DVT left posterior tibial and peroneal veins. Switched to Eliquis. On 12/11 last day of 10 mg dosing. Tomorrow will start 5 mg b.i.d. (4) Deep vein thrombosis of left lower extremity: Code(s): I82.402 - Acute embolism and thrombosis of unspecified deep veins of left lower extremity Status: Acute Assessment and Plan: As above (5) Chronic anemia: Code(s): D64.9 - Anemia, unspecified Status: Acute Assessment and Plan: Pateint with chronic anemia. Hgb mostly 11-13 range. Hgb 11.0 on admission but dropped to 9-10 range Follow and remains stable (6) Hypertension: Code(s): I10 - Essential (primary) hypertension Status: Acute Assessment and Plan: Controlled. Continue to monitor (7) Benign prostatic hyperplasia: Code(s): N40.0 - Benign prostatic hyperplasia without lower urinary tract symptoms Status: Acute Assessment and Plan: Stable. Continue Flomax Plan FEN: Saline lock IV. GI prophylaxis: None indicated DVT prophylaxis: Eliquis Lines: For follow-up Code Status: Full code Dispo: Stable. Plan is either to discharge when requiring lower amou
[2023-12-11] MEDS: ASPIRIN 81 MG ENTERIC TABLET PO (17:40)
[2023-12-11] MEDS: PRAVASTATIN SODIUM 20 MG TABLET 40 MG PO (17:40)
[2023-12-11] MEDS: LOSARTAN POTASSIUM 25 MG TABLET PO (17:40)
[2023-12-11 21:32] LABS: Glucose Point of Care 148 mg/dl (65-105)
[2023-12-12] VITALS (18 sets, daily range): BP systolic 117–151; BP diastolic 46–66; PULSE 65–94; RESP 18–24; TEMP 36.2–37.1; O2SAT 89–100
[2023-12-12 05:15] LABS: Basophils Percent Auto 0.1 % (0.2-1.2); Eosinophils Absolute Auto 0.6 K/mm3 (0-0.3); Eosinophils Percent Auto 3.8 % (0-4.4); Hematocrit 34.1 % (42.0-52.0); Hemoglobin 10.9 g/dL (14.0-18.0); Immature Granulocyte Absolute 0.13 K/mm3 (0.00-0.031); Immature Granulocyte Percent A 0.8 % (0-0.5); Lymphocytes Absolute Auto 1.56 K/mm3 (0.9-3.2); Lymphocytes Percent Auto 9.4 % (18.3-44.2); Mean Corpuscular Hemoglobin 27.7 pg (26-34); Mean Corpuscular Volume 86.5 fl (80-100); Mean Platelet Volume 9.4 fl (7.4-10.4); Monocytes Absolute Auto 1.2 K/mm3 (0.1-0.6); Neutrophils Absolute Auto 13.1 K/mm3 (1.3-6.7); Neutrophils Percent Auto 78.9 % (45.5-73.1); Platelet Count Result 404 k/mm3 (150-375); Red Blood Count 3.94 M/mm3 (4.6-6.20); Red Cell Distribution Width 13.6 % (11.5-14.5); White Blood Count 16.6 K/mm3 (4.5-10.0)
[2023-12-12 05:30] LABS: Alanine Aminotransferase 23 U/L (6-50); Albumin Level 2.7 g/dL (3.5-5.1); Alkaline Phosphatase 86 U/L (38-126); Anion Gap 2 mmol/L (8-16); Aspartate Amino Transferase 31 U/L (17-59); Bilirubin,Total 1.8 mg/dL (0.2-1.3); Blood Urea Nitrogen 41 mg/dL (9-20); CRP 6.2 mg/dL (<1.0); Calcium 8.3 mg/dL (8.4-10.2); Carbon Dioxide 26 mmol/L (22-30); Chloride 98 mmol/L (98-107); Estimated CRCL calculation 47 ml/min; Estimated Glomerular Filt Rate > 60; Glucose 126 mg/dL (65-110); Magnesium 2.5 mg/dL (1.6-2.3); Potassium 4.6 mmol/L (3.4-5.0); Sodium 126 mmol/L (137-145)
[2023-12-12 06:04] LABS: Procalcitonin 0.1 ng/mL
[2023-12-12 08:00] LABS: Glucose Point of Care 130 mg/dl (65-105)
[2023-12-12] MEDS: TAMSULOSIN HCL 0.4 MG CAPSULE PO (09:55)
[2023-12-12] MEDS: APIXABAN 5 MG TABLET PO ×2 (09:55→21:30)
[2023-12-12] MEDS: BARICITINIB 2 MG TABLET 4 MG PO (11:58)
[2023-12-12] MEDS: INSULIN ASPART (*BKC) 100 UNITS/ML SUB-Q (12:08)
[2023-12-12 12:09] LABS: Glucose Point of Care 202 mg/dl (65-105)
[2023-12-12] MEDS: ASPIRIN 81 MG ENTERIC TABLET PO (16:40)
[2023-12-12] MEDS: PRAVASTATIN SODIUM 20 MG TABLET 40 MG PO (16:40)
[2023-12-12] MEDS: LOSARTAN POTASSIUM 25 MG TABLET PO (16:40)
[2023-12-12 17:06] LABS: Glucose Point of Care 140 mg/dl (65-105)
--- NOTE | 2023-12-12 18:53 | PM.IMPN ---
Progress Note: A&P Assessment and Plan (1) Acute respiratory failure with hypoxia: Code(s): J96.01 - Acute respiratory failure with hypoxia Status: Acute Assessment and Plan: Patient presents with SOB and found to have PE and COVID. No recent COVID vaccine. He was on CPAP on admission but was initially weaned to 6L HFNC. CTA chest showing acute lingula PE and diffuse lung disease c/w edema and PNA with chronic ILD. (ILD seen by CT scan in April 2023) Dexamethasone/Remdesivir started. Lovenox for PE. Lasix IV for possible edema. Abx for possible PNA. MRSA nasal swab negative BCx negative Sputum Cx negative CXR 11/30: diffuse lung disease t/o both lungs with relative sparing of the left upper lung. ABG 11/30: 7.497//58 on 12L. Condition worsened and Baricitinib started CXR 12/02 showing no change. Completed Remdesivir x5 days. Completed Azithromycin x 5 days and Rocephin x 7 days. On 12/07 he is still requiring between 7 and 10 L of high-flow nasal cannula. Agree with restarting remdesivir today will be day 6. Continue baricitinib and dexamethasone. Appreciated pulmonology documentation. 12/08 still requiring 7 L nasal cannula and bumped up to 10 L while eating breakfast. Discussion held with pulmonology. Will continue remdesivir and baricitinib and hold off on dexamethasone today. Continue to monitor. Recheck LFTs and CRP in a.m. appreciate pulmonology recommendations On 12/09 he still has shortness of breath but has remained stable at 7 L high-flow nasal cannula. Appreciated some crackles on the lung so will give 1 time dose of Lasix to see if that helps some. On 12/10 the patient is down to 4 L high-flow nasal cannula saturating 96% pulse ox. Crackles are improved status post 1 time dose of Lasix. No changes in management today. A pulmonology recommendations tomorrow. Patient has a high BUN creatinine ratio so will hold off on any more Lasix at the moment. On 12/11 CT chest, speech therapy pending. Apparently he desaturates when he is eating. However he is now back down to 3 L. Continue baricitinib. He did Decadron and remdesivir. Another consideration is to start antibiotics although he does not look toxic/septic. Another consideration is to try to diurese him again however he does not look overloaded so this would have to be used very judiciously. On 12/12 he has intermittent shortness of breath when he is exerting. However overall he has been able to be weaned down to 2 L. This is better progression. However he does have a worsening hyponatremia and elevated CRP. We should watch for another day and hopefully be able to discharge him tomorrow if he is not desaturating to bad. Reported he can get up to 6 L managed at the group home facility. He is almost done with baricitinib. Decadron is completed and remdesivir as well. (2) COVID: Code(s): U07.1 - COVID-19 Status: Acute Assessment and Plan: As above baricitinib and remdesivir Completed 10 day course Decadron Wean O2 as tolerated. (3) Pulmonary embolism: Code(s): I26.99 - Other pulmonary embolism without acute cor pulmonale Status: Acute Assessment and Plan: CTA showing lingula PE. LE venous doppler showing DVT left posterior tibial and peroneal veins. Switched to Eliquis. On 12/11 last day of 10 mg dosing. Tomorrow will start 5 mg b.i.d. (4) Deep vein thrombosis of left lower extremity: Code(s): I82.402 - Acute embolism and thrombosis of unspecified deep veins of left lower extremity Status: Acute Assessment and Plan: As above (5) Chronic anemia: Code(s): D64.9 - Anemia, unspecified Status: Acute Assessment and Plan: Pateint with chronic anemia. Hgb mostly 11-13 range. Hgb 11.0 on admission but dropped to 9-10 range Follow and remains stable (6) Hypertension: Code(s): I10 - Essential (primary) hypertension Statu
[2023-12-12 20:07] LABS: Anion Gap 4 mmol/L (8-16); Blood Urea Nitrogen 44 mg/dL (9-20); Calcium 8.4 mg/dL (8.4-10.2); Carbon Dioxide 26 mmol/L (22-30); Chloride 97 mmol/L (98-107); Estimated CRCL calculation 47 ml/min; Estimated Glomerular Filt Rate > 60; Glucose 204 mg/dL (65-110); Potassium 4.7 mmol/L (3.4-5.0); Sodium 127 mmol/L (137-145)
[2023-12-12 20:15] LABS: Glucose Point of Care 221 mg/dl (65-105)
[2023-12-12 21:16] LABS: Glucose Point of Care 157 mg/dl (65-105)
[2023-12-12] MEDS: ACETAMINOPHEN 325 MG TABLET 650 MG PO (23:38)
[2023-12-13] VITALS (17 sets, daily range): BP systolic 93–149; BP diastolic 40–65; PULSE 64–87; RESP 16–20; TEMP 36.4–37.1; O2SAT 90–97
[2023-12-13 05:09] LABS: Basophils Percent Auto 0.1 % (0.2-1.2); Eosinophils Absolute Auto 0.8 K/mm3 (0-0.3); Eosinophils Percent Auto 5.4 % (0-4.4); Hemoglobin 11.1 g/dL (14.0-18.0); Immature Granulocyte Absolute 0.15 K/mm3 (0.00-0.031); Lymphocytes Absolute Auto 1.73 K/mm3 (0.9-3.2); Lymphocytes Percent Auto 11.9 % (18.3-44.2); Mean Corpuscular HGB Conc 32.6 g/dl (32-36); Mean Corpuscular Volume 85.9 fl (80-100); Mean Platelet Volume 9.1 fl (7.4-10.4); Monocytes Absolute Auto 1.1 K/mm3 (0.1-0.6); Monocytes Percent Auto 7.6 % (2.6-8.5); Neutrophils Absolute Auto 10.7 K/mm3 (1.3-6.7); Platelet Count Result 364 k/mm3 (150-375); Red Blood Count 3.96 M/mm3 (4.6-6.20); Red Cell Distribution Width 13.7 % (11.5-14.5); White Blood Count 14.5 K/mm3 (4.5-10.0)
[2023-12-13 05:48] LABS: Alanine Aminotransferase 21 U/L (6-50); Albumin Level 2.8 g/dL (3.5-5.1); Alkaline Phosphatase 85 U/L (38-126); Anion Gap 4 mmol/L (8-16); Aspartate Amino Transferase 25 U/L (17-59); Bilirubin,Total 1.5 mg/dL (0.2-1.3); Blood Urea Nitrogen 41 mg/dL (9-20); Calcium 8.5 mg/dL (8.4-10.2); Carbon Dioxide 26 mmol/L (22-30); Chloride 99 mmol/L (98-107); Estimated CRCL calculation 42 ml/min; Estimated Glomerular Filt Rate > 60; Glucose 127 mg/dL (65-110); Magnesium 2.6 mg/dL (1.6-2.3); Potassium 4.5 mmol/L (3.4-5.0); Sodium 129 mmol/L (137-145)
[2023-12-13 06:04] LABS: Procalcitonin 0.1 ng/mL
[2023-12-13 06:34] LABS: CRP 11.9 mg/dL (<1.0)
[2023-12-13 08:37] LABS: Glucose Point of Care 151 mg/dl (65-105)
[2023-12-13] MEDS: APIXABAN 5 MG TABLET PO ×2 (08:56→22:38)
[2023-12-13] MEDS: TAMSULOSIN HCL 0.4 MG CAPSULE PO (08:56)
--- NOTE | 2023-12-13 10:31 | PCRTNOTE ---
HOME O2 EVAL NOT DONE, PT GOING TO SNF OR REHAB.
[2023-12-13 12:00] LABS: Glucose Point of Care 175 mg/dl (65-105)
[2023-12-13] MEDS: BARICITINIB 2 MG TABLET 4 MG PO (12:12)
--- NOTE | 2023-12-13 14:49 | PM.IMPN ---
Progress Note: A&P Assessment and Plan (1) Acute respiratory failure with hypoxia: Code(s): J96.01 - Acute respiratory failure with hypoxia Status: Acute Assessment and Plan: Patient presents with SOB and found to have PE and COVID. No recent COVID vaccine. He was on CPAP on admission but was initially weaned to 6L HFNC. CTA chest showing acute lingula PE and diffuse lung disease c/w edema and PNA with chronic ILD. (ILD seen by CT scan in April 2023) Dexamethasone/Remdesivir started. Lovenox for PE. Lasix IV for possible edema. Abx for possible PNA. MRSA nasal swab negative BCx negative Sputum Cx negative CXR 11/30: diffuse lung disease t/o both lungs with relative sparing of the left upper lung. ABG 11/30: 7.497//58 on 12L. Condition worsened and Baricitinib started CXR 12/02 showing no change. Completed Remdesivir x5 days. Completed Azithromycin x 5 days and Rocephin x 7 days. On 12/07 he is still requiring between 7 and 10 L of high-flow nasal cannula. Agree with restarting remdesivir today will be day 6. Continue baricitinib and dexamethasone. Appreciated pulmonology documentation. 12/08 still requiring 7 L nasal cannula and bumped up to 10 L while eating breakfast. Discussion held with pulmonology. Will continue remdesivir and baricitinib and hold off on dexamethasone today. Continue to monitor. Recheck LFTs and CRP in a.m. appreciate pulmonology recommendations On 12/09 he still has shortness of breath but has remained stable at 7 L high-flow nasal cannula. Appreciated some crackles on the lung so will give 1 time dose of Lasix to see if that helps some. On 12/10 the patient is down to 4 L high-flow nasal cannula saturating 96% pulse ox. Crackles are improved status post 1 time dose of Lasix. No changes in management today. A pulmonology recommendations tomorrow. Patient has a high BUN creatinine ratio so will hold off on any more Lasix at the moment. On 12/11 CT chest, speech therapy pending. Apparently he desaturates when he is eating. However he is now back down to 3 L. Continue baricitinib. He did Decadron and remdesivir. Another consideration is to start antibiotics although he does not look toxic/septic. Another consideration is to try to diurese him again however he does not look overloaded so this would have to be used very judiciously. On 12/12 he has intermittent shortness of breath when he is exerting. However overall he has been able to be weaned down to 2 L. This is better progression. However he does have a worsening hyponatremia and elevated CRP. We should watch for another day and hopefully be able to discharge him tomorrow if he is not desaturating to bad. Reported he can get up to 6 L managed at the [facility] facility. He is almost done with baricitinib. Decadron is completed and remdesivir as well. On 12/13 -see summary in plan (2) COVID: Code(s): U07.1 - COVID-19 Status: Acute Assessment and Plan: As above Baricitinib and a 14 day course, remdesivir 10 day course, Decadron 10 day course completed. Wean O2 as tolerated. (3) Pulmonary embolism: Code(s): I26.99 - Other pulmonary embolism without acute cor pulmonale Status: Acute Assessment and Plan: CTA showing lingula PE. LE venous doppler showing DVT left posterior tibial and peroneal veins. Continue Eliquis 5 mg p.o. b.i.d. (4) Deep vein thrombosis of left lower extremity: Code(s): I82.402 - Acute embolism and thrombosis of unspecified deep veins of left lower extremity Status: Acute Assessment and Plan: As above (5) Chronic anemia: Code(s): D64.9 - Anemia, unspecified Status: Acute Assessment and Plan: Pateint with chronic anemia. Hgb mostly 11-13 range. Hgb 11.0 on admission but dropped to 9-10 range Follow and remains stable (6) Hypertension: Code(s): I10 - Essential (primary) hypertension
[2023-12-13 16:58] LABS: Glucose Point of Care 203 mg/dl (65-105)
[2023-12-13] MEDS: LOSARTAN POTASSIUM 25 MG TABLET PO (17:43)
[2023-12-13] MEDS: PRAVASTATIN SODIUM 20 MG TABLET 40 MG PO (17:43)
[2023-12-13] MEDS: ASPIRIN 81 MG ENTERIC TABLET PO (17:43)
[2023-12-13] MEDS: INSULIN ASPART (*BKC) 100 UNITS/ML SUB-Q ×2 (17:43→22:39)
[2023-12-13 19:55] LABS: Glucose Point of Care 207 mg/dl (65-105)
[2023-12-14] VITALS (7 sets, daily range): BP systolic 129; BP diastolic 71; PULSE 69–95; RESP 18; TEMP 36.7; O2SAT 95–96
[2023-12-14 08:04] LABS: Glucose Point of Care 140 mg/dl (65-105)
[2023-12-14] MEDS: APIXABAN 5 MG TABLET PO (08:58)
[2023-12-14] MEDS: TAMSULOSIN HCL 0.4 MG CAPSULE PO (08:58)
[2023-12-14] MEDS: ONDANSETRON INJ 4 MG/2 ML VIAL IV PUSH (08:58)
[2023-12-14 10:37] LABS: Hematocrit 36.8 % (42.0-52.0); Hemoglobin 11.6 g/dL (14.0-18.0); Mean Corpuscular HGB Conc 31.5 g/dl (32-36); Mean Corpuscular Hemoglobin 27.6 pg (26-34); Mean Corpuscular Volume 87.4 fl (80-100); Mean Platelet Volume 9.1 fl (7.4-10.4); Platelet Count Result 336 k/mm3 (150-375); Red Blood Count 4.21 M/mm3 (4.6-6.20); Red Cell Distribution Width 13.9 % (11.5-14.5); White Blood Count 13.2 K/mm3 (4.5-10.0)
[2023-12-14 10:57] LABS: Anion Gap 3 mmol/L (8-16); Blood Urea Nitrogen 43 mg/dL (9-20); Calcium 8.9 mg/dL (8.4-10.2); Carbon Dioxide 27 mmol/L (22-30); Chloride 100 mmol/L (98-107); Estimated CRCL calculation 42 ml/min; Estimated Glomerular Filt Rate > 60; Glucose 139 mg/dL (65-110); Potassium 4.9 mmol/L (3.4-5.0); Sodium 130 mmol/L (137-145)
--- NOTE | 2023-12-14 11:16 | PM.IMPN ---
Progress Note: A&P Assessment and Plan (1) Acute respiratory failure with hypoxia: Code(s): J96.01 - Acute respiratory failure with hypoxia Status: Acute (2) ILD (interstitial lung disease): Code(s): J84.9 - Interstitial pulmonary disease, unspecified Status: Acute (3) Deep vein thrombosis of left lower extremity: Code(s): I82.402 - Acute embolism and thrombosis of unspecified deep veins of left lower extremity Status: Acute (4) Pulmonary embolism: Code(s): I26.99 - Other pulmonary embolism without acute cor pulmonale Status: Acute (5) COVID: Code(s): U07.1 - COVID-19 Status: Acute Plan A pleasant 88-year-old male residing independently at [facility] with past medical history CAD with angioplasty performed in 1996, hypertension, hyperlipidemia, BPH. On 11/28 the patient presented experiencing mild cough and shortness of breath.? He was found to be in acute hypoxic respiratory failure secondary to COVID pneumonia.? His received 10 days of Decadron, 14 days of baricitinib, on 10 days of remdesivir although it was an interrupted course.? On 12/13 the patient has insurance authorization complete to be discharged to care home facility.? He requires 2 L of O2 at rest and his dyspnea is greatly improved.? However, while eating and participating with therapy his O2 sat drops to 85% requires 8 L.? SNF requires he only requires 6 L or less of O2.? Will continue to monitor him.? He did previously responded well to a light dose of Lasix so that is another consideration although he appears on the dehydrated side.? Restarting Decadron is also a consideration. (1) Acute respiratory failure with hypoxia: ?Code(s): J96.01 - Acute respiratory failure with hypoxia ?Status:?Acute ?Assessment and Plan: Patient presents with SOB and found to have PE and COVID. No recent COVID vaccine. He was on CPAP on admission but was initially weaned to 6L HFNC. CTA chest showing acute lingula PE and diffuse lung disease c/w edema and PNA with chronic ILD. (ILD seen by CT scan in April 2023) Dexamethasone/Remdesivir started. Lovenox for PE. Lasix IV for possible edema. Abx for possible PNA. MRSA nasal swab negative BCx negative Sputum Cx negative CXR 11/30: diffuse lung disease t/o both lungs with relative sparing of the left upper lung. ABG 11/30: 7.497/26/58 on 12L. Condition worsened and Baricitinib started CXR 12/02 showing no change. Completed Remdesivir x5 days. Completed Azithromycin x 5 days and Rocephin x 7 days. On 12/07 he is still requiring between 7 and 10 L of high-flow nasal cannula.? Agree with restarting remdesivir today will be day 6.? Continue baricitinib and dexamethasone.? Appreciated pulmonology documentation. 12/08 still requiring 7 L nasal cannula and bumped up to 10 L while eating breakfast.? Discussion held with pulmonology.? Will continue remdesivir and baricitinib and hold off on dexamethasone today.? Continue to monitor.? Recheck LFTs and CRP in a.m. appreciate pulmonology recommendations On 12/09 he still has shortness of breath but has remained stable at 7 L high-flow nasal cannula.? Appreciated some crackles on the lung so will give 1 time dose of Lasix to see if that helps some. On 12/10 the patient is down to 4 L high-flow nasal cannula saturating 96% pulse ox.? Crackles are improved status post 1 time dose of Lasix.? No changes in management today.? A pulmonology recommendations tomorrow.? Patient has a high BUN creatinine ratio so will hold off on any more Lasix at the moment. On 12/11 CT chest, speech therapy pending.? Apparently he desaturates when he is eating.? However he is now back down to 3 L.? Continue baricitinib.? He did Decadron and remdesivir.? Another consideration is to start antibiotics although he does not look toxic/septic.? Another consideration is to try to diurese him again however he does not look overloaded so this would have to be used very
[2023-12-14 11:47] LABS: Glucose Point of Care 162 mg/dl (65-105)
--- NOTE | 2023-12-14 14:20 | PM.DS ---
DS: Admitting Diagnosis Discharge Date 12/14/23 Admitting Diagnosis (1) Acute respiratory failure with hypoxia: ?Code(s): J96.01 - Acute respiratory failure with hypoxia ?Status:?Acute (2) ILD (interstitial lung disease): ?Code(s): J84.9 - Interstitial pulmonary disease, unspecified ?Status:?Acute (3) Deep vein thrombosis of left lower extremity: ?Code(s): I82.402 - Acute embolism and thrombosis of unspecified deep veins of left lower extremity ?Status:?Acute (4) Pulmonary embolism: ?Code(s): I26.99 - Other pulmonary embolism without acute cor pulmonale ?Status:?Acute (5) COVID: ?Code(s): U07.1 - COVID-19 DS: Discharge Diagnosis Discharge Diagnosis (1) Acute respiratory failure with hypoxia: Code(s): J96.01 - Acute respiratory failure with hypoxia Status: Acute (2) ILD (interstitial lung disease): Code(s): J84.9 - Interstitial pulmonary disease, unspecified Status: Acute (3) Deep vein thrombosis of left lower extremity: Code(s): I82.402 - Acute embolism and thrombosis of unspecified deep veins of left lower extremity Status: Acute (4) Pulmonary embolism: Code(s): I26.99 - Other pulmonary embolism without acute cor pulmonale Status: Acute (5) COVID: Code(s): U07.1 - COVID-19 Status: Acute DS: Summary Hospital Course Hospital Course: A pleasant 88-year-old male residing independently at [facility] with past medical history CAD with angioplasty performed in 1996, hypertension, hyperlipidemia, BPH. On 11/28 the patient presented experiencing mild cough and shortness of breath.? He was found to be in acute hypoxic respiratory failure secondary to COVID pneumonia.? His received 10 days of Decadron, 14 days of baricitinib, on 10 days of remdesivir although it was an interrupted course.? On 12/13 the patient has insurance authorization complete to be discharged to nursing home facility.? He requires 2 L of O2 at rest and his dyspnea is greatly improved.? However, while eating and participating with therapy his O2 sat drops to 85% requires 8 L.? SNF requires he only requires 6 L or less of O2.? Will continue to monitor him.? He did previously responded well to a light dose of Lasix so that is another consideration although he appears on the dehydrated side.? Restarting Decadron is also a consideration. (1) Acute respiratory failure with hypoxia: ?Code(s): J96.01 - Acute respiratory failure with hypoxia ?Status:?Acute ?Assessment and Plan: Patient presents with SOB and found to have PE and COVID. No recent COVID vaccine. He was on CPAP on admission but was initially weaned to 6L HFNC. CTA chest showing acute lingula PE and diffuse lung disease c/w edema and PNA with chronic ILD. (ILD seen by CT scan in April 2023) Dexamethasone/Remdesivir started. Lovenox for PE. Lasix IV for possible edema. Abx for possible PNA. MRSA nasal swab negative BCx negative Sputum Cx negative CXR 11/30: diffuse lung disease t/o both lungs with relative sparing of the left upper lung. ABG 11/30: 7.497/26/58 on 12L. Condition worsened and Baricitinib started CXR 12/02 showing no change. Completed Remdesivir x5 days. Completed Azithromycin x 5 days and Rocephin x 7 days. On 12/07 he is still requiring between 7 and 10 L of high-flow nasal cannula.? Agree with restarting remdesivir today will be day 6.? Continue baricitinib and dexamethasone.? Appreciated pulmonology documentation. 12/08 still requiring 7 L nasal cannula and bumped up to 10 L while eating breakfast.? Discussion held with pulmonology.? Will continue remdesivir and baricitinib and hold off on dexamethasone today.? Continue to monitor.? Recheck LFTs and CRP in a.m. appreciate pulmonology recommendations On 12/09 he still has shortness of breath but has remained stable at 7 L high-flow nasal cannula.? Appreciated some crackles on the lung so will give 1 time dose of Lasix t
[2023-12-14] MEDS: ONDANSETRON HCL ODT 4 MG TABLET PO (16:55)
[2023-12-14] MEDS: ASPIRIN 81 MG ENTERIC TABLET PO (17:15)
[2023-12-14] MEDS: LOSARTAN POTASSIUM 25 MG TABLET PO (17:15)
[2023-12-14] MEDS: PRAVASTATIN SODIUM 20 MG TABLET 40 MG PO (17:15)
[2023-12-14 20:48] LABS: JO-1 AB <11 SI (<11); MI-2 Alpha Ab <11 SI (<11); MI-2 Beta Ab <11 SI (<11); NXP-2 AB <11 SI (<11); TIF1 Gamma Ab 116 SI (<11)
== END 2023-12-14 19:20 | DRG 177 ==
LOC: ANHED 13:54 → ANHIMU 14:48
PROVIDERS: General Practice; Internal Medicine; Internal Medicine Pulmonary Disease; Physician Assistant; Admitting Provider Student in an Organized Health Care Education/Training Program; Emergency Provider Emergency Medicine; PCP Physician Assistant; Visit Provider Hospitalist
DX: U07.1 COVID-19 (principal); I26.99 Other pulmonary embolism without acute cor pulmonale; J96.01 Acute respiratory failure with hypoxia; J12.82 Pneumonia due to coronavirus disease 2019; I82.442 Acute embolism and thrombosis of left tibial vein; I82.452 Acute embolism and thrombosis of left peroneal vein; E22.2 Syndrome of inappropriate secretion of antidiuretic hormone; J84.9 Interstitial pulmonary disease, unspecified; I25.2 Old myocardial infarction; I10 Essential (primary) hypertension; I25.10 Atherosclerotic heart disease of native coronary artery without angina pectoris; E78.5 Hyperlipidemia, unspecified; N40.0 Benign prostatic hyperplasia without lower urinary tract symptoms; D64.9 Anemia, unspecified; E87.5 Hyperkalemia; Z87.891 Personal history of nicotine dependence; Z96.653 Presence of artificial knee joint, bilateral; Z96.641 Presence of right artificial hip joint; Z98.61 Coronary angioplasty status
CPT/HCPCS: 36415; 36600; 71045; 71250; 71275; 80048; 80053; 80069; 80076; 82085; 82550; 82565; 82570; 82728; 82805; 82948; 83036; 83605; 83615; 83735; 83880; 84100; 84145; 84182; 84300; 84443; 84460; 84484; 84540; 85025; 85027; 85380; 85610; 86036; 86038; 86140; 86200; 86225; 86235; 86331; 86364; 86606; 86609; 86738; 87040; 87070; 87205; 87449; 87637; 87641; 87899; 92610; 93005; 93970; 94002; 94003; 94640; 94660; 96374; 97110; 97161; 97166; 97530; 97535; 99285; A9270; C8929; J0248; J0456; J0696; J1100; J1650; J1815; J1940; J2405; J7040; Q9957; Q9967

== ENCOUNTER 2023-12-15 09:14 | Inpatient (IN) | payer MEDICARE, SELFPAY ==
[2023-12-15] VITALS (18 sets, daily range): BP systolic 104–138; BP diastolic 43–76; PULSE 71–97; RESP 18–39; TEMP 35.8–36.6; O2SAT 90–98
--- NOTE | ~2023-12-15 | XR_ITS ---
EXAMINATION: XR chest 1V portable INDICATION: Shortness of breath, post-COVID TECHNIQUE: Portable AP chest at 0541 hours COMPARISON: 12/16/2023 FINDINGS: Diffuse interstitial and airspace opacities persist throughout the right lung and in the le ft mid and lower lung zones without significant change. There are small pleural effusions. No pneumot horax is identified. Cardiomegaly is noted. IMPRESSION: 1. Diffuse lung disease without significant change, consistent with pneumonia and/or pulmonary edema, possibly on a background of chronic interstitial lung disease. 2. Cardiomegaly. Reviewed, dictated and finalized at location F. BRANDER IMPRESSION: 1. Diffuse lung disease without significant change, consistent with pneumonia a nd/or pulmonary edema, possibly on a background of chronic interstitial lung di sease. 2. Cardiomegaly.
--- NOTE | ~2023-12-15 | XR_ITS ---
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 RESULT: Lines, tubes, and devices: None. Lungs and pleura: Moderate stable diffuse interstitial opacities with some left upper lung sparing. Streaky and patchy bilateral lower lung opacities. Cardiomediastinal silhouette: Stable. Other: No acute osseous or upper abdominal finding. IMPRESSION: Unchanged pulmonary opacities. Reviewed, dictated and finalized at location K. TER AND TOUR BUS DRIVER
--- NOTE | ~2023-12-15 | XR_ITS ---
Portable chest x-ray Comparison: 12/18/2023 Clinical History: Pneumonia Findings: There is extensive patchy airspace consolidation. Cardiomediastinal silhouette is stable. Bones and soft tissues are unremarkable. Impression: Extensive patchy airspace consolidation is similar to prior exam. Correlate for pulmonary edema versu s infection. Reviewed, dictated and finalized at [facility]. THINNER Impression: Extensive patchy airspace consolidation is similar to prior exam. Correlate for pulmonary edema versus infection.
--- NOTE | ~2023-12-15 | XR_ITS ---
EXAMINATION: XR chest 1V portable DATE: 12/24/2023 11:38 INDICATION: Pneumonia. TECHNIQUE: A single frontal view of the chest was obtained. COMPARISON: Chest single view 12/22/2023, chest CT 12/16/2023 FINDINGS: There are airspace and interstitial opacities throughout the lungs bilaterally. No pleural effusion or pneumothorax. The heart size is normal. There are prominent paracardial fat pads. Calcifi ed mediastinal lymph nodes are consistent with old granulomatous disease. IMPRESSION: 1. Stable diffuse lung disease, consistent with pneumonia superimposed on chronic interstitial lung d isease. Reviewed, dictated and finalized at location A. ECT HIRE IMPRESSION: 1. Stable diffuse lung disease, consistent with pneumonia superimposed on chron ic interstitial lung disease.
--- NOTE | ~2023-12-15 | XR_ITS ---
EXAMINATION: XR chest 2V DATE: 12/15/2023 09:57 INDICATION: Shortness of breath. TECHNIQUE: Frontal and lateral views of the chest were obtained. COMPARISON: Chest 12/08/2023, chest CT 12/11/2023 FINDINGS: There are patchy airspace opacities in all right lung zones and left mid and lower lung zon es. No pleural effusion or pneumothorax. The heart size is normal. There are prominent paracardial fa t pads. IMPRESSION: 1. Diffuse lung disease with worsening in left midlung zone, consistent with pneumonia. Reviewed, dictated and finalized at location A. REVIEWER IMPRESSION: 1. Diffuse lung disease with worsening in left midlung zone, consistent with pn eumonia.
--- NOTE | ~2023-12-15 | XR_ITS ---
Portable chest x-ray Comparison: 12/21/2023 Clinical History: Shortness of breath Findings: Extensive pulmonary disease is similar to prior exam, with adjacent airspace consolidation and ground glass opacity. Cardiomediastinal silhouette is stable. Bones and soft tissues are unrema rkable. Impression: Extensive pulmonary disease is unchanged. Correlate for pulmonary edema and/or infection. Reviewed, dictated and finalized at [facility]. DRYER Impression: Extensive pulmonary disease is unchanged. Correlate for pulmonary edema and/or infection.
--- NOTE | ~2023-12-15 | CT_ITS ---
EXAMINATION: CT diagnostic chest wo con DATE: 12/16/2023 19:46 INDICATION: post COVID TECHNIQUE: Computed tomography (CT) of the chest was performed with 100 mL Omnipaque-350 intravenous contrast. Automated exposure control and iterative reconstruction technique were employed. The dose-l ength product was 456.57 mGy-cm. COMPARISON: X-ray chest, same date; CT chest 12/11/2023. FINDINGS: CHEST: Thoracic aorta: Aortic ectasia. Moderate atherosclerotic calcification. Lung parenchyma and airways: Diffuse reticular and groundglass opacities, with some anterior spurring , and with dependent areas of consolidation and peripheral, basilar honeycombing. Thoracic inlet, axillae and chest wall: No thyroid or soft tissue mass. No axillary lymphadenopathy. Mediastinum: Lymphadenopathy and calcified lymph nodes. Heart and pericardium: Mild cardiomegaly. Old infarct. Coronary artery calcifications: Mild. Pleura: Small bilateral pleural fluid collections. Upper abdomen: No significant finding. Thoracic bones: No acute osseous finding in the chest. IMPRESSION: Unchanged diffuse lung disease, stable since 12/11/2023, likely representing pneumonia and/or edema, s uperimposed on chronic interstitial lung disease. Stable small right and slightly increased small left pleural effusions. Reviewed, dictated and finalized at location K. OYMENT COUNSELOR IMPRESSION: Unchanged diffuse lung disease, stable since 12/11/2023, likely representing pne umonia and/or edema, superimposed on chronic interstitial lung disease. Stable small right and slightly increased small left pleural effusions.
--- NOTE | ~2023-12-15 | XR_ITS ---
EXAMINATION: XR chest 1V portable DATE: 12/25/2023 16:41 INDICATION: Shortness of breath. TECHNIQUE: A single frontal view of the chest was obtained. COMPARISON: Chest single view 12/24/2023 FINDINGS: There are airspace and interstitial opacities in all right lung zones and in left mid and l ower lung zones. No pleural effusion or pneumothorax. The heart size is normal. IMPRESSION: 1. Diffuse lung disease with improvement in left upper lobe, consistent with pneumonia superimposed o n chronic interstitial lung disease. Reviewed, dictated and finalized at location A. LLER IMPRESSION: 1. Diffuse lung disease with improvement in left upper lobe, consistent with pn eumonia superimposed on chronic interstitial lung disease.
--- NOTE | ~2023-12-15 | US_ITS ---
EXAMINATION: US venous doppler [facility] DATE: 12/20/2023 15:42 INDICATION: Deep vein thrombosis. Respiratory distress. TECHNIQUE: Grayscale ultrasound images without and with compression and Doppler ultrasound images of the bilateral lower extremity veins were obtained. COMPARISON: None. FINDINGS: The visualized portions of right common femoral vein, profunda (deep) femoral vein, femoral vein, pop liteal vein, peroneal veins, posterior tibial veins, and greater saphenous vein outflow are patent. The visualized portions of left common femoral vein, profunda femoral vein, femoral vein, popliteal v ein, peroneal veins, posterior tibial veins, and greater saphenous vein outflow are patent. IMPRESSION: 1. No deep venous thrombosis. Reviewed, dictated and finalized at location E. TECHNICIAN
--- NOTE | 2023-12-15 09:18 | ECG_ITS ---
Measurements Intervals [place] Rate: 84 P: 24 AR: 197 QRS: 11 QRSD: 82 T: 46 QT: 340 QTc: 404 Interpretive Statements SINUS RHYTHM WITH OCCASIONAL VENTRICULAR PREMATURE COMPLEXES NONSPECIFIC T-WAVE ABNORMALITY ABNORMAL ECG COMPARED TO ECG 11/28/2023 08:15:30 NO SIGNIFICANT CHANGE Electronically Signed On 12-15-2023 13:51:16 [employer]LECTION WATCH[employer] by Felipe Peralta M.D.
[2023-12-15 09:47] LABS: Basophils Absolute Auto 0.1 K/mm3 (0.0-0.1); Basophils Percent Auto 0.4 % (0.2-1.2); Eosinophils Absolute Auto 0.8 K/mm3 (0-0.3); Eosinophils Percent Auto 5.2 % (0-4.4); Hematocrit 37.6 % (42.0-52.0); Hemoglobin 11.9 g/dL (14.0-18.0); Immature Granulocyte Absolute 0.06 K/mm3 (0.00-0.031); Immature Granulocyte Percent A 0.4 % (0-0.5); Lymphocytes Percent Auto 7.9 % (18.3-44.2); Mean Corpuscular HGB Conc 31.6 g/dl (32-36); Mean Corpuscular Hemoglobin 27.9 pg (26-34); Mean Corpuscular Volume 88.1 fl (80-100); Mean Platelet Volume 9.9 fl (7.4-10.4); Monocytes Absolute Auto 0.7 K/mm3 (0.1-0.6); Monocytes Percent Auto 4.9 % (2.6-8.5); Neutrophils Absolute Auto 12.3 K/mm3 (1.3-6.7); Neutrophils Percent Auto 81.2 % (45.5-73.1); Platelet Count Result 362 k/mm3 (150-375); Red Blood Count 4.27 M/mm3 (4.6-6.20); White Blood Count 15.2 K/mm3 (4.5-10.0)
[2023-12-15 09:56] LABS: Alanine Aminotransferase 22 U/L (6-50); Albumin Level 3.2 g/dL (3.5-5.1); Alkaline Phosphatase 94 U/L (38-126); Anion Gap 6 mmol/L (8-16); Aspartate Amino Transferase 31 U/L (17-59); Bilirubin,Total 1.5 mg/dL (0.2-1.3); Blood Urea Nitrogen 45 mg/dL (9-20); Calcium 8.9 mg/dL (8.4-10.2); Carbon Dioxide 26 mmol/L (22-30); Chloride 97 mmol/L (98-107); Estimated CRCL calculation 42 ml/min; Estimated Glomerular Filt Rate > 60; Glucose 172 mg/dL (65-110); Potassium 4.7 mmol/L (3.4-5.0); Sodium 129 mmol/L (137-145)
[2023-12-15 09:58] LABS: Lactic Acid Reflex 2.2 mmol/L (0.7-2.0)
[2023-12-15 10:01] LABS: INR 1.6; Partial Thromboplastin Time 33.8 SECONDS (22.3-36.8); Prothrombin Time 19.7 Seconds (11.1-14.7)
--- NOTE | 2023-12-15 10:33 | ED.SOB ---
HPI - SOB/Dyspnea General Chief Complaint: Shortness of Breath/Dyspnea Stated Complaint: SOB Time Seen by Provider: 12/15/23 10:09 Source: patient, family and old records reviewed Mode of arrival: EMS Limitations: no limitations History of Present Illness HPI Narrative: Patient is an 88-year-old male who presents the ED via EMS with report of shortness of breath. Patient presents from [facility]. Family reports patient was discharged from the hospital last night to rehab after being diagnosed with COVID-19, pneumonia, acute hypoxic respiratory failure, PE. He was started on oxygen throughout his admission and is still requiring this. Reports he wears 2 L at all times, increases to 5 L with exertion. Today at rehab, patient's oxygen dropped into the low 80s on his 5 L. He was then sent here for further evaluation. Patient reports having persistent productive cough, denies fevers, nausea, vomiting, chest pain. He is on Eliquis BID and reports compliance with this. Related Data Home Medications Medication Instructions Recorded Confirmed aspirin 81 mg tablet,delayed 81 mg PO QPM 11/18/20 12/14/23 release (Adult Aspirin Regimen) losartan 25 mg tablet 25 mg PO QPM 11/18/20 12/14/23 pravastatin 40 mg tablet 40 mg PO QPM 11/18/20 12/14/23 acetaminophen 650 mg 650 mg PO Q6H PRN Pain 10/27/23 12/14/23 tablet,extended release (Tylenol Arthritis Pain) Allergies Allergy/AdvReac Type Severity Reaction Status Date / Time gluten AdvReac Diarrhea Verified 12/15/23 09:37 Review of Systems Review of Systems: CONSTITUTIONAL: Denies fever, chills, or sweats. CARDIOVASCULAR: See HPI. RESPIRATORY: See HPI. GASTROINTESTINAL: Denies abdominal pain, nausea, vomiting. All systems reviewed & are unremarkable except as noted in HPI and below PMFSH Past Medical History Medical History Arthritis Benign prostatic hyperplasia Chronic anemia Coronary artery disease Hyperlipidemia Hypertension Myocardial infarction (1996) Surgical History Surgical History History of arthroscopy of right knee (07/2003) With partial medial meniscectomy per Dr. Sandhu. History of bilateral carpal tunnel release (2020) History of bilateral cataract extraction History of bilateral knee arthroplasty (04/2004) Per Drs. Villeda and Edson. History of cardiac catheterization (1996) History of colonoscopy with polypectomy (02/2011) History of coronary angioplasty (1996) History of total right hip arthroplasty (04/2012) Family History Family History Sibling Family history of pancreatic cancer Family history of renal failure Patient's sister is Patient's brother is Father Patient's father is Social History Social History Social History: Surrogate medical decision maker: Lovely Epps, spouse. Code status: Full code. Smoking packs per day: 1 Smoking cigarettes per day: 20.0 Years smoked: 18 Smoking pack-years: 18.00 Smoking status: Former smoker Second hand tobacco smoke exposure: No Alcohol intake: former Drinks per week: 7 Alcohol use details: moderate Substance use: never Substance use type: does not use Last use: 1mo ago last drink Do You Feel Safe in your Home?: Yes Lack of Transportation: No Lack of Food: Never True Current Housing: I Have Housing Concerned About Future Housing: No Difficulty Paying Gas/Electric Bills: No Difficulty Paying for Meds: No Currently Unemployed: No Education: High School Diploma/GED Difficulty w/ Childcare or Family Care: No Living arrangements: with family Additional living arrangements comments: Lives with spouse in assisted living at [place]. Occupation/Educatio
[2023-12-15 10:58] LABS: Alveolar/Arterial O2 Gradient 133.8 mmHg; Base Excess ABG -0.9 mEq/l (+/-2.0); Carboxyhemoglobin 0.9 % THb (0-2.0); Device NASAL CANNULA; Fractional Inspired Oxygen 32 %; HCO3 ABG 22.5 mEq/l (22.0-26.0); Methemoglobin ABG 0.2 %THb (0-1.5); Oxygen Content ABG 15.5 %vol (16.0-22.0); Oxygen Saturation ABG 90.7 % (95.0-100.0); Oxyhemoglobin 89.2 % THb (90.0-100.0); PO2 ABG 55.8 mmHg (80.0-100.0); PO2 FiO2 Ratio Arterial Blood 1.74 %; Reduced Hemoglobin 9.7 %THb (0-5.0); Site Drawn LEFT BRACHIAL; Total Hemoglobin 12.4 g/dL (12.0-18.0); pH ABG 7.451 (7.350-7.450)
[2023-12-15 12:21] LABS: NT Pro B Type Natriuretic Pept 276 pg/mL (19.9-100)
[2023-12-15 12:23] LABS: Troponin I 0.015 ng/mL (0.000-0.034)
--- NOTE | 2023-12-15 12:34 | ECG_ITS ---
Measurements Intervals Spurger Rate: 76 P: 66 CO: 197 QRS: 9 QRSD: 90 T: 47 QT: 361 QTc: 407 Interpretive Statements SINUS RHYTHM WITH OCCASIONAL VENTRICULAR PREMATURE COMPLEXES NONSPECIFIC T-WAVE ABNORMALITY ABNORMAL ECG COMPARED TO ECG 12/15/2023 09:22:51 NO SIGNIFICANT CHANGES Electronically Signed On 12-15-2023 13:59:43 TRUCK REPAIR SUPERVISOR by Felipe Peralta M.D.
[2023-12-15 12:43] LABS: Reflex Lactic Acid Yes or No Add Lactic
[2023-12-15 13:05] LABS: Troponin I 0.015 ng/mL (0.000-0.034)
[2023-12-15 13:20] LABS: Lactic Acid 1.2 mmol/L (0.7-2.0)
[2023-12-15] MEDS: AZITHROMYCIN 500 MG/NS 250 ML 500 MG/250 ML BAG 250 MG IVPB (13:21)
[2023-12-15] MEDS: VANCOMYCIN 2,000 MG/NS 500 ML 2,000 MG/500 ML BAG 250 MG IVPB (14:28)
--- NOTE | 2023-12-15 15:16 | ADMGEN ---
This patient, Shayne Epps, was admitted to [facility] Surg Room 317-02. Patient/family oriented to hospital policies and general routines including ID bracelet, bed and alarms, visiting hours, pain management, procedures, bathroom and other care routines, personal items, smoking policy, room service/diet, and visiting hours. Information on how to activate the Rapid Response Team has been discussed. Patient/Family are encouraged to report perceived risks to care and to ask questions if they do not understand what they are told or what they should do.
[2023-12-15 16:14] LABS: MRSA (PCR) NOT DETECTED (NOT DETECTE)
[2023-12-15 16:19] LABS: Troponin I 0.015 ng/mL (0.000-0.034)
[2023-12-16] VITALS (11 sets, daily range): BP systolic 106–133; BP diastolic 52–74; PULSE 61–94; RESP 18–22; TEMP 36.4–36.9; O2SAT 93–98
--- NOTE | 2023-12-16 07:25 | PM.IMHP ---
H&P: HPI History of Present Illness Date/Time: 12/16/23 07:25 Chief Complaint: Short of breath Narrative: 88-year-old male with history of CAD, hypertension hyperlipidemia, BPH, presented to ED with a chief complaint of shortness breath. Patient was recently diagnosed pneumonia, COVID-19 infection, pulmonary embolism, acute respiratory failure, patient was discharged to [facility].? he wears 2 L at all times, increases to 5 L with exertion.? at rehab, patient's oxygen dropped into the low 80s on his 5 L. He was then sent here for further evaluation.? Patient reports having persistent? productive cough, denies fevers, nausea, vomiting, chest pain. He is on Eliquis BID and reports compliance with this. Upon arrival in the ED, oxygen 90% on 3 L at time of ABG.? Laboratory study showing leukocytosis of 15.2, uptrending from time of discharge yesterday.? Neutrophil predominance.? CMP with mild hyponatremia at 129, consistent with most recent previous records.? Stable kidney function.? Initial lactic acid elevated to 2.2.? Chest x-ray with evidence for worsening left-sided pneumonia. ? blood cultures obtained.? Patient received ceftriaxone, azithromycin and Vancomycin in the ED, we admit patient for further evaluation and management PMFSH Past Medical History Medical History Arthritis Benign prostatic hyperplasia Chronic anemia Coronary artery disease Hyperlipidemia Hypertension Myocardial infarction (1996) Surgical History Surgical History History of arthroscopy of right knee (07/2003) With partial medial meniscectomy per Dr. Sandhu. History of bilateral carpal tunnel release (2020) History of bilateral cataract extraction History of bilateral knee arthroplasty (04/2004) Per Drs. Villeda and Edosn. History of cardiac catheterization (1996) History of colonoscopy with polypectomy (02/2011) History of coronary angioplasty (1996) History of total right hip arthroplasty (04/2012) Family History Family History Sibling Family history of pancreatic cancer Family history of renal failure Patient's sister is Patient's brother is Father Patient's father is Social History Social History Social History: Surrogate medical decision maker: Lovely Epps, spouse. Code status: Full code. Smoking packs per day: 1 Smoking cigarettes per day: 20.0 Years smoked: 18 Smoking pack-years: 18.00 Smoking status: Former smoker Tobacco type: cigarettes Second hand tobacco smoke exposure: No Alcohol intake: never Drinks per week: 7 Alcohol use details: moderate Substance use: never Substance use type: does not use Last use: 1mo ago last drink Do You Feel Safe in your Home?: Yes Lack of Transportation: No Lack of Food: Never True Current Housing: I Have Housing Concerned About Future Housing: No Difficulty Paying Gas/Electric Bills: No Difficulty Paying for Meds: No Currently Unemployed: No Education: Don't Know Difficulty w/ Childcare or Family Care: No Living arrangements: with family Additional living arrangements comments: Lives with spouse in assisted living at [place]. 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 Spiritual care concerns: No Meds Home Medications and Allergies Home Medications Medication Instructions Recorded Confirmed Type aspirin 81 mg tablet,delayed 81 mg PO QPM 11/18/20 12/15/23 History release (Adult Aspirin Regimen) losartan 25 mg tablet 25 mg PO QPM 11/18/20 12/15/23 History acetaminophen 650 mg 650 mg PO Q6H PRN Pain 10/27/23 12/15/23 History tablet,extended release (Tylenol Arthritis Pain) tamsulosin 0.4 m
[2023-12-16 07:29] LABS: Estimated CRCL calculation 42 ml/min; Estimated Glomerular Filt Rate > 60
[2023-12-16] MEDS: IPRATROPIUM 0.5 MG/ALBUTEROL SULFATE 2.5 MG AMPUL.NEB 3 ML INHALATION (08:25)
[2023-12-16] MEDS: TAMSULOSIN HCL 0.4 MG CAPSULE PO (09:31)
[2023-12-16] MEDS: FUROSEMIDE INJ 40 MG/4 ML VIAL 20 MG IV PUSH ×2 (09:32→17:10)
[2023-12-16] MEDS: APIXABAN 5 MG TABLET PO ×2 (09:32→20:58)
[2023-12-16] MEDS: AZITHROMYCIN 500 MG/NS 250 ML 500 MG/250 ML BAG 250 MG IVPB (09:33)
[2023-12-16 11:47] LABS: Glucose Point of Care 114 mg/dl (65-105)
--- NOTE | 2023-12-16 12:22 | PM.CNPUL ---
Assessment and Plan Assessment and plan (1) Acute on chronic hypoxic respiratory failure: Code(s): J96.21 - Acute and chronic respiratory failure with hypoxia Status: Acute Assessment and Plan: Admitted to [facility] 11/28/23 through 12/14/2023 for severe COVID pneumonia, PE, requiring BiPAP, high-flow nasal cannula oxygen, received dexamethasone times 10 days, baricitinib times 14 days and dexamethasone times 10 days. Recieved 7 days ceftria\xone and 5 days of azithromycin. The patient was discharged on 2 L with rest and 5 L with activity. The patient was at [facility] for a little over 12 hours and developed hypoxemic respiratory failure. Of note the patient had multiple episodes while he was in [facility] previously in which he would desat with light activity such as eating, moving around in bed. 12/16/23: Currently the patient denies fever, chills, rigors, change in his chronic cough or phlegm production. His white blood cell count was 15.2. His BNP is 276 with no evidence of fluid overload. He has been on Eliquis and he has had no chest pain. Currently on 4 L with saturations 96. He did desats when I sat him up in bed. Plan: I will perform a CT scan of the chest to assess his lung infiltrates. I will continue broad-spectrum antibiotics pending cultures. Continue vancomycin, ceftriaxone and azithromycin. I am not convinced he has an exacerbation of it is interstitial lung disease and will discontinue all steroids at this time and follow him clinically. There is no evidence of bronchospasm and he had no bronchospasm on last hospitalization and I will discontinue bronchodilators. Continue lasix 20 IV BID. Will follow with you. (2) ILD (interstitial lung disease): Code(s): J84.9 - Interstitial pulmonary disease, unspecified Status: Acute Assessment and Plan: Regarding his interstitial lung disease: One year ago he could walk 3-4 blocks and currently can only walk 1 city block and he attributes this to arthritis and weakness rather than dyspnea on exertion.? He denies any rashes.? He states he has arthritis all over his body.? He has no exposure to birds, feathers or exotic pets.? He smoked tobacco 1 pack per day from age [age], he was exposed to secondhand smoke from his father but none since.? He denies sandblasting, welding, asbestos were, professional painting or steel stamping mill tender.? 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 The results of a chest CT on 11/28/23 raise the possibility of interstitial lung disease. Upon reviewing previous imaging studies, specifically an abdominal CT 04/15/2023, mild and nonspecific changes indicative of interstitial lung disease were observed that were more pronounced than on CT abdomen 03/06/2013. 10/30/2023: rheumatoid factor less than 12, MARICRUZ screen is positive 160 with a nuclear speckled pattern.? I will send serologies for autoimmune disease looking for etiology of his interstitial lung disease.? 12/05/23:? CPK 31, CRP 3.3 in the setting of an acute COVID infection, aldolase negative at 5.1 with normal being less than 8.1, anti CCP negative, MARICRUZ screen negative, Anca screen negative, hypersensitivity pneumonitis panel pending. MyoMarker 3 plus panel positve for TIF1 gamma Ab 116 with normal less than 11. hypersensitivity pneumonitis panel still pending. 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 Can be seen with interstitial lung disease in some case reports up to 8.7% and another case report 0%. This is usually associated with skin findings that include palmar hyperkeratotic papules, psoriasis like lesions, hypopigmented and telengectasias with red and white patches, ovid palatal patch, and nailbed telangiectasias. The patient denies any of these and has none of these on
[2023-12-16 16:26] LABS: Glucose Point of Care 114 mg/dl (65-105)
[2023-12-16] MEDS: VANCOMYCIN 1,250 MG/NS 250 ML 1,250 MG/250 ML BAG 166.67 MG IVPB (17:10)
[2023-12-16] MEDS: ASPIRIN 81 MG ENTERIC TABLET PO (17:10)
[2023-12-16] MEDS: LOSARTAN POTASSIUM 25 MG TABLET PO (17:10)
[2023-12-16 20:57] LABS: Glucose Point of Care 150 mg/dl (65-105)
[2023-12-16] MEDS: ATORVASTATIN 10 MG TABLET PO (20:58)
[2023-12-17] VITALS (10 sets, daily range): BP systolic 109–119; BP diastolic 47–74; PULSE 63–94; RESP 17–22; TEMP 36.3–36.6; O2SAT 93–99
--- NOTE | 2023-12-17 07:24 | PM.PNPUL ---
Progress Note: A&P Assessment and Plan (1) Acute on chronic hypoxic respiratory failure: Code(s): J96.21 - Acute and chronic respiratory failure with hypoxia Status: Acute Assessment and Plan: Admitted to [facility] 11/28/23 through 12/14/2023 for severe COVID pneumonia, PE, requiring BiPAP, high-flow nasal cannula oxygen, received dexamethasone times 10 days, baricitinib times 14 days and dexamethasone times 10 days. Recieved 7 days ceftria\xone and 5 days of azithromycin. The patient was discharged on 2 L with rest and 5 L with activity. The patient was at [facility] for a little over 12 hours and developed hypoxemic respiratory failure. Of note the patient had multiple episodes while he was in [facility] previously in which he would desat with light activity such as eating, moving around in bed. 12/16/23: Currently the patient denies fever, chills, rigors, change in his chronic cough or phlegm production. His white blood cell count was 15.2. His BNP is 276 with no evidence of fluid overload. He has been on Eliquis and he has had no chest pain. Currently on 4 L with saturations 96. He did desats when I sat him up in bed. Plan: I will perform a CT scan of the chest to assess his lung infiltrates. I will continue broad-spectrum antibiotics pending cultures. Continue vancomycin, ceftriaxone and azithromycin. I am not convinced he has an exacerbation of it is interstitial lung disease and will discontinue all steroids at this time and follow him clinically. There is no evidence of bronchospasm and he had no bronchospasm on last hospitalization and I will discontinue bronchodilators. Continue lasix 20 IV BID. 12/17/2023. Patient states he is breathing at his baseline. He denies any shortness of breath at rest, fever, chills, cook minimal cough and minimal phlegm production. Currently is on 5 L nasal cannula with saturations 98%. Chest x-ray today without change in his interstitial infiltrates. Plan: I am not convinced the patient has a new pneumonia. He has received 48 hours of antibiotics and I will discontinue now and follow clinically. Will follow with you. (2) ILD (interstitial lung disease): Code(s): J84.9 - Interstitial pulmonary disease, unspecified Status: Acute Assessment and Plan: Regarding his interstitial lung disease: One year ago he could walk 3-4 blocks and currently can only walk 1 city block and he attributes this to arthritis and weakness rather than dyspnea on exertion.? He denies any rashes.? He states he has arthritis all over his body.? He has no exposure to birds, feathers or exotic pets.? He smoked tobacco 1 pack per day from age [age], he was exposed to secondhand smoke from his father but none since.? He denies sandblasting, welding, asbestos were, professional painting or steel supervisor hot strip mill.? 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 The results of a chest CT on 11/28/23 raise the possibility of interstitial lung disease. Upon reviewing previous imaging studies, specifically an abdominal CT 04/15/2023, mild and nonspecific changes indicative of interstitial lung disease were observed that were more pronounced than on CT abdomen 03/06/2013. 10/30/2023: rheumatoid factor less than 12, MARICRUZ screen is positive 160 with a nuclear speckled pattern.? I will send serologies for autoimmune disease looking for etiology of his interstitial lung disease.? 12/05/23:? CPK 31, CRP 3.3 in the setting of an acute COVID infection, aldolase negative at 5.1 with normal being less than 8.1, anti CCP negative, MARICRUZ screen negative, Anca screen negative, hypersensitivity pneumonitis panel pending. MyoMarker 3 plus panel positve for TIF1 gamma Ab 116 with normal less than 11. hypersensitivity pneumonitis panel still pending. Regarding his TIF1 gamma Ab positive this is associated with a pred
[2023-12-17 07:25] LABS: CRP 4.7 mg/dL (<1.0); Creatine Kinase 24 U/L (55-170); Estimated CRCL calculation 42 ml/min; Estimated Glomerular Filt Rate > 60
[2023-12-17 07:27] LABS: Glucose Point of Care 114 mg/dl (65-105)
[2023-12-17] MEDS: FUROSEMIDE INJ 40 MG/4 ML VIAL 20 MG IV PUSH ×2 (08:15→17:07)
[2023-12-17] MEDS: TAMSULOSIN HCL 0.4 MG CAPSULE PO (08:15)
[2023-12-17] MEDS: polyethylene glycoL 3350 17 GM POWD.PACK PO (08:15)
[2023-12-17] MEDS: APIXABAN 5 MG TABLET PO ×2 (08:15→20:34)
--- NOTE | 2023-12-17 09:54 | PCOTNOTE ---
Attempted OT eval, pt. refused stating he is too short of breath and tired. Will follow.
--- NOTE | 2023-12-17 10:40 | PCPTNOTE ---
attempted PT eval ~ 910: pt refused due to SOB, had SOB at rest;
[2023-12-17 11:15] LABS: Glucose Point of Care 138 mg/dl (65-105)
--- NOTE | 2023-12-17 11:28 | PCOTNOTE ---
Attempted OT eval, patient sat EOB with desating to 85 and then returned to supine with saturations ranging from 90-93. Patient is extremely short of breath. Evaluation unable to be completed due to shortness of breath. Spoke with RN and she is aware. Will attempt tomorrow.
--- NOTE | 2023-12-17 11:57 | PCPTNOTE ---
attempted PT evaluation ~ 1100: pt report SOB: supine oxygen sat 95%, with sitting at edge of bed dropped to 85%, returned to supine, oxygen 95%; entire time pt reported SOB, not feeling well; in sitting performed deep breathing and slowing rate--did not assist his oxygen sat level. unable to perform eval, discussed pt with Ivana NUNEZ;
--- NOTE | 2023-12-17 14:01 | P.PNIM_ITS ---
Progress Note: A&P Assessment and Plan (1) Acute on chronic hypoxic respiratory failure: Code(s): J96.21 - Acute and chronic respiratory failure with hypoxia Status: Acute Assessment and Plan: * 2/4 continues to require 5L oxygen and desaturates with sitting on edge of bed * 2/4 discussed care and prognosis with patient, spouse, son, and daughter at bedside (2) Pneumonia: Qualifiers: Laterality: left Lung location: lower lobe of lung Pneumonia type: due to unspecified organism Qualified Code(s): J18.9 - Pneumonia, unspecified organism Code(s): J18.9 - Pneumonia, unspecified organism Status: Acute Assessment and Plan: * continue vancomycin, ceftriaxone, azithromycin (3) ILD (interstitial lung disease): Code(s): J84.9 - Interstitial pulmonary disease, unspecified Status: Acute Assessment and Plan: * undetermined etiology * no current evidence for exacerbation (4) Pulmonary embolism: Code(s): I26.99 - Other pulmonary embolism without acute cor pulmonale Status: Acute Assessment and Plan: * continue apixaban (5) Hypertension: Code(s): I10 - Essential (primary) hypertension Status: Acute Assessment and Plan: * 2/4 controlled (6) Coronary artery disease: Code(s): I25.10 - Atherosclerotic heart disease of [place] coronary artery without angina pectoris Status: Acute Assessment and Plan: * w/o angina (7) Hyperlipidemia: Code(s): E78.5 - Hyperlipidemia, unspecified Status: Acute (8) Benign prostatic hyperplasia: Code(s): N40.0 - Benign prostatic hyperplasia without lower urinary tract symptoms Status: Acute Subjective Date/time seen: 12/17/23 14:01 Interval history: Fatigued and dyspneic with any exertion, even eating or sitting up in bed. Still with some cough. Poor appetite. Dysgeusia not recovered from prior COVID. Denied chest pain, gi/gu issues. No overt bleeding. Review of Systems Review of Systems: All systems reviewed & are unremarkable except as noted in HPI and below Exam Narrative: GENERAL: Pleasant, in no acute distress. Well-nourished. - EYES: PERRL. Anicteric. - HENT: Moist mucous membranes. - LUNGS: CTA with decreased BS at bases . Mildly tachypneic. - CARDIOVASCULAR: Regular rate and rhyth m. NL S1,2. No murmur. No JVD. - ABDOMEN: Soft, non-tender and non-dist ended. No palpable masses. - EXTREMITIES: No edema. - NEUROLOGIC: No focal neurological defi cits. CN II-XII grossly intact. - PSYCHIATRIC: Awake, Alert and oriented x 3. Appropriate mood and affect. - SKIN: No rashes or lesions. Warm. Objective Data Vital Signs Vital Signs: Vital Signs - 24 hr 12/16/23 16:00 12/16/23 21:28 12/16/23 20:00 Temperature 98.5 F Pulse Rate 86 75 Respiratory Rate 20 Blood Pressure 106/52 L Pulse Oximetry 98 94 Oxygen Delivery High Flow Nasal Cannula Oxygen Flow Rate 5 12/16/23 20:00 12/17/23 00:00 12/17/23
--- NOTE | 2023-12-17 14:01 | PM.IMPN ---
Progress Note: A&P Assessment and Plan (1) Acute on chronic hypoxic respiratory failure: Code(s): J96.21 - Acute and chronic respiratory failure with hypoxia Status: Acute Assessment and Plan: 2/ continues to require 5L oxygen and desaturates with sitting on edge of bed 2/4 discussed care and prognosis with patient, spouse, son, and daughter at bedside (2) Pneumonia: Qualifiers: Laterality: left Lung location: lower lobe of lung Pneumonia type: due to unspecified organism Qualified Code(s): J18.9 - Pneumonia, unspecified organism Code(s): J18.9 - Pneumonia, unspecified organism Status: Acute Assessment and Plan: continue vancomycin, ceftriaxone, azithromycin (3) ILD (interstitial lung disease): Code(s): J84.9 - Interstitial pulmonary disease, unspecified Status: Acute Assessment and Plan: undetermined etiology no current evidence for exacerbation (4) Pulmonary embolism: Code(s): I26.99 - Other pulmonary embolism without acute cor pulmonale Status: Acute Assessment and Plan: continue apixaban (5) Hypertension: Code(s): I10 - Essential (primary) hypertension Status: Acute Assessment and Plan: 2/ controlled (6) Coronary artery disease: Code(s): I25.10 - Atherosclerotic heart disease of [place] coronary artery without angina pectoris Status: Acute Assessment and Plan: w/o angina (7) Hyperlipidemia: Code(s): E78.5 - Hyperlipidemia, unspecified Status: Acute (8) Benign prostatic hyperplasia: Code(s): N40.0 - Benign prostatic hyperplasia without lower urinary tract symptoms Status: Acute Subjective Date/time seen: 12/17/23 14:01 Interval history: Fatigued and dyspneic with any exertion, even eating or sitting up in bed. Still with some cough. Poor appetite. Dysgeusia not recovered from prior COVID. Denied chest pain, gi/gu issues. No overt bleeding. Review of Systems Review of Systems: All systems reviewed & are unremarkable except as noted in HPI and below Exam Narrative: GENERAL: Pleasant, in no acute distress. Well-nourished. - EYES: PERRL. Anicteric. - HENT: Moist mucous membranes. - LUNGS: CTA with decreased BS at bases. Mildly tachypneic. - CARDIOVASCULAR: Regular rate and rhythm. NL S1,2. No murmur. No JVD. - ABDOMEN: Soft, non-tender and non-distended. No palpable masses. - EXTREMITIES: No edema. - NEUROLOGIC: No focal neurological deficits. CN II-XII grossly intact. - PSYCHIATRIC: Awake, Alert and oriented x 3. Appropriate mood and affect. - SKIN: No rashes or lesions. Warm. Objective Data Vital Signs Vital Signs: Vital Signs - 24 hr 12/16/23 16:00 12/16/23 21:28 12/16/23 20:00 Temperature 98.5 F Pulse Rate 86 75 Respiratory Rate 20 Blood Pressure 106/52 L Pulse Oximetry 98 94 Oxygen Delivery High Flow Nasal Cannula Oxygen Flow Rate 5 12/16/23 20:00 12/17/23 00:00 12/17/23 04:00 Temperature Pulse Rate 77 65 63 Respiratory Rate Blood Pressure Pulse Oximetry Oxygen Delivery Oxygen Flow Rate 12/17/23 06:00 12/17/23 08:14 12/17/23 08:00 Temperature 97.9 F Pulse Rate 67 94 Respiratory Rate 22 H Blood Pressure 111/52 L 115/74 Pulse Oximetry 96 Oxygen Delivery Oxygen Flow Rate 12/17/23 12:00 Temperature Pulse Rate 88 Respiratory Rate Blood Pressure Pulse Oximetry Oxygen Delivery Oxygen Flow Rate Intake/Output Intake/Output: Intake & Output 12/14/23 12/15/23 12/16/23 12/17/23 23:59 23:59 23:59 23:59 Intake Total 790 1502 340 Output Total 2250 300 Balance 790 -748 40 Meds/Results Medications: Active Medications Generic Name Dose Route Start Last Admin Trade Name Freq PRN Reason Stop Dose Admin Acetaminophen 650 mg 12/16/23 07:37 Acetaminophen 325 Mg Tablet PO Q6H PRN Pain Albuterol 2.5 mg 12/16/23 07
[2023-12-17 16:25] LABS: Glucose Point of Care 154 mg/dl (65-105)
[2023-12-17] MEDS: ASPIRIN 81 MG ENTERIC TABLET PO (17:06)
[2023-12-17] MEDS: LOSARTAN POTASSIUM 25 MG TABLET PO (17:07)
[2023-12-17 20:29] LABS: Glucose Point of Care 140 mg/dl (65-105)
[2023-12-17] MEDS: ATORVASTATIN 10 MG TABLET PO (20:34)
[2023-12-18] VITALS (20 sets, daily range): BP systolic 100–104; BP diastolic 54–70; PULSE 54–120; RESP 16–28; TEMP 36.1–36.5; O2SAT 92–98; BMI 26.1
[2023-12-18 08:21] LABS: Glucose Point of Care 138 mg/dl (65-105)
--- NOTE | 2023-12-18 09:28 | PCPTNOTE ---
Attempted PT evaluation, pt's family refused therapy and stated pt is not to participate in skilled therapy per director of global sales recommendations (no note at this time from director of global sales). Hospitalist agreed to cancelling therapy until pt is appropriate.
--- NOTE | 2023-12-18 10:14 | PCOTNOTE ---
Spoke with PT, with stated family refused therapy and stated pt is not to participate in skilled therapy per rn hyperbaric recommendations (no note at this time from rn hyperbaric). Hospitalist agreed to cancelling therapy until pt is appropriate.
[2023-12-18] MEDS: APIXABAN 5 MG TABLET PO (10:39)
[2023-12-18] MEDS: polyethylene glycoL 3350 17 GM POWD.PACK PO (10:39)
[2023-12-18] MEDS: TAMSULOSIN HCL 0.4 MG CAPSULE PO (10:39)
[2023-12-18] MEDS: FUROSEMIDE INJ 40 MG/4 ML VIAL 20 MG IV PUSH (11:42)
[2023-12-18] MEDS: methylPREDNISolone SOD SUCC 125 MG VIAL 80 MG IV PUSH (11:43)
[2023-12-18 11:48] LABS: Glucose Point of Care 150 mg/dl (65-105)
--- NOTE | 2023-12-18 13:21 | PM.PNPUL ---
Progress Note: A&P Assessment and Plan (1) Acute on chronic hypoxic respiratory failure: Code(s): J96.21 - Acute and chronic respiratory failure with hypoxia Status: Acute Assessment and Plan: This 88-year-old male patient has been readmitted to the hospital due to shortness of breath and hypoxemia experienced during rehabilitation. This follows a recent hospitalization for shortness of breath. During his previous hospitalization, he was treated for COVID-19 infection, pulmonary embolism (evidenced by a small blood clot on a chest CT), and congestive heart failure. He was also administered antibiotics to address a possible bacterial co-infection. Despite improvements in his clinical condition and gas exchange, his chest CT showed no signs of clearing. Upon my review, the chest CT displays bilateral ground-glass infiltrates, small consolidations, and some evidence of reticulation primarily at the bases. 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 The positive myositis 155/140 antibody, if confirmed on repeat testing, could indicate the presence of underlying Dermatomyositis. However, the patient denied having any history of skin rashes or muscle soreness, and his CPK levels are not elevated. Given that these antibodies are highly specific and often associated with hidden malignancy, Amyopathic Dermatomyositis may also be considered. Interstitial Pneumonia with Autoimmune Features (IPAF) is also a differential diagnosis. I had an extensive discussion with the patient and his family, including his and son. I explained the severity of the patient's disease, especially considering the recent positive serology. I informed them that we plan to start the patient on steroid treatment, specifically Solu-Medrol 80 mg IV, today. I also indicated that he may need to be evaluated by Rheumatology services at a tertiary center, preferably within a University setting, due to the likelihood that he may require specific treatment for his autoimmune disease that we cannot provide here. The patient expressed that he does not wish to be transferred elsewhere. However, his family indicated that they would attempt to persuade him to agree to a transfer to a tertiary center. (2) Pneumonia: Qualifiers: Laterality: left Lung location: lower lobe of lung Pneumonia type: due to unspecified organism Qualified Code(s): J18.9 - Pneumonia, unspecified organism Code(s): J18.9 - Pneumonia, unspecified organism Status: Acute (3) ILD (interstitial lung disease): Code(s): J84.9 - Interstitial pulmonary disease, unspecified Status: Acute (4) Pulmonary embolism: Code(s): I26.99 - Other pulmonary embolism without acute cor pulmonale Status: Acute Subjective Date/time seen: 12/18/23 13:21 Interval history: This 88-year-old male patient is familiar to me, as I was involved in his initial hospital care approximately three weeks ago. He came in presenting with a week-long history of progressively worsening shortness of breath. He was diagnosed with COVID-19 infection and pulmonary embolism. A Chest CT revealed asymmetrical bilateral infiltrates and small pleural effusions. There was a suspicion of CHF, but the lung infiltrates persisted despite CHF treatment. His COVID-19 treatment included a 10-day course of dexamethasone 6 mg, two weeks of baricitinib, and remdesivir. Initially, he required a high fraction of inspired oxygen (FiO2) to maintain an oxygen saturation above 90%. His respiratory status gradually improved while on treatment for COVID-19 pneumonia, and he was transitioned from a high-flow nasal cannula to a low-flow nasal cannula, with an approximate flow rate of 2-4L. He was discharged to a rehabilitation unit last week. However, during physical therapy, he experienced shortness of breath and was found to have low
--- NOTE | 2023-12-18 13:26 | P.PNIM_ITS ---
Progress Note: A&P Assessment and Plan (1) Acute on chronic hypoxic respiratory failure: Code(s): J96.21 - Acute and chronic respiratory failure with hypoxia Status: Acute Assessment and Plan: * 2/5 and daughter by the bedside pt remains hypoxic on 5 liters of oxygen * pulmonology has ordered labs for chronic lung disease (2) Pneumonia: Qualifiers: Laterality: left Lung location: lower lobe of lung Pneumonia type: due to unspecified organism Qualified Code(s): J18.9 - Pneumonia, unspecified organism Code(s): J18.9 - Pneumonia, unspecified organism Status: Acute Assessment and Plan: * completed iv vancomycin, ceftriaxone, azithromycin (3) ILD (interstitial lung disease): Code(s): J84.9 - Interstitial pulmonary disease, unspecified Status: Acute Assessment and Plan: * undetermined etiology * no current evidence for exacerbation * pt currently on Iv steroids (4) Pulmonary embolism: Code(s): I26.99 - Other pulmonary embolism without acute cor pulmonale Status: Acute Assessment and Plan: * continue apixaban (5) Hypertension: Code(s): I10 - Essential (primary) hypertension Status: Acute Assessment and Plan: * 2/4 controlled (6) Coronary artery disease: Code(s): I25.10 - Atherosclerotic heart disease of [place] coronary artery without angina pectoris Status: Acute Assessment and Plan: * w/o angina (7) Hyperlipidemia: Code(s): E78.5 - Hyperlipidemia, unspecified Status: Acute (8) Benign prostatic hyperplasia: Code(s): N40.0 - Benign prostatic hyperplasia without lower urinary tract symptoms Status: Acute Subjective Date/time seen: 12/18/23 13:26 Interval history: 88-year-old male with history of CAD, hypertension hyperlipidemia, BPH, presented to ED with a chief complaint of shortness breath.? Patient was recently diagnosed pneumonia, COVID-19 infection, pulmonary embolism, acute respiratory failure, patient was discharged to? [facility].? he wears 2 L at all times, increases to 5 L with exertion.?? at rehab, patient's oxygen dropped into the low 80s on his 5 L. He was then sent here for further evaluation.? Prolonged stay in hospital still no better pulmology recommend transfer to [place] for higher level of care, Pt not wanting to go. Labs ordered for chronic lung disease, continue to watch in hospital awaiting improvement with hypoxia. complicated case [facility] oxygen use after covid infection Review of Systems Review of Systems: ongoing SOB, pt currently on 5 liters of oxygen All systems reviewed & are unremarkable except as noted in HPI and below Exam Narrative: GENERAL: Pleasant, in no acute distress. Well-nourished. - EYES: PERRL. Anicteric. - HENT: Moist mucous membranes. - LUNGS: CTA with decreased BS at bases . Mildly tachypneic. - CARDIOVASCULAR: Regular rate and rhyth m. NL S1,2. No murmur. No JVD. - ABDOMEN: Soft, non-tender and non-dist ended. No palpable masses. - EXTREMITIES: No edema. - NEUROLOGIC: No focal neurological defi cits. CN II-XII grossly intact. - PSYCHIATRIC: Awake, Alert and oriented x 3. Appropriate mood and affect.
--- NOTE | 2023-12-18 13:26 | PM.IMPN ---
Progress Note: A&P Assessment and Plan (1) Acute on chronic hypoxic respiratory failure: Code(s): J96.21 - Acute and chronic respiratory failure with hypoxia Status: Acute Assessment and Plan: 2/ and daughter by the bedside pt remains hypoxic on 5 liters of oxygen pulmonology has ordered labs for chronic lung disease (2) Pneumonia: Qualifiers: Laterality: left Lung location: lower lobe of lung Pneumonia type: due to unspecified organism Qualified Code(s): J18.9 - Pneumonia, unspecified organism Code(s): J18.9 - Pneumonia, unspecified organism Status: Acute Assessment and Plan: completed iv vancomycin, ceftriaxone, azithromycin (3) ILD (interstitial lung disease): Code(s): J84.9 - Interstitial pulmonary disease, unspecified Status: Acute Assessment and Plan: undetermined etiology no current evidence for exacerbation pt currently on Iv steroids (4) Pulmonary embolism: Code(s): I26.99 - Other pulmonary embolism without acute cor pulmonale Status: Acute Assessment and Plan: continue apixaban (5) Hypertension: Code(s): I10 - Essential (primary) hypertension Status: Acute Assessment and Plan: 12/17 controlled (6) Coronary artery disease: Code(s): I25.10 - Atherosclerotic heart disease of [place] coronary artery without angina pectoris Status: Acute Assessment and Plan: w/o angina (7) Hyperlipidemia: Code(s): E78.5 - Hyperlipidemia, unspecified Status: Acute (8) Benign prostatic hyperplasia: Code(s): N40.0 - Benign prostatic hyperplasia without lower urinary tract symptoms Status: Acute Subjective Date/time seen: 12/18/23 13:26 Interval history: 88-year-old male with history of CAD, hypertension hyperlipidemia, BPH, presented to ED with a chief complaint of shortness breath.? Patient was recently diagnosed pneumonia, COVID-19 infection, pulmonary embolism, acute respiratory failure, patient was discharged to? [facility].? he wears 2 L at all times, increases to 5 L with exertion.?? at rehab, patient's oxygen dropped into the low 80s on his 5 L. He was then sent here for further evaluation.? Prolonged stay in hospital still no better pulmology recommend transfer to [place] for higher level of care, Pt not wanting to go. Labs ordered for chronic lung disease, continue to watch in hospital awaiting improvement with hypoxia. 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 Well-nourished. - EYES: PERRL. Anicteric. - HENT: Moist mucous membranes. - LUNGS: CTA with decreased BS at bases. Mildly tachypneic. - CARDIOVASCULAR: Regular rate and rhythm. NL S1,2. No murmur. No JVD. - ABDOMEN: Soft, non-tender and non-distended. No palpable masses. - EXTREMITIES: No edema. - NEUROLOGIC: No focal neurological deficits. CN II-XII grossly intact. - PSYCHIATRIC: Awake, Alert and oriented x 3. Appropriate mood and affect. - SKIN: No rashes or lesions. Warm. Objective Data Vital Signs Vital Signs: Vital Signs - 24 hr 12/17/23 14:00 12/17/23 16:00 12/17/23 20:34 Temperature 36.5 C 36.3 C L Pulse Rate 80 85 83 Respiratory Rate 20 17 Blood Pressure 119/57 L 109/47 L Pulse Oximetry 99 97 Oxygen Delivery Oxygen Flow Rate 12/17/23 20:00 12/17/23 20:00 12/18/23 00:00 Temperature Pulse Rate 85 68 Respiratory Rate Blood Pressure Pulse Oximetry 93 Oxygen Delivery High Flow Nasal Cannula Oxygen Flow Rate 5 12/18/23 04:00 12/18/23 05:31 12/18/23 08:40 Temperature 36.5 C Pulse Rate 67 71 Respiratory Rate 16 Blood Pressure 104/54 L Pulse Oximetry 98 93 Oxygen Delivery High
[2023-12-18 17:06] LABS: Hematocrit 30.9 % (42.0-52.0); Hemoglobin 9.7 g/dL (14.0-18.0)
[2023-12-18] MEDS: SODIUM CHLORIDE 0.9% IV 500 ML IV CONT (17:07)
[2023-12-18] MEDS: PANTOPRAZOLE SODIUM IV 40 MG VIAL IV PUSH (17:36)
[2023-12-18 17:43] LABS: Glucose Point of Care 292 mg/dl (65-105)
[2023-12-18] MEDS: INSULIN ASPART (*BKC) 100 UNITS/ML SUB-Q (17:52)
[2023-12-18 18:09] LABS: Carcinoembryonic Antigen 18.6 ng/mL (0.0-3.0)
[2023-12-18] MEDS: ALBUTEROL SULFATE NEB 2.5 MG/3 ML INH INHALATION (18:15)
[2023-12-18 20:03] LABS: IFOB Positive Control Positive; Immunochemical Fecal Occult Bl Positive (N)
--- NOTE | 2023-12-18 20:41 | ECG_ITS ---
Measurements Intervals [place] Rate: 108 P: 14 [place]: 187 QRS: 21 QRSD: 86 T: 25 QT: 283 QTc: 381 Interpretive Statements SINUS TACHYCARDIA NONSPECIFIC ST AND T WAVE ABNORMALITY BASELINE ARTIFACT PRESENT COMPARED TO ECG 12/15/2023 12:43:13 SINUS TACHYCARDIA NOW PRESENT Electronically Signed On 12-19-2023 8:42:39 BUSINESS SUPPORT by Lisandro Kirk M.D.
[2023-12-18] MEDS: IPRATROPIUM BR 0.02% INH SOLN 0.5 MG/2.5 ML VIAL (20:45)
[2023-12-18] MEDS: ALBUTEROL SULFATE NEB 2.5 MG/3 ML INH (20:45)
[2023-12-18 20:53] LABS: Basophils Percent Auto 0.1 % (0.2-1.2); Eosinophils Percent Auto 0.1 % (0-4.4); Hematocrit 29.9 % (42.0-52.0); Hemoglobin 9.4 g/dL (14.0-18.0); Immature Granulocyte Absolute 0.14 K/mm3 (0.00-0.031); Lymphocytes Absolute Auto 0.59 K/mm3 (0.9-3.2); Lymphocytes Percent Auto 4.4 % (18.3-44.2); Mean Corpuscular HGB Conc 31.4 g/dl (32-36); Mean Corpuscular Hemoglobin 27.6 pg (26-34); Mean Corpuscular Volume 87.9 fl (80-100); Mean Platelet Volume 10.2 fl (7.4-10.4); Monocytes Absolute Auto 0.2 K/mm3 (0.1-0.6); Monocytes Percent Auto 1.4 % (2.6-8.5); Neutrophils Absolute Auto 12.5 K/mm3 (1.3-6.7); Platelet Count Result 266 k/mm3 (150-375); White Blood Count 13.5 K/mm3 (4.5-10.0)
[2023-12-18] MEDS: ALBUTEROL SULFATE NEB 2.5 MG/3 ML INH 5 MG INHALATION (20:58)
[2023-12-18] MEDS: IPRATROPIUM BR 0.02% INH SOLN 0.5 MG/2.5 ML VIAL INHALATION (20:59)
[2023-12-18 21:00] LABS: Alveolar/Arterial O2 Gradient 188.9 mmHg; Base Excess ABG -4.1 mEq/l (+/-2.0); Carboxyhemoglobin 0.3 % THb (0-2.0); Fractional Inspired Oxygen 40 %; HCO3 ABG 19.4 mEq/l (22.0-26.0); Methemoglobin ABG 0.2 %THb (0-1.5); Oxygen Saturation ABG 92.6 % (95.0-100.0); Oxyhemoglobin 90.3 % THb (90.0-100.0); PCO2 ABG 30.1 mmHg (35.0-45.0); PO2 ABG 61.7 mmHg (80.0-100.0); PO2 FiO2 Ratio Arterial Blood 1.54 %; Reduced Hemoglobin 9.2 %THb (0-5.0); pH ABG 7.426 (7.350-7.450)
[2023-12-18 21:01] LABS: Device NASAL CANNULA; Modified Allen's Test Pass; Site Drawn RIGHT RADIAL
[2023-12-18 21:05] LABS: Glucose Point of Care 265 mg/dl (65-105)
[2023-12-18 21:06] LABS: Alanine Aminotransferase 24 U/L (6-50); Alkaline Phosphatase 80 U/L (38-126); Anion Gap 14 mmol/L (8-16); Aspartate Amino Transferase 33 U/L (17-59); Bilirubin,Total 1.1 mg/dL (0.2-1.3); Blood Urea Nitrogen 51 mg/dL (9-20); Calcium 8.8 mg/dL (8.4-10.2); Carbon Dioxide 21 mmol/L (22-30); Chloride 93 mmol/L (98-107); Estimated CRCL calculation 33 ml/min; Estimated Glomerular Filt Rate 52; Glucose 277 mg/dL (65-110); Potassium 4.8 mmol/L (3.4-5.0); Sodium 128 mmol/L (137-145)
[2023-12-18 21:09] LABS: Lactic Acid Reflex 4.3 mmol/L (0.7-2.0)
[2023-12-18 21:18] LABS: INR 1.9; Partial Thromboplastin Time 38.2 SECONDS (22.3-36.8); Prothrombin Time 22.9 Seconds (11.1-14.7)
[2023-12-18] MEDS: IPRATROPIUM BR 0.02% INH SOLN 0.5 MG/2.5 ML VIAL 1 MG INHALATION (21:20)
[2023-12-18] MEDS: LORazepam INJ (*CRX) 2 MG/ML VIAL 0.5 MG IV PUSH (21:25)
[2023-12-18] MEDS: SODIUM BICARBONATE 8.4% 50 MEQ/50 ML SYRINGE IV PUSH (21:26)
[2023-12-18] MEDS: ALBUTEROL SULFATE NEB 2.5 MG/3 ML INH 10 MG INHALATION (21:30)
[2023-12-18] MEDS: ATORVASTATIN 10 MG TABLET PO (21:34)
[2023-12-18 21:44] LABS: Glucose Point of Care 291 mg/dl (65-105)
--- NOTE | 2023-12-18 22:15 | PM.CCN ---
Critical Care Event Note Summary Code activated: No Narrative: Rapid response was called as the patient was having increased work of breathing and tachypnea. The patient was having abdominal respirations. The patient had presented back to the hospital after discharge less than 24 hours prior when and had COVID. He presented back to the hospital with acute on chronic hypoxic respiratory failure. Patient remains on 5 L nasal cannula being followed by pulmonology. Patient had already completed the full antibiotic course with vanc Rocephin and azithromycin. He does have interstitial lung disease and had developed a solitary pulmonary embolism and is on Eliquis. Today he developed large bloody diarrheal stool. Hemoglobin was obtained earlier today which had dropped 2 g. Repeat hemoglobin at the time of rapid response was stable. Patient is had 1 additional bowel movement that appears to be brown and black mixed. Patient's Eliquis was held as well as his aspirin. His Lasix had been his Lasix and Flomax have been placed on hold due to hypotension. The patient had been started on Protonix b.i.d. or earlier in the day. He had received a 500 mL fluid bolus earlier in the day. Given his respiratory distress and patient had a stat nebulizer treatment. An ABG was obtained prior to being placed on the nebulizer treatment which demonstrated respiratory alkalosis with some underlying metabolic acidosis. Stat lactic acid was elevated at 4.3. On telemetry patient was noted to be running between rate of 30 and occasionally bouncing up to a rate of 130. Patient has known AFib. His glucoses were in the mid 200s. After the patient had received nebulizer treatment his respiratory rate did improve but he was still having some mild abdominal respirations. The patient appeared slightly anxious in the family agreed. Patient's case was discussed with the patient and for 5 family members at bedside. The patient had been listed as a full code. But I had discussion with patient regarding code status during prior admissions and he had requested to be changed to a DNR at that time. The patient again requested to be placed as a DNR/DNI. He stated that he would not even want noninvasive ventilatory support such as BiPAP or CPAP. Family was at bedside and was agreeable with the patient's desires. Chest x-ray from yesterday was reviewed and was similar to today's findings. Radiologic interpretation pending. Stat EKG demonstrated no acute process. Patient was not having any chest pain. On exam he had markedly decreased breath sounds but no crackles, no lower extremity edema. On review of patient's fluid balance patient has had negative fluid balance for the last 3 days. The family reports the patient's urine output has decreased today but that correlates with the patient's Lasix being placed on hold. Given the metabolic component the patient's acidosis I did give 1 amp of sodium bicarb. The patient did receive 0.5 mg of IV Ativan. Even before Ativan administration the patient's respiratory symptoms had improved significantly. I requested RT administer hour long nebulizer treatment. Management and recommendations were discussed with family members at bedside with the patient's permission. All questions were answered. I do not want had additional IV fluids and less necessary. Will re-evaluate with the patient's reflex lactic acid and consider IV fluids if still elevated. I requested nursing staff check postvoid residual given the family's report of acutely decreased urine output to ensure there is no component of urinary retention. 78 minutes spent in critical care activities. Due to a high probability of clinically significant, life threatening deterioration, the patient required my highest level of preparedness to intervene emergently and I personally spent this critical care time directly and personally managing the patient. This critical care time included obtaining a history;
[2023-12-18 23:49] LABS: Reflex Lactic Acid Yes or No Add Lactic
[2023-12-19] VITALS (18 sets, daily range): BP systolic 110–127; BP diastolic 51–62; PULSE 79–117; RESP 18–26; TEMP 36.4–36.6; O2SAT 92–99
[2023-12-19 01:15] LABS: Lactic Acid 4.8 mmol/L (0.7-2.0)
[2023-12-19] MEDS: IPRATROPIUM BR 0.02% INH SOLN 0.5 MG/2.5 ML VIAL INHALATION ×3 (01:57→20:16)
[2023-12-19] MEDS: ALBUTEROL SULFATE NEB 2.5 MG/3 ML INH 5 MG INHALATION ×3 (01:57→20:16)
[2023-12-19] MEDS: SODIUM CHLORIDE 0.9% IV 1,000 ML 250 ML IV CONT (02:21)
[2023-12-19 06:35] LABS: Hematocrit 26.9 % (42.0-52.0); Hemoglobin 8.2 g/dL (14.0-18.0); Mean Corpuscular HGB Conc 30.5 g/dl (32-36); Mean Corpuscular Hemoglobin 27.2 pg (26-34); Mean Corpuscular Volume 89.1 fl (80-100); Mean Platelet Volume 10.5 fl (7.4-10.4); Platelet Count Result 195 k/mm3 (150-375); Red Blood Count 3.02 M/mm3 (4.6-6.20); Red Cell Distribution Width 14.1 % (11.5-14.5); White Blood Count 8.9 K/mm3 (4.5-10.0)
--- NOTE | 2023-12-19 06:40 | PC.NURSE ---
Pt tolerated one time order at 0200 of 1L NS running at 250ml/hr with no difficulties. 1L infused with continued monitoring.
[2023-12-19 06:44] LABS: Anion Gap 8 mmol/L (8-16); Blood Urea Nitrogen 59 mg/dL (9-20); Calcium 8.3 mg/dL (8.4-10.2); Carbon Dioxide 26 mmol/L (22-30); Chloride 94 mmol/L (98-107); Estimated CRCL calculation 25 ml/min; Estimated Glomerular Filt Rate 38; Glucose 273 mg/dL (65-110); Potassium 4.4 mmol/L (3.4-5.0); Sodium 128 mmol/L (137-145)
[2023-12-19 06:45] LABS: INR 1.8; Prothrombin Time 21.9 Seconds (11.1-14.7)
--- NOTE | 2023-12-19 07:11 | WPDGICN ---
Assessment and Plan Assessment and plan (1) Gastrointestinal hemorrhage: Code(s): K92.2 - Gastrointestinal hemorrhage, unspecified Status: Acute Assessment and Plan: given the fact his bleeding is painless and rather bright red. I suspect this is a lower gastrointestinal bleeding and most likely due to diverticular disease. Other possibilities of course include AVMs. Malignancy to would be unlikely to present with a massive bleed. Because of his respiratory difficulties and other medical issues I believe conservative therapy is best at this point. By holding his Eliquis the bleeding I believe should stop. I think we ought up put him a clear liquid diet for a day or so to rest His gut and decrease motility. (2) Acute on chronic hypoxic respiratory failure: Code(s): J96.21 - Acute and chronic respiratory failure with hypoxia Status: Acute Assessment and Plan: Eliquis was started because of his pulmonary embolism. (3) Deep vein thrombosis of left lower extremity: Code(s): I82.402 - Acute embolism and thrombosis of unspecified deep veins of left lower extremity Status: Acute (4) Pulmonary embolism: Code(s): I26.99 - Other pulmonary embolism without acute cor pulmonale Status: Acute Assessment and Plan: This was just diagnosed 2 weeks ago when he was hospitalized with COVID. (5) Chronic anticoagulation: Code(s): Z79.01 - custodial (current) use of anticoagulants Status: Acute Assessment and Plan: Eliquis has been held since yesterday. Plan Unless he starts bleeding again we will manage him conservatively with the assumption that this is a diverticular bleed. I would hope that we could avoid colonoscopy. I will continue to follow him closely GI Consult Note Consult date/time: 12/19/23 07:11 HPI: Shayne Epps is a 88 year old male who had been recently admitted for problems related to COVID and also had recently been found have a pulmonary embolism for which she has been started on Eliquis. [place] [facility] [place] but was readmitted here a few days ago because of increasing shortness of breath. He has chronic hypoxic respiratory early failure. He had been on 5 L of nasal cannula. He had finished his course of antibiotics with vancomycin and Rocephin and azithromycin. . Yesterday he developed a bloody stool and dropped his hemoglobin to 9.4 and then 8.2. He denied having any abdominal pain. During the evening he had increasing difficulty breathing and rapid response team was called. This morning he states he feels good although I will come up and he has not really had time to assess himself. He denies abdominal pain. He does not believe that he had any bowel movements during the night. He last had a colonoscopy about 8 years ago. At that time he was found have some small polyps that were removed and also had diverticulosis. Review of Systems Review of Systems: All systems reviewed & are unremarkable except as noted in HPI and below PMFSH Past Medical History Medical History Arthritis Benign prostatic hyperplasia Chronic anemia Coronary artery disease Hyperlipidemia Hypertension Myocardial infarction (1996) Surgical History Surgical History History of arthroscopy of right knee (07/2003) With partial medial meniscectomy per Dr. Sandhu. History of bilateral carpal tunnel release (2020) History of bilateral cataract extraction History of bilateral knee arthroplasty (04/2004) Per Drs. Villeda and Edson. History of cardiac catheterization (1996) History of colonoscopy with polypectomy (02/2011) History of coronary angioplasty (1996) History of total right hip arthroplasty (04/2012) Family History Family History Sibling Family history of pancre
--- NOTE | 2023-12-19 08:43 | P.CDI_ITS ---
CDI Query Clarification Request BMI 26.1 Nutritional Diagnostic Statement Severe protein calorie malnutrition related to acute illness as evidenced by intakes <75% needs >1 month: weight loss 13% /1 month; severe muscle wasting to temporalis, fat loss to cheeks,clavicles. Please refer to the comprehensive nutrition assessment for further information. Please clarify severity of protein calorie malnutrition if known: * Mild * Moderate * Severe * Other/Unspecified <Alondra Marie RN - Last Filed: 12/19/23 08:48> Clarified Diagnosis Clarified Diagnosis: * Moderate <Paul Cottrell MD - Last Filed: 12/19/23 08:50>
[2023-12-19 08:58] LABS: Glucose Point of Care 262 mg/dl (65-105)
[2023-12-19] MEDS: INSULIN ASPART (*BKC) 100 UNITS/ML SUB-Q ×3 (09:14→17:10)
[2023-12-19] MEDS: polyethylene glycoL 3350 17 GM POWD.PACK PO (09:16)
[2023-12-19] MEDS: FUROSEMIDE INJ 40 MG/4 ML VIAL 20 MG IV PUSH (09:16)
[2023-12-19] MEDS: TAMSULOSIN HCL 0.4 MG CAPSULE PO (09:16)
[2023-12-19] MEDS: methylPREDNISolone SOD SUCC 125 MG VIAL 60 MG IV PUSH (09:16)
[2023-12-19 09:41] LABS: Iron 27 ug/dL (49-181)
[2023-12-19 09:51] LABS: Percent Iron Saturation 12 % (20-50)
--- NOTE | 2023-12-19 11:00 | PC.NURSE ---
I reviewed Paola's charting. Pt had GI bleed that was significant in amount. Pt provider was contacted and was ordered to have a 500 mL bolous and give 40mg IV protonix. Pt reported being short of breath when lying flat. Pt was repositioned and returned to upper 90's for O2 saturation. Pt was instructed to breathe in through nose and out through mouth. Pt was on 5L O2 at time of desaturation. Pt stayed in upper 90's while staying upright. Pt continued to be monitored for remainder of shift.
[2023-12-19 11:17] LABS: Glucose Point of Care 252 mg/dl (65-105)
--- NOTE | 2023-12-19 14:42 | PM.IMPN ---
Progress Note: A&P Assessment and Plan (1) Acute on chronic hypoxic respiratory failure: Code(s): J96.21 - Acute and chronic respiratory failure with hypoxia Status: Acute Assessment and Plan: 2/ and daughter by the bedside pt remains hypoxic on 5 liters of oxygen pulmonology has ordered labs for chronic lung disease (2) Pneumonia: Qualifiers: Laterality: left Lung location: lower lobe of lung Pneumonia type: due to unspecified organism Qualified Code(s): J18.9 - Pneumonia, unspecified organism Code(s): J18.9 - Pneumonia, unspecified organism Status: Acute Assessment and Plan: completed iv vancomycin, ceftriaxone, azithromycin (3) ILD (interstitial lung disease): Code(s): J84.9 - Interstitial pulmonary disease, unspecified Status: Acute Assessment and Plan: undetermined etiology no current evidence for exacerbation pt currently on Iv steroids (4) Pulmonary embolism: Code(s): I26.99 - Other pulmonary embolism without acute cor pulmonale Status: Acute Assessment and Plan: on hold per GI (5) Hypertension: Code(s): I10 - Essential (primary) hypertension Status: Acute Assessment and Plan: 12/17 controlled (6) Coronary artery disease: Code(s): I25.10 - Atherosclerotic heart disease of [place] coronary artery without angina pectoris Status: Acute Assessment and Plan: w/o angina (7) Hyperlipidemia: Code(s): E78.5 - Hyperlipidemia, unspecified Status: Acute (8) Benign prostatic hyperplasia: Code(s): N40.0 - Benign prostatic hyperplasia without lower urinary tract symptoms Status: Acute Subjective Date/time seen: 12/19/23 14:42 Interval history: This 88-year-old male patient is familiar to me, as I was involved in his initial hospital care approximately three weeks ago. He came in presenting with a week-long history of progressively worsening shortness of breath. He was diagnosed with COVID-19 infection and pulmonary embolism. A Chest CT revealed asymmetrical bilateral infiltrates and small pleural effusions. There was a suspicion of CHF, but the lung infiltrates persisted despite CHF treatment. His COVID-19 treatment included a 10-day course of dexamethasone 6 mg, two weeks of baricitinib, and remdesivir. Initially, he required a high fraction of inspired oxygen (FiO2) to maintain an oxygen saturation above 90%. His respiratory status gradually improved while on treatment for COVID-19 pneumonia, and he was transitioned from a high-flow nasal cannula to a low-flow nasal cannula, with an approximate flow rate of 2-4L. He was discharged to a rehabilitation unit last week. However, during physical therapy, he experienced shortness of breath and was found to have low oxyhemoglobin saturation, leading to his readmission through the emergency room. He continues to experience shortness of breath during any activities, especially when trying to get out of bed. He has no other respiratory symptoms such as fever, chills, hemoptysis, chest pain, or lower extremity edema. He has no history of previous lung disease. An abdominal CT conducted last April revealed mild, nonspecific interstitial lung disease changes at the lung bases. He had no respiratory symptoms prior to this hospitalization, except for several days before his recent admission, as confirmed by his family who were present at the bedside today. Despite the improvement in his respiratory status and gas exchange, a repeat chest CT performed during his hospitalization last month showed no significant clearing of bilateral infiltrates. With the history of mild interstitial lung disease changes noted on the last abdominal CT, he was screened for an underlying autoimmune disease. His MARICRUZ were elevated at a titer of 160, and the myositis 155/140 antibody was positive with a high titer. He denied having any history of skin rashes o
--- NOTE | 2023-12-19 15:11 | PM.PNPUL ---
Progress Note: A&P Assessment and Plan (1) Acute on chronic hypoxic respiratory failure: Code(s): J96.21 - Acute and chronic respiratory failure with hypoxia Status: Acute Assessment and Plan: This 88-year-old male patient has been readmitted to the hospital due to shortness of breath and hypoxemia experienced during rehabilitation. This follows a recent hospitalization for shortness of breath. During his previous hospitalization, he was treated for COVID-19 infection, pulmonary embolism (evidenced by a small blood clot on a chest CT), and congestive heart failure. He was also administered antibiotics to address a possible bacterial co-infection. Despite improvements in his clinical condition and gas exchange, his chest CT showed no signs of clearing. Upon my review, the chest CT displays bilateral ground-glass infiltrates, small consolidations, and some evidence of reticulation primarily at the bases. 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 The positive myositis 155/140 antibody, if confirmed on repeat testing, could indicate the presence of underlying Dermatomyositis. However, the patient denied having any history of skin rashes or muscle soreness, and his CPK levels are not elevated. Given that these antibodies are highly specific and often associated with hidden malignancy, Amyopathic Dermatomyositis may also be considered. Interstitial Pneumonia with Autoimmune Features (IPAF) is also a differential diagnosis. I had an extensive discussion with the patient and his family, including his and son. I explained the severity of the patient's disease, especially considering the recent positive serology. I informed them that we plan to start the patient on steroid treatment, specifically Solu-Medrol 80 mg IV, today. I also indicated that he may need to be evaluated by Rheumatology services at a tertiary center, preferably within a University setting, due to the likelihood that he may require specific treatment for his autoimmune disease that we cannot provide here. The patient expressed that he does not wish to be transferred elsewhere. However, his family indicated that they would attempt to persuade him to agree to a transfer to a tertiary center. 12-19-23. The patient's respiratory condition has largely remained the same over the past 24 hours. There was no significant alteration in his ABG's during last night's episode of respiratory distress. Chest x-ray also showed no new infiltrates. WBCs into the normal range today unlike the hemoglobin which is lower than before. I do not see the indication for levofloxacin IV at this point. A DNR order has been established for the patient. Despite this, he continues to decline his transfer to a tertiary unit for advanced care. Earlier today, I had an extensive discussion with the patient's and daughter about his overall prognosis and the possibility of improvement if he consents to be transferred to a different facility. I informed the patient's family that his advanced age and treatment with immunosuppressants such as intravenous steroids are definitive risk factors for a negative outcome. The patient's family expressed their intention to persuade the patient to accept the transfer to a tertiary hospital once again. Will continue with the current IV Solu-Medrol dose for now. Will closely monitor respiratory status for lower respiratory tract infections. GI bleed seems to be a new problem. (2) Pneumonia: Qualifiers: Laterality: left Lung location: lower lobe of lung Pneumonia type: due to unspecified organism Qualified Code(s): J18.9 - Pneumonia, unspecified organism Code(s): J18.9 - Pneumonia, unspecified organism Status: Acute (3) ILD (interstitial lung disease): Code(s): J84.9 - Interstitial pulmonary disease, unspecified Status: Acute (4) Pulmonar
--- NOTE | 2023-12-19 15:42 | PCRCNOTE ---
Window of time for administration has passed. See next scheduled administration.
[2023-12-19] MEDS: levoFLOXacin 750 MG/D5W 150 ML 750 MG/150 ML BAG 100 MG IVPB (16:13)
[2023-12-19 16:19] LABS: Glucose Point of Care 207 mg/dl (65-105)
[2023-12-19 16:26] LABS: Procalcitonin 0.4 ng/mL
[2023-12-19 17:38] LABS: MRSA (PCR) NOT DETECTED (NOT DETECTE)
[2023-12-19 18:16] LABS: Reflex Lactic Acid Yes or No Add Lactic
[2023-12-19 19:27] LABS: Lactic Acid 3.1 mmol/L (0.7-2.0)
[2023-12-19 21:08] LABS: Glucose Point of Care 168 mg/dl (65-105)
[2023-12-19] MEDS: ATORVASTATIN 10 MG TABLET PO (21:08)
[2023-12-20] VITALS (23 sets, daily range): BP systolic 94–118; BP diastolic 38–57; PULSE 76–101; RESP 16–20; TEMP 35.9–36.5; O2SAT 89–100
[2023-12-20] MEDS: IPRATROPIUM BR 0.02% INH SOLN 0.5 MG/2.5 ML VIAL INHALATION ×4 (02:19→20:49)
[2023-12-20] MEDS: ALBUTEROL SULFATE NEB 2.5 MG/3 ML INH 5 MG INHALATION ×4 (02:19→20:48)
[2023-12-20 06:40] LABS: Basophils Percent Auto 0.1 % (0.2-1.2); Eosinophils Absolute Auto 0.1 K/mm3 (0-0.3); Eosinophils Percent Auto 0.5 % (0-4.4); Hematocrit 21.5 % (42.0-52.0); Immature Granulocyte Absolute 0.06 K/mm3 (0.00-0.031); Immature Granulocyte Percent A 0.6 % (0-0.5); Immature Platelet Fraction Pct 4.2 % (0.9-11.2); Lymphocytes Absolute Auto 0.77 K/mm3 (0.9-3.2); Lymphocytes Percent Auto 7.6 % (18.3-44.2); Mean Corpuscular HGB Conc 31.6 g/dl (32-36); Mean Corpuscular Hemoglobin 28.7 pg (26-34); Mean Corpuscular Volume 90.7 fl (80-100); Monocytes Absolute Auto 0.7 K/mm3 (0.1-0.6); Monocytes Percent Auto 7.3 % (2.6-8.5); Neutrophils Absolute Auto 8.5 K/mm3 (1.3-6.7); Neutrophils Percent Auto 83.9 % (45.5-73.1); Platelet Count Result 158 k/mm3 (150-375); Red Blood Count 2.37 M/mm3 (4.6-6.20); Red Cell Distribution Width 14.7 % (11.5-14.5); White Blood Count 10.2 K/mm3 (4.5-10.0)
[2023-12-20 07:10] LABS: Hemoglobin 6.8 g/dL (14.0-18.0); Hypochromasia 1+ (NORMAL)
[2023-12-20 07:11] LABS: Platelet Estimate Adequate (Adequate); Schistocytes None Seen (NORMAL)
[2023-12-20 07:25] LABS: Glucose Point of Care 134 mg/dl (65-105)
[2023-12-20 08:21] LABS: Alanine Aminotransferase 17 U/L (6-50); Albumin Level 2.7 g/dL (3.5-5.1); Alkaline Phosphatase 69 U/L (38-126); Anion Gap 1 mmol/L (8-16); Aspartate Amino Transferase 23 U/L (17-59); Bilirubin,Total 0.7 mg/dL (0.2-1.3); Blood Urea Nitrogen 55 mg/dL (9-20); Calcium 8.5 mg/dL (8.4-10.2); Carbon Dioxide 31 mmol/L (22-30); Chloride 95 mmol/L (98-107); Estimated CRCL calculation 31 ml/min; Estimated Glomerular Filt Rate 48; Glucose 135 mg/dL (65-110); Sodium 127 mmol/L (137-145)
[2023-12-20 11:11] LABS: Glucose Point of Care 191 mg/dl (65-105)
--- NOTE | 2023-12-20 12:44 | PM.PNPUL ---
Progress Note: A&P Assessment and Plan (1) Acute on chronic hypoxic respiratory failure: Code(s): J96.21 - Acute and chronic respiratory failure with hypoxia Status: Acute Assessment and Plan: This 88-year-old male patient has been readmitted to the hospital due to shortness of breath and hypoxemia experienced during rehabilitation. This follows a recent hospitalization for shortness of breath. During his previous hospitalization, he was treated for COVID-19 infection, pulmonary embolism (evidenced by a small blood clot on a chest CT), and congestive heart failure. He was also administered antibiotics to address a possible bacterial co-infection. Despite improvements in his clinical condition and gas exchange, his chest CT showed no signs of clearing. Upon my review, the chest CT displays bilateral ground-glass infiltrates, small consolidations, and some evidence of reticulation primarily at the bases. 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 The positive myositis 155/140 antibody, if confirmed on repeat testing, could indicate the presence of underlying Dermatomyositis. However, the patient denied having any history of skin rashes or muscle soreness, and his CPK levels are not elevated. Given that these antibodies are highly specific and often associated with hidden malignancy, Amyopathic Dermatomyositis may also be considered. Interstitial Pneumonia with Autoimmune Features (IPAF) is also a differential diagnosis. I had an extensive discussion with the patient and his family, including his and son. I explained the severity of the patient's disease, especially considering the recent positive serology. I informed them that we plan to start the patient on steroid treatment, specifically Solu-Medrol 80 mg IV, today. I also indicated that he may need to be evaluated by Rheumatology services at a tertiary center, preferably within a University setting, due to the likelihood that he may require specific treatment for his autoimmune disease that we cannot provide here. The patient expressed that he does not wish to be transferred elsewhere. However, his family indicated that they would attempt to persuade him to agree to a transfer to a tertiary center. Respiratory status essentially unchanged over the last 48 hours. Patient remains on supplemental oxygen via nasal cannula at 5 liters/minute and his physical exam is essentially unchanged while he is receiving IV Solu-Medrol 60 mg daily. He has no evidence of ongoing infection at this point. He refuses transfer to tertiary hospital. Plan: will continue with prednisone 40 mg starting in a.m.. Repeat chest x-ray in a.m.. (2) Pneumonia: Qualifiers: Laterality: left Lung location: lower lobe of lung Pneumonia type: due to unspecified organism Qualified Code(s): J18.9 - Pneumonia, unspecified organism Code(s): J18.9 - Pneumonia, unspecified organism Status: Acute (3) ILD (interstitial lung disease): Code(s): J84.9 - Interstitial pulmonary disease, unspecified Status: Acute (4) Pulmonary embolism: Code(s): I26.99 - Other pulmonary embolism without acute cor pulmonale Status: Acute Subjective Date/time seen: 12/20/23 12:44 Interval history: Patient has no new respiratory symptoms remains on same oxygen flow via nasal cannula. He has no changes in his shortness of breath no fever no coughing. Spends most of the day in bed. Slept well last night. Review of Systems Review of Systems: All systems reviewed & are unremarkable except as noted in HPI and below (HPI and below) Exam Narrative: GENERAL APPEARANCE: Well developed, well nourished, alert and cooperative, and appears to be in mild respiratory distress while on nasal cannula SKIN: Inspection of the skin reveals no rashes, ulcerations or petechiae. HEENT: Sclerae anicteric
[2023-12-20] MEDS: polyethylene glycoL 3350 238 GM BOTTLE PO (16:19)
--- NOTE | 2023-12-20 16:19 | PM.IMPN ---
Progress Note: A&P Assessment and Plan (1) Acute on chronic hypoxic respiratory failure: Code(s): J96.21 - Acute and chronic respiratory failure with hypoxia Status: Acute Assessment and Plan: 2/5 and daughter by the bedside pt remains hypoxic on 5 liters of oxygen pulmonology following (2) Pneumonia: Qualifiers: Laterality: left Lung location: lower lobe of lung Pneumonia type: due to unspecified organism Qualified Code(s): J18.9 - Pneumonia, unspecified organism Code(s): J18.9 - Pneumonia, unspecified organism Status: Acute Assessment and Plan: completed iv vancomycin, ceftriaxone, azithromycin on Levaquin monitor lactic acid and cultures (3) ILD (interstitial lung disease): Code(s): J84.9 - Interstitial pulmonary disease, unspecified Status: Acute Assessment and Plan: 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 on board on tentative Levaquin due to lactic acidosis monitor (4) Pulmonary embolism: Code(s): I26.99 - Other pulmonary embolism without acute cor pulmonale Status: Acute Assessment and Plan: AC on hold anjum to GI bleed Venous doppler negative WIll do CTA chest when renal function is normal (5) Hypertension: Code(s): I10 - Essential (primary) hypertension Status: Acute Assessment and Plan: 2/ controlled (6) Coronary artery disease: Code(s): I25.10 - Atherosclerotic heart disease of [place] coronary artery without angina pectoris Status: Acute Assessment and Plan: w/o angina (7) Hyperlipidemia: Code(s): E78.5 - Hyperlipidemia, unspecified Status: Acute (8) Benign prostatic hyperplasia: Code(s): N40.0 - Benign prostatic hyperplasia without lower urinary tract symptoms Status: Acute (9) Gastrointestinal hemorrhage: Code(s): K92.2 - Gastrointestinal hemorrhage, unspecified Status: Acute Assessment and Plan: For colonoscopy today (10) Iron deficiency anemia: Code(s): D50.9 - Iron deficiency anemia, unspecified Status: Acute Assessment and Plan: Hb 6.8m isat 12 receiving pRBC transfusion started on Venover 400/1000mg monitor h and H. Subjective Date/time seen: 12/20/23 16:20 Interval history: Patient has no new respiratory symptoms remains on same oxygen flow via nasal cannula. 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 Well-nourished. - EYES: PERRL. Anicteric. - HENT: Moist mucous membranes. - LUNGS: CTA with decreased BS at bases. Mildly tachypneic. - CARDIOVASCULAR: Regular rate and rhythm. NL S1,2. No murmur. No JVD. - ABDOMEN: Soft, non-tender and non-distended. No palpable masses. - EXTREMITIES: No edema. - NEUROLOGIC: No focal neurological deficits. CN II-XII grossly intact. - PSYCHIATRIC: Awake, Alert and oriented x 3. Appropriate mood and affect. - SKIN: No rashes or lesions. Warm. Objective Data Vital Signs Vital Signs: Vital Signs - 24 hr 12/19/23 20:18 12/19/23 20:19 12/19/23 20:31 Temperature Pulse Rate 81 81 84 Respiratory Rate 20 20 Blood Pressure Pulse Oximetry 99 Oxygen Delivery High Flow Nasal Cannula Oxygen Flow Rate 5 12/19/23 21:43 12/19/23 20:00 12/19/23 20:00 Temperature 97.6 F Pulse Rate 90 79 Respiratory Rate 18 Blood Pressure 118/51 L Pulse Oximetry 96 96 Oxygen Delivery High Flow Therapy with Na Oxygen Flow Rate 5 12/20/23 02:20 12/20/23 02:39 12/20/23
[2023-12-20 16:24] LABS: Glucose Point of Care 165 mg/dl (65-105)
[2023-12-20] MEDS: IRON SUCROSE COMPLEX 400 MG in SODIUM CHLORIDE 0.9% IV 250 ML 108 MG IVPB (17:20)
[2023-12-20 21:40] LABS: Glucose Point of Care 238 mg/dl (65-105)
[2023-12-20] MEDS: LACTATED RINGERS 1,000 ML 75 ML IV CONT (23:55)
[2023-12-20] MEDS: MAGNESIUM CITRATE 300 ML BTL 150 ML PO (23:56)
[2023-12-21] VITALS (21 sets, daily range): BP systolic 77–120; BP diastolic 32–60; PULSE 68–87; RESP 16–27; TEMP 36.4–36.9; O2SAT 91–97
[2023-12-21 00:48] LABS: Hematocrit 23.9 % (42.0-52.0); Hemoglobin 7.8 g/dL (14.0-18.0)
[2023-12-21] MEDS: IPRATROPIUM BR 0.02% INH SOLN 0.5 MG/2.5 ML VIAL INHALATION ×4 (01:30→20:13)
[2023-12-21] MEDS: ALBUTEROL SULFATE NEB 2.5 MG/3 ML INH 5 MG INHALATION ×4 (01:30→20:13)
[2023-12-21 06:54] LABS: Basophils Percent Auto 0.2 % (0.2-1.2); Eosinophils Absolute Auto 0.5 K/mm3 (0-0.3); Eosinophils Percent Auto 5.2 % (0-4.4); Hematocrit 24.6 % (42.0-52.0); Hemoglobin 7.7 g/dL (14.0-18.0); Immature Granulocyte Absolute 0.05 K/mm3 (0.00-0.031); Immature Granulocyte Percent A 0.5 % (0-0.5); Lymphocytes Absolute Auto 0.75 K/mm3 (0.9-3.2); Lymphocytes Percent Auto 8.1 % (18.3-44.2); Mean Corpuscular HGB Conc 31.3 g/dl (32-36); Mean Corpuscular Hemoglobin 27.8 pg (26-34); Mean Corpuscular Volume 88.8 fl (80-100); Monocytes Absolute Auto 0.7 K/mm3 (0.1-0.6); Neutrophils Absolute Auto 7.3 K/mm3 (1.3-6.7); Platelet Count Result 152 k/mm3 (150-375); Red Blood Count 2.77 M/mm3 (4.6-6.20); Red Cell Distribution Width 14.6 % (11.5-14.5); White Blood Count 9.3 K/mm3 (4.5-10.0)
[2023-12-21 07:07] LABS: Alanine Aminotransferase 16 U/L (6-50); Albumin Level 2.4 g/dL (3.5-5.1); Alkaline Phosphatase 70 U/L (38-126); Anion Gap 2 mmol/L (8-16); Aspartate Amino Transferase 26 U/L (17-59); Bilirubin,Total 0.8 mg/dL (0.2-1.3); Blood Urea Nitrogen 36 mg/dL (9-20); Calcium 8.3 mg/dL (8.4-10.2); Carbon Dioxide 29 mmol/L (22-30); Chloride 100 mmol/L (98-107); Estimated CRCL calculation 42 ml/min; Estimated Glomerular Filt Rate > 60; Glucose 133 mg/dL (65-110); Magnesium 2.5 mg/dL (1.6-2.3); Potassium 3.6 mmol/L (3.4-5.0); Sodium 131 mmol/L (137-145)
[2023-12-21 07:41] LABS: Glucose Point of Care 141 mg/dl (65-105)
--- NOTE | 2023-12-21 08:53 | PM.PNPUL ---
Progress Note: A&P Assessment and Plan (1) Acute on chronic hypoxic respiratory failure: Code(s): J96.21 - Acute and chronic respiratory failure with hypoxia Status: Acute Assessment and Plan: This 88-year-old male patient has been readmitted to the hospital due to shortness of breath and hypoxemia experienced during rehabilitation. This follows a recent hospitalization for shortness of breath. During his previous hospitalization, he was treated for COVID-19 infection, pulmonary embolism (evidenced by a small blood clot on a chest CT), and congestive heart failure. He was also administered antibiotics to address a possible bacterial co-infection. Despite improvements in his clinical condition and gas exchange, his chest CT showed no signs of clearing. Upon my review, the chest CT displays bilateral ground-glass infiltrates, small consolidations, and some evidence of reticulation primarily at the bases. 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 The positive myositis 155/140 antibody, if confirmed on repeat testing, could indicate the presence of underlying Dermatomyositis. However, the patient denied having any history of skin rashes or muscle soreness, and his CPK levels are not elevated. Given that these antibodies are highly specific and often associated with hidden malignancy, Amyopathic Dermatomyositis may also be considered. Interstitial Pneumonia with Autoimmune Features (IPAF) is also a differential diagnosis. I had an extensive discussion with the patient and his family, including his and son. I explained the severity of the patient's disease, especially considering the recent positive serology. I informed them that we plan to start the patient on steroid treatment, specifically Solu-Medrol 80 mg IV, today. I also indicated that he may need to be evaluated by Rheumatology services at a tertiary center, preferably within a University setting, due to the likelihood that he may require specific treatment for his autoimmune disease that we cannot provide here. The patient expressed that he does not wish to be transferred elsewhere. However, his family indicated that they would attempt to persuade him to agree to a transfer to a tertiary center. Respiratory status essentially unchanged over the last 48 hours. Patient remains on supplemental oxygen via nasal cannula at 5 liters/minute and his physical exam is essentially unchanged while he is on prednisone 40 mg po daily. He has no evidence of ongoing infection at this point. Would recommend stopping levofloxacin he refuses transfer to tertiary hospital. Chest x-ray done earlier today showed no new changes. (2) Pneumonia: Qualifiers: Laterality: left Lung location: lower lobe of lung Pneumonia type: due to unspecified organism Qualified Code(s): J18.9 - Pneumonia, unspecified organism Code(s): J18.9 - Pneumonia, unspecified organism Status: Acute (3) ILD (interstitial lung disease): Code(s): J84.9 - Interstitial pulmonary disease, unspecified Status: Acute (4) Pulmonary embolism: Code(s): I26.99 - Other pulmonary embolism without acute cor pulmonale Status: Acute Subjective Date/time seen: 12/21/23 08:53 Interval history: Patient has no new respiratory symptoms. Shortness of breath about unchanged. No fever chills or coughing. Is having colonoscopy today. Oxygen flow more or less unchanged currently at 5 liters/minute. Review of Systems Review of Systems: All systems reviewed & are unremarkable except as noted in HPI and below (HPI and below) Exam Narrative: GENERAL APPEARANCE: Well developed, well nourished, alert and cooperative, and appears to be in mild respiratory distress while on nasal cannula SKIN: Inspection of the skin reveals no rashes, ulcerations or petechiae. HEENT: Sclerae anicteric and conju
[2023-12-21 09:56] LABS: Lactic Acid Reflex 0.9 mmol/L (0.7-2.0)
[2023-12-21 11:03] LABS: Glucose Point of Care 127 mg/dl (65-105)
[2023-12-21] MEDS: LACTATED RINGERS 1,000 ML 150 ML IV CONT ×3 (11:37→14:38)
--- NOTE | 2023-12-21 11:47 | WPDANESEPPF ---
Anes - Initial Pre Proc Eval Procedure: Operation Date: 12/21/23 12:30 Proposed Procedures p Colonoscopy - Gerald Miles MD Date/Time: 12/21/23 11:47 Surgeon: Gurpreet Bruno MD Pre Op Diagnosis: Acute on Chronic Hypoxia/PNA/Sepsis Patient Data Age: 88 Gender: M Height: 1.7 m Weight: 78.8 kg Last Vital Signs Temp 98.4 F 12/21/23 11:34 Pulse 75 12/21/23 11:34 Resp 21 H 12/21/23 11:34 BP 99/32 L 12/21/23 11:34 Pulse Ox 96 12/21/23 11:34 O2 Del Method Nasal Cannula 12/21/23 11:34 O2 Flow Rate 6 12/21/23 11:34 FiO2 40 12/21/23 01:31 Allergies Allergy/AdvReac Type Severity Reaction Status Date / Time gluten AdvReac Diarrhea Verified 12/15/23 09:37 Home Medications Medication Instructions Recorded Confirmed Type aspirin 81 mg tablet,delayed 81 mg PO QPM 11/18/20 12/15/23 History release (Adult Aspirin Regimen) losartan 25 mg tablet 25 mg PO QPM 11/18/20 12/15/23 History acetaminophen 650 mg 650 mg PO Q6H PRN Pain 10/27/23 12/15/23 History tablet,extended release (Tylenol Arthritis Pain) tamsulosin 0.4 mg capsule 0.4 mg PO QAM #90 caps 11/09/23 12/15/23 Rx apixaban 5 mg tablet (Eliquis) 5 mg PO Q12HR #60 tabs 12/14/23 12/15/23 Rx insulin aspart U-100 100 unit/mL 2 - 5 unit subcut TIDWM #10 mL 12/14/23 12/15/23 Rx subcutaneous solution (Novolog U-100 Insulin aspart) ondansetron 4 mg disintegrating 4 mg PO Q6H PRN nausea and 12/14/23 12/15/23 Rx tablet vomiting #30 tabs polyethylene glycol 3350 17 gram 17 g PO QAM #30 ea 12/14/23 12/15/23 Rx oral powder packet (Miralax) atorvastatin 10 mg tablet 10 mg PO HS 12/15/23 12/15/23 History Laboratory Tests 12/18/23 12/20/23 12/20/23 20:45 16:22 20:22 WBC RBC Hgb Hct MCV MCH MCHC RDW Plt Count MPV Immature Gran % (Auto) Neut % (Auto) Lymph % (Auto) [place] % (Auto) Eos % (Auto) Baso % (Auto) Lymph # (Auto) [place] # (Auto) Eos # (Auto) Baso # (Auto) Abs Immat Gran (auto) Absolute Neuts (auto) Absolute Nucleated RBC Nucleated RBC % Sodium Potassium Chloride Carbon Dioxide Anion Gap BUN Creatinine Estim Creat Clear Calc Estimated GFR Glucose POC Capillary Glucose 165 H mg/dl 238 H mg/dl (65-105) (65-105) Lactic Acid Calcium Magnesium Total Bilirubin AST ALT Alkaline Phosphatase Total Protein Albumin Crossmatch See Detail 12/21/23 12/21/23 12/21/23 00:38 06:30 07:39 WBC 9.3 K/mm3 (4.5-10.0) RBC 2.77 L M/mm3 (4.6-6.20) Hgb 7.8 L g/dL 7.7 L g/dL (14.0-18.0) (14.0-18.0) Hct 23.9 L % 24.6 L % (42.0-52.0) (42.0-52.0) MCV 88.8 fl (80-100) MCH 27.8 pg (26-34) MCHC 31.3 L g/dl (32-36) RDW 14.6 H % (11.5-14.5) Plt Count 152 k/mm3 (150-375) MPV 10.0 fl (7.4-10.4) Immature Gran % (Auto) 0.5 % (0-0.5) Neut % (Auto) 79.0 H % (45.5-73.1) Lymph % (Auto) 8.1 L % (18.3-44.2) [place] % (Auto) 7.0 % (2.6-8.5) Eos % (Auto) 5.2 H % (0-4.4) Baso % (Auto) 0.2 % (0.2-1.2) Lymph # (Auto) 0.75 L K/mm3 (0.9-3.2) [place] # (Auto) 0.7 H K/mm3 (0.1-0.6) Eos # (Auto) 0.5 H K/mm3 (0-0.3) Baso # (Auto) 0.0 K/mm3 (0.0-0.1) Abs Immat Gran (auto) 0.05 H K/mm3 (0.00-0.031) Absolute Neuts (auto) 7.3 H K/mm3 (1.3-6.7) Absolute Nucleat
--- NOTE | 2023-12-21 14:14 | P.PNIM_ITS ---
Progress Note: A&P Assessment and Plan (1) Acute on chronic hypoxic respiratory failure: Code(s): J96.21 - Acute and chronic respiratory failure with hypoxia Status: Acute Assessment and Plan: * 2/5 and daughter by the bedside pt remains hypoxic on 5 liters of oxygen, titrate * pulmonology following (2) Pneumonia: Qualifiers: Laterality: left Lung location: lower lobe of lung Pneumonia type: due to unspecified organism Qualified Code(s): J18.9 - Pneumonia, unspecified organism Code(s): J18.9 - Pneumonia, unspecified organism Status: Acute Assessment and Plan: Day 3/7 Levaquin , lactic acidosis resolved monitor lactic acid and cultures (3) ILD (interstitial lung disease): Code(s): J84.9 - Interstitial pulmonary disease, unspecified Status: Acute Assessment and Plan: 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 on board on tentative Levaquin due to lactic acidosis monitor (4) Pulmonary embolism: Code(s): I26.99 - Other pulmonary embolism without acute cor pulmonale Status: Acute Assessment and Plan: * AC on hold due to GI bleed * Venous doppler negative * lingula PE on CTA chest from 11/28 * AC per GI recs * (5) Hypertension: Code(s): I10 - Essential (primary) hypertension Status: Acute Assessment and Plan: * 2/4 controlled (6) Coronary artery disease: Code(s): I25.10 - Atherosclerotic heart disease of [place] coronary artery without angina pectoris Status: Acute Assessment and Plan: * w/o angina (7) Hyperlipidemia: Code(s): E78.5 - Hyperlipidemia, unspecified Status: Acute (8) Benign prostatic hyperplasia: Code(s): N40.0 - Benign prostatic hyperplasia without lower urinary tract symptoms Status: Acute (9) Gastrointestinal hemorrhage: Code(s): K92.2 - Gastrointestinal hemorrhage, unspecified Status: Acute Assessment and Plan: For colonoscopy today (10) Iron deficiency anemia: Code(s): D50.9 - Iron deficiency anemia, unspecified Status: Acute Assessment and Plan: Hb 7.7m isat 12 receiving pRBC transfusion started on Venover 800/1000mg monitor h and H. Subjective Date/time seen: 12/21/23 14:14 Interval history: For colonoscopy today Patient being managed for possible Dermatomyositis with ILD and possble PNA Also GI bleed with iron deficiency anemia, for colonoscopy today Pulm and GI on board Review of Systems Review of Systems: ongoing SOB, pt currently on 5 liters of oxygen All systems reviewed & are unremarkable except as noted in HPI and below Exam Narrative: GENERAL: Pleasant, in no acute distress. Well-nourished. - EYES: PERRL. Anicteric. - HENT: Moist mucous membranes. - LUNGS: CTA with decreased BS at bases . Mildly tachypneic. - CARDIOVASCULAR: Regular rate and rhyth m. NL S1,2. No murmur. No JVD. - ABDOMEN: Soft, non-tender and non-dist ended. No palpable masses. - EXTREMITIES: No edema. - NEUROLOGIC: No focal neurological defi cits. CN II-XII grossly intact. - PSYCHI
--- NOTE | 2023-12-21 14:14 | PM.IMPN ---
Progress Note: A&P Assessment and Plan (1) Acute on chronic hypoxic respiratory failure: Code(s): J96.21 - Acute and chronic respiratory failure with hypoxia Status: Acute Assessment and Plan: 2/ and daughter by the bedside pt remains hypoxic on 5 liters of oxygen, titrate pulmonology following (2) Pneumonia: Qualifiers: Laterality: left Lung location: lower lobe of lung Pneumonia type: due to unspecified organism Qualified Code(s): J18.9 - Pneumonia, unspecified organism Code(s): J18.9 - Pneumonia, unspecified organism Status: Acute Assessment and Plan: Day 3 Levaquin , lactic acidosis resolved monitor lactic acid and cultures (3) ILD (interstitial lung disease): Code(s): J84.9 - Interstitial pulmonary disease, unspecified Status: Acute Assessment and Plan: 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 on board on tentative Levaquin due to lactic acidosis monitor (4) Pulmonary embolism: Code(s): I26.99 - Other pulmonary embolism without acute cor pulmonale Status: Acute Assessment and Plan: AC on hold due to GI bleed Venous doppler negative lingula PE on CTA chest from 11/28 AC per GI recs (5) Hypertension: Code(s): I10 - Essential (primary) hypertension Status: Acute Assessment and Plan: 12/17 controlled (6) Coronary artery disease: Code(s): I25.10 - Atherosclerotic heart disease of [place] coronary artery without angina pectoris Status: Acute Assessment and Plan: w/o angina (7) Hyperlipidemia: Code(s): E78.5 - Hyperlipidemia, unspecified Status: Acute (8) Benign prostatic hyperplasia: Code(s): N40.0 - Benign prostatic hyperplasia without lower urinary tract symptoms Status: Acute (9) Gastrointestinal hemorrhage: Code(s): K92.2 - Gastrointestinal hemorrhage, unspecified Status: Acute Assessment and Plan: For colonoscopy today (10) Iron deficiency anemia: Code(s): D50.9 - Iron deficiency anemia, unspecified Status: Acute Assessment and Plan: Hb 7.7m isat 12 receiving pRBC transfusion started on Venover 800/1000mg monitor h and H. Subjective Date/time seen: 12/21/23 14:14 Interval history: For colonoscopy today Patient being managed for possible Dermatomyositis with ILD and possble PNA Also GI bleed with iron deficiency anemia, for colonoscopy today Pulm and GI on board Review of Systems Review of Systems: ongoing SOB, pt currently on 5 liters of oxygen All systems reviewed & are unremarkable except as noted in HPI and below Exam Narrative: GENERAL: Pleasant, in no acute distress. Well-nourished. - EYES: PERRL. Anicteric. - HENT: Moist mucous membranes. - LUNGS: CTA with decreased BS at bases. Mildly tachypneic. - CARDIOVASCULAR: Regular rate and rhythm. NL S1,2. No murmur. No JVD. - ABDOMEN: Soft, non-tender and non-distended. No palpable masses. - EXTREMITIES: No edema. - NEUROLOGIC: No focal neurological deficits. CN II-XII grossly intact. - PSYCHIATRIC: Awake, Alert and oriented x 3. Appropriate mood and affect. - SKIN: No rashes or lesions. Warm. Objective Data Vital Signs Vital Signs: Vital Signs - 24 hr 12/20/23 16:00 12/20/23 17:34 12/20/23 20:49 Temperature Pulse Rate 84 95 Respiratory Rate 20 Blood Pressure 105/57 L Pulse Oximetry Oxygen Delivery Oxygen Flow Rate Fraction of Inspired Oxygen 12/20/23 22:00 12/20/23 20:00 12/21/23 01:31 Temperature 97.6 F Pulse Rate 85 80 Respiratory Rate 18 18 Blood Pressure 102/38 L Pulse Oximetry 90 90 93 Oxygen Delivery High Flow Therapy with Na Nasal Cannula Oxygen Flow Rate 5 5 Fraction of Inspired Oxygen 40 12/21/23 01:31 12/20/23 21:00 12/20/23 21:00 Temperature Pulse Rate 80 99 Respiratory Rate 18 20 Blood
[2023-12-21] MEDS: levoFLOXacin 750 MG/D5W 150 ML 750 MG/150 ML BAG 100 MG IVPB (14:38)
[2023-12-21] MEDS: IRON SUCROSE COMPLEX 400 MG in SODIUM CHLORIDE 0.9% IV 250 ML 108 MG IVPB (16:11)
[2023-12-21 16:28] LABS: Glucose Point of Care 165 mg/dl (65-105)
[2023-12-21] MEDS: ATORVASTATIN 10 MG TABLET PO (21:18)
[2023-12-21 22:11] LABS: Glucose Point of Care 104 mg/dl (65-105)
[2023-12-21] MEDS: MELATONIN 5 MG TABLET PO (22:33)
[2023-12-22] VITALS (22 sets, daily range): BP systolic 110–132; BP diastolic 44–52; PULSE 68–93; RESP 16–24; TEMP 36.7–36.9; O2SAT 94–99
[2023-12-22] MEDS: ALBUTEROL SULFATE NEB 2.5 MG/3 ML INH 5 MG INHALATION ×4 (02:15→20:08)
[2023-12-22] MEDS: IPRATROPIUM BR 0.02% INH SOLN 0.5 MG/2.5 ML VIAL INHALATION ×4 (02:15→20:08)
[2023-12-22 07:13] LABS: Basophils Percent Auto 0.2 % (0.2-1.2); Eosinophils Absolute Auto 0.7 K/mm3 (0-0.3); Eosinophils Percent Auto 8.2 % (0-4.4); Hematocrit 25.3 % (42.0-52.0); Hemoglobin 7.9 g/dL (14.0-18.0); Immature Granulocyte Absolute 0.06 K/mm3 (0.00-0.031); Immature Granulocyte Percent A 0.7 % (0-0.5); Lymphocytes Absolute Auto 0.55 K/mm3 (0.9-3.2); Lymphocytes Percent Auto 6.4 % (18.3-44.2); Mean Corpuscular HGB Conc 31.2 g/dl (32-36); Mean Corpuscular Hemoglobin 28.4 pg (26-34); Mean Platelet Volume 10.2 fl (7.4-10.4); Monocytes Absolute Auto 0.6 K/mm3 (0.1-0.6); Monocytes Percent Auto 6.7 % (2.6-8.5); Neutrophils Absolute Auto 6.7 K/mm3 (1.3-6.7); Neutrophils Percent Auto 77.8 % (45.5-73.1); Platelet Count Result 136 k/mm3 (150-375); Red Blood Count 2.78 M/mm3 (4.6-6.20); Red Cell Distribution Width 14.6 % (11.5-14.5); White Blood Count 8.7 K/mm3 (4.5-10.0)
[2023-12-22 07:20] LABS: Lactic Acid Reflex 0.9 mmol/L (0.7-2.0)
--- NOTE | 2023-12-22 07:21 | WPDGIPROGNO ---
Progress Note: A&P Assessment and Plan (1) Gastrointestinal hemorrhage: Code(s): K92.2 - Gastrointestinal hemorrhage, unspecified Status: Acute Assessment and Plan: given the fact his bleeding is painless and rather bright red. I suspect this is a lower gastrointestinal bleeding and most likely due to diverticular disease. Other possibilities of course include AVMs. Malignancy to would be unlikely to present with a massive bleed. Because of his respiratory difficulties and other medical issues I believe conservative therapy is best at this point. By holding his Eliquis the bleeding I believe should stop. I think we ought up put him a clear liquid diet for a day or so to rest His gut and decrease motility. (2) Acute on chronic hypoxic respiratory failure: Code(s): J96.21 - Acute and chronic respiratory failure with hypoxia Status: Acute Assessment and Plan: Eliquis was started because of his pulmonary embolism. (3) Deep vein thrombosis of left lower extremity: Code(s): I82.402 - Acute embolism and thrombosis of unspecified deep veins of left lower extremity Status: Acute (4) Pulmonary embolism: Code(s): I26.99 - Other pulmonary embolism without acute cor pulmonale Status: Acute Assessment and Plan: This was just diagnosed 2 weeks ago when he was hospitalized with COVID. 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 I believe that we could restart his Eliquis by Monday if not today Plan colonoscopy did reveal is expected diverticular disease with some old blood in diverticula. I am fairly certain that was the source of his bleeding. I believe we could restart his Eliquis tomorrow. He understands there is always a risk of bleeding again. Subjective Date/time seen: 12/22/23 07:21 No further bleeding. He tolerated his diet. Explain him that I would like him to stay off his Eliquis for at least 1 more day. . From my perspective no reason he can not be sent home. Exam Const: General: cooperative and healthy appearing Orientation/consciousness: patient oriented x3 HENMT: Head: normal to inspection Ears: hearing grossly normal bilaterally Mouth: Yes Normal oral and palatal mucosa present Eyes: General: appearance normal, both eyes and all related structures Neck: Neck: normal visual inspection Chest: Chest palpation & inspection: normal inspection of the chest Resp: Effort & Inspection: normal respiratory effort Auscultation: clear to auscultation bilaterally Cardio: Rate: regular rate Rhythm: regular rhythm GI: Inspection: normal to inspection GI Palp: Yes Soft to palpation, No Tenderness to palpation present (GI), No Guarding due to palpation present (GI) and Yes No hepatosplenomegaly present Auscultation: normal bowel sounds Skin: General skin exam: normal color and no jaundice Neuro: General: patient oriented x3 Speech: normal speech Objective Data Vital Signs Vital Signs: Vital Signs - 24 hr 12/21/23 08:03 12/21/23 08:03 12/21/23 08:19 Temperature Pulse Rate 79 75 Respiratory Rate 18 18 Blood Pressure Pulse Oximetry 97 Oxygen Delivery High Flow Nasal Cannula Oxygen Flow Rate 5 12/21/23 08:00 12/21/23 11:34 12/21/23 12:11 Temperature 36.9 C Pulse Rate 75 75 Respiratory Rate 21 H 27 H Blood Pressure 99/32 L 77/45 L Pulse Oximetry 97 96 92 Oxygen Delivery High Flow Nasal Cannula Nasal Cannula Room Air Oxygen Flow Rate 5 6 12/21/23 12:21 12/21/23 12:31 12/21/23 14:09 Temperature Pulse Rate 68 76 Respiratory Rate 23 H 26 H Blood Pressure 104/56 L 120/60 Pulse Oximetry 92 92 95 Oxygen Delivery Room Air Room Air High Flow Nasal Cannula Oxygen Flow Rate 5 12/21/23 14:12 12/21/23 08:00 12/21/23 14:00 Temperature 36.6 C Pulse R
[2023-12-22 07:23] LABS: Alanine Aminotransferase 13 U/L (6-50); Albumin Level 2.3 g/dL (3.5-5.1); Alkaline Phosphatase 73 U/L (38-126); Anion Gap -1 mmol/L (8-16); Aspartate Amino Transferase 22 U/L (17-59); Blood Urea Nitrogen 23 mg/dL (9-20); Calcium 8.2 mg/dL (8.4-10.2); Carbon Dioxide 30 mmol/L (22-30); Chloride 101 mmol/L (98-107); Estimated CRCL calculation 47 ml/min; Estimated Glomerular Filt Rate > 60; Glucose 112 mg/dL (65-110); Potassium 4.2 mmol/L (3.4-5.0); Sodium 130 mmol/L (137-145)
[2023-12-22 07:43] LABS: Glucose Point of Care 117 mg/dl (65-105)
--- NOTE | 2023-12-22 08:13 | PC.NURSE ---
This RN helped pt's this AM get pt situated for breakfast. Upon walking into the room, this RN observed the pt was wearing a hi-geena nasal cannula set a 5 L as well as a simple open mask also set at 5 L. This RN sat the pt up and removed the simple mask in anticipation for breakfast. This RN checked his o2 saturation and the pt went to upper 70's within less than 2 minutes. This RN placed the simple mask back on the pt and his o2 went back up to 92% as quickly as he desaturated earlier. After the pt was stable, this RN notified the MD and RT.
[2023-12-22] MEDS: TAMSULOSIN HCL 0.4 MG CAPSULE PO (08:24)
[2023-12-22] MEDS: FUROSEMIDE INJ 40 MG/4 ML VIAL 20 MG IV PUSH ×2 (08:24→17:37)
[2023-12-22] MEDS: predniSONE 20 MG TABLET 40 MG PO (08:24)
[2023-12-22] MEDS: ACETAMINOPHEN 325 MG TABLET 650 MG PO (08:24)
--- NOTE | 2023-12-22 08:46 | PM.IMPN ---
Progress Note: A&P Assessment and Plan (1) Acute on chronic hypoxic respiratory failure: Code(s): J96.21 - Acute and chronic respiratory failure with hypoxia Status: Acute Assessment and Plan: 12/18 and daughter by the bedside pt remains hypoxic on 5 liters of oxygen, titrate pulmonology following Diffuse lung disease noted pulmonary edema versus chronic interstitial lung disease. 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 lingula PE on CTA chest from 11/28 AC per GI recs (5) Hypertension: Code(s): I10 - Essential (primary) hypertension Status: Acute Assessment and Plan: 12/17 controlled (6) Coronary artery disease: Code(s): I25.10 - Atherosclerotic heart disease of [place] coronary artery without angina pectoris Status: Acute Assessment and Plan: w/o angina (7) Hyperlipidemia: Code(s): E78.5 - Hyperlipidemia, unspecified Status: Acute (8) Benign prostatic hyperplasia: Code(s): N40.0 - Benign prostatic hyperplasia without lower urinary tract symptoms Status: Acute (9) Gastrointestinal hemorrhage: Code(s): K92.2 - Gastrointestinal hemorrhage, unspecified Status: Acute Assessment and Plan: Colonoscopy 12/21/2023 with internal hemorrhoids and diverticulosis without perforation or abscess without bleeding. Small amount of dried blood was seen in the few of diverticular Anticoagulation on hold (10) Iron deficiency anemia: Code(s): D50.9 - Iron deficiency anemia, unspecified Status: Acute Assessment and Plan: Hb 7.7m isat 12 Received PRBC transfusion. started on Venover 800/1000mg monitor h and H. Suspected to be diverticular disease Colonoscopy 12/21/2023 with internal hemorrhoids and diverticulosis without perforation or abscess without bleeding. Small amount of dried blood was seen in the few of diverticula. Anticoagulation on hold Subjective Date/time seen: 12/22/23 08:46 Interval history: Underwent colonoscopy. Hypoxia worsened currently on 5 L via nasal cannula. Also needed mask and placed on Airvo this morning. Discussed with Pulmonary. Review of Systems Review of Systems: All systems reviewed & are unremarkable except as noted in HPI and below Exam Narrative: GENERAL: Pleasant, in no acute distress. Well-nourished. - EYES: PERRL. Anicteric. - HENT: Moist mucous membranes. - LUNGS: CTA with decreased BS at bases. Mildly tachypneic. - CARDIOVASCULAR: Regular rate and rhythm. NL S1,2. No murmur. No JVD. - ABDOMEN: Soft, non-tender and non-distended. No palpable masses. - EXTREMITIES: No edema. - NEUROLOGIC: No focal neurological deficits. CN II-XII grossly intact. - PSYCHIATRIC: Awake, Alert and oriented x 3. Appropriate mood and affect. - SKIN: No rashes or lesions. Warm. Objective Data Vital Signs Vital Signs: Vital Signs -
--- NOTE | 2023-12-22 08:57 | PM.PNPUL ---
Progress Note: A&P Assessment and Plan (1) Acute on chronic hypoxic respiratory failure: Code(s): J96.21 - Acute and chronic respiratory failure with hypoxia Status: Acute Assessment and Plan: This 88-year-old male patient has been readmitted to the hospital due to shortness of breath and hypoxemia experienced during rehabilitation. This follows a recent hospitalization for shortness of breath. During his previous hospitalization, he was treated for COVID-19 infection, pulmonary embolism (evidenced by a small blood clot on a chest CT), and congestive heart failure. He was also administered antibiotics to address a possible bacterial co-infection. Despite improvements in his clinical condition and gas exchange, his chest CT showed no signs of clearing. Upon my review, the chest CT displays bilateral ground-glass infiltrates, small consolidations, and some evidence of reticulation primarily at the bases. 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 The positive myositis 155/140 antibody, if confirmed on repeat testing, could indicate the presence of underlying Dermatomyositis. However, the patient denied having any history of skin rashes or muscle soreness, and his CPK levels are not elevated. Given that these antibodies are highly specific and often associated with hidden malignancy, Amyopathic Dermatomyositis may also be considered. Interstitial Pneumonia with Autoimmune Features (IPAF) is also a differential diagnosis. I had an extensive discussion with the patient and his family, including his and son. I explained the severity of the patient's disease, especially considering the recent positive serology. I informed them that we plan to start the patient on steroid treatment, specifically Solu-Medrol 80 mg IV, today. I also indicated that he may need to be evaluated by Rheumatology services at a tertiary center, preferably within a University setting, due to the likelihood that he may require specific treatment for his autoimmune disease that we cannot provide here. The patient expressed that he does not wish to be transferred elsewhere. However, his family indicated that they would attempt to persuade him to agree to a transfer to a tertiary center. The patient's O2 saturation declined this morning. The cause of the deteriorating gas exchange remains uncertain at present. An immediate chest x-ray did not reveal any new infiltrations. The respiratory examination did not yield any fresh findings. Today's blood test did not indicate leukocytosis. The patient does not appear to be septic. The reason for the worsening condition is still unclear. A potential lower respiratory tract infection or atelectasis could be the cause, considering the patient's extended bed rest and recent exposure to general anesthesia during a colonoscopy. Plan: We will continue to closely observe the patient's respiratory condition. We will also persist with administering short-acting bronchodilators every 4 hours along with the current dose of prednisone, and obtain a sputum culture and MRSA screening. The patient is advised to recommence the direct anticoagulant as recommended by the GI cosmetic consultant. Incentive spirometry. (2) Pneumonia: Qualifiers: Laterality: left Lung location: lower lobe of lung Pneumonia type: due to unspecified organism Qualified Code(s): J18.9 - Pneumonia, unspecified organism Code(s): J18.9 - Pneumonia, unspecified organism Status: Acute (3) ILD (interstitial lung disease): Code(s): J84.9 - Interstitial pulmonary disease, unspecified Status: Acute (4) Pulmonary embolism: Code(s): I26.99 - Other pulmonary embolism without acute cor pulmonale Status: Acute Subjective Date/time seen: 12/22/23 08:57 Interval history: Patient reports no change in shortness of breath. He desaturated umberto
[2023-12-22 09:37] LABS: NT Pro B Type Natriuretic Pept 2160 pg/mL (19.9-100)
--- NOTE | 2023-12-22 10:10 | WPDANESPN ---
Anes - Prog Note Post-Op Date/Time: 12/22/23 10:11 Cardiovascular status: normal Respiratory status: normal Airway patency: baseline Mental status: baseline Post-Op hydration status: normal Vital Signs: Last Vital Signs Temp 36.8 C 12/22/23 05:07 Pulse 80 12/22/23 09:30 Resp 18 12/22/23 09:30 BP 110/45 L 12/22/23 05:07 Pulse Ox 95 12/22/23 09:30 O2 Del Method High Flow Therapy with Nasal Cannula 12/22/23 09:30 O2 Flow Rate 30 12/22/23 09:30 FiO2 60 12/22/23 09:30 Pain Score (VAS): 0 I/O: Intake & Output 12/21/23 12/22/23 12/22/23 23:59 07:59 15:59 Intake Total 640 Output Total 200 500 Balance 440 -500 Laboratory Tests 12/22/23 06:49 12/22/23 06:49 12/21/23 12/21/23 12/21/23 10:57 16:25 20:34 WBC RBC Hgb Hct MCV MCH MCHC RDW Plt Count MPV Immature Gran % (Auto) Neut % (Auto) Lymph % (Auto) [place] % (Auto) Eos % (Auto) Baso % (Auto) Lymph # (Auto) [place] # (Auto) Eos # (Auto) Baso # (Auto) Abs Immat Gran (auto) Absolute Neuts (auto) Absolute Nucleated RBC Nucleated RBC % Sodium Potassium Chloride Carbon Dioxide Anion Gap BUN Creatinine Estim Creat Clear Calc Estimated GFR Glucose POC Capillary Glucose 127 H 165 H 104 Lactic Acid Calcium Total Bilirubin AST ALT Alkaline Phosphatase NT-Pro-B Natriuret Pep Total Protein Albumin 12/22/23 12/22/23 06:49 07:31 WBC 8.7 RBC 2.78 L Hgb 7.9 L Hct 25.3 L MCV 91.0 MCH 28.4 MCHC 31.2 L RDW 14.6 H Plt Count 136 L MPV 10.2 Immature Gran % (Auto) 0.7 H Neut % (Auto) 77.8 H Lymph % (Auto) 6.4 L [place] % (Auto) 6.7 Eos % (Auto) 8.2 H Baso % (Auto) 0.2 Lymph # (Auto) 0.55 L [place] # (Auto) 0.6 Eos # (Auto) 0.7 H Baso # (Auto) 0.0 Abs Immat Gran (auto) 0.06 H Absolute Neuts (auto) 6.7 Absolute Nucleated RBC 0.0 Nucleated RBC % 0.0 Sodium 130 L Potassium 4.2 Chloride 101 Carbon Dioxide 30 Anion Gap -1 L BUN 23 H D Creatinine 0.90 Estim Creat Clear Calc 47 Estimated GFR > 60 Glucose 112 H POC Capillary Glucose 117 H Lactic Acid 0.9 Calcium 8.2 L Total Bilirubin 1.0 AST 22 ALT 13 Alkaline Phosphatase 73 NT-Pro-B Natriuret Pep 2160 H Total Protein 5.0 L Albumin 2.3 L Post-procedural complaints: none Patient Feedback: Patient satisfied with anesthetic care.
[2023-12-22 11:28] LABS: Glucose Point of Care 141 mg/dl (65-105)
--- NOTE | 2023-12-22 13:05 | PCNFU ---
Nutrition Follow-Up Complete: Severe protein calorie malnutrition related to acute illness as evidenced by intakes <75% needs >1 month; weight loss 13%/1 month; severe muscle wasting to temporalis, fat loss to cheeks, clavicles Goal: Improve PO intake to at least 75% meals and supplements - Goal not being met yet. Continue with same goal Pt current nutrition is Low fiber, low residue. Intakes 0-80%. Glucerna BID for additional 220 kcal and 10 g protein each. Nutrition recommendation: Continue current nutrition care plan and supplement orders. Bowel movements: +7 BMs 12/20/23 (colon prep) Last recorded weight is 78.8 kg Labs Review Hgb 7.9, Hct 25.3, Alb 2.3, Na 130, BUN 23, Glu 141ed: Meds Noted: Eliquis, Lasix, Novolog Skin: No pressure injuries Additional Notes: Pt and in room. Pt did not feel like eating breakfast. He got his lunch tray and was about to eat. He does not like food here so has not been eating as much. Monitoring intakes, weights, labs, supplement tolerance, plan of care Follow up in 5 days
[2023-12-22 16:30] LABS: Glucose Point of Care 195 mg/dl (65-105)
[2023-12-22] MEDS: LOSARTAN POTASSIUM 25 MG TABLET PO (17:37)
[2023-12-22 19:52] LABS: MRSA (PCR) NOT DETECTED (NOT DETECTE)
[2023-12-22] MEDS: ATORVASTATIN 10 MG TABLET PO (21:23)
[2023-12-22 21:29] LABS: Glucose Point of Care 200 mg/dl (65-105)
[2023-12-23] VITALS (23 sets, daily range): BP systolic 90–118; BP diastolic 43–60; PULSE 71–132; RESP 18–24; TEMP 36.6–36.7; O2SAT 92–100
[2023-12-23] MEDS: IPRATROPIUM BR 0.02% INH SOLN 0.5 MG/2.5 ML VIAL INHALATION ×4 (02:22→21:16)
[2023-12-23] MEDS: ALBUTEROL SULFATE NEB 2.5 MG/3 ML INH 5 MG INHALATION ×4 (02:22→21:16)
[2023-12-23 07:40] LABS: Glucose Point of Care 116 mg/dl (65-105)
[2023-12-23] MEDS: ACETAMINOPHEN 325 MG TABLET 650 MG PO (08:16)
[2023-12-23] MEDS: predniSONE 20 MG TABLET 40 MG PO (08:17)
[2023-12-23] MEDS: FUROSEMIDE INJ 40 MG/4 ML VIAL 20 MG IV PUSH ×2 (08:17→16:28)
[2023-12-23] MEDS: TAMSULOSIN HCL 0.4 MG CAPSULE PO (08:17)
[2023-12-23 08:56] LABS: Basophils Percent Auto 0.1 % (0.2-1.2); Eosinophils Absolute Auto 0.6 K/mm3 (0-0.3); Eosinophils Percent Auto 7.1 % (0-4.4); Hematocrit 25.9 % (42.0-52.0); Hemoglobin 8.2 g/dL (14.0-18.0); Immature Granulocyte Absolute 0.08 K/mm3 (0.00-0.031); Lymphocytes Absolute Auto 0.65 K/mm3 (0.9-3.2); Lymphocytes Percent Auto 7.9 % (18.3-44.2); Mean Corpuscular HGB Conc 31.7 g/dl (32-36); Mean Corpuscular Hemoglobin 28.6 pg (26-34); Mean Corpuscular Volume 90.2 fl (80-100); Monocytes Absolute Auto 0.5 K/mm3 (0.1-0.6); Monocytes Percent Auto 5.8 % (2.6-8.5); Neutrophils Absolute Auto 6.4 K/mm3 (1.3-6.7); Neutrophils Percent Auto 78.1 % (45.5-73.1); Platelet Count Result 144 k/mm3 (150-375); Red Blood Count 2.87 M/mm3 (4.6-6.20); Red Cell Distribution Width 14.7 % (11.5-14.5); White Blood Count 8.2 K/mm3 (4.5-10.0)
--- NOTE | 2023-12-23 09:04 | PM.PNPUL ---
Progress Note: A&P Assessment and Plan (1) Acute on chronic hypoxic respiratory failure: Code(s): J96.21 - Acute and chronic respiratory failure with hypoxia Status: Acute Assessment and Plan: This 88-year-old male patient has been readmitted to the hospital due to shortness of breath and hypoxemia experienced during rehabilitation. This follows a recent hospitalization for shortness of breath. During his previous hospitalization, he was treated for COVID-19 infection, pulmonary embolism (evidenced by a small blood clot on a chest CT), and congestive heart failure. He was also administered antibiotics to address a possible bacterial co-infection. Despite improvements in his clinical condition and gas exchange, his chest CT showed no signs of clearing. Upon my review, the chest CT displays bilateral ground-glass infiltrates, small consolidations, and some evidence of reticulation primarily at the bases. 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 The positive myositis 155/140 antibody, if confirmed on repeat testing, could indicate the presence of underlying Dermatomyositis. However, the patient denied having any history of skin rashes or muscle soreness, and his CPK levels are not elevated. Given that these antibodies are highly specific and often associated with hidden malignancy, Amyopathic Dermatomyositis may also be considered. Interstitial Pneumonia with Autoimmune Features (IPAF) is also a differential diagnosis. I had an extensive discussion with the patient and his family, including his and son. I explained the severity of the patient's disease, especially considering the recent positive serology. I informed them that we plan to start the patient on steroid treatment, specifically Solu-Medrol 80 mg IV, today. I also indicated that he may need to be evaluated by Rheumatology services at a tertiary center, preferably within a University setting, due to the likelihood that he may require specific treatment for his autoimmune disease that we cannot provide here. The patient expressed that he does not wish to be transferred elsewhere. However, his family indicated that they would attempt to persuade him to agree to a transfer to a tertiary center. The patient's O2 respiratory status remains unchanged over the last 24 hours. He has been off antibiotics. Physical exam is unchanged. He has no leukocytosis. He remains on prednisone 40 mg p.o. daily. Repeat myositis panel is still pending. MRSA screen negative. patient has not been started on direct anticoagulant for recent pulmonary embolism. He was cleared by GI services to go back on the direct anticoagulant. Plan: We will continue to closely observe the patient's respiratory condition. We will also persist with administering short-acting bronchodilators every 4 hours along with the current dose of prednisone. Sputum culture pending. (2) Pneumonia: Qualifiers: Laterality: left Lung location: lower lobe of lung Pneumonia type: due to unspecified organism Qualified Code(s): J18.9 - Pneumonia, unspecified organism Code(s): J18.9 - Pneumonia, unspecified organism Status: Acute (3) ILD (interstitial lung disease): Code(s): J84.9 - Interstitial pulmonary disease, unspecified Status: Acute (4) Pulmonary embolism: Code(s): I26.99 - Other pulmonary embolism without acute cor pulmonale Status: Acute Subjective Date/time seen: 12/23/23 09:04 Interval history: Patient has no new respiratory symptoms like fever chills hemoptysis chest pain or wheezing. He stated that he has mild cough with some sputum production, unclear whether sputum is colored. He remains on high-flow nasal cannula. Doing incentive spirometry. Mostly bedridden. Review of Systems Review of Systems: All systems reviewed & are unremarkable except as noted
[2023-12-23 09:19] LABS: Alanine Aminotransferase 17 U/L (6-50); Albumin Level 2.6 g/dL (3.5-5.1); Alkaline Phosphatase 81 U/L (38-126); Anion Gap 2 mmol/L (8-16); Aspartate Amino Transferase 34 U/L (17-59); Bilirubin,Total 1.1 mg/dL (0.2-1.3); Blood Urea Nitrogen 24 mg/dL (9-20); Calcium 8.6 mg/dL (8.4-10.2); Carbon Dioxide 32 mmol/L (22-30); Chloride 96 mmol/L (98-107); Estimated CRCL calculation 42 ml/min; Estimated Glomerular Filt Rate > 60; Glucose 156 mg/dL (65-110); Magnesium 2.2 mg/dL (1.6-2.3); Potassium 3.5 mmol/L (3.4-5.0); Sodium 130 mmol/L (137-145)
[2023-12-23 11:12] LABS: Glucose Point of Care 185 mg/dl (65-105)
--- NOTE | 2023-12-23 13:33 | PM.IMPN ---
Progress Note: A&P Assessment and Plan (1) Acute on chronic hypoxic respiratory failure: Code(s): J96.21 - Acute and chronic respiratory failure with hypoxia Status: Acute Assessment and Plan: 12/18 and daughter by the bedside pt remains hypoxic on 5 liters of oxygen, titrate pulmonology following Diffuse lung disease noted pulmonary edema versus chronic interstitial lung disease. 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 lingula PE on CTA chest from 11/28 AC per GI recs (5) Hypertension: Code(s): I10 - Essential (primary) hypertension Status: Acute Assessment and Plan: 12/17 controlled (6) Coronary artery disease: Code(s): I25.10 - Atherosclerotic heart disease of [place] coronary artery without angina pectoris Status: Acute Assessment and Plan: w/o angina (7) Hyperlipidemia: Code(s): E78.5 - Hyperlipidemia, unspecified Status: Acute (8) Benign prostatic hyperplasia: Code(s): N40.0 - Benign prostatic hyperplasia without lower urinary tract symptoms Status: Acute (9) Gastrointestinal hemorrhage: Code(s): K92.2 - Gastrointestinal hemorrhage, unspecified Status: Acute Assessment and Plan: Colonoscopy 12/21/2023 with internal hemorrhoids and diverticulosis without perforation or abscess without bleeding. Small amount of dried blood was seen in the few of diverticular Anticoagulation on hold (10) Iron deficiency anemia: Code(s): D50.9 - Iron deficiency anemia, unspecified Status: Acute Assessment and Plan: Hb 7.7m isat 12 Received PRBC transfusion. started on Venover 800/1000mg monitor h and H. Suspected to be diverticular disease Colonoscopy 12/21/2023 with internal hemorrhoids and diverticulosis without perforation or abscess without bleeding. Small amount of dried blood was seen in the few of diverticula. Anticoagulation on hold Plan Patient leaning towards moving towards comfort care hospice and comfort measures discussed. He will discussed this with his family this afternoon Subjective Date/time seen: 12/23/23 13:33 Interval history: Patient feels the same does not feel any better. Leaning towards comfort care. He will discuss this with the family. Remains on Airvo Vapotherm Review of Systems Review of Systems: All systems reviewed & are unremarkable except as noted in HPI and below Exam Narrative: GENERAL: Pleasant, in no acute distress. Well-nourished. - EYES: PERRL. Anicteric. - HENT: Moist mucous membranes. - LUNGS: CTA with decreased BS at bases. Mildly tachypneic. - CARDIOVASCULAR: Regular rate and rhythm. NL S1,2. No murmur. No JVD. - ABDOMEN: Soft, non-tender and non-distended. No palpable masses. - EXTREMITIES: No edema. - NEUROLOGIC: No focal neurological deficits. CN II-XII grossly intact. - PSYCHIATRIC: Awake, Alert a
[2023-12-23] MEDS: METOPROLOL TARTRATE 12.5 MG TABLET PO ×2 (16:28→20:11)
--- NOTE | 2023-12-23 18:12 | PCCCNOTE ---
CC called to the room to discuss hospice options with pt and his . They were given the list of choices and explained to them the process of hospice. They want to talk to their daughter about the options before making a decision. She will be able to be her tomorrow morning.
[2023-12-23] MEDS: ATORVASTATIN 10 MG TABLET PO (20:12)
[2023-12-23] MEDS: MELATONIN 5 MG TABLET PO (20:12)
[2023-12-24] VITALS (24 sets, daily range): BP systolic 92–123; BP diastolic 53–62; PULSE 80–102; RESP 18–26; TEMP 36.4–36.6; O2SAT 93–100
[2023-12-24] MEDS: IPRATROPIUM BR 0.02% INH SOLN 0.5 MG/2.5 ML VIAL INHALATION ×3 (02:22→14:44)
[2023-12-24] MEDS: ALBUTEROL SULFATE NEB 2.5 MG/3 ML INH 5 MG INHALATION ×3 (02:22→14:44)
[2023-12-24] MEDS: ACETAMINOPHEN 325 MG TABLET 650 MG PO (08:15)
[2023-12-24] MEDS: predniSONE 20 MG TABLET 40 MG PO (08:15)
[2023-12-24] MEDS: METOPROLOL TARTRATE 12.5 MG TABLET PO ×2 (08:15→20:47)
[2023-12-24] MEDS: FUROSEMIDE INJ 40 MG/4 ML VIAL 20 MG IV PUSH (08:16)
[2023-12-24] MEDS: TAMSULOSIN HCL 0.4 MG CAPSULE PO (08:16)
[2023-12-24] MEDS: polyethylene glycoL 3350 17 GM POWD.PACK PO (08:17)
--- NOTE | 2023-12-24 10:09 | PM.PNPUL ---
Progress Note: A&P Assessment and Plan (1) Acute on chronic hypoxic respiratory failure: Code(s): J96.21 - Acute and chronic respiratory failure with hypoxia Status: Acute Assessment and Plan: This 88-year-old male patient has been readmitted to the hospital due to shortness of breath and hypoxemia experienced during rehabilitation. This follows a recent hospitalization for shortness of breath. During his previous hospitalization, he was treated for COVID-19 infection, pulmonary embolism (evidenced by a small blood clot on a chest CT), and congestive heart failure. He was also administered antibiotics to address a possible bacterial co-infection. Despite improvements in his clinical condition and gas exchange, his chest CT showed no signs of clearing. Upon my review, the chest CT displays bilateral ground-glass infiltrates, small consolidations, and some evidence of reticulation primarily at the bases. 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 The positive myositis 155/140 antibody, if confirmed on repeat testing, could indicate the presence of underlying Dermatomyositis. However, the patient denied having any history of skin rashes or muscle soreness, and his CPK levels are not elevated. Given that these antibodies are highly specific and often associated with hidden malignancy, Amyopathic Dermatomyositis may also be considered. Interstitial Pneumonia with Autoimmune Features (IPAF) is also a differential diagnosis. The patient has initially been treated with intravenous Solu-Medrol for several days, followed by a daily intake of 40 milligrams of oral prednisone. Over the past week, the patient's respiratory condition has remained relatively stable. The patient required a higher fraction of inspired oxygen after undergoing a colonoscopy with general anesthesia. The patient has been experiencing a mild cough and producing light yellow sputum, but the most recent sputum culture showed an excess of epithelial cells. Currently, the patient is contemplating entering hospice care. Plan: Continue with the supportive treatment. Repeat CBC and chest x-ray. Repeat myositis panel pending. A meeting with the hospice team is being arranged. (2) Pneumonia: Qualifiers: Laterality: left Lung location: lower lobe of lung Pneumonia type: due to unspecified organism Qualified Code(s): J18.9 - Pneumonia, unspecified organism Code(s): J18.9 - Pneumonia, unspecified organism Status: Acute (3) ILD (interstitial lung disease): Code(s): J84.9 - Interstitial pulmonary disease, unspecified Status: Acute (4) Pulmonary embolism: Code(s): I26.99 - Other pulmonary embolism without acute cor pulmonale Status: Acute Subjective Date/time seen: 12/24/23 10:09 Interval history: Patient has no new respiratory symptoms like fever chills hemoptysis chest pain or wheezing. He stated that he has mild cough with some sputum production, unclear whether sputum is colored. He remains on high-flow nasal cannula. No longer doing incentive spirometry. Mostly bedridden. No fever. Family at the bedside. Patient expressed he willing to go on hospice. Review of Systems Review of Systems: All systems reviewed & are unremarkable except as noted in HPI and below Exam Narrative: GENERAL APPEARANCE: Well developed, well nourished, alert and cooperative, and appears to be in mild respiratory distress while on nasal cannula SKIN: Inspection of the skin reveals no rashes, ulcerations or petechiae. HEENT: Sclerae anicteric and conjunctivae pink and moist. Extraocular movements were intact and pupils were equal, round. Dry oral mucosa CHEST: Normal AP diameter and normal contour without any kyphoscoliosis. LUNGS: crackles at bases bilaterally CARDIAC: There was a regular rate and rhythm without any murmurs, gallops, rub
[2023-12-24 10:35] LABS: Basophils Percent Auto 0.1 % (0.2-1.2); Eosinophils Absolute Auto 0.3 K/mm3 (0-0.3); Eosinophils Percent Auto 3.3 % (0-4.4); Hematocrit 27.7 % (42.0-52.0); Hemoglobin 8.7 g/dL (14.0-18.0); Immature Granulocyte Percent A 1.3 % (0-0.5); Lymphocytes Absolute Auto 0.27 K/mm3 (0.9-3.2); Lymphocytes Percent Auto 3.4 % (18.3-44.2); Mean Corpuscular HGB Conc 31.4 g/dl (32-36); Mean Corpuscular Hemoglobin 28.5 pg (26-34); Mean Corpuscular Volume 90.8 fl (80-100); Mean Platelet Volume 9.7 fl (7.4-10.4); Monocytes Absolute Auto 0.6 K/mm3 (0.1-0.6); Neutrophils Absolute Auto 6.6 K/mm3 (1.3-6.7); Neutrophils Percent Auto 83.9 % (45.5-73.1); Platelet Count Result 149 k/mm3 (150-375); Red Blood Count 3.05 M/mm3 (4.6-6.20); Red Cell Distribution Width 15.2 % (11.5-14.5); White Blood Count 7.9 K/mm3 (4.5-10.0)
--- NOTE | 2023-12-24 10:46 | PM.IMPN ---
Progress Note: A&P Assessment and Plan (1) Acute on chronic hypoxic respiratory failure: Code(s): J96.21 - Acute and chronic respiratory failure with hypoxia Status: Acute Assessment and Plan: 12/18 and daughter by the bedside pt remains hypoxic on 5 liters of oxygen, titrate pulmonology following Diffuse lung disease noted pulmonary edema versus chronic interstitial lung disease. DVT involving left posterior tibial and peroneal vein on 11/28/2023 repeat has been negative Recent COVID infection 12/06 (2) Pneumonia: Qualifiers: Laterality: left Lung location: lower lobe of lung Pneumonia type: due to unspecified organism Qualified Code(s): J18.9 - Pneumonia, unspecified organism Code(s): J18.9 - Pneumonia, unspecified organism Status: Acute Assessment and Plan: Completed levaquin , lactic acidosis resolved monitor lactic acid and cultures (3) ILD (interstitial lung disease): Code(s): J84.9 - Interstitial pulmonary disease, unspecified Status: Acute Assessment and Plan: 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 lingula PE on CTA chest from 11/28 AC per GI recs (5) Hypertension: Code(s): I10 - Essential (primary) hypertension Status: Acute Assessment and Plan: 2 controlled (6) Coronary artery disease: Code(s): I25.10 - Atherosclerotic heart disease of [place] coronary artery without angina pectoris Status: Acute Assessment and Plan: w/o angina (7) Hyperlipidemia: Code(s): E78.5 - Hyperlipidemia, unspecified Status: Acute (8) Benign prostatic hyperplasia: Code(s): N40.0 - Benign prostatic hyperplasia without lower urinary tract symptoms Status: Acute (9) Gastrointestinal hemorrhage: Code(s): K92.2 - Gastrointestinal hemorrhage, unspecified Status: Acute Assessment and Plan: Colonoscopy 12/21/2023 with internal hemorrhoids and diverticulosis without perforation or abscess without bleeding. Small amount of dried blood was seen in the few of diverticular Anticoagulation on hold (10) Iron deficiency anemia: Code(s): D50.9 - Iron deficiency anemia, unspecified Status: Acute Assessment and Plan: Hb 7.7m isat 12 Received PRBC transfusion. started on Venover 800/1000mg monitor h and H. Suspected to be diverticular disease Colonoscopy 12/21/2023 with internal hemorrhoids and diverticulosis without perforation or abscess without bleeding. Small amount of dried blood was seen in the few of diverticula. Anticoagulation on hold which will be restarted today Plan AFib with RVR on metoprolol since his H&H has remained stable now Used to be on apixaban patient leaning towards moving towards comfort care hospice and comfort measures discussed. Meeting with hospice team today. Subjective Date/time seen: 12/24/23 10:46 Interval history: Patient went into AFib with RVR last night. Improved with metoprolol. Feels about the same today. Remains on Airvo/Vapotherm. Minimal cough Review of Systems Review of Systems: All systems reviewed & are unremarkable except as noted in HPI and below Exam Narrative: GENERAL: Pleasant, in no acute distress. Well-nourished. - EYES: PERRL. Anicteric. - HENT: Moist mucous membranes. - LUNGS: CTA with decreased BS at bases. Mildly tachypneic. - CARDIOVASCULAR: Regular rate and rhythm. NL S1,2. No murmur. No JVD. - ABDOMEN: Soft, non-tender and non-distended. No palpable masses. - EXTREMITIES: No edema. - NE
[2023-12-24] MEDS: APIXABAN 5 MG TABLET PO ×2 (15:56→20:47)
[2023-12-24] MEDS: LEVALBUTEROL NEB 1.25 MG/3 ML 0.63 MG INHALATION (20:19)
[2023-12-24] MEDS: ATORVASTATIN 10 MG TABLET PO (20:47)
[2023-12-25] VITALS (17 sets, daily range): BP systolic 103–120; BP diastolic 61–72; PULSE 87–114; RESP 20–26; TEMP 36.2–36.8; O2SAT 91–100
[2023-12-25 06:40] LABS: Basophils Percent Auto 0.2 % (0.2-1.2); Eosinophils Absolute Auto 0.3 K/mm3 (0-0.3); Eosinophils Percent Auto 5.3 % (0-4.4); Hematocrit 27.5 % (42.0-52.0); Hemoglobin 8.8 g/dL (14.0-18.0); Immature Granulocyte Absolute 0.09 K/mm3 (0.00-0.031); Immature Granulocyte Percent A 1.5 % (0-0.5); Lymphocytes Absolute Auto 0.86 K/mm3 (0.9-3.2); Lymphocytes Percent Auto 13.9 % (18.3-44.2); Mean Corpuscular Hemoglobin 28.6 pg (26-34); Mean Corpuscular Volume 89.3 fl (80-100); Mean Platelet Volume 9.2 fl (7.4-10.4); Monocytes Absolute Auto 0.6 K/mm3 (0.1-0.6); Monocytes Percent Auto 9.5 % (2.6-8.5); Neutrophils Absolute Auto 4.3 K/mm3 (1.3-6.7); Neutrophils Percent Auto 69.6 % (45.5-73.1); Platelet Count Result 155 k/mm3 (150-375); Red Blood Count 3.08 M/mm3 (4.6-6.20); Red Cell Distribution Width 15.1 % (11.5-14.5); White Blood Count 6.2 K/mm3 (4.5-10.0)
[2023-12-25 07:00] LABS: Alanine Aminotransferase 25 U/L (6-50); Albumin Level 2.5 g/dL (3.5-5.1); Alkaline Phosphatase 71 U/L (38-126); Anion Gap 3 mmol/L (8-16); Aspartate Amino Transferase 47 U/L (17-59); Bilirubin,Total 0.7 mg/dL (0.2-1.3); Blood Urea Nitrogen 33 mg/dL (9-20); Calcium 8.6 mg/dL (8.4-10.2); Carbon Dioxide 32 mmol/L (22-30); Chloride 95 mmol/L (98-107); Estimated CRCL calculation 47 ml/min; Estimated Glomerular Filt Rate > 60; Glucose 104 mg/dL (65-110); Potassium 3.3 mmol/L (3.4-5.0); Sodium 130 mmol/L (137-145)
[2023-12-25 07:59] LABS: Glucose Point of Care 118 mg/dl (65-105)
[2023-12-25] MEDS: LEVALBUTEROL NEB 1.25 MG/3 ML 0.63 MG INHALATION ×2 (08:25→20:51)
[2023-12-25] MEDS: predniSONE 20 MG TABLET 40 MG PO (09:06)
[2023-12-25] MEDS: TAMSULOSIN HCL 0.4 MG CAPSULE PO (09:06)
[2023-12-25] MEDS: FUROSEMIDE INJ 40 MG/4 ML VIAL 20 MG IV PUSH ×2 (09:06→17:19)
[2023-12-25] MEDS: polyethylene glycoL 3350 17 GM POWD.PACK PO (09:06)
[2023-12-25] MEDS: POTASSIUM CHLORIDE 20 MEQ ER TABLET 40 MEQ PO (09:06)
[2023-12-25] MEDS: APIXABAN 5 MG TABLET PO ×2 (09:06→20:35)
[2023-12-25] MEDS: METOPROLOL TARTRATE 12.5 MG TABLET PO ×2 (09:06→20:34)
--- NOTE | 2023-12-25 10:44 | PM.PNPUL ---
Progress Note: A&P Assessment and Plan (1) Acute on chronic hypoxic respiratory failure: Code(s): J96.21 - Acute and chronic respiratory failure with hypoxia Status: Acute Assessment and Plan: This 88-year-old male patient has been readmitted to the hospital due to shortness of breath and hypoxemia experienced during rehabilitation. This follows a recent hospitalization for shortness of breath. During his previous hospitalization, he was treated for COVID-19 infection, pulmonary embolism (evidenced by a small blood clot on a chest CT), and congestive heart failure. He was also administered antibiotics to address a possible bacterial co-infection. Despite improvements in his clinical condition and gas exchange, his chest CT showed no signs of clearing. Upon my review, the chest CT displays bilateral ground-glass infiltrates, small consolidations, and some evidence of reticulation primarily at the bases. 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 The positive myositis 155/140 antibody, if confirmed on repeat testing, could indicate the presence of underlying Dermatomyositis. However, the patient denied having any history of skin rashes or muscle soreness, and his CPK levels are not elevated. Given that these antibodies are highly specific and often associated with hidden malignancy, Amyopathic Dermatomyositis may also be considered. Interstitial Pneumonia with Autoimmune Features (IPAF) is also a differential diagnosis. The patient has initially been treated with intravenous Solu-Medrol for several days, followed by a daily intake of 40 milligrams of oral prednisone. Over the past week, the patient's respiratory condition has remained relatively stable. The patient required a higher fraction of inspired oxygen after undergoing a colonoscopy with general anesthesia. There has been no significant change in patient's physical exam. He has some shortness of breath this a.m. He has had mild cough with light yellow sputum production. Sputum culture not diagnostic. Plan: Continue with the supportive treatment. Repeat myositis panel pending. A meeting with the hospice team is being arranged. (2) Pneumonia: Qualifiers: Laterality: left Lung location: lower lobe of lung Pneumonia type: due to unspecified organism Qualified Code(s): J18.9 - Pneumonia, unspecified organism Code(s): J18.9 - Pneumonia, unspecified organism Status: Acute (3) ILD (interstitial lung disease): Code(s): J84.9 - Interstitial pulmonary disease, unspecified Status: Acute (4) Pulmonary embolism: Code(s): I26.99 - Other pulmonary embolism without acute cor pulmonale Status: Acute Subjective Date/time seen: 12/25/23 10:44 Interval history: Patient complaining of mild shortness of breath this a.m.. He remains on high-flow nasal cannula. Afebrile has no wheezing. Review of Systems Review of Systems: All systems reviewed & are unremarkable except as noted in HPI and below Exam Narrative: GENERAL APPEARANCE: Well developed, well nourished, alert and cooperative, and appears to be in mild respiratory distress while on nasal cannula SKIN: Inspection of the skin reveals no rashes, ulcerations or petechiae. HEENT: Sclerae anicteric and conjunctivae pink and moist. Extraocular movements were intact and pupils were equal, round. Dry oral mucosa CHEST: Normal AP diameter and normal contour without any kyphoscoliosis. LUNGS: crackles at bases bilaterally CARDIAC: There was a regular rate and rhythm without any murmurs, gallops, rubs. ABDOMEN: Soft and nontender with normal bowel sounds. There was no organomegaly. LYMPH NODES: No lymphadenopathy was appreciated in the neck. EXTREMITIES: No cyanosis, clubbing or edema. NEUROLOGIC: Alert and oriented x 3. Normal affect. Objective Data Vital Signs Vital Sig
[2023-12-25 11:37] LABS: Glucose Point of Care 154 mg/dl (65-105)
[2023-12-25 12:05] LABS: Influenza A QL RT-PCR Positive (Negative); Influenza B QL RT-PCR Negative (Negative); RSV RNA, RT-PCR Negative (Negative); SARS-CoV-2 RNA PCR Negative (Negative)
--- NOTE | 2023-12-25 12:15 | PM.IMPN ---
Progress Note: A&P Assessment and Plan (1) Acute on chronic hypoxic respiratory failure: Code(s): J96.21 - Acute and chronic respiratory failure with hypoxia Status: Acute Assessment and Plan: 12/18 and daughter by the bedside pt remains hypoxic on 5 liters of oxygen, titrate pulmonology following Diffuse lung disease noted pulmonary edema versus chronic interstitial lung disease. DVT involving left posterior tibial and peroneal vein on 11/28/2023 repeat has been negative Recent COVID infection 12/06 (2) Pneumonia: Qualifiers: Laterality: left Lung location: lower lobe of lung Pneumonia type: due to unspecified organism Qualified Code(s): J18.9 - Pneumonia, unspecified organism Code(s): J18.9 - Pneumonia, unspecified organism Status: Acute Assessment and Plan: Completed levaquin , lactic acidosis resolved monitor lactic acid and cultures (3) ILD (interstitial lung disease): Code(s): J84.9 - Interstitial pulmonary disease, unspecified Status: Acute Assessment and Plan: 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 lingula PE on CTA chest from 11/28 AC per GI recs (5) Hypertension: Code(s): I10 - Essential (primary) hypertension Status: Acute Assessment and Plan: 2 controlled (6) Coronary artery disease: Code(s): I25.10 - Atherosclerotic heart disease of [place] coronary artery without angina pectoris Status: Acute Assessment and Plan: w/o angina (7) Hyperlipidemia: Code(s): E78.5 - Hyperlipidemia, unspecified Status: Acute (8) Benign prostatic hyperplasia: Code(s): N40.0 - Benign prostatic hyperplasia without lower urinary tract symptoms Status: Acute (9) Gastrointestinal hemorrhage: Code(s): K92.2 - Gastrointestinal hemorrhage, unspecified Status: Acute Assessment and Plan: Colonoscopy 12/21/2023 with internal hemorrhoids and diverticulosis without perforation or abscess without bleeding. Small amount of dried blood was seen in the few of diverticular Anticoagulation on hold (10) Iron deficiency anemia: Code(s): D50.9 - Iron deficiency anemia, unspecified Status: Acute Assessment and Plan: Hb 7.7m isat 12 Received PRBC transfusion. started on Venover 800/1000mg monitor h and H. Suspected to be diverticular disease Colonoscopy 12/21/2023 with internal hemorrhoids and diverticulosis without perforation or abscess without bleeding. Small amount of dried blood was seen in the few of diverticula. Anticoagulation restarted 12/24/2023 Plan AFib with RVR on metoprolol since his H&H has remained stable now Used to be on apixaban patient leaning towards moving towards comfort care hospice and comfort measures discussed. Meeting with hospice team. Subjective Date/time seen: 12/25/23 12:15 Interval history: No overnight events. Continue to complain of some shortness of breath. Admitting with hospice yesterday Review of Systems Review of Systems: All systems reviewed & are unremarkable except as noted in HPI and below Exam Narrative: GENERAL: Pleasant, in no acute distress. Well-nourished. - EYES: PERRL. Anicteric. - HENT: Moist mucous membranes. - LUNGS: CTA with decreased BS at bases. Mildly tachypneic. - CARDIOVASCULAR: Regular rate and rhythm. NL S1,2. No murmur. No JVD. - ABDOMEN: Soft, non-tender and non-distended. No palpable masses. - EXTREMITIES: No edema. - NEUROLOGIC: No focal neurological deficits. CN II-XII grossly i
[2023-12-25] MEDS: OSELTAMIVIR PHOSPHATE 30 MG CAPSULE PO ×2 (14:11→20:34)
--- NOTE | 2023-12-25 15:54 | PCRCNOTE ---
Window of time for administration has passed. See next scheduled administration.
[2023-12-25 16:47] LABS: Glucose Point of Care 163 mg/dl (65-105)
[2023-12-25] MEDS: LORazepam (*CRX) 0.5 MG TABLET PO (17:19)
[2023-12-25 17:54] LABS: Alveolar/Arterial O2 Gradient 225.3 mmHg; Base Excess ABG 5.8 mEq/l (+/-2.0); Fractional Inspired Oxygen 55 %; Oxygen Content ABG 17.8 %vol (16.0-22.0); Oxygen Saturation ABG 98.5 % (95.0-100.0); Oxyhemoglobin 96.7 % THb (90.0-100.0); PCO2 ABG 42.3 mmHg (35.0-45.0); PO2 ABG 119.8 mmHg (80.0-100.0); PO2 FiO2 Ratio Arterial Blood 2.18 %; pH ABG 7.469 (7.350-7.450)
[2023-12-25 17:55] LABS: Site Drawn LEFT RADIAL
[2023-12-25 17:56] LABS: Device HIGH FLOW THERAPY; Modified Allen's Test Pass
[2023-12-25] MEDS: ATORVASTATIN 10 MG TABLET PO (20:34)
[2023-12-25] MEDS: MELATONIN 5 MG TABLET PO (20:35)
[2023-12-25 21:08] LABS: Glucose Point of Care 170 mg/dl (65-105)
[2023-12-25] MEDS: MORPHINE SULFATE (*CRX) 2 MG/ML INJ 1 MG IV PUSH (22:57)
--- NOTE | 2023-12-25 23:56 | PM.EVENT ---
Event Note Event Note Event Note: S: Multiple conversations with the patient's nurse this evening. Don expressed to her that he was tired and he wished to be comfortable. We discussed utilizing morphine to help with his air hunger and work of breathing and what side effects could possibly come with that including decrease in blood pressure or even unresponsiveness. He voiced understanding and reiterated that he would like to have comfort measures initiated. O: Ill-appearing elderly gentleman sitting up in bed. On Airvo. He looks tired and worn out. Taking slightly rapid and shallow breaths. A: Worsening hypoxic respiratory failure, pneumonia, interstitial lung disease, pulmonary embolism, influenza, atrial flutter. P: Discontinue all monitors and therapy aside from oxygen, morphine, scopolamine patch, and lorazepam as needed. May be more comfortable with non-rebreather or simple face mask but symptoms will need to be better controlled. I had a discussion with the patient's and daughter regarding possibly consulting hospice in the next day or so if he does not pass before then.
[2023-12-26 00:02] VITALS: BP 124/69; PULSE 92; RESP 24; TEMP 36.3; O2SAT 95
--- NOTE | 2023-12-26 05:17 | PC.NURSE ---
At 2300 pt states I can't breathe. I cannot catch my breath. I can't take this anymore. I'm done, I'm tired, my body is tired. Hospitalist was made aware and pt family was called; initially no answer but pt called back 15 minutes later. Pt was made aware of his statements and his current status, Digital Media Sales Consultant gave permission for family to come and spend time with pt. Hospitalist was able to talk to family and agreements were made to make pt comfortable. Pt was a given 1mg of morphine IVP per Hospitalist orders and pt has been sleeping comfortably in bed with unlabored breathing and AIRVO still running. Continued close monitoring and RN available for pt family when needed.
[2023-12-26 07:45] LABS: Glucose Point of Care 135 mg/dl (65-105)
[2023-12-26 08:00] VITALS: O2SAT 94
[2023-12-26 08:58] VITALS: PULSE 84; RESP 20; O2SAT 94
[2023-12-26] MEDS: SCOPOLAMINE 1 MG PATCH 1 PATCH TRANSDERM (09:02)
[2023-12-26] MEDS: OSELTAMIVIR PHOSPHATE 30 MG CAPSULE PO ×2 (09:03→20:01)
[2023-12-26 14:53] VITALS: BP 118/61; PULSE 93; RESP 26; TEMP 35.8; O2SAT 98
--- NOTE | 2023-12-26 15:54 | PM.IMPN ---
Progress Note: A&P Assessment and Plan (1) Acute on chronic hypoxic respiratory failure: Code(s): J96.21 - Acute and chronic respiratory failure with hypoxia Status: Acute Assessment and Plan: 12/18 and daughter by the bedside pt remains hypoxic on 5 liters of oxygen, titrate pulmonology following Diffuse lung disease noted pulmonary edema versus chronic interstitial lung disease. DVT involving left posterior tibial and peroneal vein on 11/28/2023 repeat has been negative Recent COVID infection 12/06 (2) Pneumonia: Qualifiers: Laterality: left Lung location: lower lobe of lung Pneumonia type: due to unspecified organism Qualified Code(s): J18.9 - Pneumonia, unspecified organism Code(s): J18.9 - Pneumonia, unspecified organism Status: Acute Assessment and Plan: Completed levaquin , lactic acidosis resolved monitor lactic acid and cultures (3) ILD (interstitial lung disease): Code(s): J84.9 - Interstitial pulmonary disease, unspecified Status: Acute Assessment and Plan: 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 lingula PE on CTA chest from 11/28 AC per GI recs (5) Hypertension: Code(s): I10 - Essential (primary) hypertension Status: Acute Assessment and Plan: 2 controlled (6) Coronary artery disease: Code(s): I25.10 - Atherosclerotic heart disease of [place] coronary artery without angina pectoris Status: Acute Assessment and Plan: w/o angina (7) Hyperlipidemia: Code(s): E78.5 - Hyperlipidemia, unspecified Status: Acute (8) Benign prostatic hyperplasia: Code(s): N40.0 - Benign prostatic hyperplasia without lower urinary tract symptoms Status: Acute (9) Gastrointestinal hemorrhage: Code(s): K92.2 - Gastrointestinal hemorrhage, unspecified Status: Acute Assessment and Plan: Colonoscopy 12/21/2023 with internal hemorrhoids and diverticulosis without perforation or abscess without bleeding. Small amount of dried blood was seen in the few of diverticular Anticoagulation on hold (10) Iron deficiency anemia: Code(s): D50.9 - Iron deficiency anemia, unspecified Status: Acute Assessment and Plan: Hb 7.7m isat 12 Received PRBC transfusion. started on Venover 800/1000mg monitor h and H. Suspected to be diverticular disease Colonoscopy 12/21/2023 with internal hemorrhoids and diverticulosis without perforation or abscess without bleeding. Small amount of dried blood was seen in the few of diverticula. Anticoagulation restarted 12/24/2023 Plan AFib with RVR on metoprolol since his H&H has remained stable now Used to be on apixaban patient leaning towards moving towards comfort care hospice and comfort measures discussed. Meeting with hospice team. Now initiated comfort measures Family to discuss further with hospice team for further treatment Subjective Date/time seen: 12/26/23 15:54 Interval history: Patient has been placed on comfort measures last night as per the discussion with the lime kiln worker. Discussed with the family power health care attorney is his spouse over the phone. Discussed further discussion with hospice team for potential GIP enrollment Review of Systems Review of Systems: All systems reviewed & are unremarkable except as noted in HPI and below Exam Narrative: GENERAL: Pleasant, in no acute distress. Well-nourished. - EYES: PERRL. Anicteric. - HENT: Moist mucous membranes. - LUNGS: CTA with decreased BS at bases. Mildly tachy
[2023-12-26] MEDS: MORPHINE SULFATE (*CRX) 2 MG/ML INJ IV PUSH (17:42)
[2023-12-26 20:52] LABS: Glucose Point of Care 148 mg/dl (65-105)
[2023-12-26 20:57] VITALS: BP 132/72; PULSE 72; RESP 13; TEMP 36.2; O2SAT 99
[2023-12-26 22:20] VITALS: O2SAT 96
--- NOTE | 2023-12-27 07:48 | PM.IMPN ---
Progress Note: A&P Assessment and Plan (1) ILD (interstitial lung disease): Code(s): J84.9 - Interstitial pulmonary disease, unspecified Status: Acute (2) Acute respiratory failure with hypoxia: Code(s): J96.01 - Acute respiratory failure with hypoxia Status: Acute (3) Pneumonia: Qualifiers: Laterality: left Lung location: lower lobe of lung Pneumonia type: due to unspecified organism Qualified Code(s): J18.9 - Pneumonia, unspecified organism Code(s): J18.9 - Pneumonia, unspecified organism Status: Acute (4) Iron deficiency anemia: Code(s): D50.9 - Iron deficiency anemia, unspecified Status: Acute (5) Hyperlipidemia: Code(s): E78.5 - Hyperlipidemia, unspecified Status: Acute (6) Acute on chronic hypoxic respiratory failure: Code(s): J96.21 - Acute and chronic respiratory failure with hypoxia Status: Acute Plan (1) Acute on chronic hypoxic respiratory failure: ?Code(s): J96.21 - Acute and chronic respiratory failure with hypoxia ?Status:?Acute ?Assessment and Plan: 2/ and daughter by the bedside pt remains hypoxic on 5 liters of oxygen, titrate pulmonology following Diffuse lung disease noted pulmonary edema versus chronic interstitial lung disease. DVT involving left posterior tibial and peroneal vein on 11/28/2023 repeat has been negative Recent COVID infection 12/06 (2) Pneumonia: ?Qualifiers: ?Laterality:?left??Lung location:?lower lobe of lung??Pneumonia type:?due to unspecified organism? 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 lingula PE on CTA chest from 11/28 AC per GI recs (5) Hypertension: ?Code(s): I10 - Essential (primary) hypertension ?Status:?Acute ?Assessment and Plan: 12/17 controlled(6) Coronary artery disease: ?Code(s): Off atherosclerotic heart Colonoscopy 12/21/2023 with internal hemorrhoids and diverticulosis without perforation or abscess without bleeding.? Small amount of dried blood was seen in the few of diverticula. Anticoagulation restarted 12/24/2023 now AFib with RVR on metoprolol since his H&H has remained stable now Used to be on apixaban patient leaning towards moving towards comfort care hospice and comfort measures discussed.? Meeting with hospice team. Now initiated comfort measures Family to discuss further with hospice team for further treatment. 12/27/23. Discussed with patient's about goal of cares, patient requests us to transfer patient to hospice care as planned. I will discontinue all medications except medications for comfort care Subjective Date/time seen: 12/27/23 07:48 Interval history: Patient has been placed on comfort measures, I saw examined patient at bedside in presents of patient's daughter and . Patient was somnolent, complained of trouble breathing. Patient has hard hearing issue, cannot tell more about his condition. No obvious distress now Exam Narrative: GENERAL: Ill-appearing in no acute distress. Well-nourished. - EYES: PERRL. Anicteric. - HENT: Dry mucous membranes. - LUNGS: CTA with decreased BS
[2023-12-27 08:00] VITALS: O2SAT 94
[2023-12-27] MEDS: OSELTAMIVIR PHOSPHATE 30 MG CAPSULE PO (08:23)
[2023-12-27 08:40] VITALS: O2SAT 90
[2023-12-27 08:48] VITALS: O2SAT 94
--- NOTE | 2023-12-27 09:05 | PCDIET ---
Nutrition note: Per chart, comfort measures have been initiated as of 12/26/23. PO intake as tolerated. RD to continue following, consult for nutrition needs.
--- NOTE | 2023-12-27 13:29 | PM.DS ---
DS: Admitting Diagnosis Discharge Date 12/27/23 Admitting Diagnosis (1) ILD (interstitial lung disease): ?Code(s): J84.9 - Interstitial pulmonary disease, unspecified ?Status:?Acute (2) Acute respiratory failure with hypoxia: ?Code(s): J96.01 - Acute respiratory failure with hypoxia ?Status:?Acute (3) Pneumonia: ?Qualifiers: ?Laterality:?left??Lung location:?lower lobe of lung??Pneumonia type:?due to unspecified organism? Qualified Code(s):?J18.9 - Pneumonia, unspecified organism ?Code(s): J18.9 - Pneumonia, unspecified organism ?Status:?Acute (4) Iron deficiency anemia: ?Code(s): D50.9 - Iron deficiency anemia, unspecified ?Status:?Acute (5) Hyperlipidemia: ?Code(s): E78.5 - Hyperlipidemia, unspecified ?Status:?Acute (6) Acute on chronic hypoxic respiratory failure: ?Code(s): J96.21 - Acute and chronic respiratory failure with hypoxia ?Status:?Acute DS: Discharge Diagnosis Discharge Diagnosis (1) ILD (interstitial lung disease): Code(s): J84.9 - Interstitial pulmonary disease, unspecified Status: Acute (2) Acute respiratory failure with hypoxia: Code(s): J96.01 - Acute respiratory failure with hypoxia Status: Acute (3) Pneumonia: Qualifiers: Laterality: left Lung location: lower lobe of lung Pneumonia type: due to unspecified organism Qualified Code(s): J18.9 - Pneumonia, unspecified organism Code(s): J18.9 - Pneumonia, unspecified organism Status: Acute (4) Iron deficiency anemia: Code(s): D50.9 - Iron deficiency anemia, unspecified Status: Acute (5) Hyperlipidemia: Code(s): E78.5 - Hyperlipidemia, unspecified Status: Acute (6) Acute on chronic hypoxic respiratory failure: Code(s): J96.21 - Acute and chronic respiratory failure with hypoxia Status: Acute DS: Summary Hospital Course Hospital Course: 88-year-old male with history of CAD, hypertension hyperlipidemia, BPH, presented to ED with a chief complaint of shortness breath.? Patient was recently diagnosed pneumonia, COVID-19 infection, pulmonary embolism, acute respiratory failure, patient was discharged to? [facility].? he wears 2 L at all times, increases to 5 L with exertion.?? at rehab, patient's oxygen dropped into the low 80s on his 5 L. He was then sent here for further evaluation.? Patient reports having persistent? productive cough, denies fevers, nausea, vomiting, chest pain. He is on Eliquis BID and reports compliance with this.? Upon arrival in the ED, oxygen 90% on 3 L at time of ABG.? Laboratory study showing leukocytosis of 15.2, uptrending from time of discharge yesterday.? Neutrophil predominance.? CMP with mild hyponatremia at 129, consistent with most recent previous records.? Stable kidney function.? Initial lactic acid elevated to 2.2.? Chest x-ray with evidence for worsening left-sided pneumonia. ? blood cultures obtained.? Patient received ceftriaxone, azithromycin and Vancomycin in the ED, we admit patient for further evaluation and management the The following med issues have been addressed during hospitalization (1) Acute on chronic hypoxic respiratory failure: ?Code(s): J96.21 - Acute and chronic respiratory failure with hypoxia ?Status:?Acute ?Assessment and Plan: 2/5 and daughter by the bedside pt remains hypoxic on 5 liters of oxygen, titrate pulmonology following Diffuse lung disease noted pulmonary edema versus chronic interstitial lung disease. DVT involving left posterior tibial and peroneal vein on 11/28/2023 repeat has been negative Recent COVID infection 12/06 (2) Pneumonia: ?Qualifiers: ?Laterality:?left??Lung location:?lower lobe of lung??Pneumonia type:?due to unspecified organism? Qualified Code(s):?J18.9 - Pneumonia, unspecified organism ?Code(s): J18.9 - Pneumonia, unspecified organism ?Status:?Acute ?
[2023-12-27 17:25] LABS: JO-1 AB <11 SI (<11); MI-2 Alpha Ab <11 SI (<11); MI-2 Beta Ab <11 SI (<11); NXP-2 AB <11 SI (<11); TIF1 Gamma Ab 86 SI (<11)
== END 2023-12-27 13:33 | disposition hospice, inpatient (51) | DRG 189 ==
LOC: ANHED 14:18 → ANH3MEDSUR 15:12
PROVIDERS: Emergency Medicine; Family Medicine; Internal Medicine; Internal Medicine Gastroenterology; Internal Medicine Pulmonary Disease; Student in an Organized Health Care Education/Training Program; Admitting Provider Internal Medicine; Emergency Provider Physician Assistant; PCP Physician Assistant; Visit Provider Hospitalist
PROC: 0DJD8ZZ Inspection of Lower Intestinal Tract, Via Natural or Artificial Opening Endoscopic (ICD-10-PCS; CPT 45378; principal; 2023-12-21 12:30)
DX: J96.21 Acute and chronic respiratory failure with hypoxia (principal); J18.9 Pneumonia, unspecified organism; I50.33 Acute on chronic diastolic (congestive) heart failure; K57.31 Diverticulosis of large intestine without perforation or abscess with bleeding; M33.13 Other dermatomyositis without myopathy; E44.0 Moderate protein-calorie malnutrition; E87.1 Hypo-osmolality and hyponatremia; I11.0 Hypertensive heart disease with heart failure; J10.1 Influenza due to other identified influenza virus with other respiratory manifestations; I48.91 Unspecified atrial fibrillation; D50.9 Iron deficiency anemia, unspecified; I25.10 Atherosclerotic heart disease of native coronary artery without angina pectoris; E78.5 Hyperlipidemia, unspecified; N40.0 Benign prostatic hyperplasia without lower urinary tract symptoms; M19.90 Unspecified osteoarthritis, unspecified site; Z96.641 Presence of right artificial hip joint; Z96.653 Presence of artificial knee joint, bilateral; I25.2 Old myocardial infarction; Z51.5 Encounter for palliative care; Z68.26 Body mass index [BMI] 26.0-26.9, adult; Z79.01 Long term (current) use of anticoagulants; Z79.82 Long term (current) use of aspirin; Z99.81 Dependence on supplemental oxygen; Z86.711 Personal history of pulmonary embolism; Z86.718 Personal history of other venous thrombosis and embolism; Z87.891 Personal history of nicotine dependence
CPT/HCPCS: 36415; 36430; 36600; 71045; 71046; 71250; 80048; 80053; 82274; 82375; 82378; 82550; 82565; 82728; 82805; 82948; 83050; 83540; 83550; 83605; 83735; 83880; 84145; 84182; 84484; 85014; 85018; 85025; 85027; 85055; 85610; 85730; 86140; 86850; 86900; 86901; 86920; 87040; 87070; 87205; 87637; 87641; 93005; 93970; 94640; 96365; 96367; 96375; 99285; A9270; C9113; G0378; J0456; J0696; J1756; J1815; J1940; J1956; J2060; J2270; J2704; J2930; J3370; J7030; J7040; J7050; J7120; J7512; P9016

== ENCOUNTER 2023-12-27 14:04 | HOS | payer OTHER, MEDICARE, SELFPAY ==
[2023-12-27 14:30] VITALS: BP 137/86; PULSE 97; RESP 26; TEMP 35.9; O2SAT 100
[2023-12-27 14:41] VITALS: O2SAT 93
[2023-12-27] MEDS: MORPHINE SULFATE INJ (*CRX) 50 MG in SODIUM CHLORIDE 0.9% IV 95 ML IV CONT (16:41)
[2023-12-27 18:00] VITALS: BMI 27.6
[2023-12-27 20:00] VITALS: BP 114/62; PULSE 105; RESP 24; TEMP 36.1; O2SAT 96
[2023-12-27 22:03] VITALS: O2SAT 95
[2023-12-28 08:00] VITALS: BP 138/76; PULSE 101; RESP 22; TEMP 36.5; O2SAT 98
[2023-12-28 08:09] VITALS: O2SAT 94
[2023-12-28 11:10] VITALS: O2SAT 95
--- NOTE | 2023-12-28 12:40 | PM.IMHP ---
H&P: HPI History of Present Illness Date/Time: 12/28/23 12:40 Chief Complaint: uncontrolled dyspnea Narrative: 88 y/o gentleman was admitted to [facility] 11/28 and discharged 12/14. Treated for COVID-19 PNA, possible bacterial PNA, PE, CHF. Was taking Eliquis at discharge. Was readmitted within 24 hours due to increasing oxygen requirements. Was on 2 L at discharge. But sats drops to 80's with exertion while in rehab. After readmission, he was seen by pulmonology and treated steroids and broad spectrum antibiotics for possible worsening of LLL PNA. After colonoscopy for evaluation of GI blood loss, his oxygen requirements increased from 5-6 L/min to 30 L/min. He was experiencing increased dyspnea and anxiety. On 12/26, he opted for comfort care only. On 12/27, he opted for inpatient hospice for control of symptoms. Hx obtained from chart review and phone discussion with hospice nurses 12/27 and 12/28. Review of Systems Review of Systems: All systems reviewed & are unremarkable except as noted in HPI and below PMFSH Past Medical History Medical History Arthritis Benign prostatic hyperplasia Chronic anemia Coronary artery disease Hyperlipidemia Hypertension Myocardial infarction (1996) Surgical History Surgical History History of arthroscopy of right knee (07/2003) With partial medial meniscectomy per Dr. Sandhu. History of bilateral carpal tunnel release (2020) History of bilateral cataract extraction History of bilateral knee arthroplasty (04/2004) Per Drs. Villeda and Edson. History of cardiac catheterization (1996) History of colonoscopy with polypectomy (02/2011) History of coronary angioplasty (1996) History of total right hip arthroplasty (04/2012) Family History Family History Sibling Family history of pancreatic cancer Family history of renal failure Patient's sister is Patient's brother is Father Patient's father is Social History Social History Social History: Surrogate medical decision maker: Lovely Epps, spouse. Code status: Full code. Smoking packs per day: 1 Smoking cigarettes per day: 20.0 Years smoked: 18 Smoking pack-years: 18.00 Smoking status: Former smoker Tobacco type: cigarettes Second hand tobacco smoke exposure: No Alcohol intake: never Drinks per week: 7 Alcohol use details: moderate Substance use: never Substance use type: does not use Last use: 1mo ago last drink Do You Feel Safe in your Home?: Yes Lack of Transportation: No Lack of Food: Never True Current Housing: I Have Housing Concerned About Future Housing: No Difficulty Paying Gas/Electric Bills: No Difficulty Paying for Meds: No Currently Unemployed: No Education: Don't Know Difficulty w/ Childcare or Family Care: No Living arrangements: with family Additional living arrangements comments: Lives with spouse in assisted living at [facility]. 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 Spiritual care concerns: No Meds Home Medications and Allergies Home Medications Medication Instructions Recorded Confirmed Type aspirin 81 mg tablet,delayed 81 mg PO QPM 11/18/20 12/15/23 History release (Adult Aspirin Regimen) losartan 25 mg tablet 25 mg PO QPM 11/18/20 12/15/23 History acetaminophen 650 mg 650 mg PO Q6H PRN Pain 10/27/23 12/15/23 History tablet,extended release (Tylenol Arthritis Pain) tamsulosin 0.4 mg capsule 0.4 mg PO QAM #90 caps 11/09/23 12/15/23 Rx apixaban 5 mg tablet (Eliquis) 5 mg PO Q12HR #60 tabs 12/14/23 12/15/23 Rx insulin aspart U-100 100 unit/mL 2 - 5 unit subcut TIDWM #10 mL 12/14/23 12/15/23 Rx subcutaneous solution (Novolog U-100 Insu
--- NOTE | 2023-12-28 17:51 | PM.IMPN ---
Progress Note: A&P Assessment and Plan (1) Palliative care encounter: Code(s): Z51.5 - Encounter for palliative care Status: Acute Assessment and Plan: Meets inpatient hospice criteria due to requiring continuous IV morphine for control of dyspnea. PRN palliative regimen ordered. December 28: Discussed with patient and family at bedside. Trial of Ensure Clear for nutrition. Trial of medication reduction prior to transitioned oral comfort meds. Discussed remote possibility that he might improve while on hospice. Reduced morphine to 0.25 mg/hr. (2) ILD (interstitial lung disease): Code(s): J84.9 - Interstitial pulmonary disease, unspecified Status: Acute Assessment and Plan: Possibly related to COVID-19. (3) Acute respiratory failure with hypoxia: Code(s): J96.01 - Acute respiratory failure with hypoxia Status: Acute Assessment and Plan: Likely related to COVID-19 with subsequent interstitial lung disease and influenza A with possible bacterial pneumonia. (4) Pulmonary embolism: Code(s): I26.99 - Other pulmonary embolism without acute cor pulmonale Status: Acute Assessment and Plan: Currently not receiving anticoagulation due to gastrointestinal blood loss. (5) Deep vein thrombosis of left lower extremity: Code(s): I82.402 - Acute embolism and thrombosis of unspecified deep veins of left lower extremity Status: Acute (6) Coronary artery disease: Code(s): I25.10 - Atherosclerotic heart disease of [place] coronary artery without angina pectoris Status: Acute Assessment and Plan: Currently without angina. (7) Gastrointestinal hemorrhage: Code(s): K92.2 - Gastrointestinal hemorrhage, unspecified Status: Acute Assessment and Plan: Occurred during anticoagulation. (8) Iron deficiency anemia: Code(s): D50.9 - Iron deficiency anemia, unspecified Status: Acute Assessment and Plan: Possible underlying chronic blood loss. Subjective Date/time seen: 12/28/23 17:51 Interval history: Very comfortable on high-flow nasal cannula at 4 liters/minute. Down from 5 liters/minute. Very poor appetite. No taste or smell. Family feels he is given up. They are side. He denied pain. Denied shortness of breath at rest. Denied palpitations or chest discomfort. Last bowel movement about 2 days ago per patient. Family confirms. Has catheter for urination. No bleeding noted. Review of Systems Review of Systems: All systems reviewed & are unremarkable except as noted in HPI and below Exam Narrative: HEENT: PERRL, sclerae nonicteric, pharyngeal mucosa pink and intact NECK: No JVD CHEST: Fine crackles posteriorly both lower lobes. Clear anteriorly. Normal effort. HEART: NL S1/S2, tachycardic, irregularly irregular, no murmur audible. ABDOMEN: BS+, soft, nontender, no mass, no bruits EXTREMITIES: No cyanosis, edema, or clubbing NEUROLOGIC: CN intact and symmetric to inspection. MUSCULOSKELETAL: Tone and strength symmetric. PSYCH: Drowsy but arouses easily. Oriented to person, place, and time. Objective Data Vital Signs Vital Signs: Vital Signs - 24 hr 12/27/23 20:00 12/27/23 22:03 12/28/23 08:09 Temperature 97 F L Pulse Rate 105 H Respiratory Rate 24 H Blood Pressure 114/62 Pulse Oximetry 96 95 94 Oxygen Delivery High Flow Therapy with Na High Flow Therapy with Na Oxygen Flow Rate 25 25 Fraction of Inspired Oxygen 40 40 12/28/23 08:00 12/28/23 11:10 Temperature 97.7 F Pulse Rate 101 H Respiratory Rate 22 H Blood Pressure 138/76 Pulse Oximetry 98 95 Oxygen Delivery High Flow Nasal Cannula Oxygen Flow Rate 4 Fraction of Inspired Oxygen Intake/Output Intake/Output: Intake & Output 12/25/23 12/26/23 12/27/23 12/28/23 23:59 23:59 23:59 23:59 Intake Total 120 Balance 120 Meds/Results Medications: Active Medicat
[2023-12-28 20:55] VITALS: BP 111/62; PULSE 104; RESP 18; TEMP 36.3; O2SAT 92
[2023-12-28] MEDS: SENNOSIDES 8.6 MG TABLET 17.2 MG PO (20:58)
[2023-12-29 08:00] VITALS: BP 129/68; PULSE 103; RESP 14; TEMP 36.2; O2SAT 90; O2SAT 98
[2023-12-29 08:26] VITALS: O2SAT 90
--- NOTE | 2023-12-29 12:22 | PM.IMPN ---
Progress Note: A&P Assessment and Plan (1) Palliative care encounter: Code(s): Z51.5 - Encounter for palliative care Status: Acute Assessment and Plan: Meets inpatient hospice criteria due to requiring continuous IV morphine for control of dyspnea. PRN palliative regimen ordered. December 28: Discussed with patient and family at bedside. Trial of Ensure Clear for nutrition. Trial of medication reduction prior to transitioned oral comfort meds. Discussed remote possibility that he might improve while on hospice. Reduced morphine to 0.25 mg/hr. 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 Pt and family agreed to trial of continued steroids, Prednisone 40 mg/day. (2) ILD (interstitial lung disease): Code(s): J84.9 - Interstitial pulmonary disease, unspecified Status: Acute Assessment and Plan: Possibly related to COVID-19. (3) Acute respiratory failure with hypoxia: Code(s): J96.01 - Acute respiratory failure with hypoxia Status: Acute Assessment and Plan: Likely related to COVID-19 with subsequent interstitial lung disease and influenza A with possible bacterial pneumonia. (4) Pulmonary embolism: Code(s): I26.99 - Other pulmonary embolism without acute cor pulmonale Status: Acute Assessment and Plan: Currently not receiving anticoagulation due to gastrointestinal blood loss. (5) Deep vein thrombosis of left lower extremity: Code(s): I82.402 - Acute embolism and thrombosis of unspecified deep veins of left lower extremity Status: Acute (6) Coronary artery disease: Code(s): I25.10 - Atherosclerotic heart disease of [place] coronary artery without angina pectoris Status: Acute Assessment and Plan: Currently without angina. (7) Gastrointestinal hemorrhage: Code(s): K92.2 - Gastrointestinal hemorrhage, unspecified Status: Acute Assessment and Plan: Occurred during anticoagulation. (8) Iron deficiency anemia: Code(s): D50.9 - Iron deficiency anemia, unspecified Status: Acute Assessment and Plan: Possible underlying chronic blood loss. Subjective Date/time seen: 12/29/23 12:22 Interval history: Very comfortable on high-flow nasal cannula at 5 liters/minute.Very poor appetite. No taste or smell. He denied pain. Denied shortness of breath at rest. Denied palpitations or chest discomfort. Last bowel movement about 2 days ago per patient. Family confirms. Has catheter for urination. No bleeding noted. Review of Systems Review of Systems: All systems reviewed & are unremarkable except as noted in HPI and below Exam Narrative: HEENT: PERRL, sclerae nonicteric, pharyngeal mucosa pink and intact NECK: No JVD CHEST: Fine crackles posteriorly both lower lobes. Clear anteriorly. Normal effort. HEART: NL S1/S2, tachycardic, irregularly irregular, no murmur audible. ABDOMEN: BS+, soft, nontender, no mass, no bruits EXTREMITIES: No cyanosis, edema, or clubbing NEUROLOGIC: CN intact and symmetric to inspection. MUSCULOSKELETAL: Tone and strength symmetric. PSYCH: Drowsy but arouses easily. Oriented to person, place, and time. Objective Data Vital Signs Vital Signs: Vital Signs - 24 hr 12/28/23 20:55 12/29/23 08:26 12/29/23 08:00 Temperature 97.3 F L Pulse Rate 104 H Respiratory Rate 18 Blood Pressure 111/62 Pulse Oximetry 92 90 90 Oxygen Delivery High Flow Nasal Cannula High Flow Nasal Cannula Oxygen Flow Rate 5 5 Intake/Output Intake/Output: Intake & Output 12/26/23 12/27/23 12/28/23 12/29/23 23:59 23:59 23:59 23:59 Intake Total 120 Balance 120 Meds/Results Medications: Active Medications Generic Name Dose Route Start Last Admin Trade Name Freq PRN Reason Stop Dose Admin Artificial Tears 0 drop 12/27/23 16:00 Artificial Tears Ophth Soln 15 Ml Bottle EACH EYE
[2023-12-29] MEDS: predniSONE 20 MG TABLET 40 MG PO (12:51)
[2023-12-29] MEDS: SENNOSIDES 8.6 MG TABLET 17.2 MG PO (20:18)
[2023-12-29 20:47] VITALS: BP 131/77; PULSE 104; RESP 16; TEMP 36.4; O2SAT 98
[2023-12-30 08:00] VITALS: BP 125/82; PULSE 94; RESP 16; TEMP 36.6; O2SAT 94
[2023-12-30] MEDS: predniSONE 20 MG TABLET 40 MG PO (08:12)
[2023-12-30] MEDS: GLYCOPYRROLATE INJ (*SP) 0.2 MG/ML VIAL 0.1 MG IV PUSH (08:12)
[2023-12-30 08:15] VITALS: O2SAT 93
[2023-12-30 09:03] VITALS: O2SAT 92
--- NOTE | 2023-12-30 11:15 | P.PNIM_ITS ---
Progress Note: A&P Assessment and Plan (1) Palliative care encounter: Code(s): Z51.5 - Encounter for palliative care Status: Acute Assessment and Plan: * Meets inpatient hospice criteria due to requiring continuous IV morphine for control of dyspnea. * PRN palliative regimen ordered. * December 28: Discussed with patient and family at bedside. Trial of Ensure Clear for nutrition. Trial of medication reduction prior to transitioned oral comfort meds. Discussed remote possibility that he might improve while on hospice. Reduced morphine to 0.25 mg/hr. 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 Pt and family agreed to trial of continued steroids, Prednisone 40 mg/day. * December 30: D/w pt and family that he is improving. Discussed risk of bleeding vs risk of PE. They agree to trail of low dose anticoagulation. Previously on Eliquis 10mg bid. Will start 2.5 mg bid and consider increase to 5 mg bid if no bleeding. Get up in chair for meals and increase oxygen during transfers. Plan transition to po meds 12/31. Consider discharge to [facility] and revoking hospice 01/01 if he continues to improve. (2) ILD (interstitial lung disease): Code(s): J84.9 - Interstitial pulmonary disease, unspecified Status: Acute Assessment and Plan: * Possibly exacerbated or triggered by COVID-19. 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 (3) Acute respiratory failure with hypoxia: Code(s): J96.01 - Acute respiratory failure with hypoxia Status: Acute Assessment and Plan: * Likely related to COVID-19 with subsequent interstitial lung disease and influenza A with possible bacterial pneumonia. * 12/30/2023 Continues to improve. (4) Pulmonary embolism: Code(s): I26.99 - Other pulmonary embolism without acute cor pulmonale Status: Acute Assessment and Plan: * 12/30/23 Resumed low dose Eliquis 2.5 mg bid. (5) Deep vein thrombosis of left lower extremity: Code(s): I82.402 - Acute embolism and thrombosis of unspecified deep veins of left lower extremity Status: Acute Assessment and Plan: * High risk for recurrent PE. (6) Coronary artery disease: Code(s): I25.10 - Atherosclerotic heart disease of [place] coronary artery without angina pectoris Status: Acute Assessment and Plan: * Currently without angina. (7) Gastrointestinal hemorrhage: Code(s): K92.2 - Gastrointestinal hemorrhage, unspecified Status: Acute Assessment and Plan: * Occurred during anticoagulation with Eliquis 10 mg bid. * 12/21/23 colonoscopy showed only diverticulosis and internal hemorrhoids w/o stigmata of bleeding. (8) Iron deficiency anemia: Code(s): D50.9 - Iron deficiency anemia, unspecified Status: Acute Assessment and Plan: * Possible underlying chronic blood loss. * 12/30/2023 added oral ferrous sulfate 325 mg daily. Subjective Date/time seen: 12/30/23 11:15 Interval history: Very comfortable on high-flow nasal cannula at 4 liters/minute. Appetite improving. Everything tastes sweet. He denied pain. Denied shortness of breath at rest. Denied palpitations or chest discomfort. No defecation yet on senna. Has catheter for urination. No bleeding noted. Review of Systems Revie
--- NOTE | 2023-12-30 11:15 | PM.IMPN ---
Progress Note: A&P Assessment and Plan (1) Palliative care encounter: Code(s): Z51.5 - Encounter for palliative care Status: Acute Assessment and Plan: Meets inpatient hospice criteria due to requiring continuous IV morphine for control of dyspnea. PRN palliative regimen ordered. December 28: Discussed with patient and family at bedside. Trial of Ensure Clear for nutrition. Trial of medication reduction prior to transitioned oral comfort meds. Discussed remote possibility that he might improve while on hospice. Reduced morphine to 0.25 mg/hr. 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 Pt and family agreed to trial of continued steroids, Prednisone 40 mg/day. December 30: D/w pt and family that he is improving. Discussed risk of bleeding vs risk of PE. They agree to trail of low dose anticoagulation. Previously on Eliquis 10mg bid. Will start 2.5 mg bid and consider increase to 5 mg bid if no bleeding. Get up in chair for meals and increase oxygen during transfers. Plan transition to po meds 12/31. Consider discharge to [facility] and revoking hospice 01/01 if he continues to improve. (2) ILD (interstitial lung disease): Code(s): J84.9 - Interstitial pulmonary disease, unspecified Status: Acute Assessment and Plan: Possibly exacerbated or triggered by COVID-19. 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 (3) Acute respiratory failure with hypoxia: Code(s): J96.01 - Acute respiratory failure with hypoxia Status: Acute Assessment and Plan: Likely related to COVID-19 with subsequent interstitial lung disease and influenza A with possible bacterial pneumonia. 12/30/2023 Continues to improve. (4) Pulmonary embolism: Code(s): I26.99 - Other pulmonary embolism without acute cor pulmonale Status: Acute Assessment and Plan: 12/30/23 Resumed low dose Eliquis 2.5 mg bid. (5) Deep vein thrombosis of left lower extremity: Code(s): I82.402 - Acute embolism and thrombosis of unspecified deep veins of left lower extremity Status: Acute Assessment and Plan: High risk for recurrent PE. (6) Coronary artery disease: Code(s): I25.10 - Atherosclerotic heart disease of [place] coronary artery without angina pectoris Status: Acute Assessment and Plan: Currently without angina. (7) Gastrointestinal hemorrhage: Code(s): K92.2 - Gastrointestinal hemorrhage, unspecified Status: Acute Assessment and Plan: Occurred during anticoagulation with Eliquis 10 mg bid. 12/21/23 colonoscopy showed only diverticulosis and internal hemorrhoids w/o stigmata of bleeding. (8) Iron deficiency anemia: Code(s): D50.9 - Iron deficiency anemia, unspecified Status: Acute Assessment and Plan: Possible underlying chronic blood loss. 12/30/2023 added oral ferrous sulfate 325 mg daily. Subjective Date/time seen: 12/30/23 11:15 Interval history: Very comfortable on high-flow nasal cannula at 4 liters/minute. Appetite improving. Everything tastes sweet. He denied pain. Denied shortness of breath at rest. Denied palpitations or chest discomfort. No defecation yet on senna. Has catheter for urination. No bleeding noted. Review of Systems Review of Systems: All systems reviewed & are unremarkable except as noted in HPI and below Exam Narrative: HEENT: PERRL, sclerae nonicteric, pharyngeal mucosa pink and intact NECK: No JVD CHEST: Fine crackles posteriorly both lower lobes. Clear anteriorly. Normal effort. HEART: NL S1/S2, tachycardic, irregularly irregular, no murmur audible. ABDOMEN: BS+, soft, nontender, no mass, no bruits EXTREMITIES: No cyanosis, edema, or clubbing NEUROLOGIC: CN intact and symmetric to inspection. MUSCULOSKELETAL: Tone and strength symmetric. PSYCH: Aurelio
[2023-12-30] MEDS: PANTOPRAZOLE 40 MG TABLET PO (12:23)
[2023-12-30] MEDS: FERROUS SULFATE 325 MG TABLET DR PO (12:23)
[2023-12-30] MEDS: BISACODYL 5 MG TABLET EC PO (12:23)
[2023-12-30] MEDS: APIXABAN 2.5 MG TABLET PO ×2 (12:28→20:06)
[2023-12-30 20:00] VITALS: O2SAT 92
[2023-12-30] MEDS: SENNOSIDES 8.6 MG TABLET 17.2 MG PO (20:06)
[2023-12-30 20:40] VITALS: BP 138/77; PULSE 76; RESP 16; TEMP 36.2; O2SAT 97
[2023-12-31] VITALS (7 sets, daily range): BP systolic 89–138; BP diastolic 32–77; PULSE 72–87; RESP 22–36; TEMP 36.7; O2SAT 78–97
[2023-12-31] MEDS: PROCHLORPERAZINE EDISYLATE 10 MG/2 ML VIAL IV PUSH (02:50)
[2023-12-31] MEDS: GLYCOPYRROLATE INJ (*SP) 0.2 MG/ML VIAL 0.1 MG IV PUSH (02:50)
[2023-12-31] MEDS: LORazepam INJ (*CRX) 2 MG/ML VIAL 0.5 MG IV PUSH ×2 (08:48→16:18)
--- NOTE | 2023-12-31 08:58 | P.PNIM_ITS ---
Progress Note: A&P Assessment and Plan (1) Palliative care encounter: Code(s): Z51.5 - Encounter for palliative care Status: Acute Assessment and Plan: * Meets inpatient hospice criteria due to requiring continuous IV morphine for control of dyspnea. * PRN palliative regimen ordered. * December 28: Discussed with patient and family at bedside. Trial of Ensure Clear for nutrition. Trial of medication reduction prior to transitioned oral comfort meds. Discussed remote possibility that he might improve while on hospice. Reduced morphine to 0.25 mg/hr. 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 Pt and family agreed to trial of continued steroids, Prednisone 40 mg/day. * December 30: D/w pt and family that he is improving. Discussed risk of bleeding vs risk of PE. They agree to trail of low dose anticoagulation. Previously on Eliquis 10mg bid. Will start 2.5 mg bid and consider increase to 5 mg bid if no bleeding. Get up in chair for meals and increase oxygen during transfers. Plan transition to po meds 12/31. Consider discharge to [facility] and revoking hospice 01/01 if he continues to improve. * December 31: Transitioned to PO medications. Added metoprolol ER and atorvastatin for CAD. Continued apixaban. Avoided antiplatelet drugs, including SSRI's. Methylnaltrexone x 1 for constipation. Discussed care and prognosis with and children at bedside. (2) ILD (interstitial lung disease): Code(s): J84.9 - Interstitial pulmonary disease, unspecified Status: Acute Assessment and Plan: * Possibly exacerbated or triggered by COVID-19. 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 (3) Acute respiratory failure with hypoxia: Code(s): J96.01 - Acute respiratory failure with hypoxia Status: Acute Assessment and Plan: * Likely related to COVID-19 with subsequent interstitial lung disease and influenza A with possible bacterial pneumonia. * 12/30/2023 Continues to improve. (4) Pulmonary embolism: Code(s): I26.99 - Other pulmonary embolism without acute cor pulmonale Status: Acute Assessment and Plan: * 12/30/23 Resumed low dose Eliquis 2.5 mg bid. (5) Deep vein thrombosis of left lower extremity: Code(s): I82.402 - Acute embolism and thrombosis of unspecified deep veins of left lower extremity Status: Acute Assessment and Plan: * High risk for recurrent PE. (6) Coronary artery disease: Code(s): I25.10 - Atherosclerotic heart disease of [place] coronary artery without angina pectoris Status: Acute Assessment and Plan: * Currently without angina. (7) Gastrointestinal hemorrhage: Code(s): K92.2 - Gastrointestinal hemorrhage, unspecified Status: Acute Assessment and Plan: * Occurred during anticoagulation with Eliquis 10 mg bid. * 12/21/23 colonoscopy showed only diverticulosis and internal hemorrhoids w/o stigmata of bleeding. (8) Iron deficiency anemia: Code(s): D50.9 - Iron deficiency anemia, unspecified Status: Acute Assessment and Plan: * Possible underlying chronic blood loss. * 12/30/2023 added oral ferrous sulfate 325 mg daily. Subjective Date/time seen: 12/31/23 08:58 Interval history: Severe anxiety last night and this AM before time to get o
--- NOTE | 2023-12-31 08:58 | PM.IMPN ---
Progress Note: A&P Assessment and Plan (1) Palliative care encounter: Code(s): Z51.5 - Encounter for palliative care Status: Acute Assessment and Plan: Meets inpatient hospice criteria due to requiring continuous IV morphine for control of dyspnea. PRN palliative regimen ordered. December 28: Discussed with patient and family at bedside. Trial of Ensure Clear for nutrition. Trial of medication reduction prior to transitioned oral comfort meds. Discussed remote possibility that he might improve while on hospice. Reduced morphine to 0.25 mg/hr. 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 Pt and family agreed to trial of continued steroids, Prednisone 40 mg/day. December 30: D/w pt and family that he is improving. Discussed risk of bleeding vs risk of PE. They agree to trail of low dose anticoagulation. Previously on Eliquis 10mg bid. Will start 2.5 mg bid and consider increase to 5 mg bid if no bleeding. Get up in chair for meals and increase oxygen during transfers. Plan transition to po meds 12/31. Consider discharge to [facility] and revoking hospice 01/01 if he continues to improve. December 31: Transitioned to PO medications. Added metoprolol ER and atorvastatin for CAD. Continued apixaban. Avoided antiplatelet drugs, including SSRI's. Methylnaltrexone x 1 for constipation. Discussed care and prognosis with and children at bedside. (2) ILD (interstitial lung disease): Code(s): J84.9 - Interstitial pulmonary disease, unspecified Status: Acute Assessment and Plan: Possibly exacerbated or triggered by COVID-19. 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 (3) Acute respiratory failure with hypoxia: Code(s): J96.01 - Acute respiratory failure with hypoxia Status: Acute Assessment and Plan: Likely related to COVID-19 with subsequent interstitial lung disease and influenza A with possible bacterial pneumonia. 12/30/2023 Continues to improve. (4) Pulmonary embolism: Code(s): I26.99 - Other pulmonary embolism without acute cor pulmonale Status: Acute Assessment and Plan: 12/30/23 Resumed low dose Eliquis 2.5 mg bid. (5) Deep vein thrombosis of left lower extremity: Code(s): I82.402 - Acute embolism and thrombosis of unspecified deep veins of left lower extremity Status: Acute Assessment and Plan: High risk for recurrent PE. (6) Coronary artery disease: Code(s): I25.10 - Atherosclerotic heart disease of [place] coronary artery without angina pectoris Status: Acute Assessment and Plan: Currently without angina. (7) Gastrointestinal hemorrhage: Code(s): K92.2 - Gastrointestinal hemorrhage, unspecified Status: Acute Assessment and Plan: Occurred during anticoagulation with Eliquis 10 mg bid. 12/21/23 colonoscopy showed only diverticulosis and internal hemorrhoids w/o stigmata of bleeding. (8) Iron deficiency anemia: Code(s): D50.9 - Iron deficiency anemia, unspecified Status: Acute Assessment and Plan: Possible underlying chronic blood loss. 12/30/2023 added oral ferrous sulfate 325 mg daily. Subjective Date/time seen: 12/31/23 08:58 Interval history: Severe anxiety last night and this AM before time to get out of bed. No po intake today. Bowels moved small amount. Denied pain. Denied sob at rest. Very drowsy after IV Ativan for anxiety earlier this AM. Review of Systems Review of Systems: All systems reviewed & are unremarkable except as noted in HPI and below Exam Narrative: HEENT: PERRL, sclerae nonicteric, pharyngeal mucosa pink and intact NECK: No JVD CHEST: Fine crackles posteriorly both lower lobes. Clear anteriorly. Normal effort. HEART: NL S1/S2, tachycardic, irregularly irregular, no murmur audible. ABDOMEN: BS+, soft,
--- NOTE | 2023-12-31 10:37 | PC.NURSE ---
Pt was having another panic attack this morning. Pt's son was in the room and told pt to just calm down, Dad to which pt replied, I would if I could. I administered ativan per son's request. Pt had been too agitated to take PO meds. Pt has been sleeping within a few minutes of administering the ativan. Pt's son requested that I allow him to sleep. As such, I was not able to administer the PO meds. As they are primarily once daily, I will attempt to give them when pt awakens rather than non-admin them.
[2023-12-31] MEDS: METHYLNALTREXONE 12 MG/0.6 ML VIAL SUB-Q (15:12)
[2023-12-31] MEDS: MORPHINE SULFATE (*CRX) 2 MG/ML INJ IV PUSH (16:16)
[2023-12-31] MEDS: MORPHINE 50 MG/NS 100ML (*CRX) 50 MG/100 ML BAG IV CONT (16:26)
[2024-01-01] MEDS: GLYCOPYRROLATE INJ (*SP) 0.2 MG/ML VIAL 0.1 MG IV PUSH ×3 (04:57→17:37)
--- NOTE | 2024-01-01 07:49 | PM.IMPN ---
Progress Note: A&P Assessment and Plan (1) Palliative care encounter: Code(s): Z51.5 - Encounter for palliative care Status: Acute Assessment and Plan: Meets inpatient hospice criteria due to requiring continuous IV morphine for control of dyspnea. PRN palliative regimen ordered. December 28: Discussed with patient and family at bedside. Trial of Ensure Clear for nutrition. Trial of medication reduction prior to transitioned oral comfort meds. Discussed remote possibility that he might improve while on hospice. Reduced morphine to 0.25 mg/hr. 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 Pt and family agreed to trial of continued steroids, Prednisone 40 mg/day. December 30: D/w pt and family that he is improving. Discussed risk of bleeding vs risk of PE. They agree to trail of low dose anticoagulation. Previously on Eliquis 10mg bid. Will start 2.5 mg bid and consider increase to 5 mg bid if no bleeding. Get up in chair for meals and increase oxygen during transfers. Plan transition to po meds 12/31. Consider discharge to [facility] and revoking hospice 01/01 if he continues to improve. December 31: Transitioned to PO medications. Added metoprolol ER and atorvastatin for CAD. Continued apixaban. Avoided antiplatelet drugs, including SSRI's. Methylnaltrexone x 1 for constipation. Discussed care and prognosis with and children at bedside. January 01: Comfortable on morphine drip 1 mg/hr. Met criteria extended inpatient stay due to rapid and significant decline requiring continuous IV morphine and high flow oxygen for comfort. Discussed with family suspected recurrent PE with truncated prognosis and imminent. (2) ILD (interstitial lung disease): Code(s): J84.9 - Interstitial pulmonary disease, unspecified Status: Acute Assessment and Plan: Possibly exacerbated or triggered by COVID-19. 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 (3) Acute respiratory failure with hypoxia: Code(s): J96.01 - Acute respiratory failure with hypoxia Status: Acute Assessment and Plan: Likely related to COVID-19 with subsequent interstitial lung disease and influenza A with possible bacterial pneumonia. 12/30/2023 Continues to improve. (4) Pulmonary embolism: Code(s): I26.99 - Other pulmonary embolism without acute cor pulmonale Status: Acute Assessment and Plan: 12/30/23 Resumed low dose Eliquis 2.5 mg bid. (5) Deep vein thrombosis of left lower extremity: Code(s): I82.402 - Acute embolism and thrombosis of unspecified deep veins of left lower extremity Status: Acute Assessment and Plan: High risk for recurrent PE. (6) Coronary artery disease: Code(s): I25.10 - Atherosclerotic heart disease of [place] coronary artery without angina pectoris Status: Acute Assessment and Plan: Currently without angina. (7) Gastrointestinal hemorrhage: Code(s): K92.2 - Gastrointestinal hemorrhage, unspecified Status: Acute Assessment and Plan: Occurred during anticoagulation with Eliquis 10 mg bid. 12/21/23 colonoscopy showed only diverticulosis and internal hemorrhoids w/o stigmata of bleeding. (8) Iron deficiency anemia: Code(s): D50.9 - Iron deficiency anemia, unspecified Status: Acute Assessment and Plan: Possible underlying chronic blood loss. 12/30/2023 added oral ferrous sulfate 325 mg daily. Subjective Date/time seen: 01/01/24 07:49 Interval history: Acute issues overnight. Became hypoxemic, tachypneic, tachycardic, minimally responsive. Gurgling this AM. On high-flow oxygen at 10 L/min. Family at bedside. Review of Systems Review of Systems: ROS unobtainable: Yes unobtainable due to medical condition Exam Narrative: HEENT: pharyngeal mucosa pink and inta
[2024-01-01 08:00] VITALS: BP 133/83; PULSE 88; RESP 22; TEMP 36.1; O2SAT 95
[2024-01-01] MEDS: MORPHINE SULFATE (*CRX) 2 MG/ML INJ IV PUSH ×2 (12:26→17:36)
[2024-01-01] MEDS: MORPHINE 50 MG/NS 100ML (*CRX) 50 MG/100 ML BAG IV CONT (18:16)
[2024-01-01 20:00] VITALS: BP 149/81; PULSE 121; RESP 20; TEMP 37; O2SAT 90; O2SAT 95
[2024-01-02 08:00] VITALS: BP 147/66; PULSE 110; PULSE 115; RESP 10; TEMP 37.2; O2SAT 93; O2SAT 95
[2024-01-02] MEDS: MORPHINE SULFATE (*CRX) 2 MG/ML INJ IV PUSH (11:08)
[2024-01-02] MEDS: LORazepam INJ (*CRX) 2 MG/ML VIAL 0.5 MG IV PUSH (12:28)
[2024-01-02] MEDS: MORPHINE 50 MG/NS 100ML (*CRX) 50 MG/100 ML BAG IV CONT (15:59)
--- NOTE | 2024-01-02 17:18 | PM.IMPN ---
Progress Note: A&P Assessment and Plan (1) Palliative care encounter: Code(s): Z51.5 - Encounter for palliative care Status: Acute Assessment and Plan: Meets inpatient hospice criteria due to requiring continuous IV morphine for control of dyspnea. PRN palliative regimen ordered. December 28: Discussed with patient and family at bedside. Trial of Ensure Clear for nutrition. Trial of medication reduction prior to transitioned oral comfort meds. Discussed remote possibility that he might improve while on hospice. Reduced morphine to 0.25 mg/hr. 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 Pt and family agreed to trial of continued steroids, Prednisone 40 mg/day. December 30: D/w pt and family that he is improving. Discussed risk of bleeding vs risk of PE. They agree to trail of low dose anticoagulation. Previously on Eliquis 10mg bid. Will start 2.5 mg bid and consider increase to 5 mg bid if no bleeding. Get up in chair for meals and increase oxygen during transfers. Plan transition to po meds 12/31. Consider discharge to [facility] and revoking hospice 01/01 if he continues to improve. December 31: Transitioned to PO medications. Added metoprolol ER and atorvastatin for CAD. Continued apixaban. Avoided antiplatelet drugs, including SSRI's. Methylnaltrexone x 1 for constipation. Discussed care and prognosis with and children at bedside. January 01: Comfortable on morphine drip 1 mg/hr. Met criteria extended inpatient stay due to rapid and significant decline requiring continuous IV morphine and high flow oxygen for comfort. Discussed with family suspected recurrent PE with truncated prognosis and imminent. January 02: Discussed care prognosis with family at bedside. (2) ILD (interstitial lung disease): Code(s): J84.9 - Interstitial pulmonary disease, unspecified Status: Acute Assessment and Plan: Possibly exacerbated or triggered by COVID-19. 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 (3) Acute respiratory failure with hypoxia: Code(s): J96.01 - Acute respiratory failure with hypoxia Status: Acute Assessment and Plan: Likely related to COVID-19 with subsequent interstitial lung disease and influenza A with possible bacterial pneumonia. 12/30/2023 Continues to improve. (4) Pulmonary embolism: Code(s): I26.99 - Other pulmonary embolism without acute cor pulmonale Status: Acute Assessment and Plan: 12/30/23 Resumed low dose Eliquis 2.5 mg bid. (5) Deep vein thrombosis of left lower extremity: Code(s): I82.402 - Acute embolism and thrombosis of unspecified deep veins of left lower extremity Status: Acute Assessment and Plan: High risk for recurrent PE. (6) Coronary artery disease: Code(s): I25.10 - Atherosclerotic heart disease of [place] coronary artery without angina pectoris Status: Acute Assessment and Plan: Currently without angina. (7) Gastrointestinal hemorrhage: Code(s): K92.2 - Gastrointestinal hemorrhage, unspecified Status: Acute Assessment and Plan: Occurred during anticoagulation with Eliquis 10 mg bid. 12/21/23 colonoscopy showed only diverticulosis and internal hemorrhoids w/o stigmata of bleeding. (8) Iron deficiency anemia: Code(s): D50.9 - Iron deficiency anemia, unspecified Status: Acute Assessment and Plan: Possible underlying chronic blood loss. 12/30/2023 added oral ferrous sulfate 325 mg daily. Subjective Date/time seen: 01/02/24 17:18 Interval history: Quite day. Slept all day. Family observing apneas intermittently. No p.o. intake. Review of Systems Review of Systems: All systems reviewed & are unremarkable except as noted in HPI and below Exam Narrative: HEENT: pharyngeal mucosa pink and i
[2024-01-02 20:00] VITALS: O2SAT 92
[2024-01-02 21:25] VITALS: BP 152/65; PULSE 124; RESP 22; O2SAT 100
[2024-01-03 08:00] VITALS: BP 138/60; PULSE 113; PULSE 115; RESP 14; TEMP 36.8; O2SAT 97; O2SAT 99
[2024-01-03] MEDS: MORPHINE 50 MG/NS 100ML (*CRX) 50 MG/100 ML BAG IV CONT (15:00)
--- NOTE | 2024-01-03 17:21 | PM.IMPN ---
Progress Note: A&P Assessment and Plan (1) Palliative care encounter: Code(s): Z51.5 - Encounter for palliative care Status: Acute Assessment and Plan: Meets inpatient hospice criteria due to requiring continuous IV morphine for control of dyspnea. PRN palliative regimen ordered. December 28: Discussed with patient and family at bedside. Trial of Ensure Clear for nutrition. Trial of medication reduction prior to transitioned oral comfort meds. Discussed remote possibility that he might improve while on hospice. Reduced morphine to 0.25 mg/hr. 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 Pt and family agreed to trial of continued steroids, Prednisone 40 mg/day. December 30: D/w pt and family that he is improving. Discussed risk of bleeding vs risk of PE. They agree to trail of low dose anticoagulation. Previously on Eliquis 10mg bid. Will start 2.5 mg bid and consider increase to 5 mg bid if no bleeding. Get up in chair for meals and increase oxygen during transfers. Plan transition to po meds 12/31. Consider discharge to [facility] and revoking hospice 01/01 if he continues to improve. December 31: Transitioned to PO medications. Added metoprolol ER and atorvastatin for CAD. Continued apixaban. Avoided antiplatelet drugs, including SSRI's. Methylnaltrexone x 1 for constipation. Discussed care and prognosis with and children at bedside. January 01: Comfortable on morphine drip 1 mg/hr. Met criteria extended inpatient stay due to rapid and significant decline requiring continuous IV morphine and high flow oxygen for comfort. Discussed with family suspected recurrent PE with truncated prognosis and imminent. January 02: Discussed care prognosis with family at bedside. January 03: Discussed care prognosis with family at bedside. (2) ILD (interstitial lung disease): Code(s): J84.9 - Interstitial pulmonary disease, unspecified Status: Acute Assessment and Plan: Possibly exacerbated or triggered by COVID-19. 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 (3) Acute respiratory failure with hypoxia: Code(s): J96.01 - Acute respiratory failure with hypoxia Status: Acute Assessment and Plan: Likely related to COVID-19 with subsequent interstitial lung disease and influenza A with possible bacterial pneumonia. 12/30/2023 Continues to improve. (4) Pulmonary embolism: Code(s): I26.99 - Other pulmonary embolism without acute cor pulmonale Status: Acute Assessment and Plan: 12/30/23 Resumed low dose Eliquis 2.5 mg bid. (5) Deep vein thrombosis of left lower extremity: Code(s): I82.402 - Acute embolism and thrombosis of unspecified deep veins of left lower extremity Status: Acute Assessment and Plan: High risk for recurrent PE. (6) Coronary artery disease: Code(s): I25.10 - Atherosclerotic heart disease of [place] coronary artery without angina pectoris Status: Acute Assessment and Plan: Currently without angina. (7) Gastrointestinal hemorrhage: Code(s): K92.2 - Gastrointestinal hemorrhage, unspecified Status: Acute Assessment and Plan: Occurred during anticoagulation with Eliquis 10 mg bid. 12/21/23 colonoscopy showed only diverticulosis and internal hemorrhoids w/o stigmata of bleeding. (8) Iron deficiency anemia: Code(s): D50.9 - Iron deficiency anemia, unspecified Status: Acute Assessment and Plan: Possible underlying chronic blood loss. 12/30/2023 added oral ferrous sulfate 325 mg daily. Subjective Date/time seen: 01/03/24 17:21 Interval history: Quite day. Slept all day. Review of Systems Review of Systems: ROS unobtainable: Yes unobtainable due to medical condition Exam Narrative: HEENT: pharyngeal mucosa pink and intac
--- NOTE | 2024-01-03 17:21 | P.PNIM_ITS ---
Progress Note: A&P Assessment and Plan (1) Palliative care encounter: Code(s): Z51.5 - Encounter for palliative care Status: Acute Assessment and Plan: * Meets inpatient hospice criteria due to requiring continuous IV morphine for control of dyspnea. * PRN palliative regimen ordered. * December 28: Discussed with patient and family at bedside. Trial of Ensure Clear for nutrition. Trial of medication reduction prior to transitioned oral comfort meds. Discussed remote possibility that he might improve while on hospice. Reduced morphine to 0.25 mg/hr. 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 Pt and family agreed to trial of continued steroids, Prednisone 40 mg/day. * December 30: D/w pt and family that he is improving. Discussed risk of bleeding vs risk of PE. They agree to trail of low dose anticoagulation. Previously on Eliquis 10mg bid. Will start 2.5 mg bid and consider increase to 5 mg bid if no bleeding. Get up in chair for meals and increase oxygen during transfers. Plan transition to po meds 12/31. Consider discharge to [facility] and revoking hospice 01/01 if he continues to improve. * December 31: Transitioned to PO medications. Added metoprolol ER and atorvastatin for CAD. Continued apixaban. Avoided antiplatelet drugs, including SSRI's. Methylnaltrexone x 1 for constipation. Discussed care and prognosis with and children at bedside. * January 01: Comfortable on morphine drip 1 mg/hr. Met criteria extended inpatient stay due to rapid and significant decline requiring continuous IV morphine and high flow oxygen for comfort. Discussed with family suspected recurrent PE with truncated prognosis and imminent. * January 02: Discussed care prognosis with family at bedside. * January 03: Discussed care prognosis with family at bedside. (2) ILD (interstitial lung disease): Code(s): J84.9 - Interstitial pulmonary disease, unspecified Status: Acute Assessment and Plan: * Possibly exacerbated or triggered by COVID-19. 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 (3) Acute respiratory failure with hypoxia: Code(s): J96.01 - Acute respiratory failure with hypoxia Status: Acute Assessment and Plan: * Likely related to COVID-19 with subsequent interstitial lung disease and influenza A with possible bacterial pneumonia. * 12/30/2023 Continues to improve. (4) Pulmonary embolism: Code(s): I26.99 - Other pulmonary embolism without acute cor pulmonale Status: Acute Assessment and Plan: * 12/30/23 Resumed low dose Eliquis 2.5 mg bid. (5) Deep vein thrombosis of left lower extremity: Code(s): I82.402 - Acute embolism and thrombosis of unspecified deep veins of left lower extremity Status: Acute Assessment and Plan: * High risk for recurrent PE. (6) Coronary artery disease: Code(s): I25.10 - Atherosclerotic heart disease of [place] coronary artery without angina pectoris Status: Acute Assessment and Plan: * Currently without angina. (7) Gastrointestinal hemorrhage: Code(s): K92.2 - Gastrointestinal hemorrhage, unspecified Status: Acute Assessment and Plan: * Occurred during anticoagulation with Eliquis 10 mg bid. * 12/21/23 colonoscopy showed only diverticulosis and internal hemorrhoids w/o
[2024-01-03 20:00] VITALS: BP 115/49; PULSE 128; RESP 22; TEMP 36.8; O2SAT 100
[2024-01-04 05:08] VITALS: BP 130/70; PULSE 122; RESP 22; TEMP 36.8; O2SAT 93
--- NOTE | 2024-01-04 16:58 | PM.DDS ---
Discharge Summary Date and Time Date of : 01/04/24 Time of : 05:58 Provider Pronounced By: Emily Reddy RN Probable Cause of Probable Cause of : Uncontrolled dyspnea and restlessness Summary Hospital Course: Admitted inpatient hospice service for symptom management. Medications titrated to comfort. Mr. Epps peacefully. Additional Data Confirmation of as documented by pronouncing clinician: Pupillary Reflex, Palpable Pulses, Response to Stimuli, Heart Tones and Breath Sounds Name of Provider Notified: Dr. 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
== END 2024-01-04 05:58 | disposition expired | DRG 951 ==
PROVIDERS: Admitting Provider Internal Medicine; PCP Physician Assistant; Visit Provider Internal Medicine
DX: Z51.5 Encounter for palliative care (principal); J96.01 Acute respiratory failure with hypoxia; I26.99 Other pulmonary embolism without acute cor pulmonale; J84.9 Interstitial pulmonary disease, unspecified; M33.13 Other dermatomyositis without myopathy; I11.0 Hypertensive heart disease with heart failure; I50.9 Heart failure, unspecified; I25.10 Atherosclerotic heart disease of native coronary artery without angina pectoris; D50.9 Iron deficiency anemia, unspecified; F41.9 Anxiety disorder, unspecified; Z79.01 Long term (current) use of anticoagulants; Z86.718 Personal history of other venous thrombosis and embolism; Z86.711 Personal history of pulmonary embolism
CPT/HCPCS: A9270; J0780; J1596; J2060; J2212; J2270; J7512